=== PATIENT | female | born 1970 | race Caucasian/White ===

== ENCOUNTER 2017-02-10 18:07 | Emergency (ER) | payer OTHER ==
[~2017-02-10] VITALS: Ht 157.5 cm; Wt 75.8 kg
[2017-02-10] MEDS ORDERED: CYCLOBENZAPRINE10 MG PO ×2 (18:33→19:12)
[2017-02-10] MEDS ORDERED: SIMVASTATIN10 MG PO (18:33)
[2017-02-10] MEDS ORDERED: LAMOTRIGINE100 M1 PO (18:33)
[2017-02-10] MEDS ORDERED: TOPIRAMATE100 MG PO (18:33)
[2017-02-10] MEDS ORDERED: DULOXETINE HCL30 MG PO (18:34)
[2017-02-10] MEDS ORDERED: TRAMADOL HCL50 MG PO (18:34)
[2017-02-10] MEDS ORDERED: DICLOFENAC SODI75 MG PO (19:12)
== END 2017-02-10 19:25 | disposition home or self-care (01) ==
LOC: ED 18:07
DX: S39.012A Strain of muscle, fascia and tendon of lower back, initial encounter (principal); J45.909 Unspecified asthma, uncomplicated; G25.81 Restless legs syndrome; F17.200 Nicotine dependence, unspecified, uncomplicated; Z98.51 Tubal ligation status; Z88.0 Allergy status to penicillin; Z88.6 Allergy status to analgesic agent; Z91.038 Other insect allergy status; Z88.5 Allergy status to narcotic agent; Z79.899 Other long term (current) drug therapy; Z98.890 Other specified postprocedural states; X50.0XXA Overexertion from strenuous movement or load, initial encounter
CPT/HCPCS: 99283

== ENCOUNTER 2017-05-25 16:55 | Emergency (ER) | payer OTHER ==
[~2017-05-25] VITALS: Ht 157.5 cm; Wt 81.7 kg
[~2017-05-25 16:55] MED LIST: CYCLOBENZAPRINE10 MG PO; DICLOFENAC SODI75 MG PO; DULOXETINE HCL30 MG PO; LAMOTRIGINE100 M1 PO; SIMVASTATIN10 MG PO; TOPIRAMATE100 MG PO; TRAMADOL HCL50 MG PO
[2017-05-25] MEDS ORDERED: VENTOLIN HFA18 GM INH (18:02)
== END 2017-05-25 18:12 | disposition home or self-care (01) ==
LOC: ED 16:55
DX: J06.9 Acute upper respiratory infection, unspecified (principal); J45.909 Unspecified asthma, uncomplicated; F17.200 Nicotine dependence, unspecified, uncomplicated; Z88.0 Allergy status to penicillin; Z88.8 Allergy status to other drugs, medicaments and biological substances; Z91.030 Bee allergy status; Z88.5 Allergy status to narcotic agent; Z79.899 Other long term (current) drug therapy; Z79.891 Long term (current) use of opiate analgesic
CPT/HCPCS: 99283

== ENCOUNTER 2017-06-03 14:40 | Emergency (ER) | payer OTHER ==
[~2017-06-03] VITALS: Ht 157.5 cm; Wt 81.7 kg
[~2017-06-03 14:40] MED LIST changes: +VENTOLIN HFA18 GM INH
== END 2017-06-03 16:42 | disposition home or self-care (01) ==
LOC: ED 14:40
DX: S93.602A Unspecified sprain of left foot, initial encounter (principal); S80.12XA Contusion of left lower leg, initial encounter; J45.909 Unspecified asthma, uncomplicated; F17.200 Nicotine dependence, unspecified, uncomplicated; Z98.51 Tubal ligation status; Z90.49 Acquired absence of other specified parts of digestive tract; Z91.030 Bee allergy status; Z88.0 Allergy status to penicillin; Z88.6 Allergy status to analgesic agent; Z79.899 Other long term (current) drug therapy; W01.0XXA Fall on same level from slipping, tripping and stumbling without subsequent striking against object, initial encounter
CPT/HCPCS: 73590; 73630; 99283

== ENCOUNTER 2017-10-14 17:58 | Emergency (ER) | payer OTHER ==
[~2017-10-14] VITALS: Ht 157.5 cm; Wt 81.8 kg
[2017-10-14] MEDS ORDERED: ULTRAM50 MG PO (18:20)
[2017-10-14] MEDS ORDERED: CLEOCIN HCL300 MG PO (18:20)
[2017-10-14] MEDS ORDERED: IBUPROFEN600 MG PO (18:20)
--- OUTSIDE RECORDS SUMMARY | 2017-10-14 18:37 | XMS | Encounter Summary ---
Demographics + + + | Address | [address] | | | [place] [address] | + + + | Home Phone | | + + + | Preferred Language | Unknown | + + + | Marital Status | | + + + | Christianity Affiliation | Unknown | + + + | Race | Unknown | + + + | Ethnic Group | Unknown | + + + Author + + + | Author | [facility] | | | and [place] | + + + | Organization | [facility] | | | and [place] | + + + | Address | Unknown | + + + | Phone | Unavailable | + + + Support + + +---------+ + | Name | Relationship | Address | Phone | + + +---------+ + | Venancio Perez | ECON | Unknown | | + + +---------+ + Care Team Providers + +------+ + | Care Rail Engineer Name | Role | Phone | + +------+ + | Kayy Holguin DO | PCP | | + +------+ + Reason for Visit + + + | Reason | Comments | + + + | Medication Refill | | + + + Encounter Details +--------+--------+ + + + | Date | Type | Department | Care Team | Description | +--------+--------+ + + + | 09/24/ | Refill | [place] [facility] | Kayy Holguin, | Medication Refill | | 2017 | | [facility] | DO [address] | | | | | [facility] [address] | [place] [address] | | | | | [address] [place], | [phone] | | | | | [place] [address] | | | | | | [phone] | | | +--------+--------+ + + + Social History + + + +--------+------+ | Tobacco Use | Types | Packs/Day | Years | Date | | | | | Used | | + + + +--------+------+ | Current Every Day | Cigarettes | 0.5 | | | | Smoker | | | | | + + + +--------+------+ + +---+---+---+ | Smokeless Tobacco: | | | | | Never Used | | | | + +---+---+---+ + + +---------+ + | Alcohol Use | Drinks/We | oz/Week | Comments | | | ek | | | + + +---------+ + | No | | | | + + +---------+ + + + + | Sex Assigned at | Date Recorded | | | | + + + | Not on file | | + + + as of this encounter Plan of Treatment Not on fileas of this encounter Visit Diagnoses + + | Diagnosis | + + | Pain - Primary | + + | Generalized pain | + +"
--- OUTSIDE RECORDS SUMMARY | 2017-10-14 18:37 | XMS | Clinical Summary ---
Demographics + + + | Address | [address] | | | [place] [address] | + + + | Home Phone | | + + + | Preferred Language | Unknown | + + + | Marital Status | | + + + | Baptism Affiliation | Unknown | + + + | Race | Unknown | + + + | Ethnic Group | Unknown | + + + Author + + + | Author | [facility] | | | and [place] | + + + | Organization | [facility] | | | and [...] Team Providers + +------+ + | Care Copy Cutter Name | Role | Phone | + +------+ + | Kayy Holguin DO | PP | | + +------+ + Allergies + + + + + + | Active Allergy | Reactions | Severity | Noted | Comments | | | | | Date | | + + + + + + | Aspirin | | | 02/20/20 | | | | | | 18 | | + + + + + + | Bee Venom | | | 02/20/20 | | | | | | 18 | | + + + + + + | Oxycodone | | | 08/01/19 | | | | | | 18 | | + + + + + + | Penicillins | | | 08/01/19 | | | | | | 18 | | + + + + + + Current Medications + + +--------+---------+------+------+-------+ | Prescription | Sig. | Disp. | Refills | Star | End | Statu | | | | | | t | Date | s | | | | | | Date | | | + + +--------+---------+------+------+-------+ | SUMAtriptan | TAKE ONE TABLET BY | 9 | 0 | 01/1 | | Activ | | (IMITREX) 100 mg | MOUTH AT FIRST ONSET | tablet | | 01/29 | | e | | tabletIndications: | OF MIGRAINE | | | 18 | | | | Intractable periodic | SYMPTOMS, MAY REPEAT | | | | | | | headache syndrome | AFTER 2 HOURS; MAX | | | | | | | | DOSE 200MG IN 24 | | | | | | | | HOURS | | | | | | + + +--------+---------+------+------+-------+ | topiramate | Take 1 tablet by | 180 | 3 | 02/0 | | Activ | | (TOPAMAX) 100 mg | mouth 2 times daily. | tablet | | /20 | | e | | tablet | | | | 18 | | | + + +--------+---------+------+------+-------+ | VENTOLIN HFA 108 | | | | 12/1 | | Activ | | (90 Base) MCG/ACT | | | | 5/20 | | e | | inhaler | | | | 17 | | | + + +--------+---------+------+------+-------+ | simvastatin | | | | 02/1 | | Activ | | (ZOCOR) 10 mg tablet | | | | /20 | | e | | | | | | 18 | | | + + +--------+---------+------+------+-------+ | diclofenac | Take 75 mg by mouth | | | | | Activ | | (VOLTAREN) 75 mg EC | 2 times daily. | | | | | e | | tablet | | | | | | | + + +--------+---------+------+------+-------+ | cyclobenzaprine | Take 10 mg by mouth | | | | | Activ | | (FLEXERIL) 10 mg | 3 times daily as | | | | | e | | tablet | needed for Muscle | | | | | | | | spasms. | | | | | | + + +--------+---------+------+------+-------+ | montelukast | Take 10 mg by mouth | | | | | Activ | | (SINGULAIR) 10 mg | nightly. | | | | | e | | tablet | | | | | | | + + +--------+---------+------+------+-------+ | DULoxetine | Take 30 mg by mouth | | | | | Activ | | (CYMBALTA) [address] | Daily. | | | | | e | | capsule | | | | | | | + + +--------+---------+------+------+-------+ | lamoTRIgine | Take 100 mg by mouth | | | | | Activ | | (LAMICTAL) 100 mg | Daily. | | | | | e | | tablet | | | | | | | + + +--------+---------+------+------+-------+ | melatonin 3 mg | Take by mouth | | | | | Activ | | TABS | nightly as needed. | | | | | e | + + +--------+---------+------+------+-------+ | traMADol (ULTRAM) | Take 1 tablet by | 14 | 0 | 02/2 | | Activ | | 50 mg tablet | mouth nightly as | tablet | | 0/20 | | e | | | needed. | | | 18 | | | + + +--------+---------+------+------+-------+ | ibuprofen | TAKE ONE TABLET BY | 180 | 3 | 04/ | | Activ | | (ADVIL,MOTRIN) 800 | MOUTH TWICE DAILY | tablet | | 6/20 | | e | | MG | WITH FOOD | | | 18 | | | | tabletIndications: | | | | | | | | Pain | | | | | | | + + +--------+---------+------+------+-------+ | ibuprofen | Take 1 tablet by | 60 | 1 | 02/2 | 04 | Disco | | (ADVIL,MOTRIN) 800 | mouth 2 times daily. | tablet | | 0/20 | 5 | ntinu | | MG tablet | With food | | | 18 | 18 | ed | + + +--------+---------+------+------+-------+ Active Problems + + + | Problem | Noted Date | + + + | Other hyperlipidemia | 08/01/2017 | + + + | Depression | 08/01/2017 | + + + | Tobacco abuse | 08/01/2017 | + + + | Mild intermittent asthma without complication | 08/01/2017 | + + + | Primary osteoarthritis | 08/01/2017 | + + + | Migraine without aura and without status migrainosus, not | 08/01/2017 | | intractable | | + + + Encounters +--------+ + + + + | Date | Type | Specialty | Care Team | Description | +--------+ + + + + | 09/24/ | Refill | | Kayy Holguin, | Medication Refill | | 2017 | | | DO | | +--------+ + + + + | 08/08/ | Hospital | | Kayy Holguin, | Screening for breast | | 2017 | Encounter | | DO | cancer | +--------+ + + + + | 08/08/ | Telephone | | Diane Thornton, | Lab Results | | 2017 | | | MANAGER ACQUISITION | | +--------+ + + + + | 08/08/ | Telephone | | Diane Thornton, | Results, Imaging | | 2017 | | | MANAGER ACQUISITION | | +--------+ + + + + | 08/01/ | Hospital | | Kayy Holguin, | Injury of left | | 2017 | Encounter | | DO | shoulder, initial | | | | | | encounter | +--------+ + + + + | 08/01/ | Office | | Kayy Holguin, | Injury of left | | 2017 | Visit | | DO | shoulder, initial | | | | | | encounter (Primary | | | | | | Dx); Strain of left | | | | | | shoulder, initial | | | | | | encounter; Other | | | | | | hyperlipidemia; | | | | | | Screening for breast | | | | | | cancer | +--------+ + + + + | 08/01/ | Telephone | | Kayy Holguin, | Results, Imaging | | 2017 | | | DO | | +--------+ + + + + from Last 3 Months Immunizations + + + + | Name | Dates Previously Given | Next Due | + + + + | INFLUENZA PF | 03/03/2017 | | | QUAD(PED/ADOL/ADULT) | | | | ,PSKT or VIAL | | | + + + + | INFLUENZA PF | 03/11/2015 | | | TRIVALENT(PED/ADOL/A | | | | DULNey) PSKT | | | + + + + | TDAP, (ADOL/ADULT) | 03/11/2015, 04/12/2013 | | + + + + Family History + + +------+ + | Medical History | Relation | Name | Comments | + + +------+ + | Cancer | Father | | | + + +------+ + | Diabetes | Father | | | + + +------+ + | Heart disease | Father | | | + + +------+ + | High blood pressure | Father | | | + + +------+ + | High cholesterol | Father | | | + + +------+ + | Cancer | Mother | | | + + +------+ + | Depression | Mother | | | + + +------+ + | Diabetes | Mother | | | + + +------+ + | Heart disease | Mother | | | + + +------+ + | High blood pressure | Mother | | | + + +------+ + | High cholesterol | Mother | | | + + +------+ + | Depression | Son | | | + + +------+ + + +------+--------+ + | Relation | Name | Status | Comments | + +------+--------+ + | Father | | | | + +------+--------+ + | Mother | | | | + +------+--------+ + | Son | | | | + +------+--------+ + Social History + + + +--------+------+ [...] on file | | + + + Last Filed Vital Signs + + + + | Vital Sign | Reading | Time Taken | + + + + | Blood Pressure | 120/80 | 08/01/2017939 PST | + + + + | Pulse | 88 | 08/01/2017939 PST | + + + + | Temperature | 36 C (96.8 F) | 10/08/2015 1447 PDT | + + + + | Respiratory Rate | 16 | 08/01/2017939 PST | + + + + | Oxygen Saturation | 94% | 08/01/2017939 PST | + + + + | Inhaled Oxygen | - | - | | Concentration | | | + + + + | Weight | 72.1 kg (158 lb 14.4 | 08/01/2017939 PST | | | oz) | | + + + + | Height | 157.5 cm (5' 2") | 08/01/2017939 PST | + + + + | Body Mass Index | 29.06 | 08/01/2017939 PST | + + + + Plan of Treatment + + + + + | Health Maintenance | Due Date | Last Done | Comments | + + + + + | Vaccine: | | | | | Pneumococcal | 0 | | | | (PPSV23 only) Medium | | | | | Risk (1 of 1 - | | | | | PPSV23) | | | | + + + + + | CERVICAL CANCER | | 10/28/2015, 10/28/2015 | | | SCREENING (PAP EVERY | 9 | | | | 3 YEARS 64 ) | | | | + + + + + | Vaccine: | | 03/11/2015, 04/12/2013 | | | Dtap/Tdap/Td (2 - | 5 | | | | Td) | | | | + + + + + | Vaccine: Influenza | Completed | 03/03/2017, 03/11/2015 | | + + + + + Results TRISTAN Tomosynthesis Screening Bilateral (08/08/2017 1150) + + | Impressions | + + | IMPRESSION: BIRADS category: 2. No findings suspicious for malignancy. | | COMMENT: 1. A negative or "no suspicious findings" mammogram report should not delay | | biopsy if clinical suspicious findings are present. 2. About 7% of breast cancers are | | not visible on mammogram. 3. Dense breasts can obscure significant breast masses. | | COMMENT: BIRADS Category Zero Incomplete: Needs additional imaging evaluation. BIRADS | | Category One Negative mammogram. BIRADS Category Two Benign findings. BIRADS Category | | Three Probably benign finding, short interval follow-up suggested. BIRADS Category Four | | Suspicious for/of malignancy. BIRADS Category Five Highly suggestive for/of | | malignancy. Dictated by: Juan Looney | + + + + | Narrative | + + | EXAMINATION: TRISTAN TOMOSYN SCREENING BILATERAL HISTORY: routine mammogram to | | screen for breast cancer COMPARISON STUDY: 05/21/2014. 05/02/2013. | | TECHNIQUE: 3D tomosynthesis, 2D synthesized images and standard digital | | mammographic images are utilized in study interpretation. Computer-aided detection | | analysis was performed and included in the interpretation of this study. FINDINGS: | | No dominant mass, clustered microcalcification or architectural distortion is seen. | | Scattered fibroglandular density present. Intramammary lymph nodes noted upper | | lateral posterior 3rd depth right breast.. | + + Lipid Panel (08/08/2017945) + + + + | Component | Value | Ref Range | + + + + | Triglycerides | 116 | 30 - 200 mg/dL | + + + + | Cholesterol | 186 | 0 - 200 mg/dL | + + + + | HDL | 41 | >=40 mg/dL | + + + + | Chol/HDL Ratio | 4.5 | | + + + + | LDL, Calculated | 122 | <=150 mg/dL | | | Comment: | | | | LDL reference range: | | | | | | | | < 100 mg/dL Optimal | | | | 100 - 129 mg/dL Near Optimal | | | | 130 - 159 mg/dL Borderline | | | | 160 - 189 mg/dL High | | | | > 190 mg/dL Very High | | + + + + + + + | Specimen | Performing Laboratory | + + + | Blood | [facility] [address] | | | [place] [address] | + + + Comprehensive Metabolic Panel (08/08/2017 0946) + + + + | Component | Value | Ref Range | + + + + | NA | 139 | 132 - 143 mmol/L | + + + + | K | 4.1 | 3.3 - 4.9 mmol/L | + + + + | CL | 103 | 95 - 108 mmol/L | + + + + | CO2 | 24 | 23 - 34 mmol/L | + + + + | ANION GAP | 12 | 7 - 16 mmol/L | + + + + | GLUCOSE | 92 | 70 - 110 mg/dL | + + + + | BUN | 9 | 5 - 26 mg/dL | + + + + | Creatinine, | 0.81 | 0.70 - 1.40 mg/dL | | Serum/Plasma | | | + + + + | eGFR if not | >60Comment: GLOMERULAR FILTRATION | >=60 mL/min/1.73m2 | | SAMOAN | RATE,ESTIMATED mL/min/1.60o6Usid than | | | | 60 Chronic kidney disease,if found over | | | | a 3-month period.Less than 15 Kidney | | | | failureFor Americans,multiply the | | | | calculated GFR by 1.21. | | | | | | | | | | + + + + | CALCIUM | 8.9 | 8.3 - 10.0 mg/dL | + + + + | ALBUMIN | 3.4 | 3.0 - 4.5 g/dL | + + + + | Bilirubin Total | 0.2 | 0.0 - 1.2 mg/dL | + + + + | Total protein | 7.3 | 6.6 - 8.5 g/dL | + + + + | AST | 22 | 0 - 38 U/L | + + + + | ALT | 38 | 14 - 59 U/L | + + + + | ALK PHOS | 93 | 46 - 116 U/L | + + + + | GLOBULIN | 3.9 | g/dL | + + + + | Albumin/Globulin | 0.9 | | | ratio | | | + + + + | BUN/CREA | 11.1 | 7.0 - 24.0 | + + + + + + + | Specimen | Performing Laboratory | + + + | Blood | [facility] [address] | | | [place] [address] | + + + XR Shoulder Left 2 + Vw (08/01/2017 1059) + + | Impressions | + + | IMPRESSION: 1. Interval widening of the acromioclavicular joint. This finding | | could relate to age-indeterminate sprain. Nonspecific osteal lysis of the distal | | clavicle could result in similar appearance. 2. No fracture or dislocation identified. | | Dictated by: Juan Looney | | 12:15 PM | + + + + | Narrative | + + | EXAMINATION: XR SHOULDER LEFT 2 + VW HISTORY: fall and injury to left shoulder | | COMPARISON STUDY: Left shoulder 06/04/2017. FINDINGS: Distance between the | | acromion and the clavicle is 15 mm. Alignment appears maintained. No acute | | fracture or dislocation is seen. The visualized left thorax is clear. | + + + + | Procedure Note | + + | Marvin, Rad Results In - 08/01/2017 1219 PST EXAMINATION:XR SHOULDER LEFT 2 + | | VWHISTORY:fall and injury to left shoulderCOMPARISON STUDY:Left shoulder | | 06/04/2017.FINDINGS:Distance between the acromion and the clavicle is 15 mm. Alignment | | appears maintained.No acute fracture or dislocation is seen. The visualized left thorax | | is clear.IMPRESSION: IMPRESSION:1. Interval widening of the acromioclavicular joint. | | This finding could relate to age-indeterminate sprain. Nonspecific osteal lysis of the | | distal clavicle could result in similar appearance.2. No fracture or dislocation | | identified.Dictated by: Juan LooneyElectronically Signed by: Juan Looney on | | 08/01/2017 12:15 PM | |FINDINGS: | |Distance between the acromion and the clavicle is 15 mm. Alignment appears maintained. | | | |No acute fracture or dislocation is seen. The visualized left thorax is clear. | | | | | |IMPRESSION: | |IMPRESSION: | |1. Interval widening of the acromioclavicular joint. This finding could relate to age-inde terminate sprain. Nonspecific osteal lysis of the distal clavicle could result in similar a ppearance. | |2. No fracture or dislocation identified. | | | |Dictated by: Juan Looney | | | | | + + from Last 3 Months Insurance + +--------+ +--------+ +---------+ | Payer | Benefi | Subscriber | Type | Phone | Address | | | t Plan | ID | | | | | | / | | | | | | | Group | | | | | + +--------+ +--------+ +---------+ | [employer] | MODA | xxxxxxxx | Medica | [phone] | | MEDICAID HMO | HEALTH | | id | 9821 | | | | [place] | | | | | | | [place] | | | | | + +--------+ +--------+ +---------+ + +--------+ +--------+ + + | Guarantor Name | Accoun | Relation to | Date | Phone | Billing Address | | | t Type | Patient | of | | | | | | | | | | + +--------+ +--------+ + + | RIDDHI PEREZ | Person | Self [birth year] Home: | [address] | | | al/Fam | | 1970 | [phone] | [address] [place] | | | jun | | [phone] | + +--------+ +--------+ + +
--- OUTSIDE RECORDS SUMMARY | 2017-10-14 18:40 | XMS | Encounter Summary ---
Demographics + + + | Address | [address] | | | [place] [address] | + + + | Home Phone | | + + + | Preferred Language | Unknown | + + + | Marital Status | | + + + | Pentecostalism Affiliation | Unknown | + + + | Race | Unknown | + + + | Ethnic Group | Unknown | + + + Author + + + | Author | [facility] | | | and [place] | + + + | Organization | [facility] | | | [...] Team Providers + +------+ + | Care Plastering Supervisor Name | Role | Phone | + +------+ + | Kayy Holguin DO | PCP | | + +------+ + Reason for Visit + + + | Reason | Comments | + + + | Lab Results | | + + + Encounter Details +--------+ + + + + | Date | Type | Department | Care Team | Description | +--------+ + + + + | 08/08/ | Telephone | [place] [facility] | Diane Thornton, | Lab Results | | 2017 | | [facility] | COATER OPERATOR | | | | | [facility]ICAL CL[facility] [address] | | | | | [address] [place], | | | | | | [place] [address] | | | | | | [phone] | | | +--------+ + + + + Social History + + [...] on fileas of this encounter Visit Diagnoses Not on filein this encounter"
--- OUTSIDE RECORDS SUMMARY | 2017-10-14 18:40 | XMS | Encounter Summary ---
Demographics + + + | Address | [address] | | | [place] [address] | + + + | Home Phone | | + + + | Preferred Language | Unknown | + + + | Marital Status | | + + + | Anabaptist Affiliation | Unknown | + + + | Race | Unknown | + + + | Ethnic Group | Unknown | + + + Author + + + | Author | [facility] | | | and [place] | + + + | Organization | [facility] | | | [...] Team Providers + +------+ + | Care Commercial Truck Driver Name | Role | Phone | + +------+ + | Kayy Holguin DO | PCP | | + +------+ + Reason for Visit + + + | Reason | Comments | + + + | Results, Imaging | | + + + Encounter Details +--------+ + + + + | Date | Type | Department | Care Team | Description | +--------+ + + + + | 08/08/ | Telephone | [place] [facility] | Diane Thornton, | Results, Imaging | | 2017 | | [facility] | [facility] | | | | | MEDICAL CLINIC [address] | | | | | | [address] [facility], | | | | | | [place] [address] | | | | | | [phone] | | | +--------+ + + + [...]
--- OUTSIDE RECORDS SUMMARY | 2017-10-14 18:40 | XMS | Encounter Summary ---
Demographics + + + | Address | [address] | | | [place] [address] | + + + | Home Phone | | + + + | Preferred Language | Unknown | + + + | Marital Status | | + + + | Bahai Affiliation | Unknown | + + + | Race | Unknown | + + + | Ethnic Group | Unknown | + + + Author + + + | Author | [facility] | | | and [place] | + + + | Organization | [facility] | | | and [...] Team Providers + +------+ + | Care Boss Miner Name | Role | Phone | + +------+ + | Kayy Holguin DO | PCP | | + +------+ + Encounter Details +--------+ + + + + | Date | Type | Department | Care Team | Description | +--------+ + + + + | 08/08/ | [facility] | Kayy Holguin, | Screening for breast | | 2018 | Encounter | HOSPITAL [facility] | DO [address] | cancer | | | | [address] | [place] [address] | | | | | [address] [place] | [phone] | | | | | [place], [place] | | | | | | [address] | | | | | | [phone] | | | +--------+ + + + [...] + + + as of this encounter Medications at Time of Discharge + + +--------+---------+ + + | Medication | Sig. | Disp. | Refills | Start | End Date | | | | | | Date | | + + +--------+---------+ + + | cyclobenzaprine | Take 10 mg by mouth | | | | | | (FLEXERIL) 10 mg | 3 times daily as | | | | | | tablet | needed for Muscle | | | | | | | spasms. | | | | | + + +--------+---------+ + + | diclofenac | Take 75 mg by mouth | | | | | | (VOLTAREN) 75 mg EC | 2 times daily. | | | | | | tablet | | | | | | + + +--------+---------+ + + | DULoxetine | Take 30 mg by mouth | | | | | | (CYMBALTA) [address] | Daily. | | | | | | capsule | | | | | | + + +--------+---------+ + + | lamoTRIgine | Take 100 mg by mouth | | | | | | (LAMICTAL) 100 mg | Daily. | | | | | | tablet | | | | | | + + +--------+---------+ + + | melatonin 3 mg | Take by mouth | | | | | | TABS | nightly as needed. | | | | | + + +--------+---------+ + + | montelukast | Take 10 mg by mouth | | | | | | (SINGULAIR) 10 mg | nightly. | | | | | | tablet | | | | | | + + +--------+---------+ + + | simvastatin | | | | 07/25/19 | | | (ZOCOR) 10 mg tablet | | | | 18 | | + + +--------+---------+ + + | SUMAtriptan | TAKE ONE TABLET BY | 9 | 0 | 06/29/19 | | | (IMITREX) 100 mg | MOUTH AT FIRST ONSET | tablet | | 18 | | | tabletIndications: | OF MIGRAINE | | | | | | Intractable periodic | SYMPTOMS, MAY REPEAT | | | | | | headache syndrome | AFTER 2 HOURS; MAX | | | | | | | DOSE 200MG IN 24 | | | | | | | HOURS | | | | | + + +--------+---------+ + + | topiramate | Take 1 tablet by | 180 | 3 | 07/13/19 | | | (TOPAMAX) 100 mg | mouth 2 times daily. | tablet | | 18 | | | tablet | | | | | | + + +--------+---------+ + + | traMADol (ULTRAM) | Take 1 tablet by | 14 | 0 | 08/01/19 | | | 50 mg tablet | mouth nightly as | tablet | | 18 | | | | needed. | | | | | + + +--------+---------+ + + | VENTOLIN HFA 108 | | | | 05/26/20 | | | (90 Base) MCG/ACT | | | | 17 | | | inhaler | | | | | | + + +--------+---------+ + + | ibuprofen | Take 1 tablet by | 60 | 1 | 08/01/19 | | | (ADVIL,MOTRIN) 800 | mouth 2 times daily. | tablet | | 18 | 8 | | MG tablet | With food | | | | | + + +--------+---------+ + + as of this encounter Plan of Treatment Not on fileas of this encounter Results TRISTAN Tomosynthesis Screening Bilateral (08/08/2017 1150) [...] 3rd depth right breast.. | + + in this encounter Visit Diagnoses + + | Diagnosis | + + | Screening for breast cancer | + + | Breast screening, unspecified | + +
--- OUTSIDE RECORDS SUMMARY | 2017-10-14 18:40 | XMS | Encounter Summary ---
Demographics + + + | Address | [address] | | | [place] [address] | + + + | Home Phone | | + + + | Preferred Language | Unknown | + + + | Marital Status | | + + + | Jainism Affiliation | Unknown | + + + | Race | Unknown | + + + | Ethnic Group | Unknown | + + + Author + + + | Author | [facility] | | | and [place] | + + + | Organization | [facility] | | | [...] Team Providers + +------+ + | Care Golf Ball Marker Name | Role | Phone | + +------+ + | Kayy Holguin DO | PCP | | + +------+ + Encounter Details +--------+ + + + + | Date | Type | Department | Care Team | Description | +--------+ + + + + | 08/01/ | [facility] | [place] [facility] | Kayy Holguin, | Injury of left | | 2017 | Encounter | HOSPITAL XRAY [address] | DO [address] | shoulder, initial | | | | [address] [place] | [place] [address] | encounter | | | | [place], [place] | [phone] | | | | | [address] | | | | | | [phone] | | | +--------+ + + + [...] TABLET BY | 9 | 0 | / | | | (IMITREX) 100 mg | [...] Not on fileas of this encounter Results XR Shoulder Left 2 + Vw (08/01/2017 [...] | | | | | + + in this encounter Visit Diagnoses + + | Diagnosis | + + | Injury of left shoulder, initial encounter | + +"
--- OUTSIDE RECORDS SUMMARY | 2017-10-14 18:40 | XMS | Encounter Summary ---
Demographics + + + | Address | [address] | | | [place] [address] | + + + | Home Phone | | + + + | Preferred Language | Unknown | + + + | Marital Status | | + + + | Sabianism Affiliation | Unknown | + + + | Race | Unknown | + + + | Ethnic Group | Unknown | + + + Author + + + | Author | [facility] | | | and mEilana | + + + | Organization | [facility] | | | and [...] Team Providers + +------+ + | Care Lime Kiln Operator Name | Role | Phone | + [...] + + | 08/01/ | Telephone | [place] [facility] | Chelsie Kayy Ott, | Results, Imaging | | 2018 | | [facility] | DO [address] | | | | | MEDICAL CLIN[facility] [address] | [place] [address] | | | | | [address] [place], | [phone] | | | | | [place] [address] | | | | | | [phone] | | | +--------+ + + + [...]
--- OUTSIDE RECORDS SUMMARY | 2017-10-14 18:40 | XMS | Encounter Summary ---
Demographics + + + | Address | [address] | | | [place] [address] | + + + | Home Phone | | + + + | Preferred Language | Unknown | + + + | Marital Status | | + + + | Evangelical Affiliation | Unknown | + + + | Race | Unknown | + + + | Ethnic Group | Unknown | + + + Author + + + | Author | [facility] | | | and Emilana | + + + | Organization | [facility] | | [...] Team Providers + +------+ + | Care Studio Designer Name | Role | Phone | + +------+ + | Kayy Holguin DO | PCP | | + +------+ + Reason for Referral Evaluate & Treat (Routine) +--------+ + + + + + | Status | Reason | Specialty | Diagnoses / | Referred By | Referred To | | | | | Procedures | Contact | Contact | +--------+ + + + + + | Closed | Specialty | Physical | Diagnoses | Yassine Holguin Wgr | | | Services | Therapy / | Injury of | Kayy A, DO | Therapy Pt | | | Required | Rehabilitatio | left | [address] | [address] | | | | n | shoulder, | [place], | | | | | initial | [place] [address] | [place] [address] | | | | | encounter | Phone: | Phone: | | | | | Strain of | [phone] | [phone] | | | | | left | Fax: | Fax: | | | | | shoulder, | [phone] | [phone] | | | | | initial | | | | | | | encounter | | | | | | | Procedures | | | | | | | EVAL AND | | | | | | | TREAT | | | +--------+ + + + + + Reason for Visit + + + | Reason | Comments | + + + | Follow-up | ER | + + + Encounter Details +--------+---------+ + + + | Date | Type | Department | Care Team | Description | +--------+---------+ + + + | 08/01/ | Office | [place] [facility] | Kayy Holguin, | Injury of left | | 2018 | Visit | [facility] | DO [address] | shoulder, initial | | | | MEDICAL CLINIC [address] | [place] [address] | encounter (Primary | | | | [address] [place], | [phone] | Dx); Strain of left | | | | [place] [address] | | shoulder, initial | | | | [phone] | | encounter; Other | | | | | | hyperlipidemia; | | | | | | Screening for breast | | | | | | cancer | +--------+---------+ + + + Social History + + [...] + + + as of this encounter Last Filed Vital Signs + + + + | Vital Sign | Reading | Time Taken | + + + + | Blood Pressure | 120/80 | 08/01/2017939 PST | + + + + | Pulse | 88 | 08/01/2017939 PST | + + + + | Temperature | - | - | + + + + | Respiratory Rate | 16 | 08/01/2017939 PST | + + + + | Oxygen Saturation | 94% | 08/01/2017939 PST | + + + + | Inhaled Oxygen | - | - | | Concentration | | | + + + + | Weight | 72.1 kg (158 lb 14.4 | 08/01/201740 PST | | | oz) | | + + + + | Height | 157.5 cm (5' 2") | 08/01/2017 0940 PST | + + + + | Body Mass Index | 29.06 | 08/01/2017 0940 PST | + + + + in this encounter Kayy Fowler DO - 08/01/201730 PSTFormatting of this note may be different from the original. Subjective: Patient ID: Riddhi Perez is a 47 y.o. female. Here due to a fall off porch a month ago on the ice. She was seen in [place] [facility] and had x ray on the left leg and no fractures but soon after her left shoulder started hurting. She d id not return to the Er. Had surgery on the left shoulder arthroscopy 3-4 years ago. States shoulder hurting most at noc and keeping her awake. No numbness. Has not been her for a year for routine cares and needs check on lipids and mammogram and she agrees to these. Denies b reast changes. Review of Systems Constitutional: Negative. Respiratory: Negative. Cardiovascular: Negative. Gastrointestinal: Negative. Musculoskeletal: Shoulder injury as above Skin: Negative. Neurological: Negative. Psychiatric/Behavioral: Negative. Social History Social History Marital status: Spouse name: N/A Number of children: N/A Years of education: N/A Occupational History Not on file. Social History Main Topics Smoking status: Current Every Day Smoker Packs/day: 0.50 Types: Cigarettes Smokeless tobacco: Never Used Alcohol use No Drug use: No Sexual activity: Not on file Other Topics Concern Not on file Social History Narrative No narrative on file Allergies Allergen Reactions Aspirin Bee Venom Oxycodone Penicillins Outpatient Encounter Prescriptions as of 08/01/2017 Medication Sig Dispense Refill cyclobenzaprine (FLEXERIL) 10 mg tablet Take 10 mg by mouth 3 times daily as needed for Muscle spasms. diclofenac (VOLTAREN) 75 mg EC tablet Take 75 mg by mouth 2 times daily. DULoxetine (CYMBALTA) [address] capsule Take 30 mg by mouth Daily. ibuprofen (ADVIL,MOTRIN) 800 MG tablet Take 1 tablet by mouth 2 times daily. With food 60 tablet 1 lamoTRIgine (LAMICTAL) 100 mg tablet Take 100 mg by mouth Daily. melatonin 3 mg TABS Take by mouth nightly as needed. montelukast (SINGULAIR) 10 mg tablet Take 10 mg by mouth nightly. simvastatin (ZOCOR) 10 mg tablet SUMAtriptan (IMITREX) 100 mg tablet TAKE ONE TABLET BY MOUTH AT FIRST ONSET OF MIGRAINE SYMPTOMS, MAY REPEAT AFTER 2 HOURS; MAX DOSE 200MG IN 24 HOURS 9 tablet 0 topiramate (TOPAMAX) 100 mg tablet Take 1 tablet by mouth 2 times daily. 180 tablet 3 traMADol (ULTRAM) 50 mg tablet Take 1 tablet by mouth nightly as needed. 14 tablet 0 VENTOLIN HFA 108 (90 Base) MCG/ACT inhaler No facility-administered encounter medications on file as of 08/01/2017. Objective: BP 120/80 | Pulse 88 | Resp 16 | Ht 1.575 m (5' 2") | Wt 72.1 kg (158 lb 14.4 oz) | LM P (LMP Unknown) | SpO2 94% | ? No | BMI 29.06 kg/m Physical Exam Constitutional: She is oriented to person, place, and time. She appears well-developed and well-nourished. HENT: Head: Normocephalic and atraumatic. Right Ear: External ear normal. Left Ear: External ear normal. Mouth/Throat: Oropharynx is clear and moist. Eyes: Conjunctivae and EOM are normal. Pupils are equal, round, and reactive to light. Righ t eye exhibits no discharge. Left eye exhibits no discharge. No scleral icterus. Neck: Normal range of motion. Neck supple. No tracheal deviation present. No thyromegaly pr esent. Cardiovascular: Normal rate, regular rhythm and normal heart sounds. Exam reveals no farias p and no friction rub. No murmur heard. Pulmonary/Chest: Effort normal and breath sounds normal. No respiratory distress. Abdominal: Soft. Bowel sounds are normal. She exhibits no distension and no mass. There is no tenderness. Musculoskeletal: She exhibits no edema or deformity. Left shoulder restricted in extension, and abduction to 50 % expected. Able to do empty can motions. Some pinpoint tenderness anterior shoulder, no swelling or bruising visible. Lymphadenopathy: She has no cervical adenopathy. Neurological: She is alert and oriented to person, place, and time. No cranial nerve defici t. Coordination normal. Skin: Skin is warm and dry. No rash noted. Psychiatric: She has a normal mood and affect. Her behavior is normal. Judgment and thought content normal. Assessment: 1. Injury of left shoulder, initial encounter XR Shoulder Left 2 + Vw * [place] [facility] Therapy - AMB Referral 2. Strain of left shoulder, initial encounter * [place] [facility] Physical Therapy - AMB Referral 3. Other hyperlipidemia Comprehensive Metabolic Panel Lipid Panel 4. Screening for breast cancer TRISTAN Tomosynthesis Screening Bilateral Plan: Xray shoulder and PT ordered. Ibuprofen for inflammation with food and ultram short term on ly for pain at [facility]. She will return fasting for lipids and CMP and I will order routine mamm o. in this encounter Plan of Treatment + +--------+ + + | Name | Priori | Associated Diagnoses | Order Schedule | | | ty | | | + +--------+ + + | * [facility] [facility] | Routin | Injury of left | Ordered: 08/01/2017 | | Therapy - AMB Referral | e | shoulder, initial | | | | | encounter Strain of | | | | | left shoulder, | | | | | initial encounter | | + +--------+ + + as of this encounter Results TRISTAN Tomosynthesis Screening [...] | + + + | Blood | [facility] [address] | | | [place] [address] | + + + Comprehensive Metabolic Panel (08/08/2017945) + + + + | [...] GLOMERULAR FILTRATION | >=60 mL/min/1.73m2 | | [place] | RATE,ESTIMATED mL/min/1.23u6Npof than | | | | 60 Chronic [...] | + + + | Blood | [facility] [address] | | | [place] [address] | + + + XR Shoulder Left [...] | Injury of left shoulder, initial encounter - Primary | + + | Strain of left shoulder, initial encounter | + + | Other hyperlipidemia | + + | Screening for breast cancer | + + | Breast screening, unspecified | + +
--- OUTSIDE RECORDS SUMMARY | 2017-10-14 18:43 | XMS | Encounter Summary ---
Demographics + + + | Address | [address] | | | [place] [address] | + + + | Home Phone | | + + + | Preferred Language | Unknown | + + + | Marital Status | | + + + | Yarsanism Affiliation | Unknown | + + + | Race | Unknown | + + + | Ethnic Group | Unknown | + + + Author + + + | Author | [facility] | | | and Emilana | + + + | Organization | [facility] | | | [...] Team Providers + +------+ + | Care Molding Machine Operator Name | Role | Phone | + +------+ + | Kayy Holguin DO | PCP | | + +------+ + Encounter Details +--------+ + + + + | Date | Type | Department | Care Team | Description | +--------+ + + + + | 08/01/ | [facility] | [place] [facility] | Kayy Holguin, | Injury of left | | 2017 | Encounter | [facility] [address] | DO [address] | shoulder, initial | | | | [address] [place] | [place] [address] | encounter | | | | [place], [place] | [phone] | | | | | [address] | | | | | | [phone] | | | +--------+ + + + [...]
--- OUTSIDE RECORDS SUMMARY | 2017-10-14 18:43 | XMS | Encounter Summary ---
Demographics + + + | Address | [address] | | | [place] [address] | + + + | Home Phone | | + + + | Preferred Language | Unknown | + + + | Marital Status | | + + + | Orthodoxy Affiliation | Unknown | + + + | Race | Unknown | + + + | Ethnic Group | Unknown | + + + Author + + + | Author | [facility] | | | and Emilana | + + + | Organization | [facility] | | [...] Team Providers + +------+ + | Care Technical Intern Name | Role | Phone | + [...] Imaging | | 2017 | | [facility] | [facility] [employer] [facility] | | | | | MEDICAL CLINIC [address] | | | | | | [address] [facility], | | | | | | [place] [address] | | | | | | [phone] | | | +--------+ + + + [...]
--- OUTSIDE RECORDS SUMMARY | 2017-10-14 18:43 | XMS | Encounter Summary ---
Demographics + + + | Address | [address] | | | [place] [address] | + + + | Home Phone | | + + + | Preferred Language | Unknown | + + + | Marital Status | | + + + | Sabianist Affiliation | Unknown | + + + | Race | Unknown | + + + | Ethnic Group | Unknown | + + + Author + + + | Author | [facility] | | | and Emilana | + + + | Organization | [facility] | | [...] Team Providers + +------+ + | Care Microwave Oven Assembler Name | Role | Phone | + [...] Refill | | 2017 | | [facility] | DO [address] | | | | | MEDICAL CLINIC [address] | [place] [address] | | | | | [address] [place], | [phone] | | | | | [place] [address] | | | | | | [phone] | | | +--------+--------+ + + + [...]
--- OUTSIDE RECORDS SUMMARY | 2017-10-14 18:43 | XMS | Clinical Summary ---
Demographics + + + | Address | [address] | | | [place] [address] | + + + | Home Phone | | + + + | Preferred Language | Unknown | + + + | Marital Status | | + + + | Adventist Affiliation | Unknown | + + + [...] Team Providers + +------+ + | Care Office Administrative Assistant Name | Role | Phone | + [...] Results | | 2017 | | | MEDICAL SECRETARY RECEPTIONIST | | +--------+ + + + + | 08/08/ | Telephone | | Diane Thornton, | Results, Imaging | | 2017 | | | MEDICAL SECRETARY RECEPTIONIST | | +--------+ + + + + [...] | + + + | Blood | [facility] [address] | | | [place] [address] | + + + Comprehensive Metabolic Panel [...] GLOMERULAR FILTRATION | >=60 mL/min/1.73m2 | | [place] | RATE,ESTIMATED mL/min/1.30o7Kncg than | | | | 60 Chronic [...] | + + + | Blood | [facility] [address] | | | [place] [address] | + + + XR Shoulder Left [...] | MODA | [id number] | Medica | [phone] | | MEDICAID HMO | HEALTH [...] Self | [birth year] Home: | [address] | | | al/Fam | | 1970 | [phone] | [address] [place] | | | jun | | | [phone] | [phone] | + +--------+ +--------+ + +
--- OUTSIDE RECORDS SUMMARY | 2017-10-14 18:43 | XMS | Encounter Summary ---
Demographics + + + | Address | [address] | | | [place] [address] | + + + | Home Phone | | + + + | Preferred Language | Unknown | + + + | Marital Status | | + + + | Holiness Affiliation | Unknown | + + + | Race | Unknown | + + + | Ethnic Group | Unknown | + + + Author + + + | Author | [facility] | | | and Emilana | + + + | Organization | [facility] | | | [...] Team Providers + +------+ + | Care Carbonizer Name | Role | Phone | + [...] Imaging | | 2018 | | [facility] | DO [address] | | | | | MEDICAL CLINIC [address] | [place] [address] | | | | | [address] [place], | [phone] | | | | | [place] [address] | | | | | | [phone] | | | +--------+ + + + [...]
--- OUTSIDE RECORDS SUMMARY | 2017-10-14 18:43 | XMS | Encounter Summary ---
Demographics + + + | Address | [address] | | | [place] [address] | + + + | Home Phone | | + + + | Preferred Language | Unknown | + + + | Marital Status | | + + + | Spiritism Affiliation | Unknown | + + + | Race | Unknown | + + + | Ethnic Group | Unknown | + + + Author + + + | Author | [facility] | | | and Emilana | + + + | Organization | [facility] | | | [...] Team Providers + +------+ + | Care Emergency Worker Name | Role | Phone | + [...] | | | | initial | [place] [address] | [place] [address] | | | | | encounter | Phone: | Phone: | | | | | Strain of | [phone] | [phone] | | | | | left | Fax: | Fax: | | | | | shoulder, | [phone] | [phone] | | | | | initial | [...] left | | 2018 | Visit | [facility] | DO [address] | shoulder, initial | | | | MEDICAL CLINIC [address] | [place] [address] | encounter (Primary | | | | [address] [place], | [phone] | Dx); Strain of left | | | | [place] [address] | | shoulder, initial | | | | [phone] | | encounter; Other | | | [...] on the ice. She was seen in [place] [facility] and had x ray on the [...] short term on ly for pain at [facility]. She will return fasting for lipids and [...] | + + + | Blood | [facility] [address] | | | [place] [address] | + + + Comprehensive Metabolic Panel [...] GLOMERULAR FILTRATION | >=60 mL/min/1.73m2 | | [place] | RATE,ESTIMATED mL/min/1.67n6Trsx than | | | | 60 Chronic [...] | + + + | Blood | [facility] [address] | | | [place] [address] | + + + XR Shoulder Left [...]
--- OUTSIDE RECORDS SUMMARY | 2017-10-14 18:43 | XMS | Encounter Summary ---
Demographics + + + | Address | [address] | | | [place] [address] | + + + | Home Phone | | + + + | Preferred Language | Unknown | + + + | Marital Status | | + + + | Rastafarian Affiliation | Unknown | + + + | Race | Unknown | + + + | Ethnic Group | Unknown | + + + Author + + + | Author | [facility] | | | and Emilana | + + + | Organization | [facility] | | | [...] Team Providers + +------+ + | Care Compliance Attorney Name | Role | Phone | + [...] Lab Results | | 2017 | | [facility] | BEHAVIORAL SCIENCES INSTRUCTOR | | | | | MEDICAL CLINIC [address] | | | | | | [address] [place], | | | | | | [place] [address] | | | | | | [phone] | | | +--------+ + + + [...]
--- OUTSIDE RECORDS SUMMARY | 2017-10-14 18:43 | XMS | Encounter Summary ---
Demographics + + + | Address | [address] | | | [place] [address] | + + + | Home Phone | | + + + | Preferred Language | Unknown | + + + | Marital Status | | + + + | Yazidi Affiliation | Unknown | + + + | Race | Unknown | + + + | Ethnic Group | Unknown | + + + Author + + + | Author | [facility] | | | and Emilana | + + + | Organization | [facility] | | | and [...] Team Providers + +------+ + | Care Jigmaker Name | Role | Phone | + +------+ + | Kayy Holguin DO | PCP | | + +------+ + Encounter Details +--------+ + + + + | Date | Type | Department | Care Team | Description | +--------+ + + + + | 08/08/ | [facility] | Kayy Holguin, | Screening for breast | | 2018 | Encounter | [facility]OS[facility] | DO [address] | cancer | | | | [address] | [place] [address] | | | | | [address] [place] | [phone] | | | | | [place], [place] | | | | | | [address] | | | | | | [phone] | | | +--------+ + + + [...]
== END 2017-10-14 18:42 | disposition home or self-care (01) ==
LOC: ED 17:58
DX: K02.9 Dental caries, unspecified (principal); J45.909 Unspecified asthma, uncomplicated; F17.200 Nicotine dependence, unspecified, uncomplicated; Z91.030 Bee allergy status; Z88.0 Allergy status to penicillin; Z88.6 Allergy status to analgesic agent; Z88.5 Allergy status to narcotic agent; Z79.899 Other long term (current) drug therapy
CPT/HCPCS: 99283

== ENCOUNTER 2018-07-03 08:55 | Emergency (ER) | payer OTHER ==
[~2018-07-03] VITALS: Ht 157.5 cm; Wt 81.8 kg
[~2018-07-03 08:55] MED LIST changes: +CLEOCIN HCL300 MG PO; +IBUPROFEN600 MG PO; +ULTRAM50 MG PO
== END 2018-07-03 09:49 | disposition home or self-care (01) ==
LOC: ED 08:55
DX: S61.250A Open bite of right index finger without damage to nail, initial encounter (principal)

== ENCOUNTER 2018-09-20 16:57 | Emergency (ER) | payer OTHER ==
[~2018-09-20] VITALS: Ht 157.5 cm; Wt 81.8 kg
--- OUTSIDE RECORDS SUMMARY | ~2018-09-20 | XMS | Clinical Summary ---
Demographics + + + | Address | [address] | | | [place] [address] | + + + | Home Phone [...] Team Providers + +------+ + | Care Transverse Abdominal Muscle Surgeon Name | Role | Phone | + +------+ + | Kayy Holguin DO | PP | | + +------+ + Allergies + + + + + + | Active Allergy | Reactions | Severity | Noted | Comments | | | | | Date | | + + + + + + | Aspirin | | | 20 | | | | | | 18 | | + + + + + + | Bee Venom | | | 08/01/19 | | | | | | 18 | | + + + + + + | Oxycodone | | | 08/01/19 | | | | | | 18 | | + + + + + + | Penicillins | | | 08/01/19 | | | | | | 18 | | + + + + + + Medications + + + +---------+------+------+-------+ | Medication | Sig | Dispensed | Refills | Star | End | Statu | | | | | | t | Date | s | | | | | | Date | | | + + + +---------+------+------+-------+ | SUMAtriptan | TAKE ONE TABLET BY | 9 | 0 | 01/1 | | Activ | | (IMITREX) 100 mg | MOUTH AT FIRST ONSET | tablet | | 820 | | e | | tabletIndications: | [...] | | | | + + + +---------+------+------+-------+ | topiramate | Take 1 tablet by | 180 | 3 | 02/0 | | Activ | | (TOPAMAX) 100 mg | mouth 2 times daily. | tablet | | /20 | | e | | tablet | | | | 18 | | | + + + +---------+------+------+-------+ | VENTOLIN HFA 108 | | | 0 | 12/1 | | Activ | | (90 Base) MCG/ACT | | | | 5/20 | | e | | inhaler | | | | 17 | | | + + + +---------+------+------+-------+ | simvastatin | | | 0 | 02/1 | | Activ | | (ZOCOR) 10 mg tablet | | | | 3/20 | | e | | | | | | 18 | | | + + + +---------+------+------+-------+ | diclofenac | Take 75 mg by mouth | | 0 | | | Activ | | (VOLTAREN) 75 mg EC | 2 times daily. | | | | | e | | tablet | | | | | | | + + + +---------+------+------+-------+ | montelukast | Take 10 mg by mouth | | 0 | | | Activ | | (SINGULAIR) 10 mg | nightly. | | | | | e | | tablet | | | | | | | + + + +---------+------+------+-------+ | DULoxetine | Take 30 mg by mouth | | 0 | | | Activ | | (CYMBALTA) [address] | Daily. | | | | | e | | capsule | | | | | | | + + + +---------+------+------+-------+ | lamoTRIgine | Take 100 mg by mouth | | 0 | | | Activ | | (LAMICTAL) 100 mg | Daily. | | | | | e | | tablet | | | | | | | + + + +---------+------+------+-------+ | melatonin 3 mg | Take by mouth | | 0 | | | Activ | | TABS | nightly as needed. | | | | | e | + + + +---------+------+------+-------+ | EPINEPHrine | Inject 0.3 mLs into | 1 each | 0 | 05/2 | | Activ | | auto-injector 0.3 | the muscle as needed | | | 1/20 | | e | | mg/0.3 mL | for Anaphylaxis. | | | 18 | | | | injectionIndications | | | | | | | | : Allergy to bee | | | | | | | | sting | | | | | | | + + + +---------+------+------+-------+ | traMADol (ULTRAM) | Take 1 tablet by | 14 | 0 | 11/0 | | Activ | | 50 mg tablet | mouth nightly as | tablet | | 5/20 | | e | | | needed. | | | 18 | | | + + + +---------+------+------+-------+ | cyclobenzaprine | Take 1 tablet by | 42 | 0 | 11/0 | | Activ | | (FLEXERIL) 10 mg | mouth 3 times daily | tablet | | 5/20 | | e | | tablet | as needed for Muscle | | | 18 | | | | | spasms. | | | | | | + + + +---------+------+------+-------+ | ibuprofen | TAKE ONE TABLET BY | 180 | 3 | 11/0 | | Activ | | (ADVIL,MOTRIN) 800 | MOUTH TWICE DAILY | tablet | | 5/20 | | e | | MG | WITH FOOD | | | 18 | | | | tabletIndications: | | | | | | | | Pain | | | | | | | + + + +---------+------+------+-------+ Active Problems + + + | Problem [...] | intractable | | + + + Immunizations + + + + | Name | Dates Previously Given | Next Due | + + + + | INFLUENZA PF | 03/03/2017 | | | QUAD(PED/ADOL/ADULT) | | | | ,PSKT or VIAL | | | + + + + | INFLUENZA PF | 03/11/2015 | | | TRIVALENT(PED/ADOL/A | | | | DULT), PSKT | | | + + + [...] recent travel history available. | + + Last Filed Vital Signs + [...] Vaccine: | | | | | Pneumococcal 19-64 | 0 | | | | (PPSV23 only) Medium | | | | | Risk (1 of 1 - | | | | | PPSV23) | | | | + + + + + | Primary Care | | 08/01/2017 | | | Outreach (Intense | 8 | | | | Risk) | | | | + + + + + | Vaccine: Influenza | | 03/03/2017, 03/11/2015 | | | (Season Ended) | 9 | | | + + + + + | Cervical Cancer | | 10/28/2015, 10/28/2015 | | | Screening (Pap) | 1 | | | + + + + + | Vaccine: | | 03/11/2015, 04/12/2013 | | | Dtap/Tdap/Td (3 - | 5 | | | | Td) | | | | + + + + + Results Not on filefrom Last 3 Months Insurance + +--------+ +--------+ +---------+--------+ | Payer | Benefi | Subscriber | Effect | Phone | Address | Type | | | t Plan | ID | burke | | | | | | / | | Dates | | | | | | Group | | | | | | + +--------+ +--------+ +---------+--------+ | [employer] | [employer] | [id number] | | [phone] | | Medica | | MEDICAID HMO | HEALTH | | 018-Pr | 1 | | id | | | MDCD | | esent | | | | | | [place]MO [place] | | | | | | + +--------+ +--------+ +---------+--------+ + +--------+ +--------+ + + | Guarantor Name | Accoun | Relation to | Date | Phone | Billing Address | | | t Type | Patient | of | | | | | | | | | | + +--------+ +--------+ + + | Riddhi Perez | Person | Self [birth year] | [address] | | | [place] | | 1970 | [phone] | [place] | | | jun | | | [address] (Home) | [address] | + +--------+ +--------+ + + Advance Directives Patient has advance care planning documents on file. For more information, please contact:Mat [facility] [place] [address]
--- OUTSIDE RECORDS SUMMARY | ~2018-09-20 | XMS | Clinical Summary ---
Demographics + + + | Address | [address] | | | [place] [address] | + + + | Home Phone [...] Team Providers + +------+ + | Care Phonograph Mechanic Name | Role | Phone | [...] | [employer] | [employer] | [id number] | | [phone] | | Medica | [...] jun | | | 6 (Home) | [address] | + +--------+ +--------+ + + Advance Directives Patient has advance care planning documents on file. For more information, please contact:Mat [facility] [address]
[2018-09-20] MEDS ORDERED: NORCO 5-325 TA1 EACH PO (18:34)
== END 2018-09-20 18:45 | disposition home or self-care (01) ==
LOC: ED 16:57
DX: S46.911A Strain of unspecified muscle, fascia and tendon at shoulder and upper arm level, right arm, initial encounter (principal); J45.909 Unspecified asthma, uncomplicated; F17.200 Nicotine dependence, unspecified, uncomplicated; Z90.49 Acquired absence of other specified parts of digestive tract; X50.0XXA Overexertion from strenuous movement or load, initial encounter
CPT/HCPCS: 73030; 96372; 99283-25; J1885

== ENCOUNTER 2019-05-17 22:31 | Emergency (ER) | payer OTHER ==
[~2019-05-17] VITALS: Ht 157.5 cm; Wt 81.6 kg
--- OUTSIDE RECORDS SUMMARY | ~2019-05-17 | XMS | Encounter Summary ---
Demographics + + + | Address | [address] | | | [place] [address] | + + + | Home Phone | | + + + | Preferred Language | Unknown | + + + | Marital Status | | + + + | Moravian Affiliation | Unknown | + + + [...] Team Providers + +------+ + | Care Manager Resort Name | Role | Phone | + [...] Description | +--------+--------+ + + + | 11/08/ | Refill | [place] [facility] | Leila Holguina Tru, | Medication Refill | | 2018 | | [facility] | DO [address] | | | | | MEDICAL CLIN[address] | [place] [address] | | | | | [address] [place], | [phone] | | | | | [place] [address] | | | | | | [phone] | | | +--------+--------+ + + + [...] + +---------+ + | Alcohol Use | Drinks/Week | oz/Week | Comments | + + +---------+ + | No | | | | + + +---------+ + + + + | Sex Assigned at | Date Recorded | | | | + + + | Not on file | | + + + + + + + | Job Start Date | Occupation | Industry | + + + + | Not on file | Not on file | Not on file | + + + + + + + + | Travel History | Travel Start | Travel End | + + + + + + | No recent travel history available. | + + documented as of this encounter Plan of Treatment Not on filedocumented as of this encounter Visit Diagnoses Not on filedocumented in this encounter"
--- OUTSIDE RECORDS SUMMARY | ~2019-05-17 | XMS | Encounter Summary ---
Demographics + + + | Address | [address] | | | [place] [address] | + + + | Home Phone | | + + + | Preferred Language | Unknown | + + + | Marital Status | | + + + | Episcopalian Affiliation | Unknown | + + + | Race | Unknown | + + + | Ethnic Group | Unknown | + + + Author + + + | Author | [facility] | | | and [place] | + + + | Organization | [facility] | | | [...] Team Providers + +------+ + | Care Back End Web Developer Name | Role | Phone | + +------+ + PCP | Unavailable | + +------+ + Encounter Details +--------+ + + + + | Date | Type | Department | Care Team | Description | +--------+ + + + + | 05/18/ | Hospital | [place] [facility] | Jamilah Ledesma | | | 2014 | Encounter | [facility] | G, RADIOISOTOPE PRODUCTION OPERATOR [address] | | | | | MEDICAL CLINIC [address] | [place], [place] | | | | | [address] [place], | [address] | | | | | [place] [address] | [phone] | | | | | [phone] | | | +--------+ + + + [...]
--- OUTSIDE RECORDS SUMMARY | ~2019-05-17 | XMS | Encounter Summary ---
Demographics + + + | Address | [address] | | | [place] [address] | + + + | Home Phone | | + + + | Preferred Language | Unknown | + + + | Marital Status | | + + + | Rastafarian Affiliation | Unknown | + + + | Race | Unknown | + + + | Ethnic Group | Unknown | + + + Author + + + | Author | [facility] | | | and [place] | + + + | Organization | [facility] | | [...] Team Providers + +------+ + | Care Automotive Heavy Mechanic Name | Role | Phone | + +------+ + | Kayy Holguin DO | PCP | | + +------+ + Encounter Details +--------+ + + + + | Date | Type | Department | Care Team | Description | +--------+ + + + + | 08/08/ | Hospital | [place] [facility] | Kayy Holguin, | Screening for breast | | 2018 | Encounter | [facility] | DO [address] | cancer | | | | [facility] [place] | [place] [address] | | | | | Mammography [address] | [phone] | | | | | [address] [place] | | | | | | [place] | | | | | | [address] | | | | | | [phone] | | | +--------+ + + + [...] + + documented as of this encounter Medications at Time of Discharge + + + +---------+ + + | Medication | Sig | Dispensed | Refills | Start | End Date | | | | | | Date | | + + + +---------+ + + | diclofenac | Take 75 mg by mouth | | 0 | | | | (VOLTAREN) 75 mg EC | 2 times daily. | | | | | | tablet | | | | | | + + + +---------+ + + | DULoxetine | Take 30 mg by mouth | | 0 | | | | (CYMBALTA) [address] | Daily. | | | | | | capsule | | | | | | + + + +---------+ + + | lamoTRIgine | Take 100 mg by mouth | | 0 | | | | (LAMICTAL) 100 mg | Daily. | | | | | | tablet | | | | | | + + + +---------+ + + | melatonin 3 mg | Take by mouth | | 0 | | | | TABS | nightly as needed. | | | | | + + + +---------+ + + | montelukast | Take 10 mg by mouth | | 0 | | | | (SINGULAIR) 10 mg | nightly. | | | | | | tablet | | | | | | + + + +---------+ + + | simvastatin | | | 0 | 07/25/19 | | | (ZOCOR) 10 mg tablet | | | | 18 | | + + + +---------+ + + | SUMAtriptan | TAKE ONE [...] | | | | + + + +---------+ + + | topiramate | Take 1 tablet by | 180 | 3 | 07/13/19 | | | (TOPAMAX) 100 mg | mouth 2 times daily. | tablet | | 18 | | | tablet | | | | | | + + + +---------+ + + | VENTOLIN HFA 108 | | | 0 | 05/26/20 | | | (90 Base) MCG/ACT | | | | 17 | | | inhaler | | | | | | + + + +---------+ + + | cyclobenzaprine | Take 10 mg by mouth | | 0 | | | | (FLEXERIL) 10 mg | 3 times daily as | | | | 8 | | tablet | needed for Muscle | | | | | | | spasms. | | | | | + + + +---------+ + + | ibuprofen | Take 1 tablet by | 60 | 1 | 08/01/19 | | | (ADVIL,MOTRIN) 800 | mouth 2 times daily. | tablet | | 18 | 8 | | MG tablet | With food | | | | | + + + +---------+ + + | traMADol (ULTRAM) | Take 1 tablet by | 14 | 0 | 08/01/19 | | | 50 mg tablet | mouth nightly as | tablet | | 18 | 8 | | | needed. | | | | | + + + +---------+ + + documented as of this encounter Plan of Treatment Not on filedocumented as of this encounter Procedures + +--------+ + + + | Procedure Name | Priori | Date/Time | Associated Diagnosis | Comments | | | ty | | | | + +--------+ + + + | TRISTAN TOMOSYN | Routin | 08/08/2017 | Screening for | Results for this | | SCREENING BILATERAL | e | 11:50 AM | breast cancer | procedure are in the | | | | PST | | results section. | + +--------+ + + + documented in this encounter Results TRISTAN Tomosynthesis Screening Bilateral (08/08/2017 11:50 AM PST) + + | Specimen | + + | | + + + + + | Impressions | Performed At | + + + | IMPRESSION: BIRADS category: 2. No findings suspicious for | [facility] | | malignancy. COMMENT: 1. A negative or "no suspicious findings" | | | mammogram report should not delay biopsy if clinical suspicious | | | findings are present. 2. About 7% of breast cancers are not visible | | | on mammogram. 3. Dense breasts can obscure significant breast masses. | | | COMMENT: BIRADS Category Zero Incomplete: Needs additional | | | imaging evaluation. BIRADS Category One Negative mammogram. BIRADS | | | Category Two Benign findings. BIRADS Category Three Probably benign | | | finding, short interval follow-up suggested. BIRADS Category Four | | | Suspicious for/of malignancy. BIRADS Category Five Highly suggestive | | | for/of malignancy. Dictated by: Juan Looney Electronically | | | Signed by: Juan Looney on 08/08/2017 1:07 PM | | + + + + + + | Narrative | Performed At | + + + | EXAMINATION: TRISTAN TOMOSYN SCREENING BILATERAL HISTORY: routine | [facility] | | mammogram to screen for breast cancer COMPARISON STUDY: | | | 05/21/2014. 05/02/2013. TECHNIQUE: 3D tomosynthesis, 2D | | | synthesized images and standard digital mammographic images are | | | utilized in study interpretation. Computer-aided detection analysis | | | was performed and included in the interpretation of this study. | | | FINDINGS: No dominant mass, clustered microcalcification or | | | architectural distortion is seen. Scattered fibroglandular density | | | present. Intramammary lymph nodes noted upper lateral posterior 3rd | | | depth right breast.. | | + + + + +---------+ + + | Performing | Address | City/State/Zipcode | Phone Number | | Organization | | | | + +---------+ + + | [facility] | | | | + +---------+ + + documented in this encounter Visit Diagnoses + + | Diagnosis | + + | Screening for breast cancer Breast screening, unspecified | + + documented in this encounter
--- OUTSIDE RECORDS SUMMARY | ~2019-05-17 | XMS | Encounter Summary ---
Demographics + + + | Address | [address] | | | [place] [address] | + + + | Home Phone | | + + + | Preferred Language | Unknown | + + + | Marital Status | | + + + | Pentecostal Affiliation | Unknown | + + + | Race | Unknown | + + + | Ethnic Group | Unknown | + + + Author + + + | Author | [facility] | | | and [place] | + + + | Organization | [facility] | | | [...] Team Providers + +------+ + | Care Ice Resurfacing Machine Operators Name | Role | Phone | + +------+ + PCP | Unavailable | + +------+ + Encounter Details +--------+ + + + + | Date | Type | Department | Care Team | Description | +--------+ + + + + | 04/29/ | Hospital | [facility] [facility] | Conversion | | | 2012 | Encounter | HOSPITAL BUSINESS | Transaction, | | | | | OFFICE [address] | Provider Unknown | | | | | [place] | | | | | | [address] | (Fax) | | | | | [phone] | | | +--------+ + + + [...]
--- OUTSIDE RECORDS SUMMARY | ~2019-05-17 | XMS | Encounter Summary ---
Demographics + + + | Address | [address] | | | [place] [address] | + + + | Home Phone | | + + + | Preferred Language | Unknown | + + + | Marital Status | | + + + | Mormonism Affiliation | Unknown | + + + | Race | Unknown | + + + | Ethnic Group | Unknown | + + + Author + + + | Author | [facility] | | | and [place] | + + + | Organization | [facility] | | | [...] Team Providers + +------+ + | Care Frit Mixer Name | Role | Phone | + +------+ + PCP | Unavailable | + +------+ + Encounter Details +--------+ + + + + | Date | Type | Department | Care Team | Description | +--------+ + + + + | 06/04/ | [facility] | [facility] | Ana Luisa Alexandra, | | | 2013 | Encounter | [facility] | BOROUGH COORDINATOR [address] | | | | | MEDICAL CLIN[address] | [facility], [place] | | | | | [address]TH [facility], | [address] | | | | | [place] [address] | | | | | | [phone] | | | +--------+ + + + [...]
--- OUTSIDE RECORDS SUMMARY | ~2019-05-17 | XMS | Encounter Summary ---
Demographics + + + | Address | [address] | | | [place] [address] | + + + | Home Phone [...] Team Providers + +------+ + | Care Immigration Law Specialist Name | Role | Phone | + +------+ + PCP | Unavailable | + +------+ + Encounter Details +--------+ + + + + | Date | Type | Department | Care Team | Description | +--------+ + + + + | 04/03/ | [facility] | [facility] | Kayy Holguin, | | | 2014 | Encounter | [facility] | DO [address] | | | | | MEDICAL CLINIC [address] | [facility] [place] [place] [address] | | | | | [address] [place], | [phone] | | | | | [place] [address] | | | | | | [phone] | | | +--------+ + + + [...]
--- OUTSIDE RECORDS SUMMARY | ~2019-05-17 | XMS | Encounter Summary ---
Demographics + + + | Address | [address] | | | [place] [address] | + + + | Home Phone | | + + + | Preferred Language | Unknown | + + + | Marital Status | | + + + | Adventist Affiliation | Unknown | + + + | Race | Unknown | + + + | Ethnic Group | Unknown | + + + Author + + + | Author | [facility] | | | and [place] | + + + | Organization | [facility] | | | and [place] | + + + | Address | Unknown | + + + | Phone | Unavailable | + + + Support + + +---------+ + | Name | Relationship | Address | Phone | + + +---------+ + | Román Aguilar | ECON | Unknown | | + + +---------+ + Care Team Providers + +------+ + | Care Police Specialist Name | Role | Phone | + +------+ + PCP | Unavailable | + +------+ + Encounter Details +--------+ + + + + | Date | Type | Department | Care Team | Description | +--------+ + + + + | 05/02/ | Hospital | [facility] [facility] | Amanda De La Cruz MD | | | 2012 | Encounter | [facility] X[facility] [address] | [address] | | | | | [place] | [place] | | | | | [place] | [address] | | | | | [address] | | | | | | [phone] | | | +--------+ + + + [...]
--- OUTSIDE RECORDS SUMMARY | ~2019-05-17 | XMS | Encounter Summary ---
Demographics + + + | Address | [address] | | | [place] [address] | + + + | Home Phone | | + + + | Preferred Language | Unknown | + + + | Marital Status | | + + + | Buddhism Affiliation | Unknown | + + + [...] Team Providers + +------+ + | Care Multicultural Manager Name | Role | Phone | + +------+ + PCP | Unavailable | + +------+ + Encounter Details +--------+ + + + + | Date | Type | Department | Care Team | Description | +--------+ + + + + | 08/13/ | Hospital | [place] [facility] | Deonte Aguiar, | | | 2013 | Encounter | [facility] | DO [address] , | | | | | [address] | [place], [place] | | | | | [place], [place] | [address] | | | | | [address] | [phone] | | | | | [phone] | | | +--------+ + + + [...]
--- OUTSIDE RECORDS SUMMARY | ~2019-05-17 | XMS | Encounter Summary ---
Demographics + + + | Address | [address] | | | [place] [address] | + + + | Home Phone | | + + + | Preferred Language | Unknown | + + + | Marital Status | | + + + | Orthodoxy Affiliation | Unknown | + + + | Race | Unknown | + + + | Ethnic Group | Unknown | + + + Author + + + | Author | [facility] | | | and [place] | + + + | Organization | [facility] | | [...] Team Providers + +------+ + | Care Visual Stylist Name | Role | Phone | + +------+ + PCP | Unavailable | + +------+ + Encounter Details +--------+ + + + + | Date | Type | Department | Care Team | Description | +--------+ + + + + | 04/30/ | [facility] | [place] [facility] | Linda Bardales | | | 2013 | Encounter | [facility] | [address] | | | | | MEDICAL CL[address] | [address] [place], [place] | | | | | [facility], | [address] | | | | | [place] [address] | [phone] | | | | | [phone] | | | +--------+ + + + [...]
--- OUTSIDE RECORDS SUMMARY | ~2019-05-17 | XMS | Encounter Summary ---
Demographics + + + | Address | [address] | | | [place] [address] | + + + | Home Phone | | + + + | Preferred Language | Unknown | + + + | Marital Status | | + + + | Methodist Affiliation | Unknown | + + + | Race | Unknown | + + + | Ethnic Group | Unknown | + + + Author + + + | Author | [facility] | | | and [place] | + + + | Organization | [facility] | | | and [...] Team Providers + +------+ + | Care Tree Trimming Supervisor Name | Role | Phone | + +------+ + PCP | Unavailable | + +------+ + Encounter Details +--------+ + + + + | Date | Type | Department | Care Team | Description | +--------+ + + + + | / | [facility] | Shasta Rubio, | | | 2011 | Encounter | HOSPITAL [facility] | LAW CLERK [address] | | | | | C[address] | [place] | | | | | [place] | [address] | | | | | [address] | | | | | | [phone] | | | +--------+ + + + [...]
--- OUTSIDE RECORDS SUMMARY | ~2019-05-17 | XMS | Encounter Summary ---
Demographics + + + | Address | [address] | | | [place] [address] | + + + | Home Phone | | + + + | Preferred Language | Unknown | + + + | Marital Status | | + + + | Oriental Orthodox Affiliation | Unknown | + + + | Race | Unknown | + + + | Ethnic Group | Unknown | + + + Author + + + | Author | [facility] | | | and [place] | + + + | Organization | [facility] | | | [...] Team Providers + +------+ + | Care Size Roller Operator Name | Role | Phone | + +------+ + PCP | Unavailable | + +------+ + Encounter Details +--------+ + + + + | Date | Type | Department | Care Team | Description | +--------+ + + + + | 01/07/ | [facility] | [facility] [facility] | Linda Bardales | | | 2013 | Encounter | [facility] | [address] | | | | | MEDICAL [address] | [address] [place], [place] | | | | | [facility], | [address] | | | | | [place] [address] | [phone] | | | | | [phone] | | | +--------+ + + + [...]
--- OUTSIDE RECORDS SUMMARY | ~2019-05-17 | XMS | Encounter Summary ---
Demographics + + + | Address | [address] | | | [place] [address] | + + + | Home Phone | | + + + | Preferred Language | Unknown | + + + | Marital Status | | + + + | Gnosticism Affiliation | Unknown | + + + | Race | Unknown | + + + | Ethnic Group | Unknown | + + + Author + + + | Author | [facility] | | | and [place] | + + + | Organization | [facility] | | | [...] Team Providers + +------+ + | Care Ceramics Teacher Name | Role | Phone | + +------+ + PCP | Unavailable | + +------+ + Encounter Details +--------+ + + + + | Date | Type | Department | Care Team | Description | +--------+ + + + + | 05/30/ | [facility] | [facility] | Linda Bardales | | | 2013 | Encounter | [facility] | [address] | | | | | MEDICAL [address] | [address] [place], [place] | | | | | [facility], | [address] | | | | | [place] [address] | [phone] | | | | | [phone] | | | +--------+ + + + [...]
--- OUTSIDE RECORDS SUMMARY | ~2019-05-17 | XMS | Encounter Summary ---
Demographics + + + | Address | [address] | | | [place] [address] | + + + | Home Phone | | + + + | Preferred Language | Unknown | + + + | Marital Status | | + + + | Zoroastrianism Affiliation | Unknown | + + + | Race | Unknown | + + + | Ethnic Group | Unknown | + + + Author + + + | Author | [facility] | | | and [place] | + + + | Organization | [facility] | | | [...] Team Providers + +------+ + | Care Hvac Specialist Name | Role | Phone | + +------+ + PCP | Unavailable | + +------+ + Encounter Details +--------+ + + + + | Date | Type | Department | Care Team | Description | +--------+ + + + + | 06/20/ | Hospital | [facility] [facility] | Brendon Colon | | | 2014 | Encounter | [facility] X[facility] | MD Nicole [address] | | | | | [address] | [place] | | | | | [place] | [address] | | | | | [address] | [phone] | | | | | [phone] | | | +--------+ + + + [...] | + +--------+ + + + | XR CHEST 2 VIEWS | Routin | 06/20/2014 | | Results for this | | | e | 1:11 PM | | procedure are in the | | | | PST | | results section. | + +--------+ + + + documented in this encounter Results XR Chest 2 VW (06/20/2014 1:11 PM PST) + + | Specimen | + + | | + + + + + | Narrative | Performed At | + + + | ORIGINAL HISTORY: Cough. CHEST X-RAY PA AND | | | LATERAL: No comparisons. The bone structures are normal. No | | | pneumothorax, effusion or infiltrates are identified. Vascular | | | markings are noted at both lung bases. The findings appear similar | | | to a CT scanogram dated 09/27/2012. CONCLUSION: No acute | | | pulmonary disease. JOB #: [id number] Read By: | | | SYDNEY MOORE MD Released By: SYDNEY MOORE MD Date: | | | 06/21/2014 07:19 | | + + + + + | Procedure Note | + + | Marvin, Rad Results In - 04/19/2017 6:16 PM PST ORIGINAL HISTORY:Cough. CHEST | | X-RAY PA AND LATERAL: No comparisons. The bone structures are normal. No pneumothorax, | | effusion or infiltrates are identified. Vascular markings are noted at both lung bases. | | The findings appear similar to a CT scanogram dated 09/27/2012. CONCLUSION:No acute | | pulmonary disease. JOB #: [id number] Read By: SYDNEY MOORE MD | | Released By: SYDNEY MOORE MDDate: 06/21/2014 07:19 | |Cough. | | | |CHEST X-RAY PA AND LATERAL: | | | |No comparisons. | | | |The bone structures are normal. No pneumothorax, effusion or infiltrates are identified. Vascular markings are noted at both lung bases. The findings appear similar to a CT scanogr am dated 09/27/2012. | | | |CONCLUSION: | |No acute pulmonary disease. | | | | | |JOB #: [id number] | | | |Read By: SYDNEY MOORE MD | | | |Released By: SYDNEY MOORE MD | |Date: 06/21/2014 07:19 | | | | | + + documented in this encounter Visit Diagnoses Not on filedocumented in this encounter"
--- OUTSIDE RECORDS SUMMARY | ~2019-05-17 | XMS | Encounter Summary ---
Demographics + + + | Address | [address] | | | [place] [address] | + + + | Home Phone | | + + + | Preferred Language | Unknown | + + + | Marital Status | | + + + | Restoration Affiliation | Unknown | + + + | Race | Unknown | + + + | Ethnic Group | Unknown | + + + Author + + + | Author | [facility] | | | and [place] | + + + | Organization | [facility] | | [...] Team Providers + +------+ + | Care Web Content Developer Name | Role | Phone | [...] Description | +--------+--------+ + + + | 07/13/ | Refill | [place] [facility] | Leila Holguina Tru, | Medication Refill | | 2017 | | [facility] | DO [address] | | | | | MEDICAL CLIN[address] | [place] [address] | | | | | [address] [place], | [phone] | | | | | [place] [address] | | | | | | [phone] | | | +--------+--------+ + + + [...]
--- OUTSIDE RECORDS SUMMARY | ~2019-05-17 | XMS | Encounter Summary ---
Demographics + + + | Address | [address] | | | [place] [address] | + + + | Home Phone | | + + + | Preferred Language | Unknown | + + + | Marital Status | | + + + | Jain Affiliation | Unknown | + + + [...] Team Providers + +------+ + | Care Slabber Name | Role | Phone | + +------+ + PCP | Unavailable | + +------+ + Encounter Details +--------+ + + + + | Date | Type | Department | Care Team | Description | +--------+ + + + + | 06/04/ | [facility] | Daniel Lew | | | 2012 | Encounter | [facility] | [address] | | | | | CENTER [address] | [address] [place], [place] | | | | | [place] | [address] | | | | | [address] | | | | | | [phone] | | | +--------+ + + + [...]
--- OUTSIDE RECORDS SUMMARY | ~2019-05-17 | XMS | Encounter Summary ---
Demographics + + + | Address | [address] | | | [place] [address] | + + + | Home Phone | | + + + | Preferred Language | Unknown | + + + | Marital Status | | + + + | Samaritan Affiliation | Unknown | + + + | Race | Unknown | + + + | Ethnic Group | Unknown | + + + Author + + + | Author | [facility] | | | and [place] | + + + | Organization | [facility] | | | and [...] Team Providers + +------+ + | Care Warehouse Specialist Name | Role | Phone | + +------+ + PCP | Unavailable | + +------+ + Encounter Details +--------+ + + + + | Date | Type | Department | Care Team | Description | +--------+ + + + + | 11/07/ | Hospital | [facility] | Deonte Aguiar, | | | 2013 | Encounter | [facility] | DO [address] , | | | | | [address] | [place], [place] | | | | | [place], [place] | [address] | | | | | [address] | [phone] | | | | | [phone] | | | +--------+ + + + [...]
--- OUTSIDE RECORDS SUMMARY | ~2019-05-17 | XMS | Encounter Summary ---
Demographics + + + | Address | [address] | | | [place] [address] | + + + | Home Phone | | + + + | Preferred Language | Unknown | + + + | Marital Status | | + + + | Religion Affiliation | Unknown | + + + | Race | Unknown | + + + | Ethnic Group | Unknown | + + + Author + + + | Author | [facility] | | | and [place] | + + + | Organization | [facility] | | | [...] Team Providers + +------+ + | Care Shuttle Veneering Supervisor Name | Role | Phone | [...] [facility] | DO [address] | cancer | | | | Medical [place] | [place] [address] | | | | | Mammography [address] | [phone] | | | | | [address] [place] | | | | | | [place] | | | | | | [address] | | | | | | [phone] | | | +--------+ + + + [...]
--- OUTSIDE RECORDS SUMMARY | ~2019-05-17 | XMS | Encounter Summary ---
Demographics + + + | Address | [address] | | | [place] [address] | + + + | Home Phone | | + + + | Preferred Language | Unknown | + + + | Marital Status | | + + + | Hinduism Affiliation | Unknown | + + + [...] Team Providers + +------+ + | Care Sports Development Officer Name | Role | Phone | + +------+ + PCP | Unavailable | + +------+ + Encounter Details +--------+ + + + + | Date | Type | Department | Care Team | Description | +--------+ + + + + | 07/07/ | [facility] | Kayy Holguin, | | | 2015 | Encounter | [facility] | DO [address] | | | | | [address] [place] | [place] [address] | | | | | [place] | [phone] | | | | | [address] | | | | | | [phone] | | | +--------+ + + + [...] | + +--------+ + + + | URINALYSIS | Routin | 07/07/2015 | | Results for this | | | e | 5:22 PM | | procedure are in the | | | | PST | | results section. | + +--------+ + + + documented in this encounter Results Urinalysis (07/07/2015 5:22 PM PST) + + + + + + | Component | Value | Ref Range | Performed | Pathologist | | | | | At | Signature | + + + + + + | Source | Clean Catch / VOID | | EXTERNAL | | | | | | LAB | | + + + + + + | Clarity | CLOUDY | CLEAR | EXTERNAL | | | | | | LAB | | + + + + + + | Color | YELLOW | YELLOW | EXTERNAL | | | | | | LAB | | + + + + + + | Specific | 1.02 | 1.005 - 1.030 | EXTERNAL | | | [place], | | | LAB | | | Urine | | | | | + + + + + + | pH, Urine | 6 | 5.0 - 7.0 pH | EXTERNAL | | | | | | LAB | | + + + + + + | Leukocyte | 25 | NEGATIVE /uL | EXTERNAL | | | Esterase, | | | LAB | | | Urine | | | | | + + + + + + | Nitrite, | NEGATIVE | NEGATIVE | EXTERNAL | | | Urine | | | LAB | | + + + + + + | Protein, | NEGATIVE | NEGATIVE mg/dL | EXTERNAL | | | Urine | | | LAB | | + + + + + + | Glucose, | NORMAL | NORMAL mg/dL | EXTERNAL | | | Urine | | | LAB | | + + + + + + | Reducing | NOT REQUIRED | NEGATIVE | EXTERNAL | | | Substance, | | | LAB | | | UA, POC | | | | | + + + + + + | Ketones, | NEGATIVE | NEGATIVE mg/dL | EXTERNAL | | | Urine | | | LAB | | + + + + + + | Urobilinoge | NORMAL | NORMAL mg/dL | EXTERNAL | | | n, Urine | | | LAB | | + + + + + + | Bilirubin, | NEGATIVE | NEGATIVE mg/dL | EXTERNAL | | | Urine | | | LAB | | + + + + + + | Blood, | NEGATIVE | NEGATIVE /uL | EXTERNAL | | | Urine | | | LAB | | + + + + + + | WBC UA | 6-10 | </= 5 /HPF | EXTERNAL | | | | | | LAB | | + + + + + + | RBC COUNT | 0-2 | </= 5 PER HPF | EXTERNAL | | | | | | LAB | | + + + + + + | Bacteria, | FEW | NONE SEEN /HPF | EXTERNAL | | | UA | | | LAB | | + + + + + + | Culture | YES | | EXTERNAL | | | Indicated | | | LAB | | + + + + + + | SQUAMOUS | MANY | FEW /LPF | EXTERNAL | | | EPITHELIAL | | | LAB | | | UA | | | | | + + + + + + + + | Specimen | + + | | + + + +---------+ + + | Performing | Address | City/State/Zipcode | Phone Number | | Organization | | | | + +---------+ + + | EXTERNAL LAB | | | | + +---------+ + + documented in this encounter Visit Diagnoses Not on filedocumented in this encounter"
--- OUTSIDE RECORDS SUMMARY | ~2019-05-17 | XMS | Encounter Summary ---
Demographics + + + | Address | [address] | | | [place] [address] | + + + | Home Phone [...] Team Providers + +------+ + | Care Workday Financials Consultant Name | Role | Phone | + +------+ + PCP | Unavailable | + +------+ + Encounter Details +--------+ + + + + | Date | Type | Department | Care Team | Description | +--------+ + + + + | 12/19/ | Hospital | [facility] | | | | 2016 | Encounter | [facility] [address] | | | | | | [address] | | | | | | [place] | | | | | | [address] | | | | | | [phone] | | | +--------+ + + + [...]
--- OUTSIDE RECORDS SUMMARY | ~2019-05-17 | XMS | Encounter Summary ---
Demographics + + + | Address | [address] | | | [place] [address] | + + + | Home Phone [...] Providers + +------+ + | Care Manager Fire Name | Role | Phone | + +------+ + PCP | Unavailable | + +------+ + Encounter Details +--------+ + + + + | Date | Type | Department | Care Team | Description | +--------+ + + + + | 11/18/ | Hospital | [facility] | Kayy Holguin, | | | 2017 | Encounter | [facility] | [address] | | | | | [address] [place] | [place] [address] | | | | | [place] | [phone] | | | | | [address] | | | | | | [phone] | | | +--------+ + + + [...] + +--------+ + + + | XR KNEE LEFT 3 VW | Routin | 11/18/2016 | | Results for this | | | e | 3:49 PM | | procedure are in the | | | | PDT | | results section. | + +--------+ + + + documented in this encounter Results XR Knee Left 3 Vw (11/18/2016 3:49 PM PDT) + + | Specimen | + + | | + + + + + | Narrative | Performed At | + + + | EXAMINATION: KNEE 3+ VIEW /LEFT HISTORY: LEFT KNEE PAIN | | | COMPARISON STUDY: 04/30/2014. FINDINGS: Films in multiple views | | | showed no significant soft tissue or bony abnormality. If concern for | | | acute fracture remains clinically follow-up films in 10 to 14 days | | | recommended. . IMPRESSION: No acute finding JOB #: [id number] | | | Digitally Released by: Shaka Looney Read By: SHAKA Guerrero | | | MD JEAN CARLOS Date: 11/18/2016 16:03 | | + + + + + | Procedure Note | + + | Marvin, Rad Results In - 06/22/2017 12:45 PM PST EXAMINATION: | | KNEE 3+ VIEW /LEFT | | | | HISTORY: | | LEFT KNEE PAIN | | | | COMPARISON STUDY: | | 04/30/2014. | | | | FINDINGS: | | Films in multiple views showed no significant soft tissue or bony abnormality. | | If concern for acute fracture remains clinically follow-up films in 10 to 14 | | days recommended. . | | | | IMPRESSION: | | No acute finding | | | | | | JOB #: [id number] | | Digitally Released by: Shaka Looney | | | | | | Read By: SHAKA LOONEY MD | | Date: 11/18/2016 16:03 | | | + + documented in this encounter Visit Diagnoses Not on filedocumented in this encounter"
--- OUTSIDE RECORDS SUMMARY | ~2019-05-17 | XMS | Encounter Summary ---
Demographics + + + | Address | [address] | | | [place] [address] | + + + | Home Phone [...] Team Providers + +------+ + | Care Car Salesperson Name | Role | Phone | + +------+ + PCP | Unavailable | + +------+ + Encounter Details +--------+ + + + + | Date | Type | Department | Care Team | Description | +--------+ + + + + | 04/18/ | [facility] | [facility] | Linda Bardales | | | 2012 | Encounter | [facility] | [address] | | | | | [address] | [address] [place], [place] | | | | | [address] [facility] [place], | [address] | | | | | [place] [address] | [phone] | | | | | [phone] | | | +--------+ + + + [...]
--- OUTSIDE RECORDS SUMMARY | ~2019-05-17 | XMS | Encounter Summary ---
Demographics + + + | Address | [address] | | | [place] [address] | + + + | Home Phone | | + + + | Preferred Language | Unknown | + + + | Marital Status | | + + + | Mu-Ism Affiliation | Unknown | + + + [...] Team Providers + +------+ + | Care Crime Scene Analyst Name | Role | Phone | + +------+ + PCP | Unavailable | + +------+ + Reason for Visit + + + | Reason | Comments | + + + | Medication Refill | | + + + Encounter Details +--------+--------+ + + + | Date | Type | Department | Care Team | Description | +--------+--------+ + + + | 06/29/ | Refill | [facility] | ThorntonDiane, | Medication Refill | | 2017 | | [facility] | TRUST OFFICER | | | | | [facility] [address] | | | | | | [address] [place], | | | | | | [place] [address] | | | | | | [phone] | | | +--------+--------+ + + + [...] filedocumented as of this encounter Visit Diagnoses + + | Diagnosis | + + | Intractable periodic headache syndrome - Primary Variants of migraine, not elsewhere | | classified, with intractable migraine, so stated, without mention of status migrainosus | + + documented in this encounter"
--- OUTSIDE RECORDS SUMMARY | ~2019-05-17 | XMS | Encounter Summary ---
Demographics + + + | Address | [address] | | | [place] [address] | + + + | Home Phone | | + + + | Preferred Language | Unknown | + + + | Marital Status | | + + + | Roman Catholic Affiliation | Unknown | + + + [...] Team Providers + +------+ + | Care Feather Trimmer Name | Role | Phone | + +------+ + PCP | Unavailable | + +------+ + Encounter Details +--------+ + + + + | Date | Type | Department | Care Team | Description | +--------+ + + + + | 03/26/ | Hospital | [facility] | Linda Bardales | | | 2012 | Encounter | HOSPITAL RES[facility]ATORY | [address] | | | | | TH[address]AP[address] | [address] [place] | | | | | [place] | [address] | | | | | [address] | [phone] | | | | | [phone] | | | +--------+ + + + [...]
--- OUTSIDE RECORDS SUMMARY | ~2019-05-17 | XMS | Encounter Summary ---
Demographics + + + | Address | [address] | | | [place] [address] | + + + | Home Phone | | + + + | Preferred Language | Unknown | + + + | Marital Status | | + + + | Quaker Affiliation | Unknown | + + + | Race | Unknown | + + + | Ethnic Group | Unknown | + + + Author + + + | Author | [facility] | | | and [place] | + + + | Organization | [facility] | | | [...] Team Providers + +------+ + | Care Contact Lens Assistant Name | Role | Phone | + +------+ + PCP | Unavailable | + +------+ + Encounter Details +--------+ + + + + | Date | Type | Department | Care Team | Description | +--------+ + + + + | 07/28/ | [facility] | [facility] | Ana Luisa Alexandra, | | | 2015 | Encounter | [facility] | [address] | | | | | [address] | [facility] [place], [place] | | | | | [address] [facility], | [address] | | | | | [place] [address] | | | | | | [phone] | | | +--------+ + + + [...]
--- OUTSIDE RECORDS SUMMARY | ~2019-05-17 | XMS | Encounter Summary ---
Demographics + + + | Address | [address] | | | [place] [address] | + + + | Home Phone | | + + + | Preferred Language | Unknown | + + + | Marital Status | | + + + | Presybeterian Affiliation | Unknown | + + + | Race | Unknown | + + + | Ethnic Group | Unknown | + + + Author + + + | Author | [facility] | | | and [place] | + + + | Organization | [facility] | | [...] Team Providers + +------+ + | Care Video System Repairer Name | Role | Phone | + +------+ + | Kayy Holguin DO | PCP | | + +------+ + Encounter Details +--------+ + + + + | Date | Type | Department | Care Team | Description | +--------+ + + + + | 01/17/ | [facility] | [facility] | Librado Alcala | | | 2019 | on | HOSPITAL THERAPY PT | Tru PT | | | | | [address] | | | | | | [place] | | | | | | [address] | | | | | | [phone] | | | +--------+ + + + [...] + + documented as of this encounter Progress Notes Librado Alcala, PT - 01/17/2019 3:26 PM PDTD/C Summary: Ms. Perez was seen by outpatient physical therapy for 2 visits. She cancelled her schedule d follow up visit(s) and has not attempted to reschedule. Her POC has now . Patient will be D/C'd at this time. If she requires further skilled therapy services in the future she will require a new referral at that time. Patient is D/C'd at this time. Electronically signed by: Librado Alcala PT, 01/17/2019 15:28 documented in this encounter Plan of Treatment Not on filedocumented as of this encounter Visit Diagnoses Not on filedocumented in this encounter"
--- OUTSIDE RECORDS SUMMARY | ~2019-05-17 | XMS | Encounter Summary ---
Demographics + + + | Address | [address] | | | [place] [address] | + + + | Home Phone | | + + + | Preferred Language | Unknown | + + + | Marital Status | | + + + | Anabaptist Affiliation | Unknown | + + + | Race | Unknown | + + + | Ethnic Group | Unknown | + + + Author + + + | Author | [facility] | | | and [place] | + + + | Organization | [facility] | | | [...] Team Providers + +------+ + | Care Fast Food Fry Cook Name | Role | Phone | + +------+ + PCP | Unavailable | + +------+ + Reason for Visit + + + | Reason | Comments | + + + | Medication Refill | | + + + Encounter Details +--------+--------+ + + + | Date | Type | Department | Care Team | Description | +--------+--------+ + + + | 06/14/ | Refill | [facility] | Kayy Holguin, | Medication Refill | | 2018 | | [facility] | [address] | | | | | [address] | [place] [address] | | | | | [address] [place], | [phone] | | | | | [place] [address] | | | | | | [phone] | | | +--------+--------+ + + + [...]
--- OUTSIDE RECORDS SUMMARY | ~2019-05-17 | XMS | Encounter Summary ---
Demographics + + + | Address | [address] | | | [place] [address] | + + + | Home Phone | | + + + | Preferred Language | Unknown | + + + | Marital Status | | + + + | Restorationist Affiliation | Unknown | + + + [...] Team Providers + +------+ + | Care Double End Production Grinder Name | Role | Phone | + +------+ + PCP | Unavailable | + +------+ + Encounter Details +--------+ + + + + | Date | Type | Department | Care Team | Description | +--------+ + + + + | 11/18/ | [facility] | [facility] | Kayy Holguin, | | | 2016 | Encounter | [facility] | [address] | | | | | [address] | [facility] [place] [address] | | | | | [address] [place], | [phone] | | | | | [place] [address] | | | | | | [phone] | | | +--------+ + + + [...]
--- OUTSIDE RECORDS SUMMARY | ~2019-05-17 | XMS | Encounter Summary ---
Demographics + + + | Address | [address] | | | [place] [address] | + + + | Home Phone | | + + + | Preferred Language | Unknown | + + + | Marital Status | | + + + | Confucianist Affiliation | Unknown | + + + | Race | Unknown | + + + | Ethnic Group | Unknown | + + + Author + + + | Author | [facility] | | | and [place] | + + + | Organization | [facility] | | [...] Team Providers + +------+ + | Care Under Cutter Name | Role | Phone | + +------+ + PCP | Unavailable | + +------+ + Encounter Details +--------+ + + + + | Date | Type | Department | Care Team | Description | +--------+ + + + + | 05/21/ | Hospital | [facility] | Linda Bardales | | | 2013 | Encounter | [facility] | [address] | | | | | [address] | [address] [place] | | | | | [place] | [address] | | | | | [address] | [phone] | | | | | [phone] | | | +--------+ + + + [...]
--- OUTSIDE RECORDS SUMMARY | ~2019-05-17 | XMS | Encounter Summary ---
Demographics + + + | Address | [address] | | | [place] [address] | + + + | Home Phone | | + + + | Preferred Language | Unknown | + + + | Marital Status | | + + + | Adventism Affiliation | Unknown | + + + [...] Team Providers + +------+ + | Care Acquisition Editor Name | Role | Phone | + +------+ + PCP | Unavailable | + +------+ + Encounter Details +--------+ + + + + | Date | Type | Department | Care Team | Description | +--------+ + + + + | 12/07/ | Hospital | [facility] | Maris, | | | 2016 | Encounter | HOSPITAL OBSTETRICS | [address] | | | | | [address] [place] | [address] | | | | | [place], [place] | [place] | | | | | [address] | [address] | | | | | [phone] | [phone] | | | | | | | | +--------+ + + + [...]
--- OUTSIDE RECORDS SUMMARY | ~2019-05-17 | XMS | Encounter Summary ---
Demographics + + + | Address | [address] | | | [place] [address] | + + + | Home Phone | | + + + | Preferred Language | Unknown | + + + | Marital Status | | + + + | Hoahaoism Affiliation | Unknown | + + + [...] Team Providers + +------+ + | Care Vulnerability Assessment Analyst Name | Role | Phone | [...] [address] | [place] [address] | | | | | [place] | [phone] | | | | | [address] | | | | | | [phone] | | | +--------+ + + + [...] - 1.030 | EXTERNAL | | | [place], | | | LAB | | | [...]
--- OUTSIDE RECORDS SUMMARY | ~2019-05-17 | XMS | Encounter Summary ---
Demographics + + + | Address | [address] | | | [place] [address] | + + + | Home Phone | | + + + | Preferred Language | Unknown | + + + | Marital Status | | + + + | Sabianism Affiliation | Unknown | + + + | Race | Unknown | + + + | Ethnic Group | Unknown | + + + Author + + + | Author | [facility] | | | and [place] | + + + | Organization | [facility] | | | and [...] Team Providers + +------+ + | Care Loft Worker Pile Driving Name | Role | Phone | + +------+ + PCP | Unavailable | + +------+ + Encounter Details +--------+ + + + + | Date | Type | Department | Care Team | Description | +--------+ + + + + | 02/28/ | [facility] | [facility] | Linda Bardales | | | 2013 | Encounter | [facility] | [address] | | | | | [address] | [address] [place], [place] | | | | | [facility], | [address] | | | | | [place] [address] | [phone] | | | | | [phone] | | | +--------+ + + + [...]
--- OUTSIDE RECORDS SUMMARY | ~2019-05-17 | XMS | Encounter Summary ---
Demographics + + + | Address | [address] | | | [place] [address] | + + + | Home Phone | | + + + | Preferred Language | Unknown | + + + | Marital Status | | + + + | Jainism Affiliation | Unknown | + + + | Race | Unknown | + + + | Ethnic Group | Unknown | + + + Author + + + | Author | [facility] | | | and [place] | + + + | Organization | [facility] | | | [...] Team Providers + +------+ + | Care Custom Tailor Name | Role | Phone | + +------+ + PCP | Unavailable | + +------+ + Encounter Details +--------+ + + + + | Date | Type | Department | Care Team | Description | +--------+ + + + + | 06/20/ | [facility] | [facility] | Linda Bardales | | | 2013 | Encounter | [facility] | [address] | | | | | [address] | [address] [place], [place] | | | | | [address] [facility] [place], | [address] | | | | | [place] [address] | [phone] | | | | | [phone] | | | +--------+ + + + [...]
--- OUTSIDE RECORDS SUMMARY | ~2019-05-17 | XMS | Encounter Summary ---
Demographics + + + | Address | [address] | | | [place] [address] | + + + | Home Phone | | + + + | Preferred Language | Unknown | + + + | Marital Status | | + + + | Mormon Affiliation | Unknown | + + + | Race | Unknown | + + + | Ethnic Group | Unknown | + + + Author + + + | Author | [facility] | | | and [place] | + + + | Organization | [facility] | | [...] Team Providers + +------+ + | Care Detective And Intelligence Analyst Name | Role | Phone | + +------+ + PCP | Unavailable | + +------+ + Encounter Details +--------+ + + + + | Date | Type | Department | Care Team | Description | +--------+ + + + + | 07/08/ | Hospital | [facility] | Kayy Holguin, | | | 2016 | Encounter | [facility] | [address] | | | | | [address] | [place] [address] | | | | | [place] | [phone] | | | | | [address] | | | | | | [phone] | | | +--------+ + + + [...] | Marvin, Rad Results In - 04/19/2017 9:32 PM PST [...] MRI evaluation. D: | | 07/08/2015Job #: [id number] Read By: BLAINE NIEVES MD Released By: [...]
--- OUTSIDE RECORDS SUMMARY | ~2019-05-17 | XMS | Encounter Summary ---
Demographics + + + | Address | [address] | | | [place] [address] | + + + | Home Phone [...] Team Providers + +------+ + | Care Nut Steamer Name | Role | Phone | + [...] Medication Refill | | 2018 | | [facility] | [address] | | | | | [address] | [place] [address] | | | | | [address] [place], | [phone] | | | | | [place] [address] | | | | | | [phone] | | | +--------+--------+ + + + [...]
--- OUTSIDE RECORDS SUMMARY | ~2019-05-17 | XMS | Encounter Summary ---
Demographics + + + | Address | [address] | | | [place] [address] | + + + | Home Phone | | + + + | Preferred Language | Unknown | + + + | Marital Status | | + + + | Jehovah'S Witness Affiliation | Unknown | + + + | Race | Unknown | + + + | Ethnic Group | Unknown | + + + Author + + + | Author | [facility] | | | and [place] | + + + | Organization | [facility] | | [...] Team Providers + +------+ + | Care Marketing Development Specialist Name | Role | Phone | + +------+ + PCP | Unavailable | + +------+ + Encounter Details +--------+ + + + + | Date | Type | Department | Care Team | Description | +--------+ + + + + | 03/11/ | [facility] | [facility] | Kayy Holguin, | | | 2014 | Encounter | [facility] | [address] | | | | | [address] | [place] [address] | | | | | [address] [facility], | [phone] | | | | | [place] [address] | | | | | | [phone] | | | +--------+ + + + [...]
--- OUTSIDE RECORDS SUMMARY | ~2019-05-17 | XMS | Encounter Summary ---
Demographics + + + | Address | [address] | | | [place] [address] | + + + | Home Phone [...] Team Providers + +------+ + | Care Geological Specialist Name | Role | Phone | + +------+ + PCP | Unavailable | + +------+ + Encounter Details +--------+ + + + + | Date | Type | Department | Care Team | Description | +--------+ + + + + | 08/23/ | Hospital | [facility] | Deonte Aguiar, | | | 2013 | Encounter | HOSPITAL THERAPY PT | [address] | | | | | [address] | [place], [place] | | | | | [place], [place] | [address] | | | | | [address] | [phone] | | | | | [phone] | | | +--------+ + + + [...]
--- OUTSIDE RECORDS SUMMARY | ~2019-05-17 | XMS | Encounter Summary ---
Demographics + + + | Address | [address] | | | [place] [address] | + + + | Home Phone [...] Team Providers + +------+ + | Care Accountant Name | Role | Phone | + +------+ + PCP | Unavailable | + +------+ + Encounter Details +--------+ + + + + | Date | Type | Department | Care Team | Description | +--------+ + + + + | 11/27/ | [facility] | [facility] | Kayy Holguin, | | | 2014 | Encounter | [facility] | [address] | | | | | [address] | [place] [address] | | | | | [address] [place], | [phone] | | | | | [place] [address] | | | | | | [phone] | | | +--------+ + + + [...]
--- OUTSIDE RECORDS SUMMARY | ~2019-05-17 | XMS | Encounter Summary ---
Demographics + + + | Address | [address] | | | [place] [address] | + + + | Home Phone | | + + + | Preferred Language | Unknown | + + + | Marital Status | | + + + | Cheondoism Affiliation | Unknown | + + + [...] Team Providers + +------+ + | Care Bill Of Materials Clerk Name | Role | Phone | + +------+ + PCP | Unavailable | + +------+ + Encounter Details +--------+ + + + + | Date | Type | Department | Care Team | Description | +--------+ + + + + | 04/12/ | [facility] | [facility] | Linda Bardales | | | 2012 | Encounter | [facility] | [address] | | | | | [address] | [address] [place], [place] | | | | | [facility] [facility], | [address] | | | | | [place] [address] | [phone] | | | | | [phone] | | | +--------+ + + + [...]
--- OUTSIDE RECORDS SUMMARY | ~2019-05-17 | XMS | Encounter Summary ---
Demographics + + + | Address | [address] | | | [place] [address] | + + + | Home Phone | | + + + | Preferred Language | Unknown | + + + | Marital Status | | + + + | Nondenominational Affiliation | Unknown | + + + | Race | Unknown | + + + | Ethnic Group | Unknown | + + + Author + + + | Author | [facility] | | | and [place] | + + + | Organization | [facility] | | | and [...] Team Providers + +------+ + | Care Casino Manager Name | Role | Phone | [...] 08/01/ | Telephone | [facility] | Kayy Holguin, | Results, Imaging | | 2018 | | [facility] | [address] | | | | | MED[address] | [place] [address] | | | | | [address] [place], | [phone] | | | | | [place] [address] | | | | | | [phone] | | | +--------+ + + + [...]
--- OUTSIDE RECORDS SUMMARY | ~2019-05-17 | XMS | Encounter Summary ---
Demographics + + + | Address | [address] | | | [place] [address] | + + + | Home Phone | | + + + | Preferred Language | Unknown | + + + | Marital Status | | + + + | Yarsanism Affiliation | Unknown | + + + | Race | Unknown | + + + | Ethnic Group | Unknown | + + + Author + + + | Author | [facility] | | | and [place] | + + + | Organization | [facility] | | [...] Team Providers + +------+ + | Care Colored Liquid Plastic Applier Name | Role | Phone | + +------+ + PCP | Unavailable | + +------+ + Encounter Details +--------+ + + + + | Date | Type | Department | Care Team | Description | +--------+ + + + + | 11/09/ | Hospital | [place] [facility] | Maris, | | | 2016 | Encounter | [facility] | Shruthi Abebe NP [address] | | | | | [address] [place] | [address] | | | | | [place], [place] | [place] | | | | | [address] | [address] | | | | | [phone] | [phone] | | | | | | | [...]
--- OUTSIDE RECORDS SUMMARY | ~2019-05-17 | XMS | Encounter Summary ---
Demographics + + + | Address | [address] | | | [place] [address] | + + + | Home Phone [...] Providers + +------+ + | Care Manager Flight Operations Name | Role | Phone | + +------+ + PCP | Unavailable | + +------+ + Encounter Details +--------+ + + + + | Date | Type | Department | Care Team | Description | +--------+ + + + + | 06/20/ | [facility] | [place] [facility] | Brendon Colon | | | 2015 | Encounter | [facility] | MD Nicole [address] | | | | | MEDICAL [address] | [place] | | | | | 4TH [facility] [place], | [address] | | | | | [place] [address] | [phone] | | | | | [phone] | | | +--------+ + + + [...]
--- OUTSIDE RECORDS SUMMARY | ~2019-05-17 | XMS | Encounter Summary ---
Demographics + + + | Address | [address] | | | [place] [address] | + + + | Home Phone | | + + + | Preferred Language | Unknown | + + + | Marital Status | | + + + | Mosque Affiliation | Unknown | + + + [...] Team Providers + +------+ + | Care Energy Conservation Director Name | Role | Phone | [...] [place] | | | | | | [address] | | | | | | [phone] | | | +--------+ + + + [...]
--- OUTSIDE RECORDS SUMMARY | ~2019-05-17 | XMS | Encounter Summary ---
Demographics + + + | Address | [address] | | | [place] [address] | + + + | Home Phone | | + + + | Preferred Language | Unknown | + + + | Marital Status | | + + + | Roman Catholic Affiliation | Unknown | + + + | Race | Unknown | + + + | Ethnic Group | Unknown | + + + Author + + + | Author | [facility] | | | and [place] | + + + | Organization | [facility] | | [...] Providers + +------+ + | Care Manager Field Services Name | Role | Phone | + +------+ + PCP | Unavailable | + +------+ + Encounter Details +--------+ + + + + | Date | Type | Department | Care Team | Description | +--------+ + + + + | 12/23/ | [facility] | [facility] | Kayy Holguin, | | | 2014 | Encounter | [facility] | DO [address] | | | | | MEDICAL [address] | [place] [address] | | | | | [address] [facility], | [phone] | | | | | [place] [address] | | | | | | [phone] | | | +--------+ + + + [...]
--- OUTSIDE RECORDS SUMMARY | ~2019-05-17 | XMS | Encounter Summary ---
Demographics + + + | Address | [address] | | | [place] [address] | + + + | Home Phone | | + + + | Preferred Language | Unknown | + + + | Marital Status | | + + + | Restorationism Affiliation | Unknown | + + + | Race | Unknown | + + + | Ethnic Group | Unknown | + + + Author + + + | Author | [facility] | | | and [place] | + + + | Organization | [facility] | | | [...] Team Providers + +------+ + | Care It Support Specialist Name | Role | Phone | + +------+ + PCP | Unavailable | + +------+ + Encounter Details +--------+ + + + + | Date | Type | Department | Care Team | Description | +--------+ + + + + | 10/20/ | Hospital | [facility] [facility] | Kayy Holguin, | | | 2016 | Encounter | [facility] | [address] | | | | | [address] [place] | [place] [address] | | | | | [place] | [phone] | | | | | [address] | | | | | | [phone] | | | +--------+ + + + [...] | + +--------+ + + + | US NON-OB | Routin | 10/21/2015 | | Results for this | | TRANSVAGINAL | e | 7:50 AM | | procedure are in the | | | | PDT | | results section. | + +--------+ + + + documented in this encounter Results US Non-Ob Transvaginal (10/21/2015 7:50 AM PDT) + + | Specimen | + + | | + + + + + | Narrative | Performed At | + + + | ORIGINAL TRANSABDOMINAL-TRANSVAGINAL PELVIC | | | ULTRASOUND CLINICAL STATEMENT: Menorrhagia. REPORT: | | | Endometrial width is 13 mm. Nabothian cysts are present at the cervix. | | | Right and left ovary volumes are 2.5 and 4.8 mL, respectively. | | | Doppler flow is demonstrated within each ovary. No pelvic free fluid | | | is seen. Uterus volume is 108 mL with dimensions of 8.9 x 4.2 x 5.6 | | | cm. IMPRESSION: Endometrial width is within normal limits for a | | | patient who continues to have menses. Job No.: | | | [id number] Read By: SHAKA EVANGELISTA MD Released By: SHAKA Guerrero | | | MD JEAN CARLOS Date: 10/22/2015 20:27 | | + + + + + | Procedure Note | + + | Marvin, Rad Results In - 04/19/2017 10:29 PM PST ORIGINAL | | TRANSABDOMINAL-TRANSVAGINAL PELVIC ULTRASOUND CLINICAL STATEMENT:Menorrhagia. | | REPORT:Endometrial width is 13 mm. Nabothian cysts are present at the cervix. Right and | | left ovary volumes are 2.5 and 4.8 mL, respectively. Doppler flow is demonstrated within | | each ovary. No pelvic free fluid is seen. Uterus volume is 108 mL with dimensions of | | 8.9 x 4.2 x 5.6 cm. IMPRESSION:Endometrial width is within normal limits for a patient | | who continues to have menses. Job No.: [id number] Read By: SHAKA EVANGELISTA, | | MD Released By: SHAKA EVANGELISTA MDDate: 10/22/2015 20:27 | |REPORT: | |Endometrial width is 13 mm. Nabothian cysts are present at the cervix. Right and left ovary volumes are 2.5 and 4.8 mL, respectively. Doppler flow is demonstrated within each ovary. N o pelvic free fluid is seen. | |Uterus volume is 108 mL with dimensions of | | 8.9 x 4.2 x 5.6 cm. | | | |IMPRESSION: | |Endometrial width is within normal limits for a patient who continues to have menses. | | | | | |Job No.: [id number] | | | |Read By: SHAKA EVANGELISTA MD | | | |Released By: SHAKA EVANGELISTA MD | |Date: 10/22/2015 20:27 | | | | | + + documented in this encounter Visit Diagnoses Not on filedocumented in this encounter"
--- OUTSIDE RECORDS SUMMARY | ~2019-05-17 | XMS | Encounter Summary ---
Demographics + + + | Address | [address] | | | [place] [address] | + + + | Home Phone | | + + + | Preferred Language | Unknown | + + + | Marital Status | | + + + | Mosque Affiliation | Unknown | + + + | Race | Unknown | + + + | Ethnic Group | Unknown | + + + Author + + + | Author | [facility] | | | and [place] | + + + | Organization | [facility] | | [...] Team Providers + +------+ + | Care Merchandiser Seasonal Name | Role | Phone | + [...] Imaging | | 2018 | | [facility] | DO [address] | | | | | MEDICAL [address] | [place] [address] | | | | | [address] [place], | [phone] | | | | | [place] [address] | | | | | | [phone] | | | +--------+ + + + [...]
--- OUTSIDE RECORDS SUMMARY | ~2019-05-17 | XMS | Encounter Summary ---
Demographics + + + | Address | [address] | | | [place] [address] | + + + | Home Phone | | + + + | Preferred Language | Unknown | + + + | Marital Status | | + + + | Pentecostalism Affiliation | Unknown | + + + | Race | Unknown | + + + | Ethnic Group | Unknown | + + + Author + + + | Author | [facility] | | | and [place] | + + + | Organization | [facility] | | | [...] Team Providers + +------+ + | Care Household Manager Name | Role | Phone | + +------+ + | Kayy Holguin DO | PCP | | + +------+ + Reason for Visit +---------+ + | Reason | Comments | +---------+ + | Results | | +---------+ + Encounter Details +--------+ + + + + | Date | Type | Department | Care Team | Description | +--------+ + + + + | 04/12/ | Telephone | [facility] | Kayy Holguin, | Results | | 2018 | | [facility] | [address] | | | | | MED[address] | [place] [address] | | | | | [address] [place], | [phone] | | | | | [place] [address] | | | | | | [phone] | | | +--------+ + + + [...]
--- OUTSIDE RECORDS SUMMARY | ~2019-05-17 | XMS | Encounter Summary ---
Demographics + + + | Address | [address] | | | [place] [address] | + + + | Home Phone | | + + + | Preferred Language | Unknown | + + + | Marital Status | | + + + | Lutheran Affiliation | Unknown | + + + [...] Team Providers + +------+ + | Care Data Entry Specialist Name | Role | Phone | + +------+ + PCP | Unavailable | + +------+ + Encounter Details +--------+ + + + + | Date | Type | Department | Care Team | Description | +--------+ + + + + | 06/20/ | [facility] | [place] [facility] | Brendon Colon | | | 2015 | Encounter | [facility] | MD Nicole [address] | | | | | MEDICAL [address] | [place] | | | | | [address]TH [facility] [place], | [address] | | | | | [place] [address] | [phone] | | | | | [phone] | | | +--------+ + + + [...]
--- OUTSIDE RECORDS SUMMARY | ~2019-05-17 | XMS | Encounter Summary ---
Demographics + + + | Address | [address] | | | [place] [address] | + + + | Home Phone [...] Team Providers + +------+ + | Care Metal Building Assembler Name | Role | Phone | + +------+ + PCP | Unavailable | + +------+ + Encounter Details +--------+ + + + + | Date | Type | Department | Care Team | Description | +--------+ + + + + | 11/27/ | [facility] | [place] [facility] | Kayy Holguin, | | | 2014 | Encounter | [facility] | DO [address] | | | | | MEDICAL [address] | [place] [address] | | | | | [address] [place], | [phone] | | | | | [place] [address] | | | | | | [phone] | | | +--------+ + + + [...]
--- OUTSIDE RECORDS SUMMARY | ~2019-05-17 | XMS | Encounter Summary ---
Demographics + + + | Address | [address] | | | [place] [address] | + + + | Home Phone [...] + + | Author | [facility] | | | and [place] | + + + | Organization | [facility] | | | and [...] Team Providers + +------+ + | Care Nursing Student Name | Role | Phone | + +------+ + PCP | Unavailable | + +------+ + Encounter Details +--------+ + + + + | Date | Type | Department | Care Team | Description | +--------+ + + + + | 10/30/ | [facility] | Shasta Rubio, | | | 2011 | Encounter | [facility] | 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
--- OUTSIDE RECORDS SUMMARY | ~2019-05-17 | XMS | Encounter Summary ---
Demographics + + + | Address | [address] | | | [place] [address] | + + + | Home Phone | | + + + | Preferred Language | Unknown | + + + | Marital Status | | + + + | Yazidi Affiliation | Unknown | + + + | Race | Unknown | + + + | Ethnic Group | Unknown | + + + Author + + + | Author | [facility] | | | and [place] | + + + | Organization | [facility] | | | and [...] Team Providers + +------+ + | Care Appeals And Generalist Clerk Name | Role | Phone | + +------+ + PCP | Unavailable | + +------+ + Encounter Details +--------+ + + + + | Date | Type | Department | Care Team | Description | +--------+ + + + + | 09/15/ | [facility] | [facility] | Ana Luisa Alexandra, | | | 2015 | Encounter | [facility] | 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
--- OUTSIDE RECORDS SUMMARY | ~2019-05-17 | XMS | Encounter Summary ---
Demographics + + + | Address | [address] | | | [place] [address] | + + + | Home Phone [...] Team Providers + +------+ + | Care Edge Bander Operator Name | Role | Phone | [...] | | | | [place] | [address] | | | | | [address] | [phone] | | | | | [phone] | | | +--------+ + + + [...]
--- OUTSIDE RECORDS SUMMARY | ~2019-05-17 | XMS | Encounter Summary ---
Demographics + + + | Address | [address] | | | [place] [address] | + + + | Home Phone | | + + + | Preferred Language | Unknown | + + + | Marital Status | | + + + | Yarsanism Affiliation | Unknown | + + + | Race | Unknown | + + + | Ethnic Group | Unknown | + + + Author + + + | Author | [facility] | | | and [place] | + + + | Organization | [facility] | | | [...] Team Providers + +------+ + | Care Furniture Sales Associate Name | Role | Phone | + +------+ + PCP | Unavailable | + +------+ + Encounter Details +--------+ + + + + | Date | Type | Department | Care Team | Description | +--------+ + + + + | 04/30/ | [facility] | [place] [facility] | Linda Bardales | | | 2013 | Encounter | [facility] | [address] | | | | | MED[address] | [address] [place], [place] | | | | | [facility], | [address] | | | | | [place] [address] | [phone] | | | | | [phone] | | | +--------+ + + + [...]
--- OUTSIDE RECORDS SUMMARY | ~2019-05-17 | XMS | Encounter Summary ---
Demographics + + + | Address | [address] | | | [place] [address] | + + + | Home Phone [...] + + | Author | [facility] | | | and [place] | + + + | Organization | [facility] [...] Team Providers + +------+ + | Care Port Captain Name | Role | Phone | + +------+ + PCP | Unavailable | + +------+ + Encounter Details +--------+ + + + + | Date | Type | Department | Care Team | Description | +--------+ + + + + | 02/09/ | [facility] | Shasta Rubio, | | | 2012 | Encounter | [facility] | CARAMEL CANDY MA[address] | | | | | [address] | [place] | | | | | [place] | [address] | | | | | [address] | | | | | | [phone] | | | +--------+ + + + [...]
--- OUTSIDE RECORDS SUMMARY | ~2019-05-17 | XMS | Encounter Summary ---
Demographics + + + | Address | [address] | | | [place] [address] | + + + | Home Phone | | + + + | Preferred Language | Unknown | + + + | Marital Status | | + + + | Muslim Affiliation | Unknown | + + + | Race | Unknown | + + + | Ethnic Group | Unknown | + + + Author + + + | Author | [facility] | | | and [place] | + + + | Organization | [facility] | | [...] Team Providers + +------+ + | Care Pillowcase Maker Name | Role | Phone | + +------+ + | Kayy Holguin DO | PCP | | + +------+ + Reason for Visit + + + | Reason | Comments | + + + | Initial Assessment | | + + + Evaluate & Treat (Routine) +--------+ + + + + + | Status | Reason | Specialty | Diagnoses / | Referred By | Referred To | | | | | Procedures | Contact | Contact | +--------+ + + + + + | Closed | Specialty | Physical | Diagnoses | | Cc Wgr | | | Services | Therapy / | Acute pain | At[facility] | Therapy Pt | | | Required | Rehabilitatio | of right | n, Ju[place], | [address] | | | | n | shoulder | [address] | [place], | | | | | Procedures | [address] | [place] [address] | | | | | PT EVAL | [place], | Phone: | | | | | | [place] [address] | [phone] | | | | | | Phone: | Fax: | | | | | | [phone] | [phone] | | | | | | Fax: | | | | | | | [phone] | | +--------+ + + + + + Encounter Details +--------+ + + + + | Date | Type | Department | Care Team | Description | +--------+ + + + + | 10/17/ | Hospital | [place] [facility] | Svetlana, | Acute pain of right | | 2019 | Encounter | HOSPITAL THERAPY PT | [address] | shoulder; Shoulder | | | | [address] [place] | [address] [place] | injury, right, | | | | [place], [place] | [place] [address] | subsequent encounter | | | | [address] | [phone] | | | | | [phone] | | | | | | | Librado Alcala, | | | | | | PT | | +--------+ + + + + [...] +---------+ + + | cyclobenzaprine | Take 1 tablet by | 42 | 0 | 11/05/20 | | | (FLEXERIL) 10 mg | mouth 3 times daily | tablet | | 18 | | | tablet | as needed for Muscle | | | | [...] + + + +---------+ + + | EPINEPHrine | Inject 0.3 mLs into | 1 each | 0 | 10/31/19 | | | auto-injector 0.3 | the muscle as needed | | | 18 | | | mg/0.3 mL | for Anaphylaxis. | | | | | | injectionIndications | | | | | | | : Allergy to bee | | | | | | | sting | | | | | | + + + +---------+ + + | ibuprofen | TAKE ONE TABLET BY | 180 | 3 | 04/16/20 | | | (ADVIL,MOTRIN) 800 | MOUTH TWICE DAILY | tablet | | 18 | | | MG | WITH FOOD | | | | | | tabletIndications: | | | | | | | Pain | | | | | | + [...] tablet by | 14 | 0 | 04/16/20 | | | 50 mg tablet | [...] encounter Progress Notes Librado Alcala, PT - 10/26/2018 12:47 PM PDT Physical Therapy Plan of Care Date: 10/26/2018 Patient Name: Riddhi Perez Date of : 1970 Encounter Diagnoses Code Name Primary? M25.511 Acute pain of right shoulder S49.91XD Shoulder injury, right, subsequent encounter Date of Onset: 10/04/2018 Start of Care Date: 10/17/2018 Requested # of Visits: 18 visits 2x/week for 12 weeks. Certification From: 10/17/2018 Certification To: 01/09/2019 Clinical Impression: Ms. Perez presents to outpatient physical therapy approximately 2 mon ths s/p (R) shoulder injury. She reports that she was lifting a mattress above her head whe n she heard a loud pop. Her pain and dysfunction have increased since that time. She prese nts today wearing a (R) shoulder sling and has an MRI scheduled for 10/31/18. She reports th at her pain is primarily in her anterior shoulder near her LHB attachment. PFT reveals poin t tenderness that recreates her pain over the LHB tendon in the bicipital grove. Patient ex hibits significantly decreases A/PROM secondary to pain with flexion and abduction most limi eric. Strength is also decreased in all planes compared to (L) with flexion and abduction mo st limited. Patient exhibits + shrug sign, + drop arm tests. She would benefit from skill ed PT to address her pain, weakness and mobility deficits prior to further imaging. Goals: Patient Reported Outcome Goals QuickDASH Goal: Patient will report reduced disability on the quickdash with a score of 50% or less within 8 weeks. QuickDASH Goal Status: 77% disabled at eval. OP PT Goals OP PT Goals: Goal 1, Goal 2, Goal 3 Goal 1: Patient will dislay imporved (R) shoulder AROM with flexion 135 degrees or greater within 8 weeks. Goal 1 Status: 100 degrees with signficant pain. Goal 2: Patient will improve her (R) shoulder strength to 4-/5 gross or greater within 8 we eks. Goal 2 Status: 3/5 gross at eval. Goal 3: Patient will be independent with her initial HEP within 3 weeks. Goal 3 Status: Needs instruction. Treatment Plan/Interventions PT EvaluationPT Re-[id number] - Therapeutic [id number] - Neuromuscular Reeducation9 7116 - Gait [id number] - Therapeutic [id number] - Manual [id number] - Self Care/Ho me Qtvajwnjsu21355 - Aquatic Therapy/Exercises HP/CP Electronically signed by: Librado Alcala PT, 10/26/2018 12:47 Patient Name: Riddhi Perez/: 1970/ [place] Mercer PT - 10/18/2018 8:30 AM PDTFormatting of this note might be different from the zita [facility]as [facility] Care Organization [place] [address] [] ARSHAD [] RETRO Call/Fax received by Date call/Fax received [] Referral [x]Service Authorization [] Plus [x] Standard [] Inpt [x] Outpt Patient Information Patient Name: Riddhi Perez :1970 [facility] Client ID # [id number] PCP/Customs Compliance Manager Doctor Information PCP/Customs Compliance Manager Doctor: Kayy Holguin DO Specialist Party Plan Demonstrator Name: Librado Alcala PT Address: [address] [place] [address] Facility Information Facility: [facility]# [id number] Contact: Soren Tran Additional Authorization/Referral Information ICD10 code(s): Encounter Diagnoses Code Name Primary? M25.511 Acute pain of right shoulder S49.91XD Shoulder injury, right, subsequent encounter CPT code(s): [x]Ther. Exercise (35914) [x]Manual (62795) [x]MR (84612) []Gait Training (49125) [x]Aquatic Therapy (46764) []Traction (80730) [x] ThereAct (72780) Date of Onset: 10/04/2018 Start of Care Date: 10/17/2018 Requested # of Visits: 18 visits 2x/week for 12 weeks. Certification From: 10/17/2018 Certification To: 01/09/2019 Is this for a second Opinion [] Yes [x] No Comments: Below for ODS use only: Authorization number: Denial Number: awLibrado cruz PT - 10/18/2018 8:29 AM PDT Physical Therapy Plan of Care Date: 10/18/2018 Patient Name: Riddhi Perez Date of : 1970 Encounter Diagnoses Code Name Primary? M25.511 Acute pain of right shoulder Date of Onset: 10/04/2018 Start of Care Date: 10/17/2018 Requested # of Visits: 18 visits 2x/week for 12 weeks. Certification From: 10/17/2018 Certification To: 01/09/2019 Clinical Impression: Ms. Perez presents to outpatient physical therapy approximately 2 mon ths s/p (R) shoulder injury. She reports that she was lifting a mattress above her head whe n she heard a loud pop. Her pain and dysfunction have increased since that time. She prese nts today wearing a (R) shoulder sling and has an MRI scheduled for 10/31/18. She reports th at her pain is primarily in her anterior shoulder near her LHB attachment. PFT reveals poin t tenderness that recreates her pain over the LHB tendon in the bicipital grove. Patient ex hibits significantly decreases A/PROM secondary to pain with flexion and abduction most limi eric. Strength is also decreased in all planes compared to (L) with flexion and abduction mo st limited. Patient exhibits + shrug sign, + drop arm tests. She would benefit from skill ed PT to address her pain, weakness and mobility deficits prior to further imaging. Goals: Patient Reported Outcome Goals QuickDASH Goal: Patient will report reduced disability on the quickdash with a score of 50% or less within 8 weeks. QuickDASH Goal Status: 77% disabled at eval. OP PT Goals OP PT Goals: Goal 1, Goal 2, Goal 3 Goal 1: Patient will dislay imporved (R) shoulder AROM with flexion 135 degrees or greater within 8 weeks. Goal 1 Status: 100 degrees with signficant pain. Goal 2: Patient will improve her (R) shoulder strength to 4-/5 gross or greater within 8 we eks. Goal 2 Status: 3/5 gross at eval. Goal 3: Patient will be independent with her initial HEP within 3 weeks. Goal 3 Status: Needs instruction. Treatment Plan/Interventions PT EvaluationPT Re-[id number] - Therapeutic Qdvptlcv10952 - Neuromuscular Reeducation9 7116 - Gait Jpefiqjv06728 - Therapeutic Ymgiifoggg06896 - Manual Prybsbc81986 - Self Care/Ho me Yjbxdqbolu40388 - Aquatic Therapy/Exercises HP/CP Electronically signed by: Librado Alcala, PT, 10/18/2018 8:29 Patient Name: Riddhi Perez/: 1970/ [place] Mercer PT - 10/18/2018 8:27 AM PDTFormatting of this note might be different from the [facility] THERAPY PT [address] [place] [address] Physical Therapy Initial Assessment Date: 10/17/2018 Patient Information Patient Name: Riddhi Perez Date of : 1970 Age: 48 y.o. History Problem Acute Pain of Right Shoulder Mechanism of injury: Trauma History of symptoms: 2 months Previous level of function and limitations: unrestricted Work status:Light duty Living situation: With roommates Social History Socioeconomic History Marital status: Spouse name: Not on file Number of children: Not on file Years of education: Not on file Highest education level: Not on file Tobacco Use Smoking status: Current Every Day Smoker Packs/day: 0.50 Types: Cigarettes Smokeless tobacco: Never Used Substance and Sexual Activity Alcohol use: No Drug use: No Sexual activity: Not Currently Encounter Diagnoses Code Name Primary? M25.511 Acute pain of right shoulder Date of Onset: 10/04/2018 Referring Provider: LEDA Dennison No history on file. Past Medical History: Diagnosis Date Bipolar 1 disorder (HCC) Depression Gout Seasonal allergies Past Surgical History: Procedure Laterality Date CHOLECYSTECTOMY SHOULDER ARTHROPLASTY TUBAL LIGATION Family History Problem Relation Age of Onset Diabetes Mother Depression Mother Cancer Mother Heart disease Mother High blood pressure Mother High cholesterol Mother Diabetes Father Cancer Father Heart disease Father High blood pressure Father High cholesterol Father Depression Son Developmental History Allergies Allergen Reactions Aspirin Bees [Bee Venom] Oxycodone Penicillins Prior Treatment: None within the last sixty days Objective Pain Assessment: Pain Rating Pre Assessment: 7 Pain Rating Post Assessment: 7 Location: (R) Standardized Tests: QuickDASH (QD) Open a tight or new jar: 1 - No Difficulty Do heavy pig iron loader: 4 - Severe Difficulty Carry a shopping bag or briefcase: 4 - Severe Difficulty Wash your back: 4 - Severe Difficulty Use a Knife to cut food: 4 - Severe Difficulty Recreational Activities which impact the UE: 5 - Unable Interfered with Social Activities: 4 - Quite a bit Limit Work or Regular Daily Activities: 5 - Unable Arm, shoulder or hand pain: 5 - Extreme Tingling in arm, shoulder or hand: 4 - Severe Difficulty Sleeping due to pain in UE: 5 - So Much Difficulty that I cannot sleep QuickDASH Mean Score (Calculated): 4.09 QuickDASH Disability/Symptom Score (Calculated): 77.27 QuickDASH Goal: Patient will report reduced disability on the quickdash with a score of 50% or less within 8 weeks. QuickDASH Goal Status: 77% disabled at [facility]. Range of Motion (measured in degrees): LUE AROM (degrees) L Shoulder Flex: 180 L Shoulder ABduction: 180 L Shoulder Int Rotation: 80 L Shoulder Ext Rotation: 90 RUE AROM (degrees) R Shoulder Flex: 100 R Shoulder ABduction : 75 R Shoulder Int Rotation: ~L1 RUE PROM (degrees) R Shoulder flex: 125 R Shoulder ABduction: 90 R Shoulder int rotation : 80 R Shoulder ext rotation: 90 Strength: LUE Strength L Shoulder Flexion: 5/5 L Shoulder ABduction: 5/5 L Shoulder Internal Rotation: 5/5 L Shoulder External Rotation: 5/5 L Elbow Flexion: 5/5 RUE Strength R Shoulder Flexion: 3-/5 R Shoulder ABduction: 3-/5 R Shoulder Internal Rotation: 4-/5 R Shoulder External Rotation: 3+/5 R Elbow Flexion: 4-/5 Special Tests: Shoulder Special Tests R Apprehension Test: increases symptoms Today's Treatment Patient Name: Riddhi Perez/: 1970/ Start Time: 1401 Stop time: 1435 Duration: 34 minutes Timed Treatment Codes: 0 minutes # of PT Visits: 1 Visit Summary: S: Patient reports that she is wearing her sling all day, talking it off fo r short periods to move her arm as per physician recommendation. A: Patient displayed sign ficant muscle guarding with all A/PROM and increased weakness above 90 degress shoulder flex ion. Patient instructed in basic scapular ROM HEP and was encouraged to take off her sling multiple X/day at home to perform scap ROM as tolerated. Next Visit Information: P: Cont' to assess and treat (R) shoulder Patient/Caregiver Education Learner: Patient Readiness: Eager Method: Explanation, Demonstration Response: Verbalizes Understanding, Demonstrated Understanding Therapy Interventions HEP: shrugs, scap retractions, shoulder circles, elbow flex/ext AROM, YTB scap retraction Assessment Ms. Perez presents to outpatient physical therapy approximately 2 months s/p (R) shoulder i njury. She reports that she was lifting a mattress above her head when she heard a loud pop . Her pain and dysfunction have increased since that time. She presents today wearing a (R ) shoulder sling and has an MRI scheduled for 10/31/18. She reports that her pain is primari ly in her anterior shoulder near her LHB attachment. PFT reveals point tenderness that recr eates her pain over the LHB tendon in the bicipital grove. Patient exhibits significantly d ecreases A/PROM secondary to pain with flexion and abduction most limited. Strength is also decreased in all planes compared to (L) with flexion and abduction most limited. Patient e xhibits + shrug sign, + drop arm tests. She would benefit from skilled PT to address her p ain, weakness and mobility deficits prior to further imaging. Rehabilitation potential: Patient demonstrates good potential to achieve established goals to address the documented impairments by participating in skilled physical therapy services. Goals: Patient Reported Outcome Goals QuickDASH Goal: Patient will report reduced disability on the quickdash with a score of 50% or less within 8 weeks. QuickDASH Goal Status: 77% disabled at eval. OP PT Goals OP PT Goals: Goal 1, Goal 2, Goal 3 Goal 1: Patient will dislay imporved (R) shoulder AROM with flexion 135 degrees or greater within 8 weeks. Goal 1 Status: 100 degrees with signficant pain. Goal 2: Patient will improve her (R) shoulder strength to 4-/5 gross or greater within 8 we eks. Goal 2 Status: 3/5 gross at eval. Goal 3: Patient will be independent with her initial HEP within 3 weeks. Goal 3 Status: Needs instruction. Plan Date of Onset: 10/04/2018 Start of Care Date: 10/17/2018 Requested # of Visits: 18 visits 2x/week for 12 weeks. Certification From: 10/17/2018 Certification To: 01/09/2019 Treatment Plan/Interventions PT EvaluationPT Re-[id number] - Therapeutic Vfremiel24532 - Neuromuscular Reeducation9 7116 - Gait Evnpkmqd64798 - Therapeutic Nqfuwhgrch98573 - Manual Xeyywto89770 - Self Care/Ho me Ofuzahcgor61695 - Aquatic Therapy/Exercises HP/CP Patient and/or family has indicated understanding of treatment needs and actively participa eric in the creation of this plan for care. Electronically signed by: Librado Alcala PT, 10/18/2018 8:27 Patient Name: Riddhi Perez/: 1970/ documented in this encounter Plan of Treatment + + +--------+ + + | Name | Type | Priori | Associated Diagnoses | Order Schedule | | | | ty | | | + + +--------+ + + | * [facility] | Outpatient | Routin | Acute pain of | Ordered: 10/04/2018 | | [facility] Physical Therapy | Referral | e | right shoulder | | | - AMB Referral | | | | | + + +--------+ + + documented as of this encounter Visit Diagnoses + + | Diagnosis | + + | Acute pain of right shoulder | + + | Shoulder injury, right, subsequent encounter | + + documented in this encounter"
--- OUTSIDE RECORDS SUMMARY | ~2019-05-17 | XMS | Encounter Summary ---
Demographics + + + | Address | [address] | | | [place] [address] | + + + | Home Phone | | + + + | Preferred Language | Unknown | + + + | Marital Status | | + + + | Restoration Affiliation | Unknown | + + + | Race | Unknown | + + + | Ethnic Group | Unknown | + + + Author + + + | Author | [facility] | | | and [place] | + + + | Organization | [facility] | | | [...] Team Providers + +------+ + | Care Staff Mechanical Engineer Name | Role | Phone | + +------+ + PCP | Unavailable | + +------+ + Encounter Details +--------+ + + + + | Date | Type | Department | Care Team | Description | +--------+ + + + + | 08/29/ | [facility] | [place] | Kayy Holguin, | | | 2014 | Encounter | [facility] | DO [address] [place] | | | | | [facility] [address] | [facility] [place] [place] [address] | | | | | [address] [place], | [phone] | | | | | [place] [address] | | | | | | [phone] | | | +--------+ + + + [...]
--- OUTSIDE RECORDS SUMMARY | ~2019-05-17 | XMS | Encounter Summary ---
Demographics + + + | Address | [address] | | | [place] [address] | + + + | Home Phone | | + + + | Preferred Language | Unknown | + + + | Marital Status | | + + + | Anglican Affiliation | Unknown | + + + | Race | Unknown | + + + | Ethnic Group | Unknown | + + + Author + + + | Author | [facility] | | | and [place] | + + + | Organization | [facility] | | [...] Team Providers + +------+ + | Care Automation Control Technician Name | Role | Phone | + +------+ + PCP | Unavailable | + +------+ + Encounter Details +--------+ + + + + | Date | Type | Department | Care Team | Description | +--------+ + + + + | 03/14/ | [facility] | [facility] [facility] | Linda Bardales | | | 2012 | Encounter | [facility] | [address] | | | | | [facility] [address] | [address] [place], [place] | | | | | [address] [facility] [place], | [address] | | | | | [place] [address] | [phone] | | | | | [phone] | | | +--------+ + + + [...]
--- OUTSIDE RECORDS SUMMARY | ~2019-05-17 | XMS | Encounter Summary ---
Demographics + + + | Address | [address] | | | [place] [address] | + + + | Home Phone | | + + + | Preferred Language | Unknown | + + + | Marital Status | | + + + | Jew Affiliation | Unknown | + + + [...] Team Providers + +------+ + | Care Senior Risk Manager Name | Role | Phone | + +------+ + PCP | Unavailable | + +------+ + Encounter Details +--------+ + + + + | Date | Type | Department | Care Team | Description | +--------+ + + + + | 04/30/ | [facility] | [place] [facility] | Linda Bardales | | | 2013 | Encounter | [facility] | [address] | | | | | [place] | [address] [place] | | | | | [place] | [address] | | | | | [address] | [phone] | | | | | [phone] | | | +--------+ + + + [...] | + +--------+ + + + | VAS UPPER OR LOWER | Routin | 04/30/2014 | | Results for this | | EXTREMITY VENOUS | e | 3:49 PM | | procedure are in the | | | | PST | | results section. | + +--------+ + + + documented in this encounter Results VAS Upper or Lower Extremity Venous (04/30/2014 3:49 PM PST) + + | Specimen | + + | | + + + + + | Narrative | Performed At | + + + | ORIGINAL LEFT LOWER EXTREMITY VENOUS ULTRASOUND: | | | HISTORY: Increased leg pain and bruising. FINDINGS: The | | | interrogated deep venous system of the left lower extremity | | | demonstrates compressibility, flow and augmentation. Focused | | | ultrasound evaluation of the medial calf demonstrates a small amount | | | of subcutaneous increased echogenicity consistent with bruising, this | | | is near the greater saphenous vein. The greater saphenous vein is | | | compressible and has flow. IMPRESSION: No evidence of an acute | | | deep venous thrombosis. Read | | | By: BLAINE NIEVES MD Released By: BLAINE NIEVES MD | | | Date: 05/01/2014 11:10 | | + + + + + | Procedure Note | + + | Marvin, Rad Results In - 03/30/2017 1:47 PM PDT ORIGINAL LEFT LOWER EXTREMITY | | VENOUS ULTRASOUND: HISTORY:Increased leg pain and bruising. FINDINGS:The interrogated | | deep venous system of the left lower extremity demonstrates compressibility, flow and | | augmentation. Focused ultrasound evaluation of the medial calf demonstrates a small | | amount of subcutaneous increased echogenicity consistent with bruising, this is near the | | greater saphenous vein. The greater saphenous vein is compressible and has flow. | | IMPRESSION:No evidence of an acute deep venous thrombosis. Job #: [id number] | | Read By: BLAINE NIEVES MD Released By: BLAINE NIEVES MDDate: 05/01/2014 11:10 | | | |FINDINGS: | |The interrogated deep venous system of the left lower extremity demonstrates compressibilit y, flow and augmentation. | | | |Focused ultrasound evaluation of the medial calf demonstrates a small amount of subcutaneou s increased echogenicity consistent with bruising, this is near the greater saphenous vein. The greater saphenous vein is compressible and has flow. | | | |IMPRESSION: | |No evidence of an acute deep venous thrombosis. | | | | | | | | | |Read By: BLAINE NIEVES MD | | | |Released By: BLAINE NIEVES MD | |Date: 05/01/2014 11:10 | | | | | + + documented in this encounter Visit Diagnoses Not on filedocumented in this encounter"
--- OUTSIDE RECORDS SUMMARY | ~2019-05-17 | XMS | Encounter Summary ---
Demographics + + + | Address | [address] | | | [place] [address] | + + + | Home Phone | | + + + | Preferred Language | Unknown | + + + | Marital Status | | + + + | Baptism Affiliation | Unknown | + + + | Race | Unknown | + + + | Ethnic Group | Unknown | + + + Author + + + | Author | [facility] | | | and [place] | + + + | Organization | [facility] | | [...] Team Providers + +------+ + | Care Gas Scrubber Operator Name | Role | Phone | + +------+ + PCP | Unavailable | + +------+ + Encounter Details +--------+ + + + + | Date | Type | Department | Care Team | Description | +--------+ + + + + | 03/14/ | [facility] | [facility] | Linda Bardales | | | 2012 | Encounter | [facility] | [address] | | | | | [facility] [address] | [address] [place], [place] | | | | | [address] [facility] [place], | [address] | | | | | [place] [address] | [phone] | | | | | [phone] | | | +--------+ + + + [...]
--- OUTSIDE RECORDS SUMMARY | ~2019-05-17 | XMS | Encounter Summary ---
Demographics + + + | Address | [address] | | | [place] [address] | + + + | Home Phone | | + + + | Preferred Language | Unknown | + + + | Marital Status | | + + + | Episcopalian Affiliation | Unknown | + + + | Race | Unknown | + + + | Ethnic Group | Unknown | + + + Author + + + | Author | [facility] | | | and [place] | + + + | Organization | [facility] | | | [...] Team Providers + +------+ + | Care Forge Hand Name | Role | Phone | + +------+ + PCP | Unavailable | + +------+ + Encounter Details +--------+ + + + + | Date | Type | Department | Care Team | Description | +--------+ + + + + | 10/27/ | Orders Only | [facility] | Amanda De La Cruz MD | | | 2016 | | [facility] | [address] [place] | | | | | CLINIC [address] | [place] | | | | | [address] [place], | [address] | | | | | [place] [address] | | | | | | [phone] | | | +--------+ + + + [...] | + +--------+ + + + | TISSUE EXAM | Routin | 10/28/2015 | | Results for this | | | e | 4:17 PM | | procedure are in the | | | | PDT | | results section. | + +--------+ + + + | TISSUE EXAM | Routin | 10/28/2015 | | Results for this | | | e | 4:17 PM | | procedure are in the | | | | PDT | | results section. | + +--------+ + + + documented in this encounter Results TISSUE EXAM (10/28/2015 4:17 PM PDT) + + | Specimen | + + | | + + + + + | Narrative | Performed At | + + + | . : 00:00am .T: BMP Cytology Report .PV: KNI Status: F | EXTERNAL LAB | | Ordering Provider Amanda DE LA CRUZ M.D. @W/-X CC Provider | | | LG - [facility] [employer] [facility] /W Collected Date 20151028 | | | Received Date 20151030 Completed Date 20151102 | | | Specimen Source: Liquid base - cervical Number of Slides: | | | 10 LMP Date: 20150927 Menstrual Status Second | | | Half of Cycle Clinical History: Pt High Risk- | | | Current smoker ABN Bleeding- Menorrhagia Cytopathologic | | | Diagnosis: Negative for Intraepithelial Lesion or Malignancy | | | Shift in neisha suggestive of bacterial vaginosis Specimen | | | Adequacy: Satisfactory for evaluation. Transformation | | | zone component present Comment: Repeat smear at your | | | discretion. Specimen processed successfully by [employer] | | | Slide Senior Publications Specialist, [employer], [employer]. History: | | | [id number] 04/18/13 Negative for Intraepithelial Lesion or | | | Malignancy [id number] 08/28/97 Within normal limits. | | | Disclaimer The. : 00:00am .T: BMP Surgical | | | Report .PV: KNI Status: F Ordering Provider Amanda DE LA CRUZ | | | Jorge @W/-X CC Provider Amanda DE LA CRUZ M.D. @W/-X, - BMP | | | [facility] [facility] /W, [facility], [employer] INFO MANAGEMENT /F Collected Date | | | 20151028 Received Date 20151029 Completed Date | | | 20151030 Specimens: Endometrial biopsy Pre-Op Diagnosis: | | | Menorrhagia Post-Op Diagnosis: Same Chart/ID#: | | | [id number] Diagnosis: Uterus, endometrium, biopsy: Early | | | secretory phase. Electronically Signed By: Electronically | | | Signed: Kenny Man M.D. Clinical Brief: LMP: | | | 09/27/15 Hormones: NA Gross Description: Received in a | | | formalin-filled container labeled with the patient's name (Riddhi | | | Ana), date of (1970) and additionally labeled | | | "endometrial biopsy" are multiple irregularly shaped fragments of pale | | | coe soft tissue measuring 1.0 x 0.4 x 0.2 cm in aggregate. The | | | specimen is filtered through a biopsy bag and entirely submitted in a | | | single cassette. NA The gross examination is performed at [facility] | | | [facility], [address] [place] [address]. Microscopic | | | Examination: Sections of endometrium reveal it to be composed of | | | simple tubular to slightly dilated and tortuous glands lined by early | | | secretory epithelium. These are set in a mildly edematous stroma. The | | | gland to stroma ratio is less than 1:1. No plasma cells are seen. | | | There is no evidence of malignancy or atypia. User 1 Lab | | | Ordering Provider: Amanda De La Cruz M.D. | | | @W/[facility] Pathology # SIGNED BY | | | AMANDA DE LA CRUZ MD, Dr. ([facility])11/04/2015 09:43AM pap smear is not a | | | diagnostic procedure and should not be used as the sole means to | | | detect cervical cancer. It is only a screening procedure to aid in the | | | detection of cervical cancer. Both false-negative and false-positive | | | results have been experienced. User 1 Lab Phone: [phone] | | | [phone] Ordering Provider: Amanda De La Cruz M.D. @W/-[facility] Pathology # SIGNED BY AMANDA Dominguez | | | MD DE LA CRUZ Dr. ([facility])11/04/2015 09:43AM | | + + + + +---------+ + + | Performing | Address | City/State/Zipcode | Phone Number | | Organization | | | | + +---------+ + + | EXTERNAL LAB | | | | + +---------+ + + TISSUE EXAM (10/28/2015 4:17 PM PDT) + + | Specimen | + + | | + + + + + | Narrative | Performed At | + + + | .D: 16 : 00:00am .T: BMP Cytology Report .PV: JACQUESI Status: F | EXTERNAL LAB | | Ordering Provider Amanda DE LA CRUZ M.D. @W/-X CC Provider | | | - [facility] [employer] /W Collected Date 20151028 | | | Received Date 20151030 Completed Date 20151102 | | | Specimen Source: Liquid base - cervical Number of Slides: | | | 10 LMP Date: 20150927 Menstrual Status Second | | | Half of Cycle Clinical History: Pt High Risk- | | | Current smoker ABN Bleeding- Menorrhagia Cytopathologic | | | Diagnosis: Negative for Intraepithelial Lesion or Malignancy | | | Shift in neisha suggestive of bacterial vaginosis Specimen | | | Adequacy: Satisfactory for evaluation. Transformation | | | zone component present Comment: Repeat smear at your | | | discretion. Specimen processed successfully by [facility] | | | Slide Senior Publications Specialist, [employer], [employer]. History: | | | [id number] 04/18/13 Negative for Intraepithelial Lesion or | | | Malignancy [id number] 08/28/97 Within normal limits. | | | Disclaimer The. : 00:00am .T: BMP Surgical | | | Report .PV: KNI Status: F Ordering Provider Amanda DE LA CRUZ | | | Jorge @W/-X CC Provider Amanda DE LA CRUZ M.D. @W/-X, LG - BMP | | | [employer] /W, [facility], [employer] MANAGEMENT /F Collected Date | | | 20151028 Received Date 20151029 Completed Date | | | 20151030 Specimens: Endometrial biopsy Pre-Op Diagnosis: | | | Menorrhagia Post-Op Diagnosis: Same Chart/ID#: | | | [id number] Diagnosis: Uterus, endometrium, biopsy: Early | | | secretory phase. Electronically Signed By: Electronically | | | Signed: Kenny Man M.D. Clinical Brief: LMP: | | | 09/27/15 Hormones: NA Gross Description: Received in a | | | formalin-filled container labeled with the patient's name (Riddhi | | | Ana), date of (1970) and additionally labeled | | | "endometrial biopsy" are multiple irregularly shaped fragments of pale | | | coe soft tissue measuring 1.0 x 0.4 x 0.2 cm in aggregate. The | | | specimen is filtered through a biopsy bag and entirely submitted in a | | | single cassette. NA The gross examination is performed at [facility] | | | [facility], [address] [place] [address]. Microscopic | | | Examination: Sections of endometrium reveal it to be composed of | | | simple tubular to slightly dilated and tortuous glands lined by early | | | secretory epithelium. These are set in a mildly edematous stroma. The | | | gland to stroma ratio is less than 1:1. No plasma cells are seen. | | | There is no evidence of malignancy or atypia. User 1 Lab | | | Ordering Provider: Amanda De La Cruz M.D. | | | @W/-[facility] Pathology # SIGNED BY | | | AMANDA DE LA CRUZ MD, Dr. ([facility])11/04/2015 09:43AM pap smear is not a | | | diagnostic procedure and should not be used as the sole means to | | | detect cervical cancer. It is only a screening procedure to aid in the | | | detection of cervical cancer. Both false-negative and false-positive | | | results have been experienced. User 1 Lab Phone: [phone] | | | [phone] Ordering Provider: Amanda De La Cruz M.D. @W/-[facility] Pathology # SIGNED BY AMANDA Dominguez | | | MD DE LA CRUZ Dr. ([facility])11/04/2015 09:43AM | | + + + + +---------+ + + | Performing | Address | City/State/Zipcode | Phone Number | | Organization | | | | + +---------+ + + | EXTERNAL LAB | | | | + +---------+ + + documented in this encounter Visit Diagnoses Not on filedocumented in this encounter
--- OUTSIDE RECORDS SUMMARY | ~2019-05-17 | XMS | Encounter Summary ---
Demographics + + + | Address | [address] | | | [place] [address] | + + + | Home Phone | | + + + | Preferred Language | Unknown | + + + | Marital Status | | + + + | Yazidism Affiliation | Unknown | + + + | Race | Unknown | + + + | Ethnic Group | Unknown | + + + Author + + + | Author | [facility] | | | and [place] | + + + | Organization | [facility] | | | [...] Team Providers + +------+ + | Care Dispensary Clerk Name | Role | Phone | + +------+ + PCP | Unavailable | + +------+ + Encounter Details +--------+ + + + + | Date | Type | Department | Care Team | Description | +--------+ + + + + | 10/27/ | Orders Only | [facility] | Amanda DeL a Cruz MD | | | 2016 | | [facility] | [address] | | | | | CLINIC [address] | [place] | | | | | DR [place], | [address] | | | | | [place] [address] | | | | | | [phone] | | | +--------+ + + + [...] CC Provider | | | LG - [facility] [employer] /W Collected Date 20151028 | | | [...] successfully by [employer] | | | Slide Mica Plate Layer Hand, [employer], [employer]. History: | | | [id number] 04/18/13 Negative for Intraepithelial Lesion or | | | Malignancy [id number] 08/28/97 Within normal limits. | | | Disclaimer The. : 00:00am .T: BMP Surgical | | | Report .PV: KNI Status: F Ordering Provider Amanda DE LA CRUZ | | | Jorge @W/-X CC Provider Amanda DE LA CRUZ M.D. @W/-X, - BMP | | | [employer] /W, [facility], [employer] INFO MANAGEMENT /F Collected Date | | | 20151028 Received Date 20151029 Completed Date | | | 20151030 Specimens: Endometrial biopsy Pre-Op Diagnosis: | | | Menorrhagia Post-Op Diagnosis: Same Chart/ID#: | | | [id number] Diagnosis: Uterus, endometrium, biopsy: Early | | [...] NA The gross examination is performed at [facility] | | | [facility], [address] [place] [address]. Microscopic | | | Examination: Sections of [...] De La Cruz M.D. | | | @W/[facility] Pathology # SIGNED BY | | | AMANDA DE LA CRUZ MD, Dr. ([facility])11/04/2015 09:43AM pap smear is not a | | | diagnostic procedure and should not be used as the sole means to | | | detect cervical cancer. It is only a screening procedure to aid in the | | | detection of cervical cancer. Both false-negative and false-positive | | | results have been experienced. User 1 Lab Phone: [phone] | | | [phone] Ordering Provider: Amanda De La Cruz M.D. @W/-[facility] Pathology # SIGNED BY AMANDA Dominguez | | | MD DE LA CRUZ Dr. ([facility])11/04/2015 09:43AM | | + + + + [...] @W/-X CC Provider | | | - [facility] [employer] /W Collected Date 20151028 | | | [...] successfully by [employer] | | | Slide Mica Plate Layer Hand, [employer], [employer]. History: | | | [id number] 04/18/13 Negative for Intraepithelial Lesion or | | | Malignancy [id number] 08/28/97 Within normal limits. | | | Disclaimer The. : 00:00am .T: BMP Surgical | | | Report .PV: KNI Status: F Ordering Provider Amanda DE LA CRUZ | | | Jorge @W/-X CC Provider Amanda DE LA CRUZ M.D. @W/-X, LG - BMP | | | [employer] /W, [facility], [employer] MANAGEMENT /F Collected Date | | | 20151028 Received Date 20151029 Completed Date | | | 20151030 Specimens: Endometrial biopsy Pre-Op Diagnosis: | | | Menorrhagia Post-Op Diagnosis: Same Chart/ID#: | | | [id number] Diagnosis: Uterus, endometrium, biopsy: Early | | [...] NA The gross examination is performed at [facility] | | | [facility], [address] [place] [address]. Microscopic | | | Examination: Sections of [...] De La Cruz M.D. | | | @W/-[facility] Pathology # SIGNED BY | | | AMANDA DE LA CRUZ MD, Dr. ([facility])11/04/2015 09:43AM pap smear is not a | | | diagnostic procedure and should not be used as the sole means to | | | detect cervical cancer. It is only a screening procedure to aid in the | | | detection of cervical cancer. Both false-negative and false-positive | | | results have been experienced. User 1 Lab Phone: [phone] | | | [phone] Ordering Provider: Amanda De La Cruz M.D. @W/-[facility] Pathology # SIGNED BY AMANDA Dominguez | | | MD DE LA CRUZ Dr. ([facility])11/04/2015 09:43AM | | + + + + +---------+ + + | Performing | Address | City/State/Zipcode | Phone Number | | Organization | | | | + +---------+ + + | EXTERNAL LAB | | | | + +---------+ + + documented in this encounter Visit Diagnoses Not on filedocumented in this encounter
--- OUTSIDE RECORDS SUMMARY | ~2019-05-17 | XMS | Encounter Summary ---
Demographics + + + | Address | [address] | | | [place] [address] | + + + | Home Phone [...] Team Providers + +------+ + | Care Hand Screen Printer Name | Role | Phone | + [...] 10/30/ | Refill | [facility] | Diane Thornton, | Medication Refill | | 2017 | | [facility] | LOCATION DIRECTOR | | | | | MEDICAL [facility] [address] | | | | | | [address] 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
--- OUTSIDE RECORDS SUMMARY | ~2019-05-17 | XMS | Encounter Summary ---
Demographics + + + | Address | [address] | | | [place] [address] | + + + | Home Phone | | + + + | Preferred Language | Unknown | + + + | Marital Status | | + + + | Jew Affiliation | Unknown | + + + | Race | Unknown | + + + | Ethnic Group | Unknown | + + + Author + + + | Author | [facility] | | | and [place] | + + + | Organization | [facility] | | [...] Team Providers + +------+ + | Care Account Information Clerk Name | Role | Phone | + +------+ + PCP | Unavailable | + +------+ + Encounter Details +--------+ + + + + | Date | Type | Department | Care Team | Description | +--------+ + + + + | 12/11/ | Hospital | [facility] | Deonte Aguiar, | | | 2014 | Encounter | HOSPITAL THERAPY PT | DO [address] , | | | | | [address] | [place] | | | | | [place], [place] | [address] | | | | | [address] | [phone] | | | | | [phone] | | | +--------+ + + + [...]
--- OUTSIDE RECORDS SUMMARY | ~2019-05-17 | XMS | Encounter Summary ---
Demographics + + + | Address | [address] | | | [place] [address] | + + + | Home Phone [...] Team Providers + +------+ + | Care Paste Plant Supervisor Name | Role | Phone | [...] Imaging | | 2018 | | [facility] | MACHINE DESIGNER | | | | | MEDICAL CLINIC [address] | | | | | | [address] [facility] [place], | | | | | | [place] [address] | | | | | | [phone] | | | +--------+ + + + [...]
--- OUTSIDE RECORDS SUMMARY | ~2019-05-17 | XMS | Encounter Summary ---
Demographics + + + | Address | [address] | | | [place] [address] | + + + | Home Phone [...] Providers + +------+ + | Care Edge Grinder Name | Role | Phone | + +------+ + PCP | Unavailable | + +------+ + Encounter Details +--------+ + + + + | Date | Type | Department | Care Team | Description | +--------+ + + + + | 11/07/ | Hospital | [facility] | Deonte Aguiar, | | | 2013 | Encounter | HOSPITAL ORTHOPEDIC | DO [address] , | | | | | [address] | [place], [place] | | | | | [place], [place] | [address] | | | | | [address] | [phone] | | | | | [phone] | | | +--------+ + + + [...]
--- OUTSIDE RECORDS SUMMARY | ~2019-05-17 | XMS | Encounter Summary ---
Demographics + + + | Address | [address] | | | [place] [address] | + + + | Home Phone | | + + + | Preferred Language | Unknown | + + + | Marital Status | | + + + | Advent Affiliation | Unknown | + + + | Race | Unknown | + + + | Ethnic Group | Unknown | + + + Author + + + | Author | [facility] | | | and [place] | + + + | Organization | [facility] | | | [...] Team Providers + +------+ + | Care Residential Mortgage Manager Name | Role | Phone | [...] | Therapy / | Acute pain | Kayy A, DO | Therapy Pt | | | Required | Rehabilitatio | of right | [address] | [address] | | | | n | shoulder | [place], | [place], | | | | | Procedures | [place] [address] | [place] [address] | | | | | PT TREAT | Phone: | Phone: | | | | | | [phone] | [phone] | | | | | | Fax: | Fax: | | | | | | [phone] | [phone] | +--------+ + + + + + Reason for Visit +---------+ + | Reason | Comments | +---------+ + | Results | | +---------+ + Encounter Details +--------+ + + + + | Date | Type | Department | Care Team | Description | +--------+ + + + + | 11/01/ | Telephone | [facility] | Leila Holguina Tru, | Results | | 2019 | | [facility] | DO [address] | | | | | MEDICAL CLINIC [address] | [place] [address] | | | | | [address] [place], | [phone] | | | | | [place] [address] | | | | | | [phone] | | | +--------+ + + + [...] as of this encounter Plan of Treatment + + +--------+ + + | Name | Type | Priori | Associated Diagnoses | Order Schedule | | | | ty | | | + + +--------+ + + | * [facility] | Outpatient | Routin | Acute pain of | Ordered: 11/01/2018 | | [facility] | Referral | e | right shoulder | | | - AMB Referral | | | | | + + +--------+ + + documented as of this encounter Visit Diagnoses + + | Diagnosis | + + | Acute pain of right shoulder - Primary | + + documented in this encounter"
--- OUTSIDE RECORDS SUMMARY | ~2019-05-17 | XMS | Encounter Summary ---
Demographics + + + | Address | [address] | | | [place] [address] | + + + | Home Phone | | + + + | Preferred Language | Unknown | + + + | Marital Status | | + + + | Rastafari Affiliation | Unknown | + + + | Race | Unknown | + + + | Ethnic Group | Unknown | + + + Author + + + | Author | [facility] | | | and [place] | + + + | Organization | [facility] | [...] Team Providers + +------+ + | Care Photo Booth Operator Name | Role | Phone | + +------+ + PCP | Unavailable | + +------+ + Encounter Details +--------+ + + + + | Date | Type | Department | Care Team | Description | +--------+ + + + + | 10/07/ | [facility] | [facility] | Kayy Holguin, | | | 2015 | Encounter | [facility] | DO [address] | | | | | MEDICAL CLINIC [address] | [place] [address] | | | | | [address] [place], | [phone] | | | | | [place] [address] | | | | | | [phone] | | | +--------+ + + + [...]
--- OUTSIDE RECORDS SUMMARY | ~2019-05-17 | XMS | Encounter Summary ---
Demographics + + + | Address | [address] | | | [place] [address] | + + + | Home Phone | | + + + | Preferred Language | Unknown | + + + | Marital Status | | + + + | Baptism Affiliation | Unknown | + + + | Race | Unknown | + + + | Ethnic Group | Unknown | + + + Author + + + | Author | [facility] | | | and [place] | + + + | Organization | [facility] | | | and [...] Team Providers + +------+ + | Care Leasing Specialist Name | Role | Phone | + +------+ + PCP | Unavailable | + +------+ + Encounter Details +--------+ + + + + | Date | Type | Department | Care Team | Description | +--------+ + + + + | 04/18/ | Hospital | [facility] | Linda Bardales | | | 2012 | Encounter | HOSPITAL XRAY [address] | [address] | | | | | [place] [address] | [address] [place] | | | | | [place] | [address] | | | | | [address] | [phone] | | | | | [phone] | | | +--------+ + + + [...]
--- OUTSIDE RECORDS SUMMARY | ~2019-05-17 | XMS | Encounter Summary ---
Demographics + + + | Address | [address] | | | [place] [address] | + + + | Home Phone [...] Team Providers + +------+ + | Care Ecotherapist Name | Role | Phone | + +------+ + PCP | Unavailable | + +------+ + Encounter Details +--------+ + + + + | Date | Type | Department | Care Team | Description | +--------+ + + + + | 05/18/ | Hospital | [facility] | Jamilah Ledesma | | | 2014 | Encounter | [facility] | G, ANALYST PROGRAMMER [address] | | | | | MEDICAL CLINIC [address] | [place], [place] | | | | | [address] [place], | [address] | | | | | [place] [address] | [phone] | | | | | [phone] | | | +--------+ + + + [...]
--- OUTSIDE RECORDS SUMMARY | ~2019-05-17 | XMS | Encounter Summary ---
Demographics + + + | Address | [address] | | | [place] [address] | + + + | Home Phone | | + + + | Preferred Language | Unknown | + + + | Marital Status | | + + + | Alevism Affiliation | Unknown | + + + | Race | Unknown | + + + | Ethnic Group | Unknown | + + + Author + + + | Author | [facility] | | | and [place] | + + + | Organization | [facility] | | | and [...] Team Providers + +------+ + | Care Mender Knit Goods Name | Role | Phone | + +------+ + PCP | Unavailable | + +------+ + Encounter Details +--------+ + + + + | Date | Type | Department | Care Team | Description | +--------+ + + + + | / | [facility] | Shasta Rubio, | | | 2011 | Encounter | HOSPITAL EMERGENCY | CASE SPECIALIST [address] | | | | | CENTER [address] | [place] | | | | | [place] | [address] | | | | | [address] | | | | | | [phone] | | | +--------+ + + + [...]
--- OUTSIDE RECORDS SUMMARY | ~2019-05-17 | XMS | Encounter Summary ---
Demographics + + + | Address | [address] | | | [place] [address] | + + + | Home Phone | | + + + | Preferred Language | Unknown | + + + | Marital Status | | + + + | Hindu Affiliation | Unknown | + + + [...] Team Providers + +------+ + | Care Fishing Vessel Mate Name | Role | Phone | + +------+ + PCP | Unavailable | + +------+ + Encounter Details +--------+ + + + + | Date | Type | Department | Care Team | Description | +--------+ + + + + | 05/05/ | [facility] | [facility] | Kayy Holguin, | | | 2014 | Encounter | [facility] | DO [address] | | | | | MEDICAL CLINIC [address] | [place] [address] | | | | | [address] [facility], | [phone] | | | | | [place] [address] | | | | | | [phone] | | | +--------+ + + + [...]
--- OUTSIDE RECORDS SUMMARY | ~2019-05-17 | XMS | Encounter Summary ---
Demographics + + + | Address | [address] | | | [place] [address] | + + + | Home Phone | | + + + | Preferred Language | Unknown | + + + | Marital Status | | + + + | Jainism Affiliation | Unknown | + + + | Race | Unknown | + + + | Ethnic Group | Unknown | + + + Author + + + | Author | [facility] | | | and [place] | + + + | Organization | [facility] | | [...] Team Providers + +------+ + | Care Pnp Name | Role | Phone | + +------+ + PCP | Unavailable | + +------+ + Encounter Details +--------+ + + + + | Date | Type | Department | Care Team | Description | +--------+ + + + + | 06/15/ | [facility] | Shasta Rubio, | | | 2012 | Encounter | [facility] | [facility] [address] | | | | | CENTER [address] | [place] | | | | | [place] | [address] | | | | | [address] | | | | | | [phone] | | | +--------+ + + + [...]
--- OUTSIDE RECORDS SUMMARY | ~2019-05-17 | XMS | Encounter Summary ---
Demographics + + + | Address | [address] | | | [place] [address] | + + + | Home Phone | | + + + | Preferred Language | Unknown | + + + | Marital Status | | + + + | Druze Affiliation | Unknown | + + + [...] Team Providers + +------+ + | Care Recruiting Intern Name | Role | Phone | + +------+ + PCP | Unavailable | + +------+ + Encounter Details +--------+ + + + + | Date | Type | Department | Care Team | Description | +--------+ + + + + | 04/12/ | [facility] | [facility] | Lnida Bardales | | | 2012 | Encounter | [facility] | [address] | | | | | [address] | [address] [place], [place] | | | | | [facility], | [address] | | | | | [place] [address] | [phone] | | | | | [phone] | | | +--------+ + + + [...]
--- OUTSIDE RECORDS SUMMARY | ~2019-05-17 | XMS | Encounter Summary ---
Demographics + + + | Address | [address] | | | [place] [address] | + + + | Home Phone | | + + + | Preferred Language | Unknown | + + + | Marital Status | | + + + | Catholic Affiliation | Unknown | + + + | Race | Unknown | + + + | Ethnic Group | Unknown | + + + Author + + + | Author | [facility] | | | and [place] | + + + | Organization | [facility] | | | [...] Team Providers + +------+ + | Care Revenue Agent Name | Role | Phone | + +------+ + PCP | Unavailable | + +------+ + Encounter Details +--------+ + + + + | Date | Type | Department | Care Team | Description | +--------+ + + + + | 07/30/ | [facility] | [facility] | Kayy Holguin, | | | 2014 | Encounter | [facility] | DO [address] | | | | | [address] | [place] [address] | | | | | [address] [facility], | [phone] | | | | | [place] [address] | | | | | | [phone] | | | +--------+ + + + [...]
--- OUTSIDE RECORDS SUMMARY | ~2019-05-17 | XMS | Encounter Summary ---
Demographics + + + | Address | [address] | | | [place] [address] | + + + | Home Phone | | + + + | Preferred Language | Unknown | + + + | Marital Status | | + + + | Nondenominational Affiliation | Unknown | + + + | Race | Unknown | + + + | Ethnic Group | Unknown | + + + Author + + + | Author | [facility] | | | and [place] | + + + | Organization | [facility] | | [...] Team Providers + +------+ + | Care Band Top Maker Name | Role | Phone | + +------+ + PCP | Unavailable | + +------+ + Encounter Details +--------+ + + + + | Date | Type | Department | Care Team | Description | +--------+ + + + + | 07/07/ | [facility] | [facility] | Kayy Holguin, | | | 2015 | Encounter | [facility] | DO [address] | | | | | MED[address] | [place] [address] | | | | | [address] [place], | [phone] | | | | | [place] [address] | | | | | | [phone] | | | +--------+ + + + [...]
--- OUTSIDE RECORDS SUMMARY | ~2019-05-17 | XMS | Clinical Summary ---
Demographics + + + | Address | [address] | | | [place] [address] | + + + | Home Phone [...] Team Providers + +------+ + | Care Fryer Line Helper Name | Role | Phone | + +------+ + | Kayy Holguin DO | PCP | | + +------+ + Allergies + + + + + + | Active Allergy | Reactions | Severity | Noted | Comments | | | | | Date | | + + + + + + | Aspirin | | | 02//20 | | | | | | 18 [...] AT FIRST ONSET | tablet | | 8/20 | | e | | tabletIndications: | [...] (90 Base) MCG/ACT | | | | /20 | | e | | inhaler | [...] | intractable | | + + + Resolved Problems + + + + | Problem | Noted | Resolved | | | Date | Date | + + + + | Acute pain of right shoulder | 10/19/19 | | | | 19 | 9 | + + + + | Shoulder injury, right, subsequent encounter | 10/19/19 | | | | 19 | 9 | + + + + Immunizations + + + + | Name | Administration Dates | Next Due | + + + [...] | | | + +---+---+---+ + + | Tobacco Cessation: Ready to Quit: No; Counseling Given: No | + + + + +---------+ + | Alcohol Use [...] + + + | Blood Pressure | 118/66 | 10/04/2018 3:01 PM | | | | | PDT | | + + + + + | Pulse | 95 | 10/04/2018 3:01 PM | | | | | PDT | | + + + + + | Temperature | 36.6 C (97.8 F) | 10/04/2018 3:01 PM | | | | | PDT | | + + + + + | Respiratory Rate | 18 | 10/04/2018 3:01 PM | | | | | PDT | | + + + + + | Oxygen Saturation | 95% | 10/04/2018 3:01 PM | | | | | PDT | | + + + + + | Inhaled Oxygen | - | - | | | Concentration | | | | + + + + + | Weight | 72.1 kg (158 lb 14.4 | 08/01/2017 9:40 AM | | | | oz) | PST | | + + + + + | Height | 157.5 cm (5' 2") | 08/01/2017 9:40 AM | | | | | PST | | + + + + + | Body Mass Index | 29.06 | 08/01/2017 9:40 AM | | | | | PST | | + + + + + Plan of Treatment + + + + + | Health Maintenance | Due Date | Last Done | Comments | + + + + + | Vaccine: | | | | | Pneumococcal 19-64 | 7 | | | | (1 of 1 - PPSV23) | | | | + + + + + | Breast Cancer | | 08/08/2017 | | | Screening | 9 | | | + + + + + | Primary Care | | 10/04/2018, 08/01/2017 | | | Outreach (Intense | 9 | | | | Risk) | | | | + + + + + | Vaccine: Influenza | | 03/03/2017, 03/11/2015 | | | (#1) | 9 | | | + + [...] | [employer] | [facility] | [id number] | | [phone] | | Medica | [...] | + +--------+ +--------+ + + | AnaRiddhi Navarrete | Person | Self | [birth year] | [address] | | | [place] | | 1970 | [phone] | [place] | | | jun | | | [address] (Home) | [address] | + +--------+ +--------+ + + Advance Directives + + + + + | Type | Date Recorded | Patient | Explanation | | | | Concert Pianist | | + + + + + | Power of | | | | | Er Physician | | | | + + + + + | Advance | 08/01/2017 10:43 | | | | Directive | AM | | | + + + + +
--- OUTSIDE RECORDS SUMMARY | ~2019-05-17 | XMS | Encounter Summary ---
Demographics + + + | Address | [address] | | | [place] [address] | + + + | Home Phone [...] Providers + +------+ + | Care Hand Shaper Name | Role | Phone | + +------+ + PCP | Unavailable | + +------+ + Encounter Details +--------+ + + + + | Date | Type | Department | Care Team | Description | +--------+ + + + + | 04/03/ | [facility] | Kayy Holguin, | | | 2014 | Encounter | [facility] | DO [address] | | | | | [address] [place] | [place] [address] | | | | | [place] | [phone] | | | | | [address] | | | | | | [phone] | | | +--------+ + + + [...] | + +--------+ + + + | CBC W/AUTO | Routin | 04/03/2015 | | Results for this | | DIFFERENTIAL | e | 9:08 AM | | procedure are in the | | | | PDT | | results section. | + +--------+ + + + | FERRITIN | Routin | 04/03/2015 | | Results for this | | | e | 9:08 AM | | procedure are in the | | | | PDT | | results section. | + +--------+ + + + | COMPREHENSIVE | Routin | 04/03/2015 | | Results for this | | METABOLIC PANEL | e | 9:08 AM | | procedure are in the | | | | PDT | | results section. | + +--------+ + + + documented in this encounter Results Ferritin (04/03/2015 9:08 AM PDT) + +-------+ + + + | Component | Value | Ref Range | Performed | Pathologist | | | | | At | Signature | + +-------+ + + + | Ferritin, | 16.9 | 6.2 - 137.0 | EXTERNAL | | | External | | ng/mL | LAB | | + +-------+ + + + + + | Specimen | + + | | + + + +---------+ + + | Performing | Address | City/State/Zipcode | Phone Number | | Organization | | | | + +---------+ + + | EXTERNAL LAB | | | | + +---------+ + + Comprehensive Metabolic Panel (04/03/2015 9:08 AM PDT) + +-------+ + + + | Component | Value | Ref Range | Performed | Pathologist | | | | | At | Signature | + +-------+ + + + | Sodium | 139 | 132 - 143 | EXTERNAL | | | | | mmol/L | LAB | | + +-------+ + + + | Potassium | 3.9 | 3.3 - 4.9 | EXTERNAL | | | | | mmol/L | LAB | | + +-------+ + + + | Cl | 107 | 95 - 108 mmol/L | EXTERNAL | | | | | | LAB | | + +-------+ + + + | CO2 | 21 | 23 - 34 mmol/L | EXTERNAL | | | | | | LAB | | + +-------+ + + + | Anion Gap | 11 | 7 - 16 | EXTERNAL | | | | | | LAB | | + +-------+ + + + | Calcium | 8.6 | 8.3 - 10.0 | EXTERNAL | | | | | mg/dL | LAB | | + +-------+ + + + | Glucose | 96 | 70 - 110 mg/dL | EXTERNAL | | | | | | LAB | | + +-------+ + + + | BUN, Bld | 18 | 5 - 26 mg/dL | EXTERNAL | | | | | | LAB | | + +-------+ + + + | Creatinine | 0.8 | 0.6 - 1.3 mg/dL | EXTERNAL | | | | | | LAB | | + +-------+ + + + | BUN/Creatin | 22.5 | 7.0 - 24.0 | EXTERNAL | | | ine Ratio | | RATIO | LAB | | + +-------+ + + + | GFR | 60 | >=60 | EXTERNAL | | | ESTIMATE | | mL/min/1.73m2 | LAB | | + +-------+ + + + | Bilirubin, | 0.3 | <=1.2 mg/dL | EXTERNAL | | | Total | | | LAB | | + +-------+ + + + | Protein, | 6.9 | 6.6 - 8.5 g/dL | EXTERNAL | | | Total | | | LAB | | + +-------+ + + + | Albumin | 3.3 | 3.0 - 4.5 g/dL | EXTERNAL | | | | | | LAB | | + +-------+ + + + | Alkaline | 71 | 46 - 116 U/L | EXTERNAL | | | Phosphatase | | | LAB | | + +-------+ + + + | ALT, | 22 | 14 - 59 U/L | EXTERNAL | | | External | | | LAB | | + +-------+ + + + | AST, | 14 | <=38 U/L | EXTERNAL | | | External | | | LAB | | + +-------+ + + + + + | Specimen | + + | | + + + +---------+ + + | Performing | Address | City/State/Zipcode | Phone Number | | Organization | | | | + +---------+ + + | EXTERNAL LAB | | | | + +---------+ + + CBC w/ Auto Differential (04/03/2015 9:08 AM PDT) + +-------+ + + + | Component | Value | Ref Range | Performed | Pathologist | | | | | At | Signature | + +-------+ + + + | WBC | 6.8 | 4.3 - 10.4 | EXTERNAL | | | | | 1000/mm3 | LAB | | + +-------+ + + + | RBC | 4.35 | 4.12 - 5.30 | EXTERNAL | | | | | mil/mm3 | LAB | | + +-------+ + + + | HGB, | 13.8 | 12.4 - 15.7 | EXTERNAL | | | External | | g/dL | LAB | | + +-------+ + + + | HCT, | 38.7 | 37.7 - 47.0 % | EXTERNAL | | | External | | | LAB | | + +-------+ + + + | MCV | 89 | 82 - 97 fl | EXTERNAL | | | | | | LAB | | + +-------+ + + + | MCH | 31.7 | 27.1 - 32.3 pg | EXTERNAL | | | | | | LAB | | + +-------+ + + + | MCHC | 35.7 | 32.0 - 36.9 | EXTERNAL | | | | | g/dL | LAB | | + +-------+ + + + | RDW-CV | 13.5 | <=17.0 % | EXTERNAL | | | | | | LAB | | + +-------+ + + + | Platelet | 269 | 150 - 450 | EXTERNAL | | | Count | | 1000/mm3 | LAB | | | Plasma | | | | | + +-------+ + + + | MPV | 9.9 | 9.4 - 12.3 FL | EXTERNAL | | | | | | LAB | | + +-------+ + + + | % Segmented | 65.8 | 42.0 - 76.0 % | EXTERNAL | | | | | | LAB | | | Neutrophils | | | | | + +-------+ + + + | LYMPH % | 26.1 | 20.0 - 40.0 % | EXTERNAL | | | | | | LAB | | + +-------+ + + + | % Monocytes | 8.1 | <=12.0 % | EXTERNAL | | | | | | LAB | | + +-------+ + + + | Absolute | 4.4 | 2.50 - 8.50 | EXTERNAL | | | Neutrophils | | 1000/mm3 | LAB | | + +-------+ + + + | Absolute | 1.8 | 1.00 - 3.80 | EXTERNAL | | | Lymphocytes | | 1000/mm3 | LAB | | + +-------+ + + + | Absolute | 0.6 | <=1.25 1000/mm3 | EXTERNAL | | | Monocytes | | | LAB | | + +-------+ + + + | SLIDE | NO | | EXTERNAL | | | REVIEW | | | LAB | | + +-------+ + + + + + | Specimen [...]
--- OUTSIDE RECORDS SUMMARY | ~2019-05-17 | XMS | Encounter Summary ---
Demographics + + + | Address | [address] | | | [place] [address] | + + + | Home Phone | | + + + | Preferred Language | Unknown | + + + | Marital Status | | + + + | Mandaeism Affiliation | Unknown | + + + [...] Team Providers + +------+ + | Care Field Marketing Coordinator Name | Role | Phone | + [...] | | | | initial | [place] [address] | [place] [address] | | | | | encounter | Phone: | Phone: | | | | | Strain of | [phone] | [phone] | | | | | left | Fax: | Fax: | | | | | shoulder, | [phone] | [phone] | | | | | initial | [...] left | | 2018 | Visit | [facility] | DO [address] | shoulder, initial | | | | [address] | [place] [address] | encounter (Primary | | | | [address] [place], | [phone] | Dx); Strain of left | | | | [place] [address] | | shoulder, initial | | | | [phone] | | encounter; Other | | | [...] + | Blood Pressure | 120/80 | 08/01/2017 9:40 AM | | | | | PST | | + + + + + | Pulse | 88 | 08/01/2017 9:40 AM | | | | | PST | | + + + + + | Temperature | - | - | | + + + + + | Respiratory Rate | 16 | 08/01/2017 9:40 AM | | | | | PST | | + + + + + | Oxygen Saturation | 94% | 08/01/2017 9:40 AM | | | [...] + + documented in this encounter Progress Kayy Kang DO - 08/01/2017 9:30 AM PSTFormatting of this note might be different fro m the original. Subjective: Patient ID: Riddhi Perez is a 47 y.o. female. Here due to a fall off porch a month ago on the ice. She was seen in [place] [facility] and had x ray on the [...] short term on ly for pain at [facility]. She will return fasting for lipids and CMP and I will order routine mamm o. documented in this en counter Plan of Treatment + + +--------+ + + | Name | Type | Priori | Associated Diagnoses | Order Schedule | | | | ty | | | + + +--------+ + + | * [facility] | Outpatient | Routin | Injury of left | Ordered: 08/01/2017 | | [facility] | Referral | e | shoulder, initial | | | - AMB Referral | | | encounter Strain of | | | | | | left shoulder, | | | | | | initial encounter | | + + +--------+ + + [...] | + +---------+ + + Lipid Panel (08/08/2017 9:46 AM PST) + + + + + + | Component | Value | Ref Range | Performed | Pathologist | | | | | At | Signature | + + + + + + | Triglycerid | 116 | 30 - 200 mg/dL | [place] | | | es | | | [facility] | | | | | [facility] | | | | | | [facility] | | | | | | [facility] LAB | | + + + + + + | Cholesterol | 186 | 0 - 200 mg/dL | [place] | | | | | | [facility] | | | | | [facility] | | | | | [facility] | | | | | | [facility] | | + + + + + + | HDL | 41 | >=40 mg/dL | [facility] | | | | | | [facility] | | | | [facility] | | | | | [facility] | | | | | | [facility] | | + + + + + + | Chol/HDL | 4.5 | | [place] | | | Ratio | | | [facility] | | | | | [facility] | | | | | | [facility] | | | | | | [facility] | | + + + + + + | LDL, | 122Comment: LDL | <=150 mg/dL | [place] | | | Calculated | reference range: | | [facility] | | | | < 100 mg/dL | | [facility] | | | | [id number] - 129 mg/dL | | [facility] | | | | Near [id number] - | | MEDICAL | | | | 159 mg/dL | | CENTER LAB | | | | [id number] - 189 | | | | | [...] + + + | [place] [facility] | [address] [place] [address] Street | [place] [address] | [phone] | | [facility] | | | | | [facility] | | | | + + + + + Comprehensive Metabolic Panel (08/08/2017 9:46 AM PST) + + + + + + [...] K | 4.1 | 3.3 - 4.9 | [place] | | | | | mmol/L | [facility] | | | | | [facility] | | | | | | [facility] | | | | | | [facility] | | + + + + + + | Cl | 103 | 95 - 108 mmol/L | [place] | | | | | | [facility] | | [facility] | | [facility] | | | | | | [facility] | | | | | | [facility] | | + + + + + + | CO2 | 24 | 23 - 34 mmol/L | [place] | | | | | | [facility] | | [facility] | | [facility] | | | | | | [facility] | | | | | | [facility] | | + + + + + + | Anion Gap | 12 | 7 - 16 mmol/L | [place] | | | | | | [facility] | | | | | [facility] | | | | | | [facility] | | | | | | [facility] | | + + + + + + | Glucose | 92 | 70 - 110 mg/dL | [place] | | | | | | [facility] | | | | | | [facility] | | | | | | [facility] | | | | | | [facility] | | + + + + + + | BUN | 9 | 5 - 26 mg/dL | [place] | | | | | | [facility] | | | | | [facility] | | | | | | [facility] | | | | | | [facility] | | + + + + + + | Creatinine | 0.81 | 0.70 - 1.40 | [place] | | | | | mg/dL | [facility] | | | | | | [facility] | | | | | | [facility] | | | | | | [facility] | | + + + + + + | eGFR if not | >60Comment: GLOMERULAR | >=60 | [place] | | | | FILTRATION | mL/min/1.73m2 | [facility] | | | BRITISH | RATE,ESTIMATED | | [facility] | | | | mL/min/1.65c4Efvr than | | REG[facility]AL | | | [...] + + + + | Calcium | 8.9 | 8.3 - 10.0 | [place] | | | | | mg/dL | [facility] | | | | | | [facility] | | | | | | [facility] | | | | | | [facility] LAB | | + + + + + + | Albumin | 3.4 | 3.0 - 4.5 g/dL | [place] | | | | | | [facility] | | | | | | [facility] | | | | | | [facility] | | | | | | [facility] | | + + + + + + | Bilirubin | 0.2 | 0.0 - 1.2 mg/dL | [place] | | | Total | | | [facility] | | | | | | [facility] | | | | | | [facility] | | | | | | [facility] LAB | | + + + + + + | Total | 7.3 | 6.6 - 8.5 g/dL | [place] | | | Protein | | | [facility] | | | | | | [facility] | | | | | | [facility] | | | | | | [facility] | | + + + + + + | AST | 22 | 0 - 38 U/L | [place] | | | | | | [facility] | | | | | | [facility] | | | | | | [facility] | | | | | | [facility] | | + + + + + + | ALT | 38 | 14 - 59 U/L | [place] [...] + + + + | Globulin | 3.9 | g/dL | [place] | | | | | | [facility] | | | | | | [facility] | | | | | | [facility] | | | | | | [facility] | | + + + + + + | Albumin/Ivett | 0.9 | | [place] | | | bulin Ratio | | | [facility] | | | | | | [facility] | | | | | | [facility] | | | | | | [facility] | | + + + + + + | BUN/Creatin | 11.1 | 7.0 - 24.0 | [place] | [...] + + + + + | [place] [facility] | [address] | [place] [address] | [phone] | | [facility] | | | | | [facility] LAB | | | | + + + + + XR Shoulder Left 2 + Vw (08/01/2017 10:59 AM PST) + + | Specimen | + + | | + + + + + | Impressions | Performed At | + + + | IMPRESSION: 1. Interval widening of the acromioclavicular joint. | [facility] | | This finding could relate to age-indeterminate sprain. Nonspecific | | | osteal lysis of the distal clavicle could result in similar | | | appearance. 2. No fracture or dislocation identified. Dictated | | | by: Juan Looney Electronically Signed by: Juan Looney on | | | 08/01/2017 12:15 PM | | + + + + + + | Narrative | Performed At | + + + | EXAMINATION: XR SHOULDER LEFT 2 + VW HISTORY: fall and injury | [facility] | | to left shoulder COMPARISON STUDY: Left shoulder 06/04/2017. | | | FINDINGS: Distance between the acromion and the clavicle is 15 mm. | | | Alignment appears maintained. No acute fracture or dislocation | | | is seen. The visualized left thorax is clear. | | + + + + + | Procedure Note | + + | Marvin, Wili Results In - 08/01/2017 12:19 PM PST EXAMINATION:XR SHOULDER LEFT 2 + | [...]
--- OUTSIDE RECORDS SUMMARY | ~2019-05-17 | XMS | Encounter Summary ---
Demographics + + + | Address | [address] | | | [place] [address] | + + + | Home Phone [...] Team Providers + +------+ + | Care Charge Weigher Name | Role | Phone | + +------+ + PCP | Unavailable | + +------+ + Encounter Details +--------+ + + + + | Date | Type | Department | Care Team | Description | +--------+ + + + + | 06/20/ | [facility] | [facility] | [place] | | | 2013 | Encounter | [facility] | [address] | | | | | [address] | [address] [place], [place] | | | | | [facility] [facility] [place], | [address] | | | | | [place] [address] | [phone] | | | | | [phone] | | | +--------+ + + + [...]
--- OUTSIDE RECORDS SUMMARY | ~2019-05-17 | XMS | Encounter Summary ---
Demographics + + + | Address | [address] | | | [place] [address] | + + + | Home Phone [...] Team Providers + +------+ + | Care Dental Scheduler Name | Role | Phone | [...] | | | [place] | [address] | | | | | [address] | [phone] | | | | | [phone] | | | +--------+ + + + [...]
--- OUTSIDE RECORDS SUMMARY | ~2019-05-17 | XMS | Encounter Summary ---
Demographics + + + | Address | [address] | | | [place] [address] | + + + | Home Phone | | + + + | Preferred Language | Unknown | + + + | Marital Status | | + + + | Advent Affiliation | Unknown | + + + | Race | Unknown | + + + | Ethnic Group | Unknown | + + + Author + + + | Author | [facility] | | | and [place] | + + + | Organization | [facility] | [...] Team Providers + +------+ + | Care Hay Chopper Name | Role | Phone | + +------+ + PCP | Unavailable | + +------+ + Encounter Details +--------+ + + + + | Date | Type | Department | Care Team | Description | +--------+ + + + + | 04/30/ | Hospital | [facility] | [facility] | | | 2013 | Encounter | [facility] | [facility] [address] | | | | | [address] [place] | [address] [place] | | | | | [place] | [address] | | | | | [address] | [phone] | | | | | [phone] | | | +--------+ + + + [...] + | CBC W/AUTO | Routin | 04/30/2014 | | Results for this | | DIFFERENTIAL | e | 3:21 PM | | procedure are in the | | | | PST | | results section. | + +--------+ + + + | SEDIMENTATION RATE | Routin | 04/30/2014 | | Results for this | | | e | 3:21 PM | | procedure are in the | | | | PST | | results section. | + +--------+ + + + | PTT | Routin | 04/30/2014 | | Results for this | | | e | 3:21 PM | | procedure are in the | | | | PST | | results section. | + +--------+ + + + | PROTIME INR | Routin | 04/30/2014 | | Results for this | | | e | 3:21 PM | | procedure are in the | | | | PST | | results section. | + +--------+ + + + | URIC ACID | Routin | 04/30/2014 | | Results for this | | | e | 3:21 PM | | procedure are in the | | | | PST | | results section. | + +--------+ + + + | COMPREHENSIVE | Routin | 04/30/2014 | | Results for this | | METABOLIC PANEL | e | 3:21 PM | | procedure are in the | | | | PST | | results section. | + +--------+ + + + documented in this encounter Results PTT (04/30/2014 3:21 PM PST) + +-------+ + + + | Component | Value | Ref Range | Performed | Pathologist | | | | | At | Signature | + +-------+ + + + | PTT | 29 | 25 - 35 SEC | EXTERNAL | | | | | | LAB | | + +-------+ + + + + + | Specimen | + + | | + + + +---------+ + + | Performing | Address | City/State/Zipcode | Phone Number | | Organization | | | | + +---------+ + + | EXTERNAL LAB | | | | + +---------+ + + Protime INR (04/30/2014 3:21 PM PST) + +-------+ + + + | Component | Value | Ref Range | Performed | Pathologist | | | | | At | Signature | + +-------+ + + + | Prothrombin | 12.7 | 11.2 - 13.7 SEC | EXTERNAL | | | Time | | | LAB | | + +-------+ + + + | INR | 0.98 | | EXTERNAL | | | | | | LAB | | + +-------+ + + + + + | Specimen | + + | | + + + +---------+ + + | Performing | Address | City/State/Zipcode | Phone Number | | Organization | | | | + +---------+ + + | EXTERNAL LAB | | | | + +---------+ + + Sedimentation Rate (04/30/2014 3:21 PM PST) + +-------+ + + + | Component | Value | Ref Range | Performed | Pathologist | | | | | At | Signature | + +-------+ + + + | ESR | 15 | <=20 mm/h | EXTERNAL | | | | | | LAB | | + +-------+ + + + + + | Specimen | + + | | + + + +---------+ + + | Performing | Address | City/State/Zipcode | Phone Number | | Organization | | | | + +---------+ + + | EXTERNAL LAB | | | | + +---------+ + + Uric Acid (04/30/2014 3:21 PM PST) + +-------+ + + + | Component | Value | Ref Range | Performed | Pathologist | | | | | At | Signature | + +-------+ + + + | Uric Acid | 6.3 | 2.6 - 6.0 mg/dL | EXTERNAL | | | | [...] + +---------+ + + Comprehensive Metabolic Panel (04/30/2014 3:21 PM PST) + +-------+ + + + | Component | Value | Ref Range | Performed | Pathologist | | | | | At | Signature | + +-------+ + + + | Sodium | 138 | 132 - 143 | EXTERNAL | | | | | mmol/L | LAB | | + +-------+ + + + | Potassium | 3.7 | 3.3 - 4.9 | EXTERNAL | | | | | mmol/L | LAB | | + +-------+ + + + | Cl | 104 | 95 - 108 mmol/L | EXTERNAL | | | | | | LAB | | + +-------+ + + + | CO2 | 23 | 23 - 34 mmol/L | EXTERNAL | | | | | | LAB | | + +-------+ + + + | Anion Gap | 11 | 7 - 16 | EXTERNAL | | | | | | LAB | | + +-------+ + + + | Calcium | 8.5 | 8.3 - 10.0 | EXTERNAL | | | | | mg/dL | LAB | | + +-------+ + + + | Glucose | 76 | 70 - 110 mg/dL | EXTERNAL | | | | | | LAB | | + +-------+ + + + | BUN, Bld | 10 | 5 - 26 mg/dL | EXTERNAL | | | | | | LAB | | + +-------+ + + + | Creatinine | 0.9 | 0.6 - 1.3 mg/dL | EXTERNAL | | | | | | LAB | | + +-------+ + + + | BUN/Creatin | 11.1 | 7.0 - 24.0 | EXTERNAL | | | ine Ratio | | RATIO | LAB | | + +-------+ + + + | GFR | 60 | >=60 | EXTERNAL | | | ESTIMATE | | mL/min/1.73m2 | LAB | | + +-------+ + + + | Bilirubin, | 0.1 | <=1.2 mg/dL | EXTERNAL | | | Total | | | LAB | | + +-------+ + + + | Protein, | 7.2 | 6.6 - 8.5 g/dL | EXTERNAL | | | Total | | | LAB | | + +-------+ + + + | Albumin | 3.6 | 3.0 - 4.5 g/dL | EXTERNAL | | | | | | LAB | | + +-------+ + + + | Alkaline | 88 | 33 - 151 U/L | EXTERNAL | | | Phosphatase | | | LAB | | + +-------+ + + + | ALT, | 27 | 14 - 59 U/L | EXTERNAL | | | External | | | LAB | | + +-------+ + + + | AST, | 16 | <=38 U/L | EXTERNAL | | [...] +---------+ + + CBC w/ Auto Differential (04/30/2014 3:21 PM PST) + +-------+ + + + | Component | Value | Ref Range | Performed | Pathologist | | | | | At | Signature | + +-------+ + + + | WBC | 10.6 | 4.3 - 10.4 | EXTERNAL | | | | | 1000/mm3 | LAB | | + +-------+ + + + | RBC | 4.36 | 4.12 - 5.30 | EXTERNAL | | | | | mil/mm3 | LAB | | + +-------+ + + + | HGB, | 13.5 | 12.4 - 15.7 | EXTERNAL | | | External | | g/dL | LAB | | + +-------+ + + + | HCT, | 40.2 | 37.7 - 47.0 % | EXTERNAL | | | External | | | LAB | | + +-------+ + + + | MCV | 92 | 82 - 97 fl | EXTERNAL | | | | | | LAB | | + +-------+ + + + | MCH | 31 | 27.1 - 32.3 pg | EXTERNAL | | | | | | LAB | | + +-------+ + + + | MCHC | 33.6 | 32.0 - 36.9 | EXTERNAL | | | | | g/dL | LAB | | + +-------+ + + + | RDW-CV | 13.5 | <=17.0 % | EXTERNAL | | | | | | LAB | | + +-------+ + + + | Platelet | 244 | 150 - 450 | EXTERNAL | | | Count | | 1000/mm3 | LAB | | | Plasma | | | | | + +-------+ + + + | MPV | 10 | 9.4 - 12.3 FL | EXTERNAL | | | | | | LAB | | + +-------+ + + + | % Segmented | 64.1 | 42.0 - 76.0 % | EXTERNAL | | | | | | LAB | | | Neutrophils | | | | | + +-------+ + + + | LYMPH % | 27.5 | 20.0 - 40.0 % | EXTERNAL | | | | | | LAB | | + +-------+ + + + | % Monocytes | 8.4 | <=12.0 % | EXTERNAL | | | | | | LAB | | + +-------+ + + + | Absolute | 6.8 | 2.50 - 8.50 | EXTERNAL | | | Neutrophils | | 1000/mm3 | LAB | | + +-------+ + + + | Absolute | 2.9 | 1.00 - 3.80 | EXTERNAL | | | Lymphocytes | | 1000/mm3 | LAB | | + +-------+ + + + | Absolute | 0.9 | <=1.25 1000/mm3 | EXTERNAL | | [...]
--- OUTSIDE RECORDS SUMMARY | ~2019-05-17 | XMS | Encounter Summary ---
Demographics + + + | Address | [address] | | | [place] [address] | + + + | Home Phone [...] Team Providers + +------+ + | Care Community Center Coordinator Name | Role | Phone | + +------+ + PCP | Unavailable | + +------+ + Encounter Details +--------+ + + + + | Date | Type | Department | Care Team | Description | +--------+ + + + + | 10/27/ | Hospital | [facility] | Amanda De La Cruz MD | | | 2016 | Encounter | [facility] | [address] | | | | | [address] [place] | [place] | | | | | [place] | [address] | | | | | [address] | | | | | | [phone] | | | +--------+ + + + [...]
--- OUTSIDE RECORDS SUMMARY | ~2019-05-17 | XMS | Encounter Summary ---
Demographics + + + | Address | [address] | | | [place] [address] | + + + | Home Phone | | + + + | Preferred Language | Unknown | + + + | Marital Status | | + + + | Jewish Affiliation | Unknown | + + + | Race | Unknown | + + + | Ethnic Group | Unknown | + + + Author + + + | Author | [facility] | | | and [place] | + + + | Organization | [facility] | | [...] Team Providers + +------+ + | Care Still Operator Helper Name | Role | Phone | + +------+ + | Kayy Holguin DO | PCP | | + +------+ + Reason for Referral Diagnostic/Screening (Routine) +--------+--------+ + + + + | Status | Reason | Specialty | Diagnoses / | Referred By | Referred To | | | | | Procedures | Contact | Contact | +--------+--------+ + + + + | Closed | | Radiology | Diagnoses | | Cc Wgr Xray | | | | | Acute pain | Piero | [address] | | | | | of right | n, [place], | DR [place] | | | | | shoulder | [employer] [address] | [place], [place] | | | | | Procedures | [address] | [address] | | | | | MRI Shoulder | [place], | Phone: | | | | | Right wo | [place] [address] | [phone] | | | | | Contrast | Phone: | Fax: | | | | | | [phone] | [phone] | | | | | | Fax: | | | | | | | [phone] | | +--------+--------+ + + + + Evaluate & Treat (Routine) [...] | Therapy / | Acute pain | Ripbi-Josee | Therapy Pt | | | Required | Rehabilitatio | of right | Lupe vitale, | [address] | | | | n | shoulder | [employer] [employer] [address] | [place], | | | | | Procedures | [address] | [place] [address] | | | | | PT EVAL | [place], | Phone: | | | | | | [place] [address] | [phone] | | | | | | Phone: | Fax: | | | | | | [phone] | [phone] | | | | | | Fax: | | | | | | | [phone] | | +--------+ + + + + + Reason for Visit + + + | Reason | Comments | + + + | Follow-up | ER | + + + Encounter Details +--------+---------+ + + + | Date | Type | Department | Care Team | Description | +--------+---------+ + + + | 10/04/ | Office | [facility] | Svetlana, | Acute pain of right | | 2019 | Visit | [facility] | gladis, [address] [employer] [address] | shoulder (Primary | | | | [facility] [address] | [address] [place] | Dx); Decreased | | | | [address] [place], | [place] [address] | abduction of | | | | [place] [address] | [phone] | shoulder joint, | | | | [phone] | | right; Paresthesia | | | | | | of arm | +--------+---------+ + + + Social History [...] + + + + | Weight | - | - | | + + + + + | Height | - | - | | + + + + + | Body Mass Index | - | - | | + + + + + documented in this encounter Progress Notes Lupe Mota, LEDA - 10/04/2018 3:00 PM PDTFormatting of this note might be differe nt from the original. Chief Complaint Patient presents with Follow-up ER Assessment 1. Acute pain of right shoulder - * [facility] - AMB Referral - MRI Shoulder Right wo Contrast; Future 2. Decreased abduction of shoulder joint, right 3. Paresthesia of arm Plan - patient will try physical therapy - continue using ice, heat and pain medication Subjective: Patient ID: Riddhi Perez is a 48 y.o. female who is new to me, is here for ER visit follow up. She was seen at [facility] ER in [place] on 09/20/18 for shoulder pain. She is right hand dominant. Patient stated that she was at home about a month prior to the ER visit and while lifting a heavy object she felt a "pop" in the shoulder. She used ice and heat and pain medication but it did not improve so she went to the ER. Records from the ER showed that xray was done and it revealed no acute injury to the shoulder. She was given a sling and told to use it al l the time except for a 10 min exercise break daily. Shoulder Pain The incident occurred at home. The right shoulder is affected. There was no injury mechanis m. The quality of the pain is described as aching, burning, cramping, shooting and stabbing. The pain radiates to the right arm. The pain is at a severity of 9/10. The pain is severe. Associated symptoms comments: Unable to raise arm past 45 degrees, she cannot reach behind h er back without pain. She has difficulty dressing herself and maintaining hygiene.. The symp toms are aggravated by movement, overhead lifting and palpation. She has tried ice, non-weig ht bearing, heat and NSAIDs for the symptoms. The treatment provided mild relief. Objective: BP 118/66 | Pulse 95 | Temp 36.6 C (97.8 F) (Temporal) | Resp 18 | LMP (LMP Unknow n) | SpO2 95% | ? No Pain scale: 9/10 Physical Exam Musculoskeletal: Right shoulder: She exhibits decreased range of motion, tenderness, crepitus, pain, sp asm and decreased strength. Neurological: She is alert. Past Medical History: Diagnosis Date Bipolar 1 disorder (HCC) Depression Gout Seasonal allergies Allergies Allergen Reactions Aspirin Bees [Bee Venom] Oxycodone Penicillins Electronically signed by LEDA Rawls 10/04/2018 16:06 Note: Part of this report was transcribed using voice recognition software. Every effort wa s made to ensure accuracy. However, inadvertent computerized cattle inspector errors may be pre sent documented i n this encounter Plan of Treatment + + [...] + documented as of this encounter Results MRI Shoulder Right wo Contrast (10/31/2018 1:06 PM PDT) + + | Specimen | + + | | + + + + + | Impressions | Performed At | + + + | IMPRESSION: Mild biceps tendinopathy. No rotator cuff tear. | [facility] | | Acromioclavicular hypertrophy Dictated by: Jose Luis Alonso | | | | | + + + + + + | Narrative | Performed At | + + + | EXAMINATION: MRI SHOULDER RIGHT WO CONTRAST HISTORY: shoulder | [facility] | | pain COMPARISON STUDY: None TECHNIQUE: Multiplanar | | | multisequence MRI of the shoulder was performed without contrast | | | FINDINGS: There is mild degenerative change of the acromioclavicular | | | joint. There is trace subacromial/subdeltoid bursal fluid. The | | | supraspinatus tendon is intact. The infraspinatus tendon is | | | intact. The teres minor tendon is intact. The subscapularis tendon | | | is intact. The long head of the biceps tendon has focal thickening | | | and intermediate signal intensity. The biceps labral complex is | | | intact. The glenoid labrum is not well evaluated on this | | | non-arthrogram MR, but appears intact. Evaluation of the osseous | | | structures demonstrates no fracture. Evaluation of the muscle signal | | | intensity demonstrates normal signal intensity. . | | + + + + + | Procedure Note | + + | Marvin, Rad Results In - 10/31/2018 1:43 PM PDT EXAMINATION:MRI SHOULDER RIGHT WO | | CONTRASTHISTORY:shoulder painCOMPARISON STUDY:NoneTECHNIQUE:Multiplanar multisequence | | MRI of the shoulder was performed without contrastFINDINGS:There is mild degenerative | | change of the acromioclavicular joint.There is trace subacromial/subdeltoid bursal | | fluid.The supraspinatus tendon is intact.The infraspinatus tendon is intact.The teres | | minor tendon is intact.The subscapularis tendon is intact.The long head of the biceps | | tendon has focal thickening and intermediate signal intensity.The biceps labral complex | | is intact.The glenoid labrum is not well evaluated on this non-arthrogram MR, but | | appears intact.Evaluation of the osseous structures demonstrates no fracture.Evaluation | | of the muscle signal intensity demonstrates normal signal intensity..IMPRESSION: | | IMPRESSION:Mild biceps tendinopathy.No rotator cuff tear.Acromioclavicular | | hypertrophyDictated by: Jose Luis MerrittamElectronically Signed by: Jose Luis Alonso on | | 10/31/2018 1:39 PM | |There is mild degenerative change of the acromioclavicular joint. | |There is trace subacromial/subdeltoid bursal fluid. | |The supraspinatus tendon is intact. | |The infraspinatus tendon is intact. | |The teres minor tendon is intact. | |The subscapularis tendon is intact. | |The long head of the biceps tendon has focal thickening and intermediate signal intensity. | |The biceps labral complex is intact. | |The glenoid labrum is not well evaluated on this non-arthrogram MR, but appears intact. | |Evaluation of the osseous structures demonstrates no fracture. | |Evaluation of the muscle signal intensity demonstrates normal signal intensity. | |. | | | |IMPRESSION: | |IMPRESSION: | |Mild biceps tendinopathy. | |No rotator cuff tear. | |Acromioclavicular hypertrophy | | | |Dictated by: Jose Luis Alonso | | | | | + + [...] right shoulder - Primary | + + | Decreased abduction of shoulder joint, right | + + | Paresthesia of arm Disturbance of skin sensation | + + documented in this encounter
--- OUTSIDE RECORDS SUMMARY | ~2019-05-17 | XMS | Encounter Summary ---
Demographics + + + | Address | [address] | | | [place] [address] | + + + | Home Phone [...] Team Providers + +------+ + | Care Quarter Lining Smoother Name | Role | Phone | + +------+ + PCP | Unavailable | + +------+ + Encounter Details +--------+ + + + + | Date | Type | Department | Care Team | Description | +--------+ + + + + | 06/28/ | [facility] | Shasta Rubio, | | | 2016 | Encounter | HOSPITAL EM[facility]Y | [facility] OPERATOR [address] | | | | | CENTER [address] | [place] | | | | | [place] | [address] | | | | | [address] | | | | | | [phone] | | | +--------+ + + + [...] + +--------+ + + + | URINALYSIS WITH | STAT | 06/28/2015 | | Results for this | | MICROSCOPIC WITH | | 4:38 PM | | procedure are in the | | CULTURE IF INDICATED | | PST | | results section. | + +--------+ + + + | CT ABDOMEN PELVIS WO | Routin | 06/28/2015 | | Results for this | | CONTRAST | e | 2:42 PM | | procedure are in the | | | | PST | | results section. | + +--------+ + + + documented in this encounter Results Urinalysis with Microscopic with Culture if Indicated (06/28/2015 4:38 PM PST) + + + + + + | Component | Value | Ref Range | Performed | Pathologist | | | | | At | Signature | + + + + + + | Source | Clean Catch / VOID | | EXTERNAL | | | | | | LAB | | + + + + + + | Clarity | HAZY | CLEAR | EXTERNAL | | | | | | LAB | | + + + + + + | Color | STRAW | YELLOW | EXTERNAL | | | | | | LAB | | + + + + + + | Specific | 1.01 | 1.005 - 1.030 | EXTERNAL | | | [place], | | | LAB | | | Urine | | | | | + + + + + + | pH, Urine | 7 | 5.0 - 7.0 pH | EXTERNAL | | | | | | LAB | | + + + + + + | Leukocyte | NEGATIVE | NEGATIVE /uL | EXTERNAL [...] + + + | WBC UA | 0-2 | </= 5 /HPF | EXTERNAL | | | | | | LAB | | + + + + + + | RBC COUNT | NONE SEEN | </= 5 PER HPF | EXTERNAL | | | | | | LAB | | + + + + + + | Bacteria, | FEW | NONE SEEN /HPF | EXTERNAL | | | UA | | | LAB | | + + + + + + | Culture | NO | | EXTERNAL | | | Indicated | | | LAB | | + + + + + + | SQUAMOUS | FEW | FEW /LPF | EXTERNAL | | | EPITHELIAL | | | LAB | | | UA | | | | | + + + + + + | Amorphous | MODERATE | NONE SEEN /HPF | EXTERNAL | | | phosphates | | | LAB | | + + + + + + + + | Specimen | + + | | + + + +---------+ + + | Performing | Address | City/State/Zipcode | Phone Number | | Organization | | | | + +---------+ + + | EXTERNAL LAB | | | | + +---------+ + + CT Abdomen Pelvis wo Contrast (06/28/2015 2:42 PM PST) + + | Specimen | + + | | + + + + + | Narrative | Performed At | + + + | ORIGINAL CT ABDOMEN/PELVIS WITHOUT CONTRAST: | | | HISTORY: Left flank pain. TECHNIQUE: 5 mm axial slices were | | | acquired through the abdomen and pelvis without contrast. Dose | | | report: DLP 1077.88 mGy-cm. FINDINGS: The heart size is normal. | | | There is no pericardial effusion. No pleural effusion. No | | | hiatal hernia. Evaluation of abdominal viscera is limited due to | | | the lack of intravenous contrast. No focal liver lesion. There | | | are changes of prior cholecystectomy. The pancreas and spleen are | | | unremarkable. Adrenal glands are normal. There is no | | | nephrolithiasis. No hydronephrosis. The bladder is decompressed. | | | The uterus is anteflexed to the right. No pelvic mass lesion. No | | | free fluid. Bowel gas pattern is nonobstructive. There is mild | | | diverticulosis. No radiographic evidence of acute diverticulitis. | | | There is change of prior appendectomy. The aorta is normal in | | | course and caliber. No lymphadenopathy. There is minimal | | | atherosclerosis. No acute bone process. There is facet | | | hypertrophy of the lower lumbar spine. There is mild sclerosis of | | | the SI joints. IMPRESSION: 1. Diverticulosis without | | | evidence of diverticulitis. 2. No urinary tract calcification is | | | identified. 3. Degenerative changes of the lower lumbar spine | | | and pelvis. The results of the study were discussed with Shasta | | | Rubio at 5 p.m. JOB: [id number] Read By: | | | BLAINE NIEVES MD Released By: BLAINE NIEVES MD Date: | | | 06/28/2015 18:22 | | + + + + + | Procedure Note | + + | Marvin, Rad Results In - 04/19/2017 9:[address] ABDOMEN/PELVIS | | WITHOUT CONTRAST: HISTORY:Left flank pain. TECHNIQUE:5 mm axial slices were acquired | | through the abdomen and pelvis without contrast. Dose report: DLP 1077.88 mGy-cm. | | FINDINGS:The heart size is normal. There is no pericardial effusion. No pleural | | effusion. No hiatal hernia. Evaluation of abdominal viscera is limited due to the lack | | of intravenous contrast. No focal liver lesion. There are changes of prior | | cholecystectomy. The pancreas and spleen are unremarkable. Adrenal glands are normal. | | There is no nephrolithiasis. No hydronephrosis. The bladder is decompressed. The | | uterus is anteflexed to the right. No pelvic mass lesion. No free fluid. Bowel gas | | pattern is nonobstructive. There is mild diverticulosis. No radiographic evidence of | | acute diverticulitis. There is change of prior appendectomy. The aorta is normal in | | course and caliber. No lymphadenopathy. There is minimal atherosclerosis. No acute | | bone process. There is facet hypertrophy of the lower lumbar spine. There is mild | | sclerosis of the SI joints. IMPRESSION:1. Diverticulosis without evidence of | | diverticulitis.2. No urinary tract calcification is identified.3. Degenerative | | changes of the lower lumbar spine and pelvis. The results of the study were discussed | | with Shasta Rubio at 5 p.m. JOB: [id number] Read By: BLAINE NIEVES MD | | Released By: ADRIENNE MELÉNDEZate: 06/28/2015 18:22 | | | |The uterus is anteflexed to the right. No pelvic mass lesion. No free fluid. | | | |Bowel gas pattern is nonobstructive. There is mild diverticulosis. No radiographic evide nce of acute diverticulitis. There is change of prior appendectomy. | | | |The aorta is normal in course and caliber. No lymphadenopathy. There is minimal atheroscl erosis. | | | |No acute bone process. There is facet hypertrophy of the lower lumbar spine. There is mil d sclerosis of the SI joints. | | | |IMPRESSION: | |1. Diverticulosis without evidence of diverticulitis. | |2. No urinary tract calcification is identified. | |3. Degenerative changes of the lower lumbar spine and pelvis. | | | |The results of the study were discussed with Shasta Rubio at 5 p.m. | | | | JOB: [id number] | | | | | |Read By: BLAINE NIEVES MD | | | |Released By: BLAINE NIEVES MD | |Date: 06/28/2015 18:22 | | | | | + + documented in this encounter Visit Diagnoses Not on filedocumented in this encounter"
--- OUTSIDE RECORDS SUMMARY | ~2019-05-17 | XMS | Encounter Summary ---
Demographics + + + | Address | [address] | | | [place] [address] | + + + | Home Phone | | + + + | Preferred Language | Unknown | + + + | Marital Status | | + + + | Bahai Affiliation | Unknown | + + + | Race | Unknown | + + + | Ethnic Group | Unknown | + + + Author + + + | Author | [facility] | | | and [place] | + + + | Organization | [facility] | | | [...] Team Providers + +------+ + | Care Property Management Assistant Name | Role | Phone | [...] + | 11/01/ | Telephone | [facility] | Svetlana, | Results | | 2019 | | [facility] | Lupe, [employer] | | | | | [facility] [address] | [address] [place] | | | | [address] [place], | [place] [address] | | | | | [place] [address] | [phone] | | | | | [phone] | | | +--------+ + + + [...]
--- OUTSIDE RECORDS SUMMARY | ~2019-05-17 | XMS | Encounter Summary ---
Demographics + + + | Address | [address] | | | [place] [address] | + + + | Home Phone | | + + + | Preferred Language | Unknown | + + + | Marital Status | | + + + | Buddhist Affiliation | Unknown | + + + [...] Team Providers + +------+ + | Care Timber Treating Tank Operator Name | Role | Phone | + +------+ + PCP | Unavailable | + +------+ + Encounter Details +--------+ + + + + | Date | Type | Department | Care Team | Description | +--------+ + + + + | 07/29/ | Hospital | [facility] | Deonte Aguiar, | | | 2014 | Encounter | [facility] | DO [address] , | | | | | [address] | [place], [place] | | | | | [place], [place] | [address] | | | | | [address] | [phone] | | | | | [phone] | | | +--------+ + + + [...]
--- OUTSIDE RECORDS SUMMARY | ~2019-05-17 | XMS | Encounter Summary ---
Demographics + + + | Address | [address] | | | [place] [address] | + + + | Home Phone [...] Team Providers + +------+ + | Care Overedge Machine Operator Name | Role | Phone | + +------+ + PCP | Unavailable | + +------+ + Encounter Details +--------+ + + + + | Date | Type | Department | Care Team | Description | +--------+ + + + + | 10/27/ | [facility] | [facility] | Ana Luisa Alexandra, | | | 2014 | Encounter | [facility] | LEGAL SERVICES MANAGER [address] | | | | | MEDICAL CL[facility] | [facility], [place] | | | | | [facility] [facility], | [address] | | | | | [place] [address] | | | | | | [phone] | | | +--------+ + + + [...]
--- OUTSIDE RECORDS SUMMARY | ~2019-05-17 | XMS | Encounter Summary ---
Demographics + + + | Address | [address] | | | [place] [address] | + + + | Home Phone [...] Team Providers + +------+ + | Care Progressive Care Nurse Name | Role | Phone | + [...] [address] | [place] [address] | | | | | [place] | [phone] | | | | | [address] | | | | | | [phone] | | | +--------+ + + + [...]
--- OUTSIDE RECORDS SUMMARY | ~2019-05-17 | XMS | Encounter Summary ---
Demographics + + + | Address | [address] | | | [place] [address] | + + + | Home Phone | | + + + | Preferred Language | Unknown | + + + | Marital Status | | + + + | Protestant Affiliation | Unknown | + + + [...] Team Providers + +------+ + | Care Business Representative Name | Role | Phone | + [...] + | 07/13/ | Refill | [facility] | Leila Holguina Tru, | Medication Refill | | 2017 | | [facility] | DO [address] | | | | | MEDICAL CLIN[address] | [place] [address] | | | | | [address] [place], | [phone] | | | | | [place] [address] | | | | | | [phone] | | | +--------+--------+ + + + [...]
--- OUTSIDE RECORDS SUMMARY | ~2019-05-17 | XMS | Encounter Summary ---
Demographics + + + | Address | [address] | | | [place] [address] | + + + | Home Phone [...] Team Providers + +------+ + | Care Reduction Furnace Operator Helper Name | Role | Phone | + +------+ + | Kayy Hogluin DO | PCP | | + +------+ [...] Therapy / | Acute pain | Kayy Ott DO | Therapy Pt | | | Required | Rehabilitatio | of right | [address] | [address] | | | | n | shoulder | [place], | [place], | | | | | Procedures | [place] [address] | [place] [address] | | | | | PT TREAT | Phone: | Phone: | | | | | | [phone] | [phone] | | | | | | Fax: | Fax: | | | | | | [phone] | [phone] | +--------+ + + + + + Encounter Details +--------+ + + + + | Date | Type | Department | Care Team | Description | +--------+ + + + + | 11/15/ | Hospital | [facility] | Kayy Holguin, | Acute pain of right | | 2019 | Encounter | [facility]OSPITAL [facility] PT | DO [address] | shoulder (Primary | | | | [address] [place] | [place] [address] | Dx); Shoulder | | | | [place], [place] | [phone] | injury, right, | | | | [address] | | subsequent encounter | | | | [phone] | Librado Alcala, | | | | [...] tablet by | 42 | 0 | 04/16/20 | | | (FLEXERIL) 10 mg | [...] into | 1 each | 0 | 05/21/20 | | | auto-injector 0.3 | the [...] encounter Progress Notes Librado Alcala, PT - 11/15/2018 4:43 PM PDT [facility] [address] [place] [address] Physical Therapy Daily Treatment Note Date: 11/15/2018 Patient Information Patient Name: Riddhi Perez Date of : 1970 Age: 48 y.o. Encounter Diagnoses Code Name Primary? M25.511 Acute pain of right shoulder Yes S49.91XD Shoulder injury, right, subsequent encounter Date of Onset: 10/04/2018 Referring Provider: Kayy Holguin, Objective Pain Assessment: Pain Rating Pre Assessment: 5 Pain Rating Post Assessment: 5 Location: (R) anterior shoulder Today's Treatment Patient Name: Riddhi Perez/: 1970/ Start Time: 1553 Stop time: 1635 Duration: 42 minutes Timed Treatment Codes: 39 minutes # of PT Visits to Date: 2 Visit Summary: S: Patient reports that she continues to have signficant pain and dysfuncti on, but has D/C'd her sling and reports that she is doing more reaching at work. A: Cindy infante tolerated all initial interventions well, including ice massage (displayed normal tissue r esponce) reporting no increase in pain from baseline. She was educated extensively on the i mprotance of keeping all interventons submaximal in a ROM that does not increase her pain fr om baseline, she verbalized understnading and agreement. HEP reviewed in depth, she display ed understanding during teachback. Next Visit Information: P: Cont' to assess and treat (R) shoulder Patient/Caregiver Education Learner: Patient Readiness: Eager Method: Explanation, Demonstration Response: Verbalizes Understanding, Demonstrated Understanding Therapy Interventions HEP: shrugs, scap retractions, shoulder circles, elbow flex/ext AROM, YTB scap retraction, table slides, table slide ER and IR (wax on/wax off), YTB mini shoulder extension, YTB mini bilat ER PT Interventions: Intervention #1, Manual Therapy Intervention #1 PT INTERVENTION 1: TE(29min): table slides, table slide ER and IR (wax on/wax off), YTB m ini shoulder extension, YTB mini bilat ER PT MANUAL THERAPY 1: MT(10min): manual ice massage to anterior shoulder x 7min(displayed n ormal tissue responce), gentle shoulder occilations Assessment Rehabilitation potential: Patient demonstrates good potential to achieve established goals to address the documented impairments by participating in skilled physical therapy services. Electronically signed by: Librado Alcala PT, 11/15/2018 16:43 Patient Name: Riddhi Perez/: 1970/ documented in [...] shoulder - Primary | + + | Shoulder injury, right, subsequent encounter | + + documented in this encounter"
--- OUTSIDE RECORDS SUMMARY | ~2019-05-17 | XMS | Encounter Summary ---
Demographics + + + | Address | [address] | | | [place] [address] | + + + | Home Phone [...] Team Providers + +------+ + | Care Adjunct Professor Of Law Name | Role | Phone | + +------+ + PCP | Unavailable | + +------+ + Encounter Details +--------+ + + + + | Date | Type | Department | Care Team | Description | +--------+ + + + + | 01/04/ | Hospital | [facility] | Maris, | | | 2016 | Encounter | [facility] | Shruthi Abebe NP [address] | | | | | [address] [place] | [address] | | | | | [place], [place] | [place] | | | | | [address] | [address] | | | | | [phone] | [phone] | | | | | | | [...]
--- OUTSIDE RECORDS SUMMARY | ~2019-05-17 | XMS | Encounter Summary ---
Demographics + + + | Address | [address] | | | [place] [address] | + + + | Home Phone [...] Team Providers + +------+ + | Care Echocardiograph Tech Name | Role | Phone | + [...] initial | | | [address] [place] | [place] [address] | encounter | | | | [place], [place] | [phone] | | | | | [address] | | | | | | [phone] | | | +--------+ + + + [...]
--- OUTSIDE RECORDS SUMMARY | ~2019-05-17 | XMS | Encounter Summary ---
Demographics + + + | Address | [address] | | | [place] [address] | + + + | Home Phone [...] Team Providers + +------+ + | Care Cake Knocker Name | Role | Phone | + [...] | | | | initial | [place] [address] | [place] [address] | | | | | encounter | Phone: | Phone: | | | | | Strain of | [phone] | [phone] | | | | | left | Fax: | Fax: | | | | | shoulder, | [phone] | [phone] | | | | | initial | [...] | | 2018 | Visit | [facility] | DO [address] | shoulder, initial | | | | MEDICAL CLINIC [address] | [place] [address] | encounter (Primary | | | | [address] [place], | [phone] | Dx); Strain of left | | | | [place] [address] | | shoulder, initial | | | | [phone] | | encounter; Other | | | [...] on the ice. She was seen in [facility] and had x ray on the [...] short term on ly [facility] at [facility]. She will return fasting for lipids and [...] | | HOSPITAL | | | | [id number] - 129 mg/dL | | REGIONAL | | | | Near [id number] - | | MEDICAL | | | | 159 mg/dL | | CENTER LAB | | | | [id number] - 189 | | | | | [...] + + + | [facility] [facility] | [address] [place] [address] Street | [place] [address] | [phone] | | [facility] | | | | | [facility] | | | | + + [...] | mL/min/1.73m2 | [facility] | | | [facility] | RATE,ESTIMATED | | HOSPITAL | | | | mL/min/1.23g2Bvmv than | | REGIONAL | | | [...] + + | [facility] | [address] | [place] [address] | [phone] | | [facility] | | | | | MEDICAL [...]
--- OUTSIDE RECORDS SUMMARY | ~2019-05-17 | XMS | Encounter Summary ---
Demographics + + + | Address | [address] | | | [place] [address] | + + + | Home Phone [...] | + + +---------+ + | Román Sheihk | ECON | Unknown | | + + +---------+ + Care Team Providers + +------+ + | Care Blade Changer Name | Role | Phone | + +------+ + PCP | Unavailable | + +------+ + Encounter Details +--------+ + + + + | Date | Type | Department | Care Team | Description | +--------+ + + + + | 07/03/ | Hospital | [facility] | Deonte Aguiar, | | | 2013 | Encounter | [facility] | DO [address] , | | | | | [address] | [place], [place] | | | | | [place], [place] | [address] | | | | | [address] | [phone] | | | | | [phone] | | | +--------+ + + + [...]
--- OUTSIDE RECORDS SUMMARY | ~2019-05-17 | XMS | Encounter Summary ---
Demographics + + + | Address | [address] | | | [place] [address] | + + + | Home Phone | | + + + | Preferred Language | Unknown | + + + | Marital Status | | + + + | Sabianism Affiliation | Unknown | + + + | Race | Unknown | + + + | Ethnic Group | Unknown | + + + Author + + + | Author | [facility] | | | and [place] | + + + | Organization | [facility] | | | and [...] Team Providers + +------+ + | Care Nonfarm Animal Caretaker Name | Role | Phone | + +------+ + PCP | Unavailable | + +------+ + Encounter Details +--------+ + + + + | Date | Type | Department | Care Team | Description | +--------+ + + + + | 04/12/ | Hospital | [facility] | Linda Bardales | | | 2012 | Encounter | [facility] | ZELALEM [address] | | | | | [address] [place] | [address] [place] | | | | | [place] | [address] | | | | | [address] | [phone] | | | | | [phone] | | | +--------+ + + + [...]
--- OUTSIDE RECORDS SUMMARY | ~2019-05-17 | XMS | Encounter Summary ---
Demographics + + + | Address | [address] | | | [place] [address] | + + + | Home Phone | | + + + | Preferred Language | Unknown | + + + | Marital Status | | + + + | Pentecostalism Affiliation | Unknown | + + + | Race | Unknown | + + + | Ethnic Group | Unknown | + + + Author + + + | Author | [facility] | | | and [place] | + + + | Organization | [facility] | | [...] Team Providers + +------+ + | Care Cigar Packer Name | Role | Phone | + [...] | | | | [place], [place] | [address] | | | | | [address] | [phone] | | | | | [phone] | | | +--------+ + + + [...]
--- OUTSIDE RECORDS SUMMARY | ~2019-05-17 | XMS | Encounter Summary ---
Demographics + + + | Address | [address] | | | [place] [address] | + + + | Home Phone | | + + + | Preferred Language | Unknown | + + + | Marital Status | | + + + | Episcopal Affiliation | Unknown | + + + [...] Team Providers + +------+ + | Care Systems Operator Name | Role | Phone | + +------+ + PCP | Unavailable | + +------+ + Encounter Details +--------+ + + + + | Date | Type | Department | Care Team | Description | +--------+ + + + + | 04/03/ | [facility] | [facility] | Kayy Holguin, | | | 2014 | Encounter | [facility] | DO [address] | | | | | MEDICAL CLIN[address] | [facility] [place] [address] | | | | | [address] [place], | [phone] | | | | | [place] [address] | | | | | | [phone] | | | +--------+ + + + [...]
--- OUTSIDE RECORDS SUMMARY | ~2019-05-17 | XMS | Encounter Summary ---
Demographics + + + | Address | [address] | | | [place] [address] | + + + | Home Phone [...] Team Providers + +------+ + | Care Continuous Mining Machine Company Miner Name | Role | Phone | + +------+ + PCP | Unavailable | + +------+ + Encounter Details +--------+ + + + + | Date | Type | Department | Care Team | Description | +--------+ + + + + | 01/07/ | [facility] | [facility] | Linda Bardales | | | 2013 | Encounter | [facility] | ZEL[address]EM [address] | | | | | MEDICAL CL[address] | [address] [place], [place] | | | | | [facility] | [address] | | | | | [place] [address] | [phone] | | | | | [phone] | | | +--------+ + + + [...]
--- OUTSIDE RECORDS SUMMARY | ~2019-05-17 | XMS | Encounter Summary ---
Demographics + + + | Address | [address] | | | [place] [address] | + + + | Home Phone | | + + + | Preferred Language | Unknown | + + + | Marital Status | | + + + | Restorationism Affiliation | Unknown | + + + | Race | Unknown | + + + | Ethnic Group | Unknown | + + + Author + + + | Author | [facility] | | | and [place] | + + + | Organization | [facility] | | | [...] Team Providers + +------+ + | Care Biology Specialist Name | Role | Phone | + +------+ + PCP | Unavailable | + +------+ + Encounter Details +--------+ + + + + | Date | Type | Department | Care Team | Description | +--------+ + + + + | 05/07/ | Hospital | [facility] | Deonte Aguiar, | | | 2012 | Encounter | [facility] | DO [address] , | | | | | [address] | [place], [place] | | | | | [place], [place] | [address] | | | | | [address] | [phone] | | | | | [phone] | | | +--------+ + + + [...]
--- OUTSIDE RECORDS SUMMARY | ~2019-05-17 | XMS | Encounter Summary ---
Demographics + + + | Address | [address] | | | [place] [address] | + + + | Home Phone [...] | + + +---------+ + | Román Ramosell | ECON | Unknown | | + + +---------+ + Care Team Providers + +------+ + | Care Tax Evaluator Name | Role | Phone | + +------+ + | Kayy Holguin DO | PCP | | + +------+ + Reason for Visit +--------+ + | Reason | Comments | +--------+ + | Other | | +--------+ + Encounter Details +--------+ + + + + | Date | Type | Department | Care Team | Description | +--------+ + + + + | 03/27/ | Telephone | [facility] | Kayy Holguin, | Other | | 2017 | | [facility] | DO [address] | | | | | MEDICAL CLIN[address] | [place] [address] | | | | | [address] [place], | [phone] | | | | | [place] [address] | | | | | | [phone] | | | +--------+ + + + [...]
--- OUTSIDE RECORDS SUMMARY | ~2019-05-17 | XMS | Encounter Summary ---
Demographics + + + | Address | [address] | | | [place] [address] | + + + | Home Phone | | + + + | Preferred Language | Unknown | + + + | Marital Status | | + + + | Gnosticism Affiliation | Unknown | + + + | Race | Unknown | + + + | Ethnic Group | Unknown | + + + Author + + + | Author | [facility] | | | and [place] | + + + | Organization | [facility] | | | and [...] Team Providers + +------+ + | Care Cross Cut Saw Operator Name | Role | Phone | + +------+ + PCP | Unavailable | + +------+ + Encounter Details +--------+ + + + + | Date | Type | Department | Care Team | Description | +--------+ + + + + | 12/03/ | [facility] | [facility] | Kayy Holguin, | | | 2014 | Encounter | [facility] | DO [address] | | | | | MEDICAL CL[address] | [facility] [place] [address] | | | | | [address] [place], | [phone] | | | | | [place] [address] | | | | | | [phone] | | | +--------+ + + + [...]
--- OUTSIDE RECORDS SUMMARY | ~2019-05-17 | XMS | Encounter Summary ---
Demographics + + + | Address | [address] | | | [place] [address] | + + + | Home Phone [...] Team Providers + +------+ + | Care Injection Molding Operator Name | Role | Phone | [...] Results | | 2018 | | [facility] | DO [address] | | | | | MEDICAL CLIN[address] | [place] [address] | | | | | [address] [place], | [phone] | | | | | [place] [address] | | | | | | [phone] | | | +--------+ + + + [...]
--- OUTSIDE RECORDS SUMMARY | ~2019-05-17 | XMS | Encounter Summary ---
Demographics + + + | Address | [address] | | | [place] [address] | + + + | Home Phone | | + + + | Preferred Language | Unknown | + + + | Marital Status | | + + + | Muslim Affiliation | Unknown | + + + | Race | Unknown | + + + | Ethnic Group | Unknown | + + + Author + + + | Author | [facility] | | | and [place] | + + + | Organization | [facility] | [...] Team Providers + +------+ + | Care Cold Storage Superintendent Name | Role | Phone | + +------+ + PCP | Unavailable | + +------+ + Encounter Details +--------+ + + + + | Date | Type | Department | Care Team | Description | +--------+ + + + + | 08/29/ | [facility] | [facility] | Kayy Holguin, | | | 2014 | Encounter | [facility] | DO [address] | | | | | MEDICAL CLIN[address] | [place] [address] | | | | | [address] [facility], | [phone] | | | | | [place] [address] | | | | | | [phone] | | | +--------+ + + + [...]
--- OUTSIDE RECORDS SUMMARY | ~2019-05-17 | XMS | Encounter Summary ---
Demographics + + + | Address | [address] | | | [place] [address] | + + + | Home Phone | | + + + | Preferred Language | Unknown | + + + | Marital Status | | + + + | Muslim Affiliation | Unknown | + + + | Race | Unknown | + + + | Ethnic Group | Unknown | + + + Author + + + | Author | [facility] | | | and [place] | + + + | Organization | [facility] | | | [...] Team Providers + +------+ + | Care Vat Skimmer Name | Role | Phone | + [...] | | | [place], [place] | [address] | | | | | [address] | [phone] | | | | | [phone] | | | +--------+ + + + [...]
--- OUTSIDE RECORDS SUMMARY | ~2019-05-17 | XMS | Encounter Summary ---
Demographics + + + | Address | [address] | | | [place] [address] | + + + | Home Phone | | + + + | Preferred Language | Unknown | + + + | Marital Status | | + + + | Uatsdin Affiliation | Unknown | + + + [...] Team Providers + +------+ + | Care Wildlife Rehabilitator Name | Role | Phone | + [...] | | | | Procedures | [place] [address] | [place] [address] | | | | | PT TREAT | Phone: | Phone: | | | | | | [phone] | [phone] | | | | | | Fax: | Fax: | | | | | | [phone] | [phone] | +--------+ + + + + + [...] [address] [place] | [place] [address] | Dx); Shoulder | | | | [place], [place] | [phone] | injury, right, | | | | [address] | | subsequent encounter | | | | [phone] | Librado Alcala, | | | | [...] Alcala, PT - 11/15/2018 4:[address] [facility] [address] [place] [address] Physical Therapy Daily Treatment Note Date: 11/15/2018 [...]
--- OUTSIDE RECORDS SUMMARY | ~2019-05-17 | XMS | Encounter Summary ---
Demographics + + + | Address | [address] | | | [place] [address] | + + + | Home Phone [...] Providers + +------+ + | Care Marketing Systems Manager Name | Role | Phone | + +------+ + PCP | Unavailable | + +------+ + Encounter Details +--------+ + + + + | Date | Type | Department | Care Team | Description | +--------+ + + + + | 09/27/ | Hospital | [facility] | Dat Garza | | | 2012 | Encounter | [facility] | MD [address] | | | | | CENTER [address] | [place], | | | | | [place], [place] | [place] [address] | | | | | [address] | [phone] | | | | | [phone] | | | +--------+ + + + [...]
--- OUTSIDE RECORDS SUMMARY | ~2019-05-17 | XMS | Encounter Summary ---
Demographics + + + | Address | [address] | | | [place] [address] | + + + | Home Phone | | + + + | Preferred Language | Unknown | + + + | Marital Status | | + + + | Voodoo Affiliation | Unknown | + + + | Race | Unknown | + + + | Ethnic Group | Unknown | + + + Author + + + | Author | [facility] | | | and [place] | + + + | Organization | [facility] | | | [...] Team Providers + +------+ + | Care Thread Winder Name | Role | Phone | + [...] | | | | [place] | [address] | | | | | [address] | | | | | | [phone] | | | +--------+ + + + [...]
--- OUTSIDE RECORDS SUMMARY | ~2019-05-17 | XMS | Encounter Summary ---
Demographics + + + | Address | [address] | | | [place] [address] | + + + | Home Phone [...] Team Providers + +------+ + | Care Registry Rn Name | Role | Phone | + +------+ + PCP | Unavailable | + +------+ + Encounter Details +--------+ + + + + | Date | Type | Department | Care Team | Description | +--------+ + + + + | 08/31/ | [facility] | Shasta Rubio, | | | 2012 | Encounter | HOSPITAL EM[facility]Y | HOG CONFINEMENT SYSTEM MANAGER [address] | | | | | CENTER [address] | [place] | | | | | [place] | [address] | | | | | [address] | | | | | | [phone] | | | +--------+ + + + [...]
--- OUTSIDE RECORDS SUMMARY | ~2019-05-17 | XMS | Encounter Summary ---
Demographics + + + | Address | [address] | | | [place] [address] | + + + | Home Phone | | + + + | Preferred Language | Unknown | + + + | Marital Status | | + + + | Christian Affiliation | Unknown | + + + [...] Team Providers + +------+ + | Care Recovery Coordinator Name | Role | Phone | + +------+ + PCP | Unavailable | + +------+ + Encounter Details +--------+ + + + + | Date | Type | Department | Care Team | Description | +--------+ + + + + | 03/03/ | [facility] | [facility] | Kayy Holguin, | | | 2016 | Encounter | [facility] | DO [address] | | | | | MEDICAL CLIN[address] | [place] [address] | | | | | [address] [place], | [phone] | | | | | [place] [address] | | | | | | [phone] | | | +--------+ + + + [...]
--- OUTSIDE RECORDS SUMMARY | ~2019-05-17 | XMS | Encounter Summary ---
Demographics + + + | Address | [address] | | | [place] [address] | + + + | Home Phone | | + + + | Preferred Language | Unknown | + + + | Marital Status | | + + + | Orthodox Affiliation | Unknown | + + [...] Team Providers + +------+ + | Care Operations Dispatcher Name | Role | Phone | + +------+ + PCP | Unavailable | + +------+ + Encounter Details +--------+ + + + + | Date | Type | Department | Care Team | Description | +--------+ + + + + | 04/26/ | Hospital | [facility] | Amanda De La Cruz MD | | | 2012 | Encounter | [facility] | [address] [place] | | | | | [address] [place] | [place] | | | | | [place] | [address] | | | | | [address] | | | | | | [phone] | | | +--------+ + + + [...]
--- OUTSIDE RECORDS SUMMARY | ~2019-05-17 | XMS | Encounter Summary ---
Demographics + + + | Address | [address] | | | [place] [address] | + + + | Home Phone [...] + | Author | [facility] | | | and [place] | + + + | Organization | [facility] | | | and [...] Team Providers + +------+ + | Care Transformer Builder Name | Role | Phone | + +------+ + PCP | Unavailable | + +------+ + Encounter Details +--------+ + + + + | Date | Type | Department | Care Team | Description | +--------+ + + + + | 12/04/ | [facility] | [place] [facility] | Linda Bardales | | | 2013 | Encounter | [facility] | ZELALEM [address] | | | | | [address] | [place], [place] | | | | | [facility], | [address] | | | | | [place] [address] | [phone] | | | | | [phone] | | | +--------+ + + + [...]
--- OUTSIDE RECORDS SUMMARY | ~2019-05-17 | XMS | Encounter Summary ---
Demographics + + + | Address | [address] | | | [place] [address] | + + + | Home Phone | | + + + | Preferred Language | Unknown | + + + | Marital Status | | + + + | Hinduism Affiliation | Unknown | + + + | Race | Unknown | + + + | Ethnic Group | Unknown | + + + Author + + + | Author | [facility] | | | and [place] | + + + | Organization | [facility] | | [...] Team Providers + +------+ + | Care Spark Plug Assembler Name | Role | Phone | + +------+ + PCP | Unavailable | + +------+ + Encounter Details +--------+ + + + + | Date | Type | Department | Care Team | Description | +--------+ + + + + | 12/04/ | [facility] | [place] [facility] | Linda Bardales | | | 2013 | Encounter | [facility] | [address]ELALEM [address] | | | | | MED[address] | [address] [place], [place] | | | | | [facility], | [address] | | | | | [place] [address] | [phone] | | | | | [phone] | | | +--------+ + + + [...]
--- OUTSIDE RECORDS SUMMARY | ~2019-05-17 | XMS | Encounter Summary ---
Demographics + + + | Address | [address] | | | [place] [address] | + + + | Home Phone [...] Providers + +------+ + | Care Manager Mass Name | Role | Phone | + [...] | | | n | shoulder | PHARMACY INFORMATICIST [address] | [place], | | | | | Procedures | [address] | [place] [address] | | | | | PT EVAL | [place], | Phone: | | | | | | [place] [address] | [phone] | | | | | | Phone: | Fax: | | | | | | [phone] | [phone] | | | | | | Fax: | | | | | | | [phone] | | +--------+ + + + + [...] | | [place], [place] | [place] [address] | subsequent encounter | | | | [address] | [phone] | | | | | [phone] | | | | | | | [...] Status: Needs instruction. Treatment Plan/Interventions PT EvaluationPT Re-Pfbucpnixq74222 - Therapeutic Uckjnyvj53323 - Neuromuscular Reeducation9 7116 - Gait Slmenard11127 - Therapeutic Cppaphimcd79675 - Manual Otrkazh35169 - Self Care/Ho me Vonuaspfeq10084 - Aquatic Therapy/Exercises HP/CP Electronically signed by: Librado Alcala PT, 10/26/2018 12:47 Patient Name: Riddhi Perez/: 1970/ Nj Mercer PT - 10/18/2018 8:30 AM PDTFormatting of this note might be different from the zita zayas [facility] Care Organization [place] [address] [] ARSHAD [] RETRO Call/Fax received by Date call/Fax received [] Referral [x]Service Authorization [] Plus [x] Standard [] Inpt [x] Outpt Patient Information Patient Name: Riddhi Perez :1970 [facility] Client ID # [id number] PCP/Hotel Office Manager Doctor Information PCP/Hotel Office Manager Doctor: Kayy Holguin DO Specialist Rod Puller And Coiler Name: Librado Alcala PT Address: [address] [place] [address] Facility Information Facility: [facility]# [id number] Contact: Soren Tran Additional Authorization/Referral Information ICD10 code(s): Encounter Diagnoses Code Name Primary? M25.511 Acute pain of right shoulder S49.91XD Shoulder injury, right, subsequent encounter CPT code(s): [x]Ther. Exercise (75760) [x]Manual (37908) [x]MR (14085) []Gait Training (09381) [x]Aquatic Therapy (18323) []Traction (43804) [x] ThereAct (83299) Date of Onset: 10/04/2018 Start of Care [...] Status: Needs instruction. Treatment Plan/Interventions PT EvaluationPT Re-Wcaqvchjkc36587 - Therapeutic Eqlovryc42883 - Neuromuscular Reeducation9 7116 - Gait Smeuvwkc92117 - Therapeutic Ibgjenkgle20783 - Manual Sjzneds29636 - Self Care/Ho me Mkvhexxiew02366 - Aquatic Therapy/Exercises HP/CP Electronically signed by: Librado Alcala, PT, 10/18/2018 8:29 Patient Name: Riddhi Perez/: 1970/ Nj Mercer PT - 10/18/2018 8:27 AM PDTFormatting of this note might be different from the [facility] THERAPY PT [address] [place] [address] Physical Therapy Initial Assessment Date: 10/17/2018 Patient [...] jar: 1 - No Difficulty 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 QuickDASH Goal Status: 77% disabled at [facility]. Range of Motion (measured in degrees): [...] Certification To: 01/09/2019 Treatment Plan/Interventions PT EvaluationPT Re-Znpgsjosdk50784 - Therapeutic Tarkjbjq07146 - Neuromuscular Reeducation9 7116 - Gait Olaqiocg69054 - Therapeutic Zlkcwecwhz43058 - Manual Aquwupk94712 - Self Care/Ho me Txooecqxna88089 - Aquatic Therapy/Exercises HP/CP Patient and/or family [...]
--- OUTSIDE RECORDS SUMMARY | ~2019-05-17 | XMS | Encounter Summary ---
Demographics + + + | Address | [address] | | | [place] [address] | + + + | Home Phone [...] Team Providers + +------+ + | Care Retail Loss Prevention Specialist Name | Role | Phone | + +------+ + PCP | Unavailable | + +------+ + Encounter Details +--------+ + + + + | Date | Type | Department | Care Team | Description | +--------+ + + + + | [facility] | Ana Luisa Alexandra, | | | 2014 | Encounter | [facility] | NUCLEAR EQUIPMENT SALES ENGINEER [address] | | | | | MEDICAL CL[address] | [facility], [place] | | | | | [facility], | [address] | | | | | [place] [address] | | | | | | [phone] | | | +--------+ + + + [...]
--- OUTSIDE RECORDS SUMMARY | ~2019-05-17 | XMS | Encounter Summary ---
Demographics + + + | Address | [address] | | | [place] [address] | + + + | Home Phone [...] Team Providers + +------+ + | Care Sodder Name | Role | Phone | + +------+ + PCP | Unavailable | + +------+ + Encounter Details +--------+ + + + + | Date | Type | Department | Care Team | Description | +--------+ + + + + | 06/04/ | [facility] | [facility] | Ana Luisa Alexandra, | | | 2013 | Encounter | [facility] | DIRECTOR OF DEVELOPMENT AND MARKETING [address] | | | | | MEDICAL CL[address] | [facility], [place] | | | | | 4TH [facility], | [address] | | | | | [place] [address] | | | | | | [phone] | | | +--------+ + + + [...]
--- OUTSIDE RECORDS SUMMARY | ~2019-05-17 | XMS | Encounter Summary ---
Demographics + + + | Address | [address] | | | [place] [address] | + + + | Home Phone | | + + + | Preferred Language | Unknown | + + + | Marital Status | | + + + | Pentecostalism Affiliation | Unknown | + + + | Race | Unknown | + + + | Ethnic Group | Unknown | + + + Author + + + | Author | [facility] | | | and [place] | + + + | Organization | [facility] | | | and [place] | + + + | Address | Unknown | + + + | Phone | Unavailable | + + + Support + + +---------+ + | Name | Relationship | Address | Phone | + + +---------+ + | Romná Sheikh | ECON | Unknown | | + + +---------+ + Care Team Providers + +------+ + | Care Toy Maker Name | Role | Phone | + +------+ + PCP | Unavailable | + +------+ + Encounter Details +--------+ + + + + | Date | Type | Department | Care Team | Description | +--------+ + + + + | 06/15/ | [facility] | Shasta Rubio, | | | 2012 | Encounter | [facility] | LOAN CLERK [address] | | | | | CENTER [address] | [place] | | | | | [place] | [address] | | | | | [address] | | | | | | [phone] | | | +--------+ + + + [...]
--- OUTSIDE RECORDS SUMMARY | ~2019-05-17 | XMS | Encounter Summary ---
Demographics + + + | Address | [address] | | | [place] [address] | + + + | Home Phone | | + + + | Preferred Language | Unknown | + + + | Marital Status | | + + + | Mandaen Affiliation | Unknown | + + + | Race | Unknown | + + + | Ethnic Group | Unknown | + + + Author + + + | Author | [facility] | | | and [place] | + + + | Organization | [facility] | | | [...] Team Providers + +------+ + | Care Care Transition Manager Name | Role | Phone | + +------+ + PCP | Unavailable | + +------+ + Encounter Details +--------+ + + + + | Date | Type | Department | Care Team | Description | +--------+ + + + + | 11/12/ | Hospital | [place] [facility] | Deonte Aguiar, | | | 2014 | Encounter | [facility] [place] [facility] | DO [address], | | | | | [address] [place] | [place], [place] | | | | | [place], [place] | [address] | | | | | [address] | [phone] | | | | | [phone] | | | +--------+ + + + [...] | + +--------+ + + + | , SERUM, | STAT | 11/12/2014 | | Results for this | | QUAL | | 7:23 AM | | procedure are in the | | | | PDT | | results section. | + +--------+ + + + documented in this encounter Results , Serum, Qual (11/12/2014 7:23 AM PDT) + + + + + + | Component | Value | Ref Range | Performed | Pathologist | | | | | At | Signature | + + + + + + | HCG | NEGATIVE | NEGATIVE | EXTERNAL | | | QUALITATIVE | | | LAB | | + + + + + + | Internal QC | POSITIVE | POSITIVE | EXTERNAL | | | | | [...]
--- OUTSIDE RECORDS SUMMARY | ~2019-05-17 | XMS | Encounter Summary ---
Demographics + + + | Address | [address] | | | [place] [address] | + + + | Home Phone | | + + + | Preferred Language | Unknown | + + + | Marital Status | | + + + | Voodoo Affiliation | Unknown | + + + | Race | Unknown | + + + | Ethnic Group | Unknown | + + + Author + + + | Author | [facility] | | | and [place] | + + + | Organization | [facility] | | | [...] Team Providers + +------+ + | Care Workers' Compensation Commissioner Name | Role | Phone | + +------+ + PCP | Unavailable | + +------+ + Encounter Details +--------+ + + + + | Date | Type | Department | Care Team | Description | +--------+ + + + + | 10/08/ | [facility] | [facility] | Ana Luisa Alexandra, | | | 2014 | Encounter | [facility] | CAR TRIMMER [address] | | | | | MEDICAL [address] | [facility], [place] | | | | | 4TH [facility], | [address] | | | | | [place] [address] | | | | | | [phone] | | | +--------+ + + + [...]
--- OUTSIDE RECORDS SUMMARY | ~2019-05-17 | XMS | Encounter Summary ---
Demographics + + + | Address | [address] | | | [place] [address] | + + + | Home Phone [...] Team Providers + +------+ + | Care Orthotic/Prosthetic Practitioner Name | Role | Phone | + [...] Description | +--------+--------+ + + + | 05/18/ | Refill | [place] [facility] | Leila Holguina Tru, | Medication Refill | | 2016 | | [facility] | DO [address] | | | | | MEDICAL CL[address] | [place] [address] | | | | | [address] [place], | [phone] | | | | | [place] [address] | | | | | | [phone] | | | +--------+--------+ + + + [...]
--- OUTSIDE RECORDS SUMMARY | ~2019-05-17 | XMS | Encounter Summary ---
Demographics + + + | Address | [address] | | | [place] [address] | + + + | Home Phone | | + + + | Preferred Language | Unknown | + + + | Marital Status | | + + + | Denominational Affiliation | Unknown | + + + [...] Providers + +------+ + | Care Care Support Representative Name | Role | Phone | + +------+ + PCP | Unavailable | + +------+ + Encounter Details +--------+ + + + + | Date | Type | Department | Care Team | Description | +--------+ + + + + | 11/07/ | [facility] | [place] [facility] | Linda Bardales | | | 2013 | Encounter | [facility] | [address] | | | | | MEDICAL [address] | [address] [place], [place] | | | | | [facility], | [address] | | | | | [place] [address] | [phone] | | | | | [phone] | | | +--------+ + + + [...]
--- OUTSIDE RECORDS SUMMARY | ~2019-05-17 | XMS | Encounter Summary ---
Demographics + + + | Address | [address] | | | [place] [address] | + + + | Home Phone | | + + + | Preferred Language | Unknown | + + + | Marital Status | | + + + | Cheondoism Affiliation | Unknown | + + + | Race | Unknown | + + + | Ethnic Group | Unknown | + + + Author + + + | Author | [facility] | | | and [place] | + + + | Organization | [facility] | | | [...] Team Providers + +------+ + | Care Reinforcing Steel Machine Operator Name | Role | Phone | + +------+ + PCP | Unavailable | + +------+ + Encounter Details +--------+ + + + + | Date | Type | Department | Care Team | Description | +--------+ + + + + | 12/17/ | Hospital | [place] [facility] | Deonte Aguiar, | | | 2013 | Encounter | [facility] | DO [address] , | | | | | [address] | [place], [place] | | | | | [place], [place] | [address] | | | | | [address] | [phone] | | | | | [phone] | | | +--------+ + + + [...]
--- OUTSIDE RECORDS SUMMARY | ~2019-05-17 | XMS | Encounter Summary ---
Demographics + + + | Address | [address] | | | [place] [address] | + + + | Home Phone [...] Team Providers + +------+ + | Care Electrical Project Engineer Name | Role | Phone | + +------+ + PCP | Unavailable | + +------+ + Encounter Details +--------+ + + + + | Date | Type | Department | Care Team | Description | +--------+ + + + + | 09/23/ | [facility] | [facility] | Claudia Muir | | | 2014 | Encounter | [facility] | [address] | | | | | MEDICAL CL[address] | [place]JIV [place] | | | | | 4TH [facility], | [address] | | | | | [place] [address] | [phone] | | | | | [phone] | | | +--------+ + + + [...]
--- OUTSIDE RECORDS SUMMARY | ~2019-05-17 | XMS | Encounter Summary ---
Demographics + + + | Address | [address] | | | [place] [address] | + + + | Home Phone [...] Phone | + + +---------+ + | Roámn Sheikh | ECON | Unknown | | + + +---------+ + Care Team Providers + +------+ + | Care Logistics Supervisor Name | Role | Phone | + +------+ + PCP | Unavailable | + +------+ + Encounter Details +--------+ + + + + | Date | Type | Department | Care Team | Description | +--------+ + + + + | 04/29/ | [facility] | Shasta Rubio, | | | 2010 | Encounter | [facility] | BAG FILLER MACHINE OPERATOR [address] | | | | | CENTER [address] | [place] | | | | | [place] | [address] | | | | | [address] | | | | | | [phone] | | | +--------+ + + + [...]
--- OUTSIDE RECORDS SUMMARY | ~2019-05-17 | XMS | Encounter Summary ---
Demographics + + + | Address | [address] | | | [place] [address] | + + + | Home Phone | | + + + | Preferred Language | Unknown | + + + | Marital Status | | + + + | Anabaptism Affiliation | Unknown | + + + [...] Team Providers + +------+ + | Care Supervisor Cooler Service Name | Role | Phone | + +------+ + PCP | Unavailable | + +------+ + Encounter Details +--------+ + + + + | Date | Type | Department | Care Team | Description | +--------+ + + + + | 07/30/ | [facility] | [place] [facility] | Kayy Holguin, | | | 2014 | Encounter | [facility] | DO [address] | | | | | MEDICAL CL[address] | [place] [address] | | | | | [address] [facility], | [phone] | | | | | [place] [address] | | | | | | [phone] | | | +--------+ + + + [...]
--- OUTSIDE RECORDS SUMMARY | ~2019-05-17 | XMS | Encounter Summary ---
Demographics + + + | Address | [address] | | | [place] [address] | + + + | Home Phone [...] Providers + +------+ + | Care Operations Superintendent Name | Role | Phone | [...] | | | | [place] | [address] | | | | | [address] | [phone] | | | | | [phone] | | | +--------+ + + + [...]
--- OUTSIDE RECORDS SUMMARY | ~2019-05-17 | XMS | Encounter Summary ---
Demographics + + + | Address | [address] | | | [place] [address] | + + + | Home Phone [...] Team Providers + +------+ + | Care Money Position Officer Name | Role | Phone | + +------+ + PCP | Unavailable | + +------+ + Encounter Details +--------+ + + + + | Date | Type | Department | Care Team | Description | +--------+ + + + + | 10/27/ | Hospital | [place] [facility] | Freya Lockwood | | | 2016 | Encounter | HOSPITAL PATHOLOGY | MD [address] | | | | | [address] [place] | [facility] | | | | | [place] | [place] [address] | | | | | [address] | [phone] | | | | | [phone] | | | +--------+ + + + [...]
--- OUTSIDE RECORDS SUMMARY | ~2019-05-17 | XMS | Encounter Summary ---
Demographics + + + | Address | [address] | | | [place] [address] | + + + | Home Phone | | + + + | Preferred Language | Unknown | + + + | Marital Status | | + + + | Roman Catholic Affiliation | Unknown | + + + | Race | Unknown | + + + | Ethnic Group | Unknown | + + + Author + + + | Author | [facility] | | | and [place] | + + + | Organization | [facility] | | | [...] Providers + +------+ + | Care Data Warehouse Analyst Name | Role | Phone | + +------+ + PCP | Unavailable | + +------+ + Encounter Details +--------+ + + + + | Date | Type | Department | Care Team | Description | +--------+ + + + + | 02/28/ | [facility] | [place] [facility] | Linda Bardales | | | 2013 | Encounter | [facility] | [address]EL[address]EM [address] | | | | | MEDICAL [address] | [address], [place] | | | | | [facility], | [address] | | | | | [place] [address] | [phone] | | | | | [phone] | | | +--------+ + + + [...]
--- OUTSIDE RECORDS SUMMARY | ~2019-05-17 | XMS | Encounter Summary ---
Demographics + + + | Address | [address] | | | [place] [address] | + + + | Home Phone [...] Providers + +------+ + | Care Metal Model Maker Name | Role | Phone | [...] | | | | [place] | [address] | | | | | [address] | [phone] | | | | | [phone] | | | +--------+ + + + [...] an acute deep venous thrombosis. Job #: [id number] | | Read By: BLAINE NIEVES MD [...]
--- OUTSIDE RECORDS SUMMARY | ~2019-05-17 | XMS | Encounter Summary ---
Demographics + + + | Address | [address] | | | [place] [address] | + + + | Home Phone | | + + + | Preferred Language | Unknown | + + + | Marital Status | | + + + | Scientologist Affiliation | Unknown | + + + [...] Team Providers + +------+ + | Care Psychologist Educational Name | Role | Phone | + +------+ + PCP | Unavailable | + +------+ + Encounter Details +--------+ + + + + | Date | Type | Department | Care Team | Description | +--------+ + + + + | 09/15/ | [facility] | [facility] | Ana Luisa Alexandra, | | | 2015 | Encounter | [facility] | REGROOVER [address] | | | | | MEDICAL [address] | [facility], [place] | | | | | 4TH [facility], | [address] | | | | | [place] [address] | | | | | | [phone] | | | +--------+ + + + [...]
--- OUTSIDE RECORDS SUMMARY | ~2019-05-17 | XMS | Encounter Summary ---
Demographics + + + | Address | [address] | | | [place] [address] | + + + | Home Phone [...] Team Providers + +------+ + | Care Final Touch Up Painter Name | Role | Phone | + [...] | | [address] [place] | [facility] | | | | | [place] | [place] [address] | | | | | [address] | [phone] | | | | | [phone] | | | +--------+ + + + [...]
--- OUTSIDE RECORDS SUMMARY | ~2019-05-17 | XMS | Encounter Summary ---
Demographics + + + | Address | [address] | | | [place] [address] | + + + | Home Phone [...] Team Providers + +------+ + | Care Generator Repairer Name | Role | Phone | [...] | | | | [place] | [address] | | | | | [address] | | | | | | [phone] | | | +--------+ + + + [...]
--- OUTSIDE RECORDS SUMMARY | ~2019-05-17 | XMS | Encounter Summary ---
Demographics + + + | Address | [address] | | | [place] [address] | + + + | Home Phone [...] Team Providers + +------+ + | Care Librarian Name | Role | Phone | + +------+ + PCP | Unavailable | + +------+ + Encounter Details +--------+ + + + + | Date | Type | Department | Care Team | Description | +--------+ + + + + | 11/21/ | [facility] | Shasta Rubio, | | | 2012 | Encounter | HOSPITAL EMERGENCY | ENGINE MANAGER [address] | | | | | CENTER [address] | [place] | | | | | [place] | [address] | | | | | [address] | | | | | | [phone] | | | +--------+ + + + [...]
--- OUTSIDE RECORDS SUMMARY | ~2019-05-17 | XMS | Encounter Summary ---
Demographics + + + | Address | [address] | | | [place] [address] | + + + | Home Phone | | + + + | Preferred Language | Unknown | + + + | Marital Status | | + + + | Zoroastrian Affiliation | Unknown | + + + [...] Team Providers + +------+ + | Care Carpentry Specialist Name | Role | Phone | [...] Medication Refill | | 2017 | | [facility] | METAL MOLD DRESSER | | | | | MEDICAL CLIN[address] | | | | | | [address] [place], | | | | | | [place] [address] | | | | | | [phone] | | | +--------+--------+ + + + [...]
--- OUTSIDE RECORDS SUMMARY | ~2019-05-17 | XMS | Encounter Summary ---
Demographics + + + | Address | [address] | | | [place] [address] | + + + | Home Phone [...] Team Providers + +------+ + | Care Staffing Operations Manager Name | Role | Phone | + +------+ + PCP | Unavailable | + +------+ + Encounter Details +--------+ + + + + | Date | Type | Department | Care Team | Description | +--------+ + + + + | 12/23/ | [facility] | [facility] | Kayy Holguin, | | | 2014 | Encounter | [facility] | DO [address] | | | | | MEDICAL CLIN[address] | [place] [address] | | | | | [address] [facility], | [phone] | | | | | [place] [address] | | | | | | [phone] | | | +--------+ + + + [...]
--- OUTSIDE RECORDS SUMMARY | ~2019-05-17 | XMS | Encounter Summary ---
Demographics + + + | Address | [address] | | | [place] [address] | + + + | Home Phone [...] Team Providers + +------+ + | Care Computer Repairer Name | Role | Phone | [...] [place] | | | | | | [address] | (Fax) | | | | | [phone] | | | +--------+ + + + [...]
--- OUTSIDE RECORDS SUMMARY | ~2019-05-17 | XMS | Encounter Summary ---
Demographics + + + | Address | [address] | | | [place] [address] | + + + | Home Phone [...] Team Providers + +------+ + | Care Saw Operator Name | Role | Phone [...] | | | of right | n, Jueth, | DR [address]ARG[address] | | | | | shoulder | AUTOMOTIVE TECHNICIAN [address] | [place], [place] | | | | | Procedures | [address] | [address] | | | | | MRI Shoulder | [place], | Phone: | | | | | Right wo | [place] [address] | [phone] | | | | | Contrast | Phone: | Fax: | | | | | | [phone] | [phone] | | | | | | Fax: | | | | | | | [phone] | | +--------+--------+ + + + + Reason for Visit Diagnostic/Screening (Routine) +--------+--------+ + + + + | Status | Reason | Specialty | Diagnoses / | Referred By | Referred To | | | | | Procedures | Contact | Contact | +--------+--------+ + + + + | Closed | | Radiology | Diagnoses | | Cc Wgr Xray | | | | | Acute pain | [facility] | [address] | | | | | of right | Lupe vitale, | DR [address] | | | | | shoulder | AUTOMOTIVE TECHNICIAN [address] | [place], [place] | | | | | Procedures | [address] | [address] | | | | | MRI Shoulder | [place], | Phone: | | | | | Right wo | [place] [address] | [phone] | | | | | Contrast | Phone: | Fax: | | | | | | [phone] | [phone] | | | | | | Fax: | | | | | | | [phone] | | +--------+--------+ + + + + Encounter Details +--------+ + + + + | Date | Type | Department | Care Team | Description | +--------+ + + + + | 10/31/ | Hospital | [facility] | Svetlana, | Acute pain of right | | 2019 | Encounter | Hospital MRI [address] | [address] | shoulder | | | | [place] | [address] [place] | | | | | [place], [place] | [place] [address] | | | | | [address] | [phone] | | | | | [phone] | | | +--------+ + + + [...] | + +--------+ + + + | MRI SHOULDER RIGHT | Routin | 10/31/2018 | Acute pain of | Results for this | | WO CONTRAST | e | 1:06 PM | right shoulder | procedure are in the | | | | PDT | | results section. | + +--------+ + + + documented in this encounter Results MRI Shoulder Right wo [...] pain of right shoulder | + + documented in this encounter"
--- OUTSIDE RECORDS SUMMARY | ~2019-05-17 | XMS | Encounter Summary ---
Demographics + + + | Address | [address] | | | [place] [address] | + + + | Home Phone | | + + + | Preferred Language | Unknown | + + + | Marital Status | | + + + | Sikhism Affiliation | Unknown | + + + [...] Team Providers + +------+ + | Care Whiteprinting Machine Operator Name | Role | Phone | + +------+ + PCP | Unavailable | + +------+ + Encounter Details +--------+ + + + + | Date | Type | Department | Care Team | Description | +--------+ + + + + | 12/17/ | Hospital | [facility] | Deonte Aguiar, | | | 2013 | Encounter | [facility] | DO [address] , | | | | | [address] | [place], [place] | | | | | [place], [place] | [address] | | | | | [address] | [phone] | | | | | [phone] | | | +--------+ + + + [...]
--- OUTSIDE RECORDS SUMMARY | ~2019-05-17 | XMS | Encounter Summary ---
Demographics + + + | Address | [address] | | | [place] [address] | + + + | Home Phone [...] Team Providers + +------+ + | Care House Decorator Name | Role | Phone | + [...] Medication Refill | | 2016 | | [facility] | DO [address] | | | | | MEDICAL CLINIC [address] | [place] [address] | | | | | [address] [place], | [phone] | | | | | [place] [address] | | | | | | [phone] | | | +--------+--------+ + + + [...]
--- OUTSIDE RECORDS SUMMARY | ~2019-05-17 | XMS | Encounter Summary ---
Demographics + + + | Address | [address] | | | [place] [address] | + + + | Home Phone [...] Team Providers + +------+ + | Care Side Door Man Name | Role | Phone | + +------+ + PCP | Unavailable | + +------+ + Encounter Details +--------+ + + + + | Date | Type | Department | Care Team | Description | +--------+ + + + + | 03/04/ | Hospital | [facility] | Kuldeep Villanueva | | | 2015 | Encounter | [facility]OLOGY | MD [address] | | | | | [address] [place] | [address] | | | | | [place], [place] | [place] [address] | | | | | [address] | [phone] | | | | | [phone] | | | +--------+ + + + [...]
--- OUTSIDE RECORDS SUMMARY | ~2019-05-17 | XMS | Encounter Summary ---
Demographics + + + | Address | [address] | | | [place] [address] | + + + | Home Phone [...] Team Providers + +------+ + | Care Lathe Turner Name | Role | Phone | + +------+ + PCP | Unavailable | + +------+ + Encounter Details +--------+ + + + + | Date | Type | Department | Care Team | Description | +--------+ + + + + | 05/30/ | [facility] | [facility] | Linda Bardales | | | 2013 | Encounter | [facility] | [address] | | | | | MEDICAL CLIN[facility] [address] | [address] [place], [place] | | | | | [address] [place] [place], | [address] | | | | | [place] [address] | [phone] | | | | | [phone] | | | +--------+ + + + [...]
--- OUTSIDE RECORDS SUMMARY | ~2019-05-17 | XMS | Encounter Summary ---
Demographics + + + | Address | [address] | | | [place] [address] | + + + | Home Phone [...] Providers + +------+ + | Care Director Of Math Name | Role | Phone | + [...] | | | [place], [place] | [address] | | | | | [address] | [phone] | | | | | [phone] | | | +--------+ + + + [...]
--- OUTSIDE RECORDS SUMMARY | ~2019-05-17 | XMS | Encounter Summary ---
Demographics + + + | Address | [address] | | | [place] [address] | + + + | Home Phone [...] Team Providers + +------+ + | Care Sr. Strategic Sourcing Manager Name | Role | Phone | + +------+ + PCP | Unavailable | + +------+ + Encounter Details +--------+ + + + + | Date | Type | Department | Care Team | Description | +--------+ + + + + | 11/07/ | [facility] | [place] [facility] | Linda Bardales | | | 2013 | Encounter | [facility] | [address] | | | | | MEDICAL CLIN[address] | [address] [place], [place] | | | | | [facility], | [address] | | | | | [place] [address] | [phone] | | | | | [phone] | | | +--------+ + + + [...]
--- OUTSIDE RECORDS SUMMARY | ~2019-05-17 | XMS | Encounter Summary ---
Demographics + + + | Address | [address] | | | [place] [address] | + + + | Home Phone [...] Team Providers + +------+ + | Care Vice President Financial Name | Role | Phone | + [...] | | [place], [place] | [place] [address] | | | | | [address] | [phone] | | | | | [phone] | | | +--------+ + + + [...]
--- OUTSIDE RECORDS SUMMARY | ~2019-05-17 | XMS | Encounter Summary ---
Demographics + + + | Address | [address] | | | [place] [address] | + + + | Home Phone | | + + + | Preferred Language | Unknown | + + + | Marital Status | | + + + | Cheondoism Affiliation | Unknown | + + + | Race | Unknown | + + + | Ethnic Group | Unknown | + + + Author + + + | Author | [facility] | | | and [place] | + + + | Organization | [facility] | | | [...] Team Providers + +------+ + | Care Infantry Weapons Officer Name | Role | Phone | [...] | Results | | 2019 | | [facility] | [place], [address] | | | | | MEDICAL CLINIC [address] | [address] [place] | | | | | [address] [place], | [place] [address] | | | | | [place] [address] | [phone] | | | | | [phone] | | | +--------+ + + + [...]
--- OUTSIDE RECORDS SUMMARY | ~2019-05-17 | XMS | Encounter Summary ---
Demographics + + + | Address | [address] | | | [place] [address] | + + + | Home Phone [...] Team Providers + +------+ + | Care Dehydrogenation Operator Head Name | Role | Phone | + +------+ + PCP | Unavailable | + +------+ + Encounter Details +--------+ + + + + | Date | Type | Department | Care Team | Description | +--------+ + + + + | 10/07/ | Hospital | [facility] | Deonte Aguiar, | | | 2014 | Encounter | [facility] | DO [address] , | | | | | [address] | [place], [place] | | | | | [place], [place] | [address] | | | | | [address] | [phone] | | | | | [phone] | | | +--------+ + + + [...]
--- OUTSIDE RECORDS SUMMARY | ~2019-05-17 | XMS | Encounter Summary ---
Demographics + + + | Address | [address] | | | [place] [address] | + + + | Home Phone [...] Team Providers + +------+ + | Care Weight Yardage Checker Name | Role | Phone | + +------+ + PCP | Unavailable | + +------+ + Encounter Details +--------+ + + + + | Date | Type | Department | Care Team | Description | +--------+ + + + + | 12/25/ | [facility] | Claudia Muir | | | 2014 | Encounter | HOSPITAL [facility]EP | [address] | | | | | CLINIC [address] | [place] | | | | | [place] | [address] | | | | | [address] | [phone] | | | | | [phone] | | | +--------+ + + + [...]
--- OUTSIDE RECORDS SUMMARY | ~2019-05-17 | XMS | Encounter Summary ---
Demographics + + + | Address | [address] | | | [place] [address] | + + + | Home Phone [...] + +------+ + | Care Crime Scene Technician Name | Role | Phone | + +------+ + PCP | Unavailable | + +------+ + Encounter Details +--------+ + + + + | Date | Type | Department | Care Team | Description | +--------+ + + + + | 03/01/ | Hospital | [facility] [facility] | Kuldeep Villanueva | | | 2015 | Encounter | [facility]PITAL UROLOGY | MD [address] | | | | | [address] [place] | [address] | | | | | [place], [place] | [place] [address] | | | | | [address] | [phone] | | | | | [phone] | | | +--------+ + + + [...]
--- OUTSIDE RECORDS SUMMARY | ~2019-05-17 | XMS | Encounter Summary ---
Demographics + + + | Address | [address] | | | [place] [address] | + + + | Home Phone [...] Team Providers + +------+ + | Care Partition Assembly Machine Operator Name | Role | Phone [...] | | | | | shoulder | STOCK ANALYST [address] | [place], [place] | | | | | Procedures | [address] | [address] | | | | | MRI Shoulder | [place], | Phone: | | | | | Right wo | [place] [address] | [phone] | | | | | Contrast | Phone: | Fax: | | | | | | [phone] | [phone] | | | | | | Fax: | | | | | | | [phone] | | +--------+--------+ + + + + [...] | | | | | shoulder | STOCK ANALYST [address] | [place], [place] | | | | | Procedures | [address] | [address] | | | | | MRI Shoulder | [place], | Phone: | | | | | Right wo | [place] [address] | [phone] | | | | | Contrast | Phone: | Fax: | | | | | | [phone] | [phone] | | | | | | Fax: | | | | | | | [phone] | | +--------+--------+ + + + + [...] | | [place], [place] | [place] [address] | | | | | [address] | [phone] | | | | | [phone] | | | +--------+ + + + [...]
--- OUTSIDE RECORDS SUMMARY | ~2019-05-17 | XMS | Encounter Summary ---
Demographics + + + | Address | [address] | | | [place] [address] | + + + | Home Phone | | + + + | Preferred Language | Unknown | + + + | Marital Status | | + + + | Shinto Affiliation | Unknown | + + + [...] Team Providers + +------+ + | Care Jewelry Bearing Maker Name | Role | Phone | [...] | CENTER [address] | [address] [place], [place] | | | | | [place] | [address] | | | | | [address] | | | | | | [phone] | | | +--------+ + + + [...]
--- OUTSIDE RECORDS SUMMARY | ~2019-05-17 | XMS | Encounter Summary ---
Demographics + + + | Address | [address] | | | [place] [address] | + + + | Home Phone [...] Providers + +------+ + | Care Dental Nurse Name | Role | Phone | + +------+ + PCP | Unavailable | + +------+ + Encounter Details +--------+ + + + + | Date | Type | Department | Care Team | Description | +--------+ + + + + | 05/05/ | [facility] | [facility] | Kayy Holguin, | | | 2014 | Encounter | [facility] | DO [address] | | | | | MEDICAL CLIN[address] | [facility] [address] | | | | | [address] [facility], | [phone] | | | | | [place] [address] | | | | | | [phone] | | | +--------+ + + + [...]
--- OUTSIDE RECORDS SUMMARY | ~2019-05-17 | XMS | Encounter Summary ---
Demographics + + + | Address | [address] | | | [place] [address] | + + + | Home Phone [...] Team Providers + +------+ + | Care Preparation Room Worker Name | Role | Phone | [...] | Telephone | [facility] | Diane Thornotn, | Results, Imaging | | 2018 | | [facility] | CLIENT REPRESENTATIVE | | | | | MEDICAL CLINIC [address] | | | | | | [facility]TH [facility] [place], | | | | | | [place] [address] | | | | | | [phone] | | | +--------+ + + + [...]
--- OUTSIDE RECORDS SUMMARY | ~2019-05-17 | XMS | Encounter Summary ---
Demographics + + + | Address | [address] | | | [place] [address] | + + + | Home Phone [...] Team Providers + +------+ + | Care Professor Of Legal Studies Name | Role | Phone | + [...] | | | | [place], [place] | [address] | | | | | [address] | [phone] | | | | | [phone] | | | +--------+ + + + [...]
--- OUTSIDE RECORDS SUMMARY | ~2019-05-17 | XMS | Encounter Summary ---
Demographics + + + | Address | [address] | | | [place] [address] | + + + | Home Phone | | + + + | Preferred Language | Unknown | + + + | Marital Status | | + + + | Hindu Affiliation | Unknown | + + + | Race | Unknown | + + + | Ethnic Group | Unknown | + + + Author + + + | Author | [facility] | | | and [place] | + + + | Organization | [facility] | | [...] + +------+ + | Care Data Entry Machine Operator Name | Role | Phone [...] | | | | [place] | [address] | | | | | [address] | [phone] | | | | | [phone] | | | +--------+ + + + [...]
--- OUTSIDE RECORDS SUMMARY | ~2019-05-17 | XMS | Encounter Summary ---
Demographics + + + | Address | [address] | | | [place] [address] | + + + | Home Phone [...] Team Providers + +------+ + | Care Nutritional Assistant Name | Role | Phone | [...] | | | | | [address] | [place] [address] | | | | | [place] | [phone] | | | | | [address] | | | | | | [phone] | | | +--------+ + + + [...] have menses. Job No.: | | | [id number] Read By: SHAKA EVANGELISTA MD Released By: [...] who continues to have menses. Job No.: [id number] Read By: SHAKA EVANGELISTA, | | MD [...] | | | | | |Job No.: [id number] | | | |Read By: SHAKA EVANGELISTA MD | | | |Released By: SHAKA EVANGELISTA MD | |Date: 10/22/2015 20:27 | | | | | + + documented in this encounter Visit Diagnoses Not on filedocumented in this encounter"
--- OUTSIDE RECORDS SUMMARY | ~2019-05-17 | XMS | Encounter Summary ---
Demographics + + + | Address | [address] | | | [place] [address] | + + + | Home Phone [...] Author | [facility] | | | and [...] Team Providers + +------+ + | Care Throat Cutter Name | Role | Phone | [...] 08/08/ | Telephone | [place] [facility] | Dayana Thorntonn Talha, | Lab Results | | 2018 | | [facility] | JAVA DEVELOPER WITH SECURITY CLEARANCE | | | | | MEDICAL CL[facility] [address] | | | | | | [facility] [place], | | | | | | [place] [address] | | | | | | [phone] | | | +--------+ + + + [...]
--- OUTSIDE RECORDS SUMMARY | ~2019-05-17 | XMS | Encounter Summary ---
Demographics + + + | Address | [address] | | | [place] [address] | + + + | Home Phone | | + + + | Preferred Language | Unknown | + + + | Marital Status | | + + + | Mormon Affiliation | Unknown | + + + | Race | Unknown | + + + | Ethnic Group | Unknown | + + + Author + + + | Author | [facility] | | | and [place] | + + + | Organization | [facility] | | | and [...] Team Providers + +------+ + | Care Cardio Tech Name | Role | Phone | [...] | | | [place], [place] | [address] | | | | | [address] | [phone] | | | | | [phone] | | | +--------+ + + + [...]
--- OUTSIDE RECORDS SUMMARY | ~2019-05-17 | XMS | Encounter Summary ---
Demographics + + + | Address | [address] | | | [place] [address] | + + + | Home Phone [...] Team Providers + +------+ + | Care Professional Programmer Analyst Name | Role | Phone | [...] | | | [place], [place] | [address] | | | | | [address] | [phone] | | | | | [phone] | | | +--------+ + + + [...]
--- OUTSIDE RECORDS SUMMARY | ~2019-05-17 | XMS | Encounter Summary ---
Demographics + + + | Address | [address] | | | [place] [address] | + + + | Home Phone | | + + + | Preferred Language | Unknown | + + + | Marital Status | | + + + | Zoroastrian Affiliation | Unknown | + + + | Race | Unknown | + + + | Ethnic Group | Unknown | + + + Author + + + | Author | [facility] | | | and [place] | + + + | Organization | [facility] | | [...] Providers + +------+ + | Care Hvac Design Mechanical Engineer Name | Role | Phone [...] | | | | [place] | [address] | | | | | [address] | [phone] | | | | | [phone] | | | +--------+ + + + [...] | | | pulmonary disease. JOB #: [id number] Read By: | | | SYDNEY MOORE [...] acute | | pulmonary disease. JOB #: [id number] Read By: SYDNEY MOORE MD | | [...] | | | | | |JOB #: [id number] | | | |Read By: SYDNEY MOORE MD | | | |Released By: SYDNEY MOORE MD | |Date: 06/21/2014 07:19 | | | | | + + documented in this encounter Visit Diagnoses Not on filedocumented in this encounter"
--- OUTSIDE RECORDS SUMMARY | ~2019-05-17 | XMS | Encounter Summary ---
Demographics + + + | Address | [address] | | | [place] [address] | + + + | Home Phone [...] Team Providers + +------+ + | Care Vp Home Health Name | Role | Phone | + [...] [place], [place] | | | | | [address] | [address] | | | | | [phone] | [phone] | | | | | | | [...]
--- OUTSIDE RECORDS SUMMARY | ~2019-05-17 | XMS | Encounter Summary ---
Demographics + + + | Address | [address] | | | [place] [address] | + + + | Home Phone | | + + + | Preferred Language | Unknown | + + + | Marital Status | | + + + | Sabianist Affiliation | Unknown | + + + | Race | Unknown | + + + | Ethnic Group | Unknown | + + + Author + + + | Author | [facility] | | | and [place] | + + + | Organization | [facility] | | | [...] Team Providers + +------+ + | Care Nuclear Licensing Engineer Name | Role | Phone | + +------+ + PCP | Unavailable | + +------+ + Encounter Details +--------+ + + + + | Date | Type | Department | Care Team | Description | +--------+ + + + + | 12/23/ | Hospital | [facility] | Kuldeep Villanueva | | | 2016 | Encounter | [facility]PITAL UROLOGY | MD [address] | | | | | [address] [place] | [address] | | | | | [place], [place] | [place] [address] | | | | | [address] | [phone] | | | | | [phone] | | | +--------+ + + + [...]
--- OUTSIDE RECORDS SUMMARY | ~2019-05-17 | XMS | Encounter Summary ---
Demographics + + + | Address | [address] | | | [place] [address] | + + + | Home Phone [...] Team Providers + +------+ + | Care Bread Baker Name | Role | Phone | + +------+ + PCP | Unavailable | + +------+ + Encounter Details +--------+ + + + + | Date | Type | Department | Care Team | Description | +--------+ + + + + | 12/04/ | [facility] | Kayy Holguin, | | | 2014 | Encounter | HOSPITAL [facility] | DO [address] | | | | | [address] | [place] [address] | | | | | [place] | [phone] | | | | | [address] | | | | | | [phone] | | | +--------+ + + + [...] + | LIPID PANEL | Routin | 12/04/2014 | | Results for this | | | e | 9:14 AM | | procedure are in the | | | | PDT | | results section. | + +--------+ + + + | COMPREHENSIVE | Routin | 12/04/2014 | | Results for this | | METABOLIC PANEL | e | 9:14 AM | | procedure are in the | | | | PDT | | results section. | + +--------+ + + + documented in this encounter Results Lipid Panel (12/04/2014 9:14 AM PDT) + +-------+ + + + | Component | Value | Ref Range | Performed | Pathologist | | | | | At | Signature | + +-------+ + + + | Cholesterol | 174 | <=200 mg/dL | EXTERNAL | | | , POC | | | LAB | | + +-------+ + + + | HDL | 43 | >=40 mg/dL | EXTERNAL | | | | | | LAB | | + +-------+ + + + | Triglycerid | 93 | 30 - 200 mg/dL | EXTERNAL | | | es | | | LAB | | + +-------+ + + + | Chol/HDL | 4 | <=4.6 RATIO | EXTERNAL | | | Ratio | | | LAB | | + +-------+ + + + | VLDL | 19 | 4 - 40 mg/dL | EXTERNAL | | | | | | LAB | | + +-------+ + + + | LDL-C | 112 | <=130 mg/dL | EXTERNAL | | [...] + +---------+ + + Comprehensive Metabolic Panel (12/04/2014 9:14 AM PDT) + +-------+ + + + | Component | Value | Ref Range | Performed | Pathologist | | | | | At | Signature | + +-------+ + + + | Sodium | 139 | 132 - 143 | EXTERNAL | | | | | mmol/L | LAB | | + +-------+ + + + | Potassium | 4.1 | 3.3 - 4.9 | EXTERNAL | | | | | mmol/L | LAB | | + +-------+ + + + | Cl | 106 | 95 - 108 mmol/L | EXTERNAL | | | | | | LAB | | + +-------+ + + + | CO2 | 25 | 23 - 34 mmol/L | EXTERNAL | | | | | | LAB | | + +-------+ + + + | Anion Gap | 8 | 7 - 16 | EXTERNAL | | | | | | LAB | | + +-------+ + + + | Calcium | 8.7 | 8.3 - 10.0 | EXTERNAL | | | | | mg/dL | LAB | | + +-------+ + + + | Glucose | 92 | 70 - 110 mg/dL | EXTERNAL | | | | | | LAB | | + +-------+ + + + | BUN, Bld | 17 | 5 - 26 mg/dL | EXTERNAL | | | | | | LAB | | + +-------+ + + + | Creatinine | 0.9 | 0.6 - 1.3 mg/dL | EXTERNAL | | | | | | LAB | | + +-------+ + + + | BUN/Creatin | 18.9 | 7.0 - 24.0 | EXTERNAL | [...] +-------+ + + + | Protein, | 7 | 6.6 - 8.5 g/dL | EXTERNAL | | | Total | | | LAB | | + +-------+ + + + | Albumin | 3.5 | 3.0 - 4.5 g/dL | EXTERNAL | | | | | | LAB | | + +-------+ + + + | Alkaline | 73 | 46 - 116 U/L | EXTERNAL | | | Phosphatase | | | LAB | | + +-------+ + + + | ALT, | 24 | 14 - 59 U/L | EXTERNAL [...]
--- OUTSIDE RECORDS SUMMARY | ~2019-05-17 | XMS | Encounter Summary ---
Demographics + + + | Address | [address] | | | [place] [address] | + + + | Home Phone [...] Team Providers + +------+ + | Care Juvenile Court Judge Name | Role | Phone | + [...] [address] | [place] [address] | | | | | [place] | [phone] | | | | | [address] | | | | | | [phone] | | | +--------+ + + + [...]
--- OUTSIDE RECORDS SUMMARY | ~2019-05-17 | XMS | Encounter Summary ---
Demographics + + + | Address | [address] | | | [place] [address] | + + + | Home Phone [...] Team Providers + +------+ + | Care Jack Prizer Name | Role | Phone | + [...] [place] | | | | | | [address] | | | | | | [phone] | | | +--------+ + + + [...]
--- OUTSIDE RECORDS SUMMARY | ~2019-05-17 | XMS | Encounter Summary ---
Demographics + + + | Address | [address] | | | [place] [address] | + + + | Home Phone [...] Team Providers + +------+ + | Care Boxing Inspector Name | Role | Phone | + +------+ + PCP | Unavailable | + +------+ + Encounter Details +--------+ + + + + | Date | Type | Department | Care Team | Description | +--------+ + + + + | 05/07/ | [facility] | [facility] | Linda Bardales | | | 2012 | Encounter | [facility] | [address] | | | | | MEDICAL CL[address] | [address] [place], [place] | | | | | [facility], | [address] | | | | | [place] [address] | [phone] | | | | | [phone] | | | +--------+ + + + [...]
--- OUTSIDE RECORDS SUMMARY | ~2019-05-17 | XMS | Encounter Summary ---
Demographics + + + | Address | [address] | | | [place] [address] | + + + | Home Phone [...] Team Providers + +------+ + | Care Mdm Developer Name | Role | Phone | + +------+ + PCP | Unavailable | + +------+ + Encounter Details +--------+ + + + + | Date | Type | Department | Care Team | Description | +--------+ + + + + | 08/18/ | [facility] | [facility] | Ana Luisa Alexandra, | | | 2014 | Encounter | [facility] | CENTRAL SERVICE TECH [address] | | | | | [address] | [facility], [place] | | | | | 4TH [facility], | [address] | | | | | [place] [address] | | | | | | [phone] | | | +--------+ + + + [...]
--- OUTSIDE RECORDS SUMMARY | ~2019-05-17 | XMS | Encounter Summary ---
Demographics + + + | Address | [address] | | | [place] [address] | + + + | Home Phone [...] Providers + +------+ + | Care Commercial Artist Lettering Name | Role | Phone | + [...] Medication Refill | | 2017 | | [facility] | DO [address] | | | | | MEDICAL CLIN[address] | [place] [address] | | | | | [address] [place], | [phone] | | | | | [place] [address] | | | | | | [phone] | | | +--------+--------+ + + + [...]
--- OUTSIDE RECORDS SUMMARY | ~2019-05-17 | XMS | Encounter Summary ---
Demographics + + + | Address | [address] | | | [place] [address] | + + + | Home Phone [...] Team Providers + +------+ + | Care Materials Management Supervisor Name | Role | Phone | + +------+ + PCP | Unavailable | + +------+ + Encounter Details +--------+ + + + + | Date | Type | Department | Care Team | Description | +--------+ + + + + | 12/22/ | [facility] | [facility] | Ana Luisa Alexandra, | | | 2014 | Encounter | [facility] | PARACHUTE/COMBATANT DIVER OFFICER [address] | | | | | MEDICAL CL[address] | [facility], [place] | | | | | 4TH [facility], | [address] | | | | | [place] [address] | | | | | | [phone] | | | +--------+ + + + [...]
--- OUTSIDE RECORDS SUMMARY | ~2019-05-17 | XMS | Encounter Summary ---
Demographics + + + | Address | [address] | | | [place] [address] | + + + | Home Phone | | + + + | Preferred Language | Unknown | + + + | Marital Status | | + + + | Judaism Affiliation | Unknown | + + + | Race | Unknown | + + + | Ethnic Group | Unknown | + + + Author + + + | Author | [facility] | | | and [place] | + + + | Organization | [facility] | | | [...] Team Providers + +------+ + | Care Rhit Name | Role | Phone | + +------+ + PCP | Unavailable | + +------+ + Encounter Details +--------+ + + + + | Date | Type | Department | Care Team | Description | +--------+ + + + + | 05/19/ | [facility] | [facility] | Ana Luisa Alexandra, | | | 2013 | Encounter | 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
--- OUTSIDE RECORDS SUMMARY | ~2019-05-17 | XMS | Encounter Summary ---
Demographics + + + | Address | [address] | | | [place] [address] | + + + | Home Phone [...] Team Providers + +------+ + | Care Proofer Black And White Name | Role | Phone | + [...] | [address] | [place] [address] | encounter | | | | [place], [place] | [phone] | | | | | [address] | | | | | | [phone] | | | +--------+ + + + [...]
--- OUTSIDE RECORDS SUMMARY | ~2019-05-17 | XMS | Encounter Summary ---
Demographics + + + | Address | [address] | | | [place] [address] | + + + | Home Phone [...] Providers + +------+ + | Care Hand Tufter Name | Role | Phone | + [...] 09/24/ | Refill | [place] [facility] | Leila Holguina Tru, | Medication Refill | | 2018 | | [facility] | DO [address] | | | | | MEDICAL CLIN[address] | [place] [address] | | | | | [address] [place], | [phone] | | | | | [place] [address] | | | | | | [phone] | | | +--------+--------+ + + + [...]
--- OUTSIDE RECORDS SUMMARY | ~2019-05-17 | XMS | Encounter Summary ---
Demographics + + + | Address | [address] | | | [place] [address] | + + + | Home Phone [...] Providers + +------+ + | Care Technical Expert Name | Role | Phone | + +------+ + PCP | Unavailable | + +------+ + Encounter Details +--------+ + + + + | Date | Type | Department | Care Team | Description | +--------+ + + + + | 08/18/ | [facility] | [facility] | Ana Luisa Alexandra, | | | 2014 | Encounter | [facility] | PYROTECHNIC MIXER [address] | | | | | MEDICAL CL[address] | [facility], [place] | | | | | 4TH [facility], | [address] | | | | | [place] [address] | | | | | | [phone] | | | +--------+ + + + [...]
--- OUTSIDE RECORDS SUMMARY | ~2019-05-17 | XMS | Encounter Summary ---
Demographics + + + | Address | [address] | | | [place] [address] | + + + | Home Phone | | + + + | Preferred Language | Unknown | + + + | Marital Status | | + + + | Zoroastrian Affiliation | Unknown | + + + | Race | Unknown | + + + | Ethnic Group | Unknown | + + + Author + + + | Author | [facility] | | | and [place] | + + + | Organization | [facility] | | | [...] Team Providers + +------+ + | Care Chiropractic Assistant Name | Role | Phone | [...] Medication Refill | | 2018 | | [facility] | DO [address] | | | | | MEDICAL CLIN[address] | [place] [address] | | | | | [address] [place], | [phone] | | | | | [place] [address] | | | | | | [phone] | | | +--------+--------+ + + + [...]
--- OUTSIDE RECORDS SUMMARY | ~2019-05-17 | XMS | Encounter Summary ---
Demographics + + + | Address | [address] | | | [place] [address] | + + + | Home Phone [...] Team Providers + +------+ + | Care Sheet Tester Name | Role | Phone | [...] | | | [place] | [address] | | | | | [address] | [phone] | | | | | [phone] | | | +--------+ + + + [...]
--- OUTSIDE RECORDS SUMMARY | ~2019-05-17 | XMS | Encounter Summary ---
Demographics + + + | Address | [address] | | | [place] [address] | + + + | Home Phone [...] | [facility] | | | and [place] | + [...] Team Providers + +------+ + | Care Chin Strap Sewer Name | Role | Phone | + [...] [place], [place] | | | | | [address] | [address] | | | | | [phone] | [phone] | | | | | | | [...]
--- OUTSIDE RECORDS SUMMARY | ~2019-05-17 | XMS | Encounter Summary ---
Demographics + + + | Address | [address] | | | [place] [address] | + + + | Home Phone [...] Team Providers + +------+ + | Care Sand Blaster Name | Role | Phone | + +------+ + PCP | Unavailable | + +------+ + Encounter Details +--------+ + + + + | Date | Type | Department | Care Team | Description | +--------+ + + + + | 03/11/ | [facility] | [place] [facility] | Kayy Holguin, | | | 2014 | Encounter | [facility] | DO [address] | | | | | MEDICAL CLIN[address] | [place] [address] | | | | | [address] [facility], | [phone] | | | | | [place] [address] | | | | | | [phone] | | | +--------+ + + + [...]
--- OUTSIDE RECORDS SUMMARY | ~2019-05-17 | XMS | Encounter Summary ---
Demographics + + + | Address | [address] | | | [place] [address] | + + + | Home Phone [...] Team Providers + +------+ + | Care Line Crewman Name | Role | Phone | + [...] | | | | | shoulder | INSTRUMENT/CONTROL TECHNICIAN [address] | [place], [place] | | | | | Procedures | [address] | [address] | | | | | MRI Shoulder | [place], | Phone: | | | | | Right wo | [place] [address] | [phone] | | | | | Contrast | Phone: | Fax: | | | | | | [phone] | [phone] | | | | | | Fax: | | | | | | | [phone] | | +--------+--------+ + + + + [...] | | | n | shoulder | INSTRUMENT/CONTROL TECHNICIAN [address] | [place], | | | | | Procedures | [address] | [place] [address] | | | | | PT EVAL | [place], | Phone: | | | | | | [place] [address] | [phone] | | | | | | Phone: | Fax: | | | | | | [phone] | [phone] | | | | | | Fax: | | | | | | | [phone] | | +--------+ + + + + [...] right | | 2019 | Visit | [facility] | gladis, INSTRUMENT/CONTROL TECHNICIAN [address] | shoulder (Primary | | | | MEDICAL CLINIC [address] | [address] [place] | Dx); Decreased | | | | [address] [place], | [place] [address] | abduction of | | | | [place] [address] | [phone] | shoulder joint, | | | | [phone] | | right; Paresthesia | | | [...] visit follow up. She was seen at [facility] ER in [place] on 09/20/18 for shoulder pain. She is [...] made to ensure accuracy. However, inadvertent computerized service promoter salesperson errors may be pre sent documented i [...]
--- OUTSIDE RECORDS SUMMARY | ~2019-05-17 | XMS | Encounter Summary ---
Demographics + + + | Address | [address] | | | [place] [address] | + + + | Home Phone [...] Team Providers + +------+ + | Care Technology Instructor Name | Role | Phone | + [...] | | | | Procedures | [place] [address] | [place] [address] | | | | | PT TREAT | Phone: | Phone: | | | | | | [phone] | [phone] | | | | | | Fax: | Fax: | | | | | | [phone] | [phone] | +--------+ + + + + + [...] | MEDICAL CLINIC [address] | [place] [address] | | | | | [address] [place], | [phone] | | | | | [place] [address] | | | | | | [phone] | | | +--------+ + + + [...]
--- OUTSIDE RECORDS SUMMARY | ~2019-05-17 | XMS | Encounter Summary ---
Demographics + + + | Address | [address] | | | [place] [address] | + + + | Home Phone [...] Team Providers + +------+ + | Care Smoking Pipe Maker Name | Role | Phone | + +------+ + PCP | Unavailable | + +------+ + Encounter Details +--------+ + + + + | Date | Type | Department | Care Team | Description | +--------+ + + + + | 10/30/ | [facility] | Shasta Rubio, | | | 2011 | Encounter | [facility] | CUSTODIAL MAINTENANCE WORKER [address] | | | | | CENTER [address] | [place] | | | | | [place] | [address] | | | | | [address] | | | | | | [phone] | | | +--------+ + + + [...]
--- OUTSIDE RECORDS SUMMARY | ~2019-05-17 | XMS | Encounter Summary ---
Demographics + + + | Address | [address] | | | [place] [address] | + + + | Home Phone [...] Team Providers + +------+ + | Care Corrugator Operator Name | Role | Phone | + +------+ + PCP | Unavailable | + +------+ + Encounter Details +--------+ + + + + | Date | Type | Department | Care Team | Description | +--------+ + + + + | 08/19/ | [facility] | [place] [facility] | Samantha Garcia NP | | | 2016 | Encounter | [facility] | [address] | | | | | MED[address] CL[address] | [facility], [place] | | | | | [address] [facility], | [address] | | | | | [place] [address] | [phone] | | | | | [phone] | | | +--------+ + + + [...]
--- OUTSIDE RECORDS SUMMARY | ~2019-05-17 | XMS | Encounter Summary ---
Demographics + + + | Address | [address] | | | [place] [address] | + + + | Home Phone [...] Team Providers + +------+ + | Care Jockey Valet Name | Role | Phone | + +------+ + PCP | Unavailable | + +------+ + Encounter Details +--------+ + + + + | Date | Type | Department | Care Team | Description | +--------+ + + + + | 04/03/ | Hospital | [place] [facility] | Lnida Bardales | | | 2012 | Encounter | H[facility] X[facility] | [address] | | | | | [place] | [address] [place] | | | | | [place] | [address] | | | | | [address] | [phone] | | | | | [phone] | | | +--------+ + + + [...]
--- OUTSIDE RECORDS SUMMARY | ~2019-05-17 | XMS | Encounter Summary ---
Demographics + + + | Address | [address] | | | [place] [address] | + + + | Home Phone [...] Team Providers + +------+ + | Care Atg Architect Name | Role | Phone | + +------+ + PCP | Unavailable | + +------+ + Encounter Details +--------+ + + + + | Date | Type | Department | Care Team | Description | +--------+ + + + + | 07/08/ | [facility] | [facility] | Ana Luisa Alexandra, | | | 2014 | Encounter | [facility] | CELL TENDER [address] | | | | | MEDICAL CL[address] | [facility], [place] | | | | | 4TH [facility], | [address] | | | | | [place] [address] | | | | | | [phone] | | | +--------+ + + + [...]
--- OUTSIDE RECORDS SUMMARY | ~2019-05-17 | XMS | Encounter Summary ---
Demographics + + + | Address | [address] | | | [place] [address] | + + + | Home Phone [...] Team Providers + +------+ + | Care Head Correction Officer Name | Role | Phone | + +------+ + PCP | Unavailable | + +------+ + Encounter Details +--------+ + + + + | Date | Type | Department | Care Team | Description | +--------+ + + + + | 11/18/ | [facility] | [place] [facility] | Kayy Holguin, | | | 2016 | Encounter | [facility] | DO [address] | | | | | MEDICAL CLIN[address] | [place] [address] | | | | | [address] [place], | [phone] | | | | | [place] [address] | | | | | | [phone] | | | +--------+ + + + [...]
--- OUTSIDE RECORDS SUMMARY | ~2019-05-17 | XMS | Encounter Summary ---
Demographics + + + | Address | [address] | | | [place] [address] | + + + | Home Phone [...] Team Providers + +------+ + | Care Kiln Door Repairer Name | Role | Phone | + +------+ + PCP | Unavailable | + +------+ + Encounter Details +--------+ + + + + | Date | Type | Department | Care Team | Description | +--------+ + + + + | 12/22/ | [facility] | [facility] | Ana Luisa Alexandra, | | | 2014 | Encounter | [facility] | PIPE BUFFER [address] | | | | | MEDICAL [address] | [facility], [place] | | | | | 4TH [facility], | [address] | | | | | [place] [address] | | | | | | [phone] | | | +--------+ + + + [...]
--- OUTSIDE RECORDS SUMMARY | ~2019-05-17 | XMS | Encounter Summary ---
Demographics + + + | Address | [address] | | | [place] [address] | + + + | Home Phone [...] Team Providers + +------+ + | Care Harness Preparer Name | Role | Phone | + +------+ + PCP | Unavailable | + +------+ + Encounter Details +--------+ + + + + | Date | Type | Department | Care Team | Description | +--------+ + + + + | 10/08/ | [facility] | [facility] | Ana Luisa Alexandra, | | | 2014 | Encounter | [facility] | SERGEANT OF OFFICERS [address] | | | | | MEDICAL CL[address] | [facility], [place] | | | | | 4TH [facility], | [address] | | | | | [place] [address] | | | | | | [phone] | | | +--------+ + + + [...]
--- OUTSIDE RECORDS SUMMARY | ~2019-05-17 | XMS | Encounter Summary ---
Demographics + + + | Address | [address] | | | [place] [address] | + + + | Home Phone | | + + + | Preferred Language | Unknown | + + + | Marital Status | | + + + | Episcopal Affiliation | Unknown | + + + | Race | Unknown | + + + | Ethnic Group | Unknown | + + + Author + + + | Author | [facility] | | | and [place] | + + + | Organization | [facility] | | [...] Team Providers + +------+ + | Care Handbell Choir Director Name | Role | Phone | [...] 04/16/ | Refill | [place] [facility] | AveryleroyCinthya, | Medication Refill | | 2018 | | [facility] | [facility], [facility] [address] | | | | | MEDICAL CLINIC [address] | [address] | | | | | [address] [place], | [place] [address] | | | | | [place] [address] | [phone] | | | | | [phone] | | | +--------+--------+ + + + [...]
--- OUTSIDE RECORDS SUMMARY | ~2019-05-17 | XMS | Encounter Summary ---
Demographics + + + | Address | [address] | | | [place] [address] | + + + | Home Phone [...] Team Providers + +------+ + | Care Cotton Classer Name | Role | Phone | + +------+ + PCP | Unavailable | + +------+ + Encounter Details +--------+ + + + + | Date | Type | Department | Care Team | Description | +--------+ + + + + | 05/07/ | [facility] | [place] [facility] | Linda Bardales | | | 2012 | Encounter | [facility] | [address] | | | | | MEDICAL CLIN[address] | [address] [place], [place] | | | | | [facility]TH [facility], | [address] | | | | | [place] [address] | [phone] | | | | | [phone] | | | +--------+ + + + [...]
--- OUTSIDE RECORDS SUMMARY | ~2019-05-17 | XMS | Encounter Summary ---
Demographics + + + | Address | [address] | | | [place] [address] | + + + | Home Phone [...] Team Providers + +------+ + | Care Raw Material Planner Name | Role | Phone | + +------+ + PCP | Unavailable | + +------+ + Encounter Details +--------+ + + + + | Date | Type | Department | Care Team | Description | +--------+ + + + + | 12/03/ | [facility] | [place] [facility] | Kayy Holguin, | | | 2014 | Encounter | [facility] | DO [address] | | | | | MEDICAL CLIN[address] | [place] [address] | | | | | [address] [place], | [phone] | | | | | [place] [address] | | | | | | [phone] | | | +--------+ + + + [...]
--- OUTSIDE RECORDS SUMMARY | ~2019-05-17 | XMS | Encounter Summary ---
Demographics + + + | Address | [address] | | | [place] [address] | + + + | Home Phone [...] Team Providers + +------+ + | Care Stock Puller Name | Role | Phone | + +------+ + PCP | Unavailable | + +------+ + Encounter Details +--------+ + + + + | Date | Type | Department | Care Team | Description | +--------+ + + + + | 11/21/ | [facility] | Shasta Rubio, | | | 2012 | Encounter | [facility] | ACCOUNT CONSULTANT [address] | | | | | CENTER [address] | [place] | | | | | [place] | [address] | | | | | [address] | | | | | | [phone] | | | +--------+ + + + [...]
--- OUTSIDE RECORDS SUMMARY | ~2019-05-17 | XMS | Encounter Summary ---
Demographics + + + | Address | [address] | | | [place] [address] | + + + | Home Phone | | + + + | Preferred Language | Unknown | + + + | Marital Status | | + + + | Mosque Affiliation | Unknown | + + + | Race | Unknown | + + + | Ethnic Group | Unknown | + + + Author + + + | Author | [facility] | | | and [place] | + + + | Organization | [facility] | | [...] Team Providers + +------+ + | Care In Store Marketer Name | Role | Phone | + +------+ + PCP | Unavailable | + +------+ + Encounter Details +--------+ + + + + | Date | Type | Department | Care Team | Description | +--------+ + + + + | 07/28/ | [facility] | [facility] | Ana Luisa Alexandra, | | | 2015 | Encounter | [facility] | SECURITY STRATEGIST [address] | | | | | MEDICAL CL[address] | [facility], [place] | | | | | 4TH [facility], | [address] | | | | | [place] [address] | | | | | | [phone] | | | +--------+ + + + [...]
--- OUTSIDE RECORDS SUMMARY | ~2019-05-17 | XMS | Encounter Summary ---
Demographics + + + | Address | [address] | | | [place] [address] | + + + | Home Phone [...] | Organization | [facility] | | | and [place] | + [...] Providers + +------+ + | Care Retail Sales Lead Name | Role | Phone | [...] | | | | [place] | [address] | | | | | [address] | [phone] | | | | | [phone] | | | +--------+ + + + [...]
--- OUTSIDE RECORDS SUMMARY | ~2019-05-17 | XMS | Encounter Summary ---
Demographics + + + | Address | [address] | | | [place] [address] | + + + | Home Phone [...] Team Providers + +------+ + | Care Bus Driver Supervisor Name | Role | Phone | [...] 10/30/ | Refill | [place] [facility] | Leila Holguina Tru, | Medication Refill | | 2017 | | [facility] | DO [address] | | | | | MEDICAL CLIN[address] | [place] [address] | | | | | [address] [place], | [phone] | | | | | [place] [address] | | | | | | [phone] | | | +--------+--------+ + + + [...]
--- OUTSIDE RECORDS SUMMARY | ~2019-05-17 | XMS | Encounter Summary ---
Demographics + + + | Address | [address] | | | [place] [address] | + + + | Home Phone [...] Team Providers + +------+ + | Care Tumbler Plater Name | Role | Phone | + +------+ + PCP | Unavailable | + +------+ + Encounter Details +--------+ + + + + | Date | Type | Department | Care Team | Description | +--------+ + + + + | 10/07/ | [facility] | [facility] | Kayy Holguin, | | | 2015 | Encounter | [facility] | DO [address] | | | | | MEDICAL CLIN[address] | [place] [address] | | | | | [address] [place], | [phone] | | | | | [place] [address] | | | | | | [phone] | | | +--------+ + + + [...]
--- OUTSIDE RECORDS SUMMARY | ~2019-05-17 | XMS | Encounter Summary ---
Demographics + + + | Address | [address] | | | [place] [address] | + + + | Home Phone | | + + + | Preferred Language | Unknown | + + + | Marital Status | | + + + | Episcopalian Affiliation | Unknown | + + + | Race | Unknown | + + + | Ethnic Group | Unknown | + + + Author + + + | Author | [facility] | | | and [place] | + + + | Organization | [facility] | | [...] Providers + +------+ + | Care Sex Offender Treatment Professional Name | Role | Phone | + +------+ + PCP | Unavailable | + +------+ + Encounter Details +--------+ + + + + | Date | Type | Department | Care Team | Description | +--------+ + + + + | 04/29/ | [facility] | Shasta Rubio, | | | 2010 | Encounter | [facility] | GENERATING PLANT SUPERINTENDENT [address] | | | | | CENTER [address] | [place] | | | | | [place] | [address] | | | | | [address] | | | | | | [phone] | | | +--------+ + + + [...]
--- OUTSIDE RECORDS SUMMARY | ~2019-05-17 | XMS | Encounter Summary ---
Demographics + + + | Address | [address] | | | [place] [address] | + + + | Home Phone [...] Team Providers + +------+ + | Care Vocational Coordinator Name | Role | Phone | [...] Medication Refill | | 2018 | | [facility] | [address] | | | | | MEDICAL CLIN[address] | [place] [address] | | | | | [address] [place], | [phone] | | | | | [place] [address] | | | | | | [phone] | | | +--------+--------+ + + + [...]
--- OUTSIDE RECORDS SUMMARY | ~2019-05-17 | XMS | Encounter Summary ---
Demographics + + + | Address | [address] | | | [place] [address] | + + + | Home Phone [...] Team Providers + +------+ + | Care Lidar Analyst Name | Role | Phone | [...] [address] [place] | [place] [address] | | | | | [place] | [phone] | | | | | [address] | | | | | | [phone] | | | +--------+ + + + [...]
--- OUTSIDE RECORDS SUMMARY | ~2019-05-17 | XMS | Encounter Summary ---
Demographics + + + | Address | [address] | | | [place] [address] | + + + | Home Phone [...] Providers + +------+ + | Care Nuclear Medicine Chief Technologist Name | Role | Phone | + +------+ + PCP | Unavailable | + +------+ + Encounter Details +--------+ + + + + | Date | Type | Department | Care Team | Description | +--------+ + + + + | 08/01/ | [facility] | Kayy Holguin, | | | 2014 | Encounter | [facility] | DO [address] | | | | | [address] [place] | [place] [address] | | | | | [place] | [phone] | | | | | [address] | | | | | | [phone] | | | +--------+ + + + [...] + | CBC W/AUTO | Routin | 08/01/2014 | | Results for this | | DIFFERENTIAL | e | 8:54 AM | | procedure are in the | | | | PST | | results section. | + +--------+ + + + | HEPATIC FUNCTION | Routin | 08/01/2014 | | Results for this | | PANEL | e | 8:54 AM | | procedure are in the | | | | PST | | results section. | + +--------+ + + + | LIPID PANEL | Routin | 08/01/2014 | | Results for this | | | e | 8:53 AM | | procedure are in the | | | | PST | | results section. | + +--------+ + + + documented in this encounter Results CBC w/ Auto Differential (08/01/2014 8:54 AM PST) + +-------+ + + + | Component | Value | Ref Range | Performed | Pathologist | | | | | At | Signature | + +-------+ + + + | WBC | 6.3 | 4.3 - 10.4 | EXTERNAL | | | | | 1000/mm3 | LAB | | + +-------+ + + + | RBC | 4.45 | 4.12 - 5.30 | EXTERNAL | | | | | mil/mm3 | LAB | | + +-------+ + + + | HGB, | 13.7 | 12.4 - 15.7 | EXTERNAL | | | External | | g/dL | LAB | | + +-------+ + + + | HCT, | 40.9 | 37.7 - 47.0 % | EXTERNAL | | | External | | | LAB | | + +-------+ + + + | MCV | 92 | 82 - 97 fl | EXTERNAL | | | | | | LAB | | + +-------+ + + + | MCH | 30.8 | 27.1 - 32.3 pg | EXTERNAL | | | | | | LAB | | + +-------+ + + + | MCHC | 33.5 | 32.0 - 36.9 | EXTERNAL | | | | | g/dL | LAB | | + +-------+ + + + | RDW-CV | 13.3 | <=17.0 % | EXTERNAL | | | | | | LAB | | + +-------+ + + + | Platelet | 300 | 150 - 450 | EXTERNAL | | | Count | | 1000/mm3 | LAB | | | Plasma | | | | | + +-------+ + + + | MPV | 10.7 | 9.4 - 12.3 FL | EXTERNAL | | | | | | LAB | | + +-------+ + + + | % Segmented | 43.3 | 42.0 - 76.0 % | EXTERNAL | | | | | | LAB | | | Neutrophils | | | | | + +-------+ + + + | LYMPH % | 45.7 | 20.0 - 40.0 % | EXTERNAL | | | | | | LAB | | + +-------+ + + + | % Monocytes | 11 | <=12.0 % | EXTERNAL | | | | | | LAB | | + +-------+ + + + | Absolute | 2.7 | 2.50 - 8.50 | EXTERNAL | | | Neutrophils | | 1000/mm3 | LAB | | + +-------+ + + + | Absolute | 2.9 | 1.00 - 3.80 | EXTERNAL | | | Lymphocytes | | 1000/mm3 | LAB | | + +-------+ + + + | Absolute | 0.7 | <=1.25 1000/mm3 | EXTERNAL | | [...] | | | + +---------+ + + Hepatic Function Panel (08/01/2014 8:54 AM PST) + +-------+ + + + | Component | Value | Ref Range | Performed | Pathologist | | | | | At | Signature | + +-------+ + + + | Bilirubin, | 0.3 | <=1.2 mg/dL | EXTERNAL | | | Total | | | LAB | | + +-------+ + + + | Bilirubin | 0.1 | <=0.3 mg/dL | EXTERNAL | | | Direct | | | LAB | | + [...] +-------+ + + + | Alkaline | 69 | 46 - 116 U/L | EXTERNAL | | | Phosphatase | | | LAB | | + +-------+ + + + | ALT, | 20 | 14 - 59 U/L | EXTERNAL | | | External | | | LAB | | + +-------+ + + + | AST, | 10 | <=38 U/L | EXTERNAL | | [...] | + +---------+ + + Lipid Panel (08/01/2014 8:53 AM PST) + +-------+ + + + | Component | Value | Ref Range | Performed | Pathologist | | | | | At | Signature | + +-------+ + + + | Cholesterol | 220 | <=200 mg/dL | EXTERNAL | | | , POC | | | LAB | | + +-------+ + + + | HDL | 51 | >=40 mg/dL | EXTERNAL | | | | | | LAB | | + +-------+ + + + | Triglycerid | 92 | 30 - 200 mg/dL | EXTERNAL | | | es | | | LAB | | + +-------+ + + + | Chol/HDL | 4.3 | <=4.6 RATIO | EXTERNAL | | | Ratio | | | LAB | | + +-------+ + + + | VLDL | 18 | 4 - 40 mg/dL | EXTERNAL | | | | | | LAB | | + +-------+ + + + | LDL-C | 151 | <=130 mg/dL | EXTERNAL | | [...]
--- OUTSIDE RECORDS SUMMARY | ~2019-05-17 | XMS | Encounter Summary ---
Demographics + + + | Address | [address] | | | [place] [address] | + + + | Home Phone [...] Team Providers + +------+ + | Care Treater Helper Name | Role | Phone | + +------+ + PCP | Unavailable | + +------+ + Encounter Details +--------+ + + + + | Date | Type | Department | Care Team | Description | +--------+ + + + + | 07/07/ | [facility] | [place] [facility] | Kayy Holguin, | | | 2015 | Encounter | [facility] | DO [address] | | | | | MED[facility] | [place] [address] | | | | | [address] [place], | [phone] | | | | | [place] [address] | | | | | | [phone] | | | +--------+ + + + [...]
--- OUTSIDE RECORDS SUMMARY | ~2019-05-17 | XMS | Encounter Summary ---
Demographics + + + | Address | [address] | | | [place] [address] | + + + | Home Phone [...] + +------+ + | Care Director Of Intercollegiate Athletics Name | Role | Phone | + [...] | [address] [place] | [place] [address] | | | | | [place] | [phone] | | | | | [address] | | | | | | [phone] | | | +--------+ + + + [...] MRI evaluation. D: | | 07/08/2015Job #: [id number] Read By: BLAINE NIEVES MD Released By: [...]
--- OUTSIDE RECORDS SUMMARY | ~2019-05-17 | XMS | Encounter Summary ---
Demographics + + + | Address | [address] | | | [place] [address] | + + + | Home Phone | | + + + | Preferred Language | Unknown | + + + | Marital Status | | + + + | Druze Affiliation | Unknown | + + + | Race | Unknown | + + + | Ethnic Group | Unknown | + + + Author + + + | Author | [facility] | | | and [place] | + + + | Organization | [facility] | | | [...] Team Providers + +------+ + | Care Linter Operator Name | Role | Phone | [...] | [place], [place] | [place] [address] | | | | | [address] | [phone] | | | | | [phone] | | | +--------+ + + + [...]
--- OUTSIDE RECORDS SUMMARY | ~2019-05-17 | XMS | Encounter Summary ---
Demographics + + + | Address | [address] | | | [place] [address] | + + + | Home Phone | | + + + | Preferred Language | Unknown | + + + | Marital Status | | + + + | Latter-Day Affiliation | Unknown | + + + [...] Team Providers + +------+ + | Care Civil Division Commander Deputy Sheriff Name | Role | Phone | + [...] Results | | 2018 | | [facility] | BENDING ROLL OPERATOR | | | | | MEDICAL CL[facility] [address] | | | | | | [address]TH [facility] [place], | | | | | | [place] [address] | | | | | | [phone] | | | +--------+ + + + [...]
--- OUTSIDE RECORDS SUMMARY | ~2019-05-17 | XMS | Encounter Summary ---
Demographics + + + | Address | [address] | | | [place] [address] | + + + | Home Phone [...] Team Providers + +------+ + | Care Freelance Photographer Name | Role | Phone | + [...] | | | | [place] | [address] | | | | | [address] | | | | | | [phone] | | | +--------+ + + + [...]
--- OUTSIDE RECORDS SUMMARY | ~2019-05-17 | XMS | Encounter Summary ---
Demographics + + + | Address | [address] | | | [place] [address] | + + + | Home Phone [...] Team Providers + +------+ + | Care Cnc Wood Lathe Operator Name | Role | Phone | [...] | MEDICAL [facility] [address] | [place] [address] | | | | | [address] [place], | [phone] | | | | | [place] [address] | | | | | | [phone] | | | +--------+ + + + [...]
--- OUTSIDE RECORDS SUMMARY | ~2019-05-17 | XMS | Encounter Summary ---
Demographics + + + | Address | [address] | | | [place] [address] | + + + | Home Phone | | + + + | Preferred Language | Unknown | + + + | Marital Status | | + + + | Hindu Affiliation | Unknown | + + + | Race | Unknown | + + + | Ethnic Group | Unknown | + + + Author + + + | Author | [facility] | | | and [place] | + + + | Organization | [facility] | | [...] Team Providers + +------+ + | Care Glaze Sprayer Name | Role | Phone | + [...] | [place], [place] | [place] [address] | | | | | [address] | [phone] | | | | | [phone] | | | +--------+ + + + [...]
--- OUTSIDE RECORDS SUMMARY | ~2019-05-17 | XMS | Encounter Summary ---
Demographics + + + | Address | [address] | | | [place] [address] | + + + | Home Phone [...] + + | Author | [facility] | | | and [place] | + + + | Organization | [facility] | | [...] Team Providers + +------+ + | Care Loop Drier Operator Name | Role | Phone | [...] [address] [place] | [place] [address] | | | | | [place] | [phone] | | | | | [address] | | | | | | [phone] | | | +--------+ + + + [...]
--- OUTSIDE RECORDS SUMMARY | ~2019-05-17 | XMS | Clinical Summary ---
Demographics + + + | Address | [address] | | | [place] [address] | + + + | Home Phone [...] Team Providers + +------+ + | Care Biomedical Engineering Professor Name | Role | Phone | + [...] | [facility] [facility] | [facility] | [id number] | | [phone] | | Medica | [...] jun | | | 4 (Home) | [address] | + +--------+ +--------+ + + Advance Directives + + + + + | Type | Date Recorded | Patient | Explanation | | | | Certified Coding Specialist | | + + + + + | Power of | | | | | Coal And Ash Supervisor | | | | + + + + + | Advance | 08/01/2017 10:43 | | | | Directive | AM | | | + + + + +
--- OUTSIDE RECORDS SUMMARY | ~2019-05-17 | XMS | Encounter Summary ---
Demographics + + + | Address | [address] | | | [place] [address] | + + + | Home Phone [...] Team Providers + +------+ + | Care Refinery Operator Assistant Name | Role | Phone | [...] Refill | | 2017 | | [facility] | DO [address] | | | | | MEDICAL CLIN[facility] [address] | [place] [address] | | | | | [address] [place], | [phone] | | | | | [place] [address] | | | | | | [phone] | | | +--------+--------+ + + + [...]
--- OUTSIDE RECORDS SUMMARY | ~2019-05-17 | XMS | Encounter Summary ---
Demographics + + + | Address | [address] | | | [place] [address] | + + + | Home Phone [...] Team Providers + +------+ + | Care Finish Carpenter Name | Role | Phone | + [...] | [address] [place] | [place] [address] | | | | | [place] | [phone] | | | | | [address] | | | | | | [phone] | | | +--------+ + + + [...] . IMPRESSION: No acute finding JOB #: [id number] | | | Digitally Released by: Shaka [...] | | | | | JOB #: [id number] | | Digitally Released by: Shaka Looney | | | | | | Read By: SHAKA LOONEY MD | | Date: 11/18/2016 16:03 | | | + + documented in this encounter Visit Diagnoses Not on filedocumented in this encounter"
--- OUTSIDE RECORDS SUMMARY | ~2019-05-17 | XMS | Encounter Summary ---
Demographics + + + | Address | [address] | | | [place] [address] | + + + | Home Phone [...] Team Providers + +------+ + | Care Rubber Compounder Formulator Name | Role | Phone | + [...] | | | [place], [place] | [address] | | | | | [address] | [phone] | | | | | [phone] | | | +--------+ + + + [...]
--- OUTSIDE RECORDS SUMMARY | ~2019-05-17 | XMS | Encounter Summary ---
Demographics + + + | Address | [address] | | | [place] [address] | + + + | Home Phone [...] Team Providers + +------+ + | Care Electron Beam Machine Welder Setter Name | Role | Phone | + +------+ + PCP | Unavailable | + +------+ + Encounter Details +--------+ + + + + | Date | Type | Department | Care Team | Description | +--------+ + + + + | 03/03/ | [facility] | [place] [facility]PIN | Kayy Holguin, | | | 2016 | Encounter | [facility] | DO [address] | | | | | MEDICAL CLIN[address] | [place] [address] | | | | | [address] [place], | [phone] | | | | | [place] [address] | | | | | | [phone] | | | +--------+ + + + [...]
--- OUTSIDE RECORDS SUMMARY | ~2019-05-17 | XMS | Encounter Summary ---
Demographics + + + | Address | [address] | | | [place] [address] | + + + | Home Phone [...] Team Providers + +------+ + | Care Assistant Passenger Locomotive Engineer Name | Role | Phone | + +------+ + PCP | Unavailable | + +------+ + Encounter Details +--------+ + + + + | Date | Type | Department | Care Team | Description | +--------+ + + + + | 04/18/ | [facility] | [place] TURPIN | Linda Bardales | | | 2012 | Encounter | [facility] | ZELALEM [address] | | | | | MEDICAL CL[address] | [address] [place], [place] | | | | | 4TH [facility] [place], | [address] | | | | | [place] [address] | [phone] | | | | | [phone] | | | +--------+ + + + [...]
--- OUTSIDE RECORDS SUMMARY | ~2019-05-17 | XMS | Encounter Summary ---
Demographics + + + | Address | [address] | | | [place] [address] | + + + | Home Phone [...] Team Providers + +------+ + | Care Rug Designer Name | Role | Phone | [...] | | | DR [place], | [address] | | | | | [place] [address] | | | | | | [phone] | | | +--------+ + + + [...] M.D. @W/-X CC Provider | | | [facility] Blog Talk Radio /W Collected Date 20151028 | | | [...] successfully by [employer] | | | [facility], [employer], [employer]. History: | | | [id number] 04/18/13 Negative for Intraepithelial Lesion or | | | Malignancy [id number] 08/28/97 Within normal limits. | | | Disclaimer The. : 00:00am .T: BMP Surgical | | | Report .PV: KNI Status: F Ordering Provider Amanda DE LA CRUZ | | | Jorge @W/-X CC Provider Amanda DE LA CRUZ M.D. @W/-X, [facility] | | | Blog Talk [employer] /W, [facility], [employer] Group MANAGEMENT /F Collected Date | | | 20151028 Received Date 20151029 Completed Date | | | 20151030 Specimens: Endometrial biopsy Pre-Op Diagnosis: | | | Menorrhagia Post-Op Diagnosis: Same Chart/ID#: | | | [id number] Diagnosis: Uterus, endometrium, biopsy: Early | | [...] The gross examination is performed at [facility] | | | [facility], [address] [place] [address]. Microscopic | | | Examination: Sections of [...] De La Cruz M.D. | | | @W/- [place] [facility] # SIGNED BY | | | AMANDA DE LA CRUZ MD, Dr. ([facility])11/04/2015 09:43AM pap smear is not a | | | diagnostic procedure and should not be used as the sole means to | | | detect cervical cancer. It is only a screening procedure to aid in the | | | detection of cervical cancer. Both false-negative and false-positive | | | results have been experienced. User 1 Lab Phone: [phone] | | | [phone] Ordering Provider: Amanda De La Cruz M.D. @W/- [facility] # SIGNED BY AMANDA Dominguez | | | MD DE LA CRUZ Dr. ([facility])11/04/2015 09:43AM | | + + + [...] @W/-X CC Provider | | | - [facility] Blog Talk Radio /W Collected Date 20151028 | | | [...] successfully by [employer] | | | [facility] Dentist, [employer], [employer]. History: | | | [id number] 04/18/13 Negative for Intraepithelial Lesion or | | | Malignancy [id number] 08/28/97 Within normal limits. | | | Disclaimer The. : 00:00am .T: BMP Surgical | | | Report .PV: KNI Status: F Ordering Provider Amanda DE LA CRUZ | | | Jorge @W/-X CC Provider Amanda DE LA CRUZ M.D. @W/-X, - [facility] | | | Blog Talk Radio /W, [facility], [employer] INFO MANAGEMENT /F Collected Date | | | 20151028 Received Date 20151029 Completed Date | | | 20151030 Specimens: Endometrial biopsy Pre-Op Diagnosis: | | | Menorrhagia Post-Op Diagnosis: Same Chart/ID#: | | | [id number] Diagnosis: Uterus, endometrium, biopsy: Early | | | secretory phase. Electronically Signed By: Electronically | | | Signed: Kenny Man M.D. Clinical Brief: LMP: | | | 09/27/15 Hormones: NA Gross Description: Received in a | | | formalin-filled container labeled with the patient's name (Riddhi | | | [place]), date of (1970) and additionally labeled | | | "endometrial biopsy" are multiple irregularly shaped fragments of pale | | | coe soft tissue measuring 1.0 x 0.4 x 0.2 cm in aggregate. The | | | specimen is filtered through a biopsy bag and entirely submitted in a | | | single cassette. NA The gross examination is performed at [facility] | | | [facility], [address] [place] [address]. Microscopic | | | Examination: Sections of [...] De La Cruz M.D. | | | @W/-[facility] # SIGNED BY | | | AMANDA DE LA CRUZ MD, Dr. ([facility])11/04/2015 09:43AM pap smear is not a | | | diagnostic procedure and should not be used as the sole means to | | | detect cervical cancer. It is only a screening procedure to aid in the | | | detection of cervical cancer. Both false-negative and false-positive | | | results have been experienced. User 1 Lab Phone: [phone] | | | [phone] Ordering Provider: Amanda De La Cruz M.D. @W/-[facility] # SIGNED BY AMANDA Dominguez | | | MD DE LA CRUZ Dr. ([facility])11/04/2015 09:43AM | | + + + + +---------+ + + | Performing | Address | City/State/Zipcode | Phone Number | | Organization | | | | + +---------+ + + | EXTERNAL LAB | | | | + +---------+ + + documented in this encounter Visit Diagnoses Not on filedocumented in this encounter
--- OUTSIDE RECORDS SUMMARY | ~2019-05-17 | XMS | Encounter Summary ---
Demographics + + + | Address | [address] | | | [place] [address] | + + + | Home Phone [...] Team Providers + +------+ + | Care Snapper On Name | Role | Phone | + [...] Refill | | 2017 | | [facility] | HEEL FINISHER | | | | | MEDICAL CL[facility] [address] | | | | | | [address]TH [facility] [place], | | | | | | [place] [address] | | | | | | [phone] | | | +--------+--------+ + + + [...]
--- OUTSIDE RECORDS SUMMARY | ~2019-05-17 | XMS | Encounter Summary ---
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
--- OUTSIDE RECORDS SUMMARY | ~2019-05-17 | XMS | Encounter Summary ---
Demographics + + + | Address | [address] | | | [place] [address] | + + + | Home Phone [...] Team Providers + +------+ + | Care Chief Operator Hydroformer Name | Role | Phone | + [...] | 2018 | | [facility] | [facility], [facility] [address] | | | | | MEDICAL CLIN[address] | [address] [place] | | | | | [address] [place], | [place] [address] | | | | | [place] [address] | [phone] | | | | | [phone] | | | +--------+--------+ + + + [...]
--- OUTSIDE RECORDS SUMMARY | ~2019-05-17 | XMS | Encounter Summary ---
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 JOB: [id number] Read By: | | | BLAINE NIEVES [...] with Shasta Rubio at 5 p.m. JOB: [id number] Read By: BLAINE NIEVES MD | | [...] 5 p.m. | | | | JOB: [id number] | | | | | |Read By: BLAINE NIEVES MD | | | |Released By: BLAINE NIEVES MD | |Date: 06/28/2015 18:22 | | | | | + + documented in this encounter Visit Diagnoses Not on filedocumented in this encounter"
--- OUTSIDE RECORDS SUMMARY | ~2019-05-17 | XMS | Encounter Summary ---
Demographics + + + | Address | [address] | | | [place] [address] | + + + | Home Phone [...] Team Providers + +------+ + | Care Youth Corrections Officer Name | Role | Phone | + +------+ + PCP | Unavailable | + +------+ + Encounter Details +--------+ + + + + | Date | Type | Department | Care Team | Description | +--------+ + + + + | 07/08/ | [facility] | [facility] | Ana Luisa Alexandra, | | | 2014 | Encounter | [facility] | HOLISTIC NUTRITIONIST [address] | | | | | MEDICAL [address] | [facility], [place] | | | | | 4TH [facility], | [address] | | | | | [place] [address] | | | | | | [phone] | | | +--------+ + + + [...]
--- OUTSIDE RECORDS SUMMARY | ~2019-05-17 | XMS | Encounter Summary ---
Demographics + + + | Address | [address] | | | [place] [address] | + + + | Home Phone [...] Team Providers + +------+ + | Care Compounding And Finishing Supervisor Name | Role | Phone | + +------+ + PCP | Unavailable | + +------+ + Encounter Details +--------+ + + + + | Date | Type | Department | Care Team | Description | +--------+ + + + + | 05/19/ | [facility] | 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
--- OUTSIDE RECORDS SUMMARY | ~2019-05-17 | XMS | Encounter Summary ---
Demographics + + + | Address | [address] | | | [place] [address] | + + + | Home Phone [...] Team Providers + +------+ + | Care Trip Rider Name | Role | Phone | + +------+ + PCP | Unavailable | + +------+ + Encounter Details +--------+ + + + + | Date | Type | Department | Care Team | Description | +--------+ + + + + | 09/23/ | [facility] | [facility] | Claudia Muir | | | 2014 | Encounter | [facility] | [address] | | | | | MEDICAL CLIN[address] | [place] | | | | | [address]TH [facility], | [address] | | | | | [place] [address] | [phone] | | | | | [phone] | | | +--------+ + + + [...]
--- OUTSIDE RECORDS SUMMARY | ~2019-05-17 | XMS | Encounter Summary ---
Demographics + + + | Address | [address] | | | [place] [address] | + + + | Home Phone [...] + +------+ + | Care Financial Planning Analyst Name | Role | Phone | [...] | [place], [place] | [place] [address] | | | | | [address] | [phone] | | | | | [phone] | | | +--------+ + + + [...]
--- OUTSIDE RECORDS SUMMARY | ~2019-05-17 | XMS | Encounter Summary ---
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
--- OUTSIDE RECORDS SUMMARY | ~2019-05-17 | XMS | Encounter Summary ---
Demographics + + + | Address | [address] | | | [place] [address] | + + + | Home Phone [...] Team Providers + +------+ + | Care Guest Room Attendant Name | Role | Phone | [...] | | | DR JESSICA [place]AC[place], | [address] | | | | | [place] [address] | | | | | | [phone] | | | +--------+ + + + [...] M.D. @W/-X CC Provider | | | [facility] [employer] /W Collected Date 20151028 | | | [...] successfully by [employer] | | | Slide Brush Polisher, [employer], [employer]. History: | | | [id number] 04/18/13 Negative for Intraepithelial Lesion or | | | Malignancy [id number] 08/28/97 Within normal limits. | | | Disclaimer The. : 00:00am .T: BMP Surgical | | | Report .PV: KNI Status: F Ordering Provider Amanda DE LA CRUZ | | | Jorge @W/-X CC Provider Amanda DE LA CRUZ M.D. @W/-X, [facility] | | | [employer] /W, [facility], [employer] /F Collected Date | | | 20151028 Received Date 20151029 Completed Date | | | 20151030 Specimens: Endometrial biopsy Pre-Op Diagnosis: | | | Menorrhagia Post-Op Diagnosis: Same Chart/ID#: | | | [id number] Diagnosis: Uterus, endometrium, biopsy: Early | | [...] NA The gross examination is performed at [facility] | | | [facility], [address] [place] [address]. Microscopic | | | Examination: Sections of [...] La Cruz M.D. | | | @W/- [place] [facility] # SIGNED BY | | | AMANDA DE LA CRUZ MD, Dr. ([facility])11/04/2015 09:43AM pap smear is not a | | | diagnostic procedure and should not be used as the sole means to | | | detect cervical cancer. It is only a screening procedure to aid in the | | | detection of cervical cancer. Both false-negative and false-positive | | | results have been experienced. User 1 Lab Phone: [phone] | | | [phone] Ordering Provider: Amanda De La Cruz M.D. @W/- [facility] # SIGNED BY AMANDA Dominguez | | | MD DE LA CRUZ Dr. ([facility])11/04/2015 09:43AM | | + + + [...] @W/-X CC Provider | | | - [facility] [employer] /W Collected Date 20151028 | | | [...] successfully by [employer] | | | Slide Brush Polisher, [place], [employer]. History: | | | [id number] 04/18/13 Negative for Intraepithelial Lesion or | | | Malignancy [id number] 08/28/97 Within normal limits. | | | Disclaimer The. : 00:00am .T: BMP Surgical | | | Report .PV: KNI Status: F Ordering Provider Amanda DE LA CRUZ | | | Jorge @W/-X CC Provider Amanda DE LA CRUZ M.D. @W/-X, - [facility] | | | [employer] /W, [facility], [place] [employer] /F Collected Date | | | 20151028 Received Date 20151029 Completed Date | | | 20151030 Specimens: Endometrial biopsy Pre-Op Diagnosis: | | | Menorrhagia Post-Op Diagnosis: Same Chart/ID#: | | | [id number] Diagnosis: Uterus, endometrium, biopsy: Early | | | secretory phase. Electronically Signed By: Electronically | | | Signed: Kenny Man M.D. Clinical Brief: LMP: | | | 09/27/15 Hormones: NA Gross Description: Received in a | | | formalin-filled container labeled with the patient's name (Riddhi | | | [place]), date of (1970) and additionally labeled | | | "endometrial biopsy" are multiple irregularly shaped fragments of pale | | | coe soft tissue measuring 1.0 x 0.4 x 0.2 cm in aggregate. The | | | specimen is filtered through a biopsy bag and entirely submitted in a | | | single cassette. NA The gross examination is performed at [facility] | | | [facility], [address] [place] [address]. Microscopic | | | Examination: Sections of [...] De La Cruz M.D. | | | @W/-[facility] # SIGNED BY | | | AMANDA DE LA CRUZ MD, Dr. ([facility])11/04/2015 09:43AM pap smear is not a | | | diagnostic procedure and should not be used as the sole means to | | | detect cervical cancer. It is only a screening procedure to aid in the | | | detection of cervical cancer. Both false-negative and false-positive | | | results have been experienced. User 1 Lab Phone: [phone] | | | [phone] Ordering Provider: Amanda De La Cruz M.D. @W/-[facility] # SIGNED BY AMANDA Dominguez | | | MD DE LA CRUZ Dr. ([facility])11/04/2015 09:43AM | | + + + + +---------+ + + | Performing | Address | City/State/Zipcode | Phone Number | | Organization | | | | + +---------+ + + | EXTERNAL LAB | | | | + +---------+ + + documented in this encounter Visit Diagnoses Not on filedocumented in this encounter
--- OUTSIDE RECORDS SUMMARY | ~2019-05-17 | XMS | Encounter Summary ---
Demographics + + + | Address | [address] | | | [place] [address] | + + + | Home Phone [...] Team Providers + +------+ + | Care Marine Rigger Name | Role | Phone | + [...] | | | | [place], [place] | [address] | | | | | [address] | [phone] | | | | | [phone] | | | +--------+ + + + [...]
--- OUTSIDE RECORDS SUMMARY | ~2019-05-17 | XMS | Encounter Summary ---
Demographics + + + | Address | [address] | | | [place] [address] | + + + | Home Phone | | + + + | Preferred Language | Unknown | + + + | Marital Status | | + + + | Scientology Affiliation | Unknown | + + + | Race | Unknown | + + + | Ethnic Group | Unknown | + + + Author + + + | Author | [facility] | | | and [place] | + + + | Organization | [facility] | | [...] Team Providers + +------+ + | Care Science Professor Name | Role | Phone | [...] | | | | [place] | [address] | | | | | [address] | [phone] | | | | | [phone] | | | +--------+ + + + [...]
--- OUTSIDE RECORDS SUMMARY | ~2019-05-17 | XMS | Encounter Summary ---
Demographics + + + | Address | [address] | | | [place] [address] | + + + | Home Phone [...] Team Providers + +------+ + | Care Reliability Engineer Name | Role | Phone | [...] | [facility] | DO [address] | | | | | MEDICAL CLIN[facility] [address] | [place] [address] | | | | | [address] [place], | [phone] | | | | | [place] [address] | | | | | | [phone] | | | +--------+--------+ + + + [...]
--- OUTSIDE RECORDS SUMMARY | ~2019-05-17 | XMS | Encounter Summary ---
Demographics + + + | Address | [address] | | | [place] [address] | + + + | Home Phone [...] Team Providers + +------+ + | Care Mixed Animal Veterinarian Name | Role | Phone | + [...] [address] [place] | [place] [address] | | | | | [place] | [phone] | | | | | [address] | | | | | | [phone] | | | +--------+ + + + [...]
--- OUTSIDE RECORDS SUMMARY | ~2019-05-17 | XMS | Encounter Summary ---
Demographics + + + | Address | [address] | | | [place] [address] | + + + | Home Phone [...] Providers + +------+ + | Care Senior Front End Web Developer Name | Role | [...] [place], [place] | | | | | [address] | [address] | | | | | [phone] | [phone] | | | | | | | [...]
--- OUTSIDE RECORDS SUMMARY | ~2019-05-17 | XMS | Encounter Summary ---
Demographics + + + | Address | [address] | | | [place] [address] | + + + | Home Phone [...] Team Providers + +------+ + | Care Fox Raiser Name | Role | Phone | + [...] | | | MEDICAL CL[facility] [address] | [facility], [place] | | | | | [address] [facility], | [address] | | | | | [place] [address] | [phone] | | | | | [phone] | | | +--------+ + + + [...]
[~2019-05-17 22:31] MED LIST changes: +NORCO 5-325 TA1 EACH PO
== END 2019-05-18 00:46 | disposition home or self-care (01) ==
LOC: ED 22:31
DX: J06.9 Acute upper respiratory infection, unspecified (principal); J45.909 Unspecified asthma, uncomplicated; M10.9 Gout, unspecified; Z87.891 Personal history of nicotine dependence; Z91.030 Bee allergy status; Z88.0 Allergy status to penicillin; Z88.6 Allergy status to analgesic agent; Z88.2 Allergy status to sulfonamides; Z88.5 Allergy status to narcotic agent; Z79.899 Other long term (current) drug therapy; Z79.51 Long term (current) use of inhaled steroids
CPT/HCPCS: 87502; 99283

== ENCOUNTER 2020-01-10 13:47 | Emergency (ER) | payer OTHER ==
[~2020-01-10] VITALS: Ht 157.5 cm; Wt 75.0 kg
--- OUTSIDE RECORDS SUMMARY | ~2020-01-10 | XMS | Encounter Summary ---
Demographics + + + | Address | [address] | | | [place] [address] | + + + | Home Phone | | + + + | Preferred Language | Unknown | + + + | Marital Status | | + + + | Judaism Affiliation | Unknown | + + + | Race | Unknown | + + + | Ethnic Group | Unknown | + + + Author + + + | Author | [facility] | | | and [place] | + + + | Organization | [facility] | | | and [place] | + + + | Address | Unknown | + + + | Phone | Unavailable | + + + Support + + +---------+ + | Name | Relationship | Address | Phone | + + +---------+ + | Román Sheikh | ECON | Unknown | | + + +---------+ + | Venancio Perez | ECON | Unknown | | + + +---------+ + Care Team Providers + +------+ + | Care Blue Leather Sorter Name | Role | Phone | + +------+ + PCP | Unavailable | + +------+ + Reason for Visit + +--------+ + | Reason | Onset | Comments | | | Date | | + +--------+ + | Medication Refill | 06/08/ | | | | 2016 | | + +--------+ + Encounter Details +--------+--------+ + + + | Date | Type | Department | Care Team | Description | +--------+--------+ + + + | 06/08/ | Refill | [facility] [facility] | Kayy Holguin, | Medication Refill | | 2016 | | [facility] | DO [address] | | | | | MEDICAL CLIN[address] | [facility] [place] [address] | | | | | [address] [place], | [phone] | | | | | [place] [address] | | | | | | [phone] | | | +--------+--------+ + + + Social History + +-------+ +--------+------+ | Tobacco Use | Types | Packs/Day | Years | Date | | | | | Used | | + +-------+ +--------+------+ | Never Assessed | | | | | + +-------+ +--------+------+ + + + | Sex Assigned at | Date Recorded | | | | + + + | Not on file | | + + + documented as of this encounter Miscellaneous Notes Telephone Encounter - Samm Dee - 06/08/2017 11:27 AM PSTSumatriptan 100 mg for migra belia refill/robAnalectronically signed by Samm Dee at 06/08/2017 11:28 AM PSTdocumente d in this encounter Plan of Treatment Not on filedocumented as of this encounter Visit Diagnoses Not on filedocumented in this encounter"
--- OUTSIDE RECORDS SUMMARY | ~2020-01-10 | XMS | Encounter Summary ---
Demographics + + + | Address | [address] | | | [place] [address] | + + + | Home Phone | | + + + | Preferred Language | Unknown | + + + | Marital Status | | + + + | Temple Affiliation | Unknown | + + + | Race | Unknown | + + + | Ethnic Group | Unknown | + + + Author + + + | Author | [facility] | | | and [place] | + + + | Organization | [facility] | | | and [place] | + + + | Address | Unknown | + + + | Phone | Unavailable | + + + Support + + +---------+ + | Name | Relationship | Address | Phone | + + +---------+ + | Románjose Sheikh | ECON | Unknown | | + + +---------+ + | Venancio Pikeyor | ECON | Unknown | | + + +---------+ + Care Team Providers + +------+ + | Care Copy Worker Name | Role | Phone | + +------+ + PCP | Unavailable | + +------+ + Encounter Details +--------+ + + + + | Date | Type | Department | Care Team | Description | +--------+ + + + + | 12/22/ | Hospital | [place] [facility] | Ana Luisa Alexandra, | | | 2015 | Encounter | [facility] | TUBE FITTER [address] | | | | | MEDICAL CLIN[facility] [address] | [address] [place], [place] | | | | | [address] [place], | [address] | | | | | [place] [address] | | | | | | [phone] | | | +--------+ + + + + Social History + +-------+ [...]
--- OUTSIDE RECORDS SUMMARY | ~2020-01-10 | XMS | Encounter Summary ---
Demographics + + + | Address | [address] | | | [place] [address] | + + + | Home Phone | | + + + | Preferred Language | Unknown | + + + | Marital Status | | + + + | Quaker Affiliation | Unknown | + + + | Race | Unknown | + + + | Ethnic Group | Unknown | + + + Author + + + | Author | [facility] | | | and [place] | + + + | Organization | [facility] | | | [...] Team Providers + +------+ + | Care Psychiatric Attendant Name | Role | Phone | + +------+ + PCP | Unavailable | + +------+ + Encounter Details +--------+ + + + + | Date | Type | Department | Care Team | Description | +--------+ + + + + | 04/12/ | Hospital | [place] [facility] | Linda Bardales | | | 2012 | Encounter | [facility] | Lea, DEPOSIT CLERK [address] | | | | | [address] [place] | [facility] [place], | | | | | [facility], [place] | [place] [address] | | | | | [address] | [phone] | | | | | [phone] | | | +--------+ + + + [...]
--- OUTSIDE RECORDS SUMMARY | ~2020-01-10 | XMS | Encounter Summary ---
Demographics + + + | Address | [address] | | | [place] [address] | + + + | Home Phone | | + + + | Preferred Language | Unknown | + + + | Marital Status | | + + + | Jehovah'S Witness Affiliation | Unknown | + + + | Race | Unknown | + + + | Ethnic Group | Unknown | + + + Author + + + | Author | [facility] | | | and [place] | + + + | Organization | [facility] | | | [...] Team Providers + +------+ + | Care Drill Presser Name | Role | Phone | + +------+ + PCP | Unavailable | + +------+ + Encounter Details +--------+ + + + + | Date | Type | Department | Care Team | Description | +--------+ + + + + | 11/07/ | Hospital | [facility] [facility] | Linda Bardales | | | 2014 | Encounter | [facility] | Lea, DIRECTOR OF STUDENT FINANCIAL SERVICES [address] | | | | | MEDICAL CLIN[facility] [address] | [facility] [place], | | | | | [address] [place], | [place] [address] | | | | | [place] [address] | [phone] | | | | | [phone] | | | +--------+ + + + [...]
--- OUTSIDE RECORDS SUMMARY | ~2020-01-10 | XMS | Encounter Summary ---
Demographics + + + | Address | [address] | | | [place] [address] | + + + | Home Phone | | + + + | Preferred Language | Unknown | + + + | Marital Status | | + + + | Advent Affiliation | Unknown | + + + | Race | Unknown | + + + | Ethnic Group | Unknown | + + + Author + + + | Author | [facility] | | | and [place] | + + + | Organization | [facility] | | | and [...] Team Providers + +------+ + | Care Batter Mixer Name | Role | Phone | + +------+ + PCP | Unavailable | + +------+ + Encounter Details +--------+ + + + + | Date | Type | Department | Care Team | Description | +--------+ + + + + | 12/04/ | Hospital | [facility] | Linda Bardales | | | 2014 | Encounter | [facility] | Lea, CORPORATE RECYCLING 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
--- OUTSIDE RECORDS SUMMARY | ~2020-01-10 | XMS | Encounter Summary ---
Demographics + + + | Address | [address] | | | [place] [address] | + + + | Home Phone | | + + + | Preferred Language | Unknown | + + + | Marital Status | | + + + | Yarsani Affiliation | Unknown | + + + | Race | Unknown | + + + | Ethnic Group | Unknown | + + + Author + + + | Author | [facility] | | | and [place] | + + + | Organization | [facility] | | | and [...] Team Providers + +------+ + | Care Management Aide Name | Role | Phone | + +------+ + PCP | Unavailable | + +------+ + Encounter Details +--------+ + + + + | Date | Type | Department | Care Team | Description | +--------+ + + + + | 01/27/ | Hospital | [place] [facility] | Kayy Holguin, | | | 2015 | Encounter | H[facility] XRAY [address] | DO [address] | | | | | [address] [place] | [place] [address] | | | | | [place], [place] | [phone] | | | | | [address] | | | | | | [phone] | | | +--------+ + + + [...] + +--------+ + + + | XR THORACIC SPINE 3 | Routin | 07/08/2015 | | Results for this | | VW | e | 2:48 PM | | procedure are in the | | | | PST | | results section. | + +--------+ + + + documented in this encounter Results XR Thoracic Spine 3 Vw (07/08/2015 2:48 PM PST) + + | Specimen | + + | | + + + + + | Narrative | Performed At | + + + | ORIGINAL THREE VIEWS OF THE THORACIC SPINE: | | | HISTORY: Thoracic spine pain. FINDINGS: 12 rib-bearing lumbar | | | vertebral bodies are normally aligned. There is mild disk height | | | loss and endplate productive change noted at T10-T11 and T11-T12. No | | | acute fracture is identified. Ribs are unremarkable. There is | | | incidentally noted to be disk height loss and endplate productive | | | change at C5-C6 and C6-C7. IMPRESSION: 1. Degenerative changes of | | | the lower thoracic spine without evidence of an acute process. 2. | | | Incidental note is made of lower cervical spine degenerative change. | | | 3. If symptoms persist, consider MRI evaluation. | | | Read By: BLAINE NIEVES MD Released By: | | | BLAINE NIEVES MD Date: 07/08/2015 19:01 | | + + + + + | Procedure Note | + + | Wili Wong Results In - 04/19/2017 9:32 PM PST ORIGINAL THREE VIEWS OF THE | | THORACIC SPINE: HISTORY:Thoracic spine pain. FINDINGS:12 rib-bearing lumbar vertebral | | bodies are normally aligned. There is mild disk height loss and endplate productive | | change noted at T10-T11 and T11-T12. No acute fracture is identified. Ribs are | | unremarkable. There is incidentally noted to be disk height loss and endplate | | productive change at C5-C6 and C6-C7. IMPRESSION:1. Degenerative changes of the lower | | thoracic spine without evidence of an acute process.2. Incidental note is made of lower | | cervical spine degenerative change.3. If symptoms persist, consider MRI evaluation. D: | | 07/08/2015Job #: [id number] Read By: BLAINE NIEVES MD Released By: BLAINE NIEVES, | | MDDate: 07/08/2015 19:01 | |12 rib-bearing lumbar vertebral bodies are normally aligned. There is mild disk height los s and endplate productive change noted at T10-T11 and T11-T12. No acute fracture is identif ied. Ribs are unremarkable. There is incidentally noted to be disk | |height loss and endplate productive change at C5-C6 and C6-C7. | | | |IMPRESSION: | |1. Degenerative changes of the lower thoracic spine without evidence of an acute process. | |2. Incidental note is made of lower cervical spine degenerative change. | |3. If symptoms persist, consider MRI evaluation. | | | | | | | | | |Read By: BLAINE NIEVES MD | | | |Released By: BLAINE NIEVES MD | |Date: 07/08/2015 19:01 | | | | | + + documented in this encounter Visit Diagnoses Not on filedocumented in this encounter"
--- OUTSIDE RECORDS SUMMARY | ~2020-01-10 | XMS | Encounter Summary ---
Demographics + + + | Address | [address] | | | [place] [address] | + + + | Home Phone | | + + + | Preferred Language | Unknown | + + + | Marital Status | | + + + | Faith Affiliation | Unknown | + + + | Race | Unknown | + + + | Ethnic Group | Unknown | + + + Author + + + | Author | [facility] | | | and [place] | + + + | Organization | [facility] | | | and [...] Team Providers + +------+ + | Care Gift Shop Assistant Name | Role | Phone | + +------+ + PCP | Unavailable | + +------+ + Encounter Details +--------+ + + + + | Date | Type | Department | Care Team | Description | +--------+ + + + + | 12/23/ | Hospital | [facility] [facility] | Kuldeep Villanueva | | | 2016 | Encounter | HOSPITAL UROLOGY | MD [address] | | | | | [address] [place] | [address] [place] | | | | | [place], [place] | [place] [address] | | | | | [address] | [phone] | | | | | [phone] | | | +--------+ + + + [...]
--- OUTSIDE RECORDS SUMMARY | ~2020-01-10 | XMS | Encounter Summary ---
Demographics + + + | Address | [address] | | | [place] [address] | + + + | Home Phone | | + + + | Preferred Language | Unknown | + + + | Marital Status | | + + + | Caodaism Affiliation | Unknown | + + + | Race | Unknown | + + + | Ethnic Group | Unknown | + + + Author + + + | Author | [facility] | | | and [place] | + + + | Organization | [facility] | | | [...] Team Providers + +------+ + | Care Repairer Shoe Sticks Name | Role | Phone | + +------+ + PCP | Unavailable | + +------+ + Encounter Details +--------+ + + + + | Date | Type | Department | Care Team | Description | +--------+ + + + + | 05/07/ | Hospital | [facility] | Linda Bardales | | | 2013 | Encounter | [facility] | Lea, PERSONNEL SUPERVISOR [address] | | | | | MEDICAL CL[facility] [address] | [facility] [place], | | | | | [address] [place], | [place] [address] | | | | | [place] [address] | [phone] | | | | | [phone] | | | +--------+ + + + [...]
--- OUTSIDE RECORDS SUMMARY | ~2020-01-10 | XMS | Encounter Summary ---
Demographics + + + | Address | [address] | | | [place] [address] | + + + | Home Phone | | + + + | Preferred Language | Unknown | + + + | Marital Status | | + + + | Anglican Affiliation | Unknown | + + + | Race | Unknown | + + + | Ethnic Group | Unknown | + + + Author + + + | Author | [facility] | | | and [place] | + + + | Organization | [facility] | | | [...] Team Providers + +------+ + | Care Seed Potato Arranger Name | Role | Phone | + +------+ + | Kayy Holguin DO | PCP | | + +------+ + Reason for Visit +---------+--------+ + | Reason | Onset | Comments | | | Date | | +---------+--------+ + | Results | 04/12/ | | | | 2018 | | +---------+--------+ + Encounter Details +--------+ + + + + | Date | Type | Department | Care Team | Description | +--------+ + + + + | 04/12/ | Telephone | [facility] | Kayy Holguin, | Results | | 2018 | | [facility] | DO [address] [place] | | | | | MEDICAL CLIN[address] | [facility] [place] [address] | | | | | [address] [facility], | [phone] | | | | | [place] [address] | | | | | | [phone] | | | +--------+ + + + [...] this encounter Miscellaneous Notes Telephone Encounter - Diane Thornton LPN - 04/12/2018 11:52 AM PDTMsg from PCP given to pt.. Diane Thornton LPN elephone Mariana Olivera - 04/12/2018 11:36 AM PDTPt is calling for her US results on her left kne e. Please call pt with results Thanks Mariana documented in t his encounter Plan of Treatment Not on filedocumented as of this encounter Visit Diagnoses Not on filedocumented in this encounter"
--- OUTSIDE RECORDS SUMMARY | ~2020-01-10 | XMS | Encounter Summary ---
Demographics + + + | Address | [address] | | | [place] [address] | + + + | Home Phone | | + + + | Preferred Language | Unknown | + + + | Marital Status | | + + + | Confucianist Affiliation | Unknown | + + + | Race | Unknown | + + + | Ethnic Group | Unknown | + + + Author + + + | Author | [facility] | | | and [place] | + + + | Organization | [facility] | | [...] Team Providers + +------+ + | Care Catalog Specialist Name | Role | Phone | + +------+ + PCP | Unavailable | + +------+ + Encounter Details +--------+ + + + + | Date | Type | Department | Care Team | Description | +--------+ + + + + | 10/30/ | Hospital | [facility] | [place], | | | 2011 | Encounter | HOSPITAL EMERGENCY | TAKE AWAY WORKER [address] | | | | | CENTER [address] | [place] | | | | | [place] | [address] | | | | | [address] | | | | | | [phone] | | | +--------+ + + + [...]
--- OUTSIDE RECORDS SUMMARY | ~2020-01-10 | XMS | Encounter Summary ---
Demographics + + + | Address | [address] | | | [place] [address] | + + + | Home Phone | | + + + | Preferred Language | Unknown | + + + | Marital Status | | + + + | Sikh Affiliation | Unknown | + + + | Race | Unknown | + + + | Ethnic Group | Unknown | + + + Author + + + | Author | [facility] | | | and [place] | + + + | Organization | [facility] | | | [...] Team Providers + +------+ + | Care Director Talent Management Name | Role | Phone | + +------+ + PCP | Unavailable | + +------+ + Encounter Details +--------+ + + + + | Date | Type | Department | Care Team | Description | +--------+ + + + + | 04/26/ | Hospital | [facility] | Amanda De La Cruz MD | | | 2013 | Encounter | HOSPITAL OBSTETRICS | [address] | | | | | [address] [place] | [place], [place] | | | | | [place], [place] | [address] | | | | | [address] | | | | | | [phone] | | | +--------+ + + + [...]
--- OUTSIDE RECORDS SUMMARY | ~2020-01-10 | XMS | Encounter Summary ---
Demographics + + + | Address | [address] | | | [place] [address] | + + + | Home Phone | | + + + | Preferred Language | Unknown | + + + | Marital Status | | + + + | Latter Day Affiliation | Unknown | + + + | Race | Unknown | + + + | Ethnic Group | Unknown | + + + Author + + + | Author | [facility] | | | and [place] | + + + | Organization | [facility] | | [...] Team Providers + +------+ + | Care Meat Team Lead Name | Role | Phone | + +------+ + | Kayy Holguin DO | PCP | | + +------+ + Reason for Visit + +--------+ + | Reason | Onset | Comments | | | Date | | + +--------+ + | Results, Imaging | 08/08/ | | | | 2017 | | + +--------+ + Encounter Details +--------+ + + + + | Date | Type | Department | Care Team | Description | +--------+ + + + + | 08/08/ | Telephone | [facility] | Diane Thornton, | Results, Imaging | | 2018 | | [facility] | SURGICAL AIDES TEACHER | | | | | [facility] [address] | | | | | | [address] [facility], | | | | | | [place] [address] | | | | | | [phone] | | | +--------+ + + + [...] Telephone Encounter - Diane Thornton LPN - 08/08/2017 4:53 PM PSTPhone is disconnected . Rersuls mailed. Diane Thornton LPN elephone Encounte r - Diane Thornton LPN - 08/08/2017 4:52 PM PST----- Message from DO se bianka Dutton at 08/08/2017 13:17 PST ----- Let patient know mammo is normal repeat in one yr documented in this encounter Plan of Treatment Not on filedocumented as of this encounter Visit Diagnoses Not on filedocumented in this encounter"
--- OUTSIDE RECORDS SUMMARY | ~2020-01-10 | XMS | Encounter Summary ---
Demographics + + + | Address | [address] | | | [place] [address] | + + + | Home Phone | | + + + | Preferred Language | Unknown | + + + | Marital Status | | + + + | Yazdanism Affiliation | Unknown | + + + [...] Team Providers + +------+ + | Care Pad Making Machine Operator Name | Role | Phone | + +------+ + | Kayy Holguin DO | PCP | | + +------+ + Reason for Visit + +--------+ + | Reason | Onset | Comments | | | Date | | + +--------+ + | Medication Refill | 10/30/ | | | | 2018 | | + +--------+ + Encounter Details +--------+--------+ + + + | Date | Type | Department | Care Team | Description | +--------+--------+ + + + | 10/30/ | Refill | [facility] | Kayy Holguin, | Medication Refill | | 2017 | | [facility] | [address] | | | | | MEDICAL CL[facility] [address] | [facility] [place] [address] | | | | | [address] [facility], | [phone] | | | | | [place] [address] | | | | | | [phone] | | | +--------+--------+ + + + [...] Telephone Encounter - Diane Thornton LPN - 11/08/2017 7:48 AM PDTNo answer and no msg capability. There is no nasal spray on med list. If pt has had an rx for one she needs to co ntact her pharamacy to send the request with the sig.. elephone Encounter - Judith Garcias - 11/07/2017 5:08 PM PDTCan this encounter be closed? Was nose spray ordered? Thank you Judith Garcias elephone Encounter - Mariana Webber - 10/31/2017 12:00 PM PDTPt is calling to f/u with refill reques t for nose spray. [facility] in [place]. Thanks Tia elephone Encou nter - Judith Garcias - 10/30/2017 8:23 AM PDTPatient would like refill on allergy nose s pray. Didn't remember the name of it. Also needs Bee Sting "shot thing". [facility] in [place] . Me documented in this encou nter Plan of Treatment Not on filedocumented as of this encounter Visit Diagnoses Not on filedocumented in this encounter
--- OUTSIDE RECORDS SUMMARY | ~2020-01-10 | XMS | Encounter Summary ---
Demographics + + + | Address | [address] | | | [place] [address] | + + + | Home Phone | | + + + | Preferred Language | Unknown | + + + | Marital Status | | + + + | Spiritism Affiliation | Unknown | + + + | Race | Unknown | + + + | Ethnic Group | Unknown | + + + Author + + + | Author | [facility] | | | and [place] | + + + | Organization | [facility] | [...] Team Providers + +------+ + | Care Crozer Name | Role | Phone | + +------+ + PCP | Unavailable | + +------+ + Encounter Details +--------+ + + + + | Date | Type | Department | Care Team | Description | +--------+ + + + + | 08/19/ | Hospital | [facility] | Samantha Garcia NP | | | 2016 | Encounter | [facility] | [address] [facility] [facility] | | | | | MEDICAL CLIN[facility] [address] | [place], [place] | | | | | [address] [place], | [address] | | | | | [place] [address] | [phone] | | | | | [phone] | | | +--------+ + + + [...]
--- OUTSIDE RECORDS SUMMARY | ~2020-01-10 | XMS | Encounter Summary ---
Demographics + + + | Address | [address] | | | [place] [address] | + + + | Home Phone | | + + + | Preferred Language | Unknown | + + + | Marital Status | | + + + | Confucianist Affiliation | Unknown | + + + | Race | Unknown | + + + | Ethnic Group | Unknown | + + + Author + + + | Author | [facility] | | | and [place] | + + + | Organization | [facility] | | [...] Team Providers + +------+ + | Care Executive Director Name | Role | Phone | + +------+ + PCP | Unavailable | + +------+ + Encounter Details +--------+ + + + + | Date | Type | Department | Care Team | Description | +--------+ + + + + | 09/23/ | Hospital | [facility] | Claudia Muir | | | 2015 | Encounter | [facility] | [address] | | | | | MEDICAL CLIN[facility] [address] | [place], [place] | | | | | [address] [place], | [address] | | | | | [place] [address] | [phone] | | | | | [phone] | | | +--------+ + + + [...]
--- OUTSIDE RECORDS SUMMARY | ~2020-01-10 | XMS | Encounter Summary ---
Demographics + + + | Address | [address] | | | [place] [address] | + + + | Home Phone | | + + + | Preferred Language | Unknown | + + + | Marital Status | | + + + | Jehovah'S Witness Affiliation | Unknown | + + + | Race | Unknown | + + + | Ethnic Group | Unknown | + + + Author + + + | Author | [facility] | | | and [place] | + + + | Organization | [facility] | | [...] Team Providers + +------+ + | Care Planner Scheduler Name | Role | Phone | + +------+ + PCP | Unavailable | + +------+ + Encounter Details +--------+ + + + + | Date | Type | Department | Care Team | Description | +--------+ + + + + | 04/12/ | Hospital | [facility] | Linda Bardales | | | 2013 | Encounter | [facility] | Lea, 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
--- OUTSIDE RECORDS SUMMARY | ~2020-01-10 | XMS | Encounter Summary ---
Demographics + + + | Address | [address] | | | [place] [address] | + + + | Home Phone | | + + + | Preferred Language | Unknown | + + + | Marital Status | | + + + | Voodoo Affiliation | Unknown | + + + [...] Team Providers + +------+ + | Care Rig Mechanic Name | Role | Phone | + +------+ + PCP | Unavailable | + +------+ + Encounter Details +--------+ + + + + | Date | Type | Department | Care Team | Description | +--------+ + + + + | 11/27/ | Hospital | [facility] | Kayy Holguin, | | | 2015 | Encounter | [facility] | DO [address] | | | | | MEDICAL CLIN[facility] [address] | [place] [address] | | | | | [address] [place], | [phone] | | | | | [place] [address] | | | | | | [phone] | | | +--------+ + + + [...]
--- OUTSIDE RECORDS SUMMARY | ~2020-01-10 | XMS | Encounter Summary ---
Demographics + + + | Address | [address] | | | [place] [address] | + + + | Home Phone | | + + + | Preferred Language | Unknown | + + + | Marital Status | | + + + | Sabianist Affiliation | Unknown | + + + | Race | Unknown | + + + | Ethnic Group | Unknown | + + + Author + + + | Author | [facility] | | | and [place] | + + + | Organization | [facility] | | | [...] Team Providers + +------+ + | Care Speech And Hearing Clinic Director Name | Role | Phone | + +------+ + PCP | Unavailable | + +------+ + Encounter Details +--------+ + + + + | Date | Type | Department | Care Team | Description | +--------+ + + + + | 06/20/ | Hospital | [facility] | Brendon Colon | | | 2015 | Encounter | [facility] | MD Nicole [address] | | | | | MEDICAL CL[facility] [address] | [place], [place] | | | | | [address] [place], | [address] | | | | | [place] [address] | [phone] | | | | | [phone] | | | +--------+ + + + [...]
--- OUTSIDE RECORDS SUMMARY | ~2020-01-10 | XMS | Encounter Summary ---
Demographics + + + | Address | [address] | | | [place] [address] | + + + | Home Phone [...] Team Providers + +------+ + | Care De Icer Kit Assembler Name | Role | Phone | [...] | Specialty | Physical | Diagnoses | Chelsie, | Cc Wgr | | | Services | Therapy / | Acute | Kayy A, DO | Therapy Pt | | | Required | Rehabilitatio | midline low | [address] | [address] | | | | n | back pain | [place], | | | | | without | [place] [address] | [place] [address] | | | | | sciatica | Phone: | Phone: | | | | | Procedures | [phone] | [phone] | | | | | PT EVAL | Fax: | Fax: | | | | | | [phone] | [phone] | +--------+ + + + + + Reason for Visit + + + | Reason | Comments | + + + | Follow-up | Meds last seen in 2017 | + + + Encounter Details +--------+---------+ + + + | Date | Type | Department | Care Team | Description | +--------+---------+ + + + | 09/18/ | Office | [facility] | Kayy Holguin, | Other hyperlipidemia | | 2020 | Visit | [facility] | DO [address] [place] | (Primary Dx); Mild | | | | [facility] [address] | [place] [address] | intermittent asthma | | | [address] [place], | [phone] | without | | | | [place] [address] | | complication; | | | | [phone] | | Depression, | | | | | | unspecified | | | | | | depression type; | | | | | | Tobacco abuse; Acute | | | | | | midline low back | | | | | | pain without | | | | | | sciatica; Periodic | | | | | | health assessment, | | | | | | general screening, | | | | | | adult; Breast cancer | | | | | | screening by | | | | | | mammogram; Pain; | | | | | | Allergy to bee sting | +--------+---------+ + + + Social History [...] + + documented as of this encounter Last Filed Vital Signs + + + + + | Vital Sign | Reading | Time Taken | Comments | + + + + + | Blood Pressure | 122/80 | 09/19/2019 11:18 AM | | | | | PDT | | + + + + + | Pulse | 94 | 09/19/2019 11:18 AM | | | | | PDT | | + + + + + | Temperature | - | - | | + + + + + | Respiratory Rate | 16 | 09/19/2019 11:18 AM | | | | | PDT | | + + + + + | Oxygen Saturation | 98% | 09/19/2019 11:18 AM | | | | | PDT | | + + + + + | Inhaled Oxygen | - | - | | | Concentration | | | | + + + + + | Weight | 76.2 kg (168 lb) | 09/19/2019 11:18 AM | | | | | PDT | | + + + + + | Height | 157.5 cm (5' 2.01") | 09/19/2019 11:18 AM | | | | | PDT | | + + + + + | Body Mass Index | 30.72 | 09/19/2019 11:18 AM | | | | | PDT | | + + + + + documented in this encounter Progress Notes Kayy Holguin DO - 09/19/2019 11:20 AM PDTFormatting of this note might be different fro m the original. Subjective: Patient ID: Riddhi Perez is a 49 y.o. female. Here for FU on chronic conditions and medications. Had been two years since here. Needs ref ill on inhaler and singular for asthma control. Denies cough or congestion. Needs her epi pe n for bee allergy. No recent stings. Needs refill on cymbalta and lamictal for her depressio n control and reports they still work well for her. Declines therapist. VS normal. She has f asted for check on the lipids. Still smoking and not ready to quit. States recent issue is m id low back pain. No numbness or weakness in legs. Agrees to PT. We will refill her ibuprofe n. States back is stiff in the AM and she does get back spasms so we will try some tizanidin e for this. She is using some heat that she states helps. Due for mammogram and denies breas t changes. No SOB, cough or congestion. Review of Systems As above Objective: BP 122/80 | Pulse 94 | Resp 16 | Ht 1.575 m (5' 2.01") | Wt 76.2 kg (168 lb) | LMP (L MP Unknown) | SpO2 98% | BMI 30.72 kg/m Physical Exam Constitutional: General: She is not in acute distress. Appearance: Normal appearance. HENT: Head: Normocephalic. Eyes: Extraocular Movements: Extraocular movements intact. Conjunctiva/sclera: Conjunctivae normal. Pupils: Pupils are equal, round, and reactive to light. Neck: Musculoskeletal: Normal range of motion. No muscular tenderness. Cardiovascular: Rate and Rhythm: Normal rate and regular rhythm. Heart sounds: No murmur. Pulmonary: Effort: Pulmonary effort is normal. Breath sounds: Normal breath sounds. Abdominal: General: Bowel sounds are normal. Tenderness: There is no abdominal tenderness. Musculoskeletal: Right lower leg: No edema. Left lower leg: No edema. Comments: Stiffness with forward bending in lumbar area. No pinpoint tenderness over spi nal processes. Lymphadenopathy: Cervical: No cervical adenopathy. Skin: General: Skin is warm and dry. Capillary Refill: Capillary refill takes less than 2 seconds. Neurological: General: No focal deficit present. Mental Status: She is alert. Cranial Nerves: No cranial nerve deficit. Gait: Gait normal. Psychiatric: Mood and Affect: Mood normal. Behavior: Behavior normal. Thought Content: Thought content normal. Judgment: Judgment normal. Assessment: 1. Other hyperlipidemia Comprehensive Metabolic Panel Lipid Panel 2. Mild intermittent asthma without complication CBC with Differential 3. Depression, unspecified depression type CBC with Differential Comprehensive Metabolic Panel 4. Tobacco abuse 5. Acute midline low back pain without sciatica * [facility] - A MB Referral 6. Periodic health assessment, general screening, adult CBC with Differential Comprehensive Metabolic Panel 7. Breast cancer screening by mammogram TRISTAN Tomosynthesis Screening Bilateral ibuprofen (ADVIL,MOTRIN) 800 MG tablet 8. Allergy to bee sting EPINEPHrine auto-injector 0.3 mg/0.3 mL injection Plan: Fasting labs, lipids, CMP, CBC. Refill inhaler, epi pen, singular. Encouraged stop smoking. Refill Lamictal and Cymbalta. Refill Zocor. Refill ibuprofen and add tizanidine for back s pasms. Referral to PT for the back. Routine mammogram ordered. documented in this en counter Plan of Treatment + + +--------+ + + | Name | Type | Priori | Associated Diagnoses | Order Schedule | | | | ty | | | + + +--------+ + + | * [facility] | Outpatient | Routin | Acute midline low | Ordered: 09/19/2019 | | [facility] | Referral | e | back pain without | | | - AMB Referral | | | sciatica | | + + +--------+ + + documented as of this encounter Results TRISTAN Tomosynthesis Screening Bilateral (10/02/2019 11:09 AM PDT) + + | Specimen | + + | | + + + + + | Impressions | Performed At | + + + | BIRADS category: BIRADS Category 2 Benign findings COMMENT: | [facility] | | 1. A negative or "no suspicious findings" mammogram report should not | | | delay biopsy if clinical suspicious findings are present. 2. About 7% | | | of breast cancers are not visible on mammogram. 3. Dense breasts can | | | obscure significant breast masses. COMMENT: BIRADS Category Zero | | | Incomplete: Needs additional imaging evaluation. BIRADS Category One | | | Negative mammogram. BIRADS Category Two Benign findings. BIRADS | | | Category Three Probably benign finding, short interval follow-up | | | suggested. BIRADS Category Four Suspicious for/of malignancy. BIRADS | | | Category Five Highly suggestive for/of malignancy. Dictated by: | | | Juan Looney Electronically Signed by: Juan Looney on | | | 10/02/2019 11:18 AM | | + + + + + + | Narrative | Performed At | + + + | EXAMINATION: TRISTAN TOMOSYN SCREENING BILATERAL HISTORY: routine | [facility] | | mammogram to screen for breast cancer COMPARISON STUDY: | | | 08/08/2017. 05/21/2014. 05/02/2013. TECHNIQUE: 3D | | | tomosynthesis, 2D synthesized images are utilized in study | | | interpretation. Computer-aided detection analysis was performed and | | | included in the interpretation of this study. FINDINGS: No | | | dominant mass, clustered microcalcification or architectural | | | distortion is seen. Scattered fibroglandular elements present. | | | Intramammary lymph nodes redemonstrated upper posterior 3rd depth | | | right breast on MLO view. Benign calcification.. Intramammary | | | lymph node upper posterior 3rd depth left breast. | | + + + + +---------+ + + | Performing | Address | City/State/Zipcode | Phone Number | | Organization | | | | + +---------+ + + | [facility] | | | | + +---------+ + + Lipid Panel (09/19/2019 11:42 AM PDT) + + + + + + | Component | Value | Ref Range | Performed | Pathologist | | | | | At | Signature | + + + + + + | Triglycerid | 97 | 30 - 200 mg/dL | [facility] | | | es | | | [facility] | | | | | [facility] | | | | | [facility] | | | | | | [facility] | | + + + + + + | Cholesterol | 192 | 0 - 200 mg/dL | [facility] | | | | | | [facility] | | | | | [facility] | | | [facility] | | | | | [facility] | | + + + + + + | HDL | 42 | >=40 mg/dL | [facility] | | | | | | [facility] | | | | [facility] | | | | | [facility] | | | | | | [facility] | | + + + + + + | Chol/HDL | 4.6 | <=5.0 | [facility] | | | Ratio | | | [facility] | | | | | | [facility] | | | | | | [facility] | | | | | | [facility] | | + + + + + + | LDL, | 131 (H)Comment: LDL | <130 mg/dL | [facility] | | | Calculated | reference range: | | [facility] | | | | < 100 mg/dL | | [facility] | | | | [id number] - 129 mg/dL | | [facility] | | | | Near [id number] - | | MEDICAL | | | | 159 mg/dL | | [facility] | | | | [id number] - 189 | | | | | | mg/dL High | | | | | | > 190 mg/dL Very | | | | | | High | | | | + + + + + + | Fasting? | YesComment: 15 Hours | | [facility] | | | | | | [facility] | | | | | [facility] | | | | | [facility] | | | | | | [facility] | | + + + + + + + + | Specimen | + + | Blood | + + + + + + + | Performing | Address | City/State/Zipcode | Phone Number | | Organization | | | | + + + + + | [facility] | [address] | [place] | [phone] | | [facility] | | [address] | | | [facility] | | | | + + + + + Comprehensive Metabolic Panel (09/19/2019 11:42 AM PDT) + + + + + + | Component | Value | Ref Range | Performed | Pathologist | | | | | At | Signature | + + + + + + | Na | 139 | 132 - 143 | [facility] | | | | | mmol/L | [facility] | | | | | [facility] | | | [facility] | | | | | | [facility] | | + + + + + + | K | 4.2 | 3.3 - 4.9 | [facility] | | | | | mmol/L | [facility] | | | | | | [facility] | | | | | [facility] | | | | | | [facility] | | + + + + + + | Cl | 104 | 95 - 108 mmol/L | [facility] | | | | | | [facility] | | [facility] | | [facility] | | | | [facility] | | | | | | [facility] | | + + + + + + | CO2 | 25 | 23 - 34 mmol/L | [facility] | | | | | | [facility] | | [facility] | [facility] | | | [facility] | | | | | | [facility] | | + + + + + + | Anion Gap | 10 | 7 - 16 mmol/L | [facility] | | | | | | [facility] | | [facility] | | [facility] | | | [facility] | | | | | | [facility] | | + + + + + + | Glucose | 90 | 70 - 110 mg/dL | [facility] | | | | | | [facility] | | | | | [facility] | | | | | [facility] | | | | | | [facility] | | + + + + + + | BUN | 13 | 5 - 26 mg/dL | [facility] | | | | | | [facility] | | [facility] | | | | | [facility] | | | | | | [facility] | | + + + + + + | Creatinine | 0.80 | 0.70 - 1.40 | [facility] | | | | | mg/dL | [facility] | | | | | | [facility] | | | | | | [facility] | | | | | | [facility] | | + + + + + + | eGFR, | >60Comment: GLOMERULAR | >=60 | [facility] | | | non- | FILTRATION | mL/min/1.73m2 | [facility] | | | [place] | RATE,ESTIMATED | | [facility] | | | | mL/min/1.65m9Umuf than | | [facility] | | | | 60 Chronic kidney | | MEDICAL | | | | disease,if found over a | | [facility] | | | | 3-month period.Less than | | | | | | 15 Kidney failureFor | | | | | | | | | | | | Americans,multiply the | | | | | | calculated GFR by 1.21. | | | | | | | | | | + + + + + + | Calcium | 9.0 | 8.3 - 10.0 | [facility] | | | | | mg/dL | [facility] | | | | | [facility] | | | | | [facility] | | | | | | [facility] | | + + + + + + | Albumin | 3.6 | 3.0 - 4.5 g/dL | [facility] | | | | | | [facility] | | | | | | [facility] | | | | | | [facility] | | | | | | [facility] | | + + + + + + | Bilirubin | 0.3 | 0.0 - 1.2 mg/dL | [facility] | | | Total | | | [facility] | | | | | | [facility] | | | | | | [facility] | | | | | | [facility] | | + + + + + + | Total | 7.6 | 6.6 - 8.5 g/dL | [facility] | | | Protein | | | [facility] | | | | | | [facility] | | | | | | [facility] | | | | | | [facility] | | + + + + + + | AST | 15 | 0 - 38 U/L | [facility] | | | | | | [facility] | | [facility] | | [facility] | | | [facility] | | | | | | [facility] | | + + + + + + | ALT | 25 | 14 - 59 U/L | [facility] | | | | | | [facility] | [facility] | | | | [facility] | | | | | | [facility] | | + + + + + + | Alkaline | 93 | 46 - 116 U/L | [facility] | | | Phosphatase | | | [facility] | | | | | | [facility] | | | | | [facility] | | | | | | [facility] | | + + + + + + | Globulin | 4.0 | 2.4 - 4.5 g/dL | [facility] | | | | | | [facility] | | | | | [facility] | | | | | [facility] | | | | | | [facility] | | + + + + + + | Albumin/Ivett | 0.9 | 0.8 - 2.0 | [facility] | | | bulin Ratio | | | [facility] | | | [facility] | [facility] | | | | | [facility] | | | | | | [facility] | | + + + + + + | BUN/Creatin | 16.3 | 7.0 - 24.0 | [facility] | | | ine Ratio | | | [facility] | | | [facility] | [facility] | | | | | [facility] | | | | | | [facility] | | + + + + + + | Fasting? | YesComment: 15 Hours | | [facility] | | | | | | [facility] | | | | | [facility] | | | | [facility] | | | | | | [facility] | | + + + + + + + + | Specimen | + + | Blood | + + + + + + + | Performing | Address | City/State/Zipcode | Phone Number | | Organization | | | | + + + + + | [facility] | [address] | [place] | [phone] | | [facility] | | [address] | | | [facility] | | | | + + + + + CBC with Differential (09/19/2019 11:42 AM PDT) + + + + + + | Component | Value | Ref Range | Performed | Pathologist | | | | | At | Signature | + + + + + + | White Blood | 8.0 | 4.3 - 10.4 K/uL | [facility] | | | Cells | | | [facility] | | | | | [facility] | | [facility] | | | | | | [facility] | | + + + + + + | Red Blood | 4.94 | 4.12 - 5.30 | [facility] | | | Cells | | M/uL | [facility] | | | | | [facility] | | [facility] | | | | [facility] | | + + + + + + | Hemoglobin | 15.6 | 12.4 - 15.7 | [facility] | | | | | g/dL | [facility] | [facility] | [facility] | [facility] | | | | [facility] | | + + + + + + | Hematocrit | 47.5 (H) | 37.7 - 47.0 % | [facility] | | | | | | [facility] | | | | | [facility] | [facility] | | | | [facility] | | + + + + + + | MCV | 96.1 | 82.0 - 97.0 fL | [facility] | | | | | | [facility] | [facility] | | | | [facility] | | + + + + + + | MCH | 31.6 | 27.1 - 32.3 pg | [facility] | | | | | | [facility] | | [facility] | | [facility] | | | | | | [facility] | | + + + + + + | MCHC | 32.8 | 32.0 - 36.9 | [facility] | | | | | g/dL | [facility] | | [facility] | | | | [facility] | | + + + + + + | RDW-CV | 13.5 | 0.0 - 17.0 % | [facility] | | | | | | [facility] | [facility] | | | | [facility] | | + + + + + + | Platelet | 265 | 150 - 450 K/uL | [facility] | | | Count | | | [facility] | | [facility] | | [facility] | | | [facility] | | | | | | [facility] | | + + + + + + | MPV | 8.7 (L) | 9.4 - 12.3 fL | [facility] | | | | | | [facility] | | | | | [facility] | | + + + + + + | % | 61.1 | 42.0 - 76.0 % | [facility] | | | Neutrophils | | | [facility] | | | | | [facility] | | | | | [facility] | | | | | | [facility] | | + + + + + + | % | 27.7 | 20.0 - 40.0 % | [facility] | | | Lymphocytes | | | [facility] | | [facility] | | [facility] | | | | | [facility] | | | | | | [facility] | | + + + + + + | % Monocytes | 8.0 | 3.0 - 13.0 % | [facility] | | | | | | [facility] | | [facility] | | | | | [facility] | | | | | | [facility] | | + + + + + + | % | 3.0 | 0.0 - 7.0 % | [facility] | | | Eosinophils | | | [facility] | | [facility] | [facility] | | | | | [facility] | | | | | | [facility] | | + + + + + + | % Basophils | 0.2 | 0.0 - 2.0 % | [facility] | | | | | | [facility] | | [facility] | [facility] | | | | | [facility] | | | | | | [facility] | | + + + + + + | Absolute | 4.90 | 2.50 - 8.50 | [facility] | | | Neutrophils | | K/uL | [facility] | | [facility] | | | [facility] | | | | | | [facility] | | + + + + + + | Absolute | 2.20 | 1.00 - 3.80 | [facility] | | | Lymphocytes | | K/uL | [facility] | | [facility] | | | | [facility] | | | | | | [facility] | | + + + + + + | Absolute | 0.60 | 0.00 - 0.80 | [facility] | | | Monocytes | | K/uL | [facility] | | | [facility] | [facility] | | | | | [facility] | | | | | | [facility] | | + + + + + + | Absolute | 0.20 | 0.00 - 0.70 | [facility] | | | Eosinophils | | K/uL | [facility] | | [facility] | [facility] | | | | | [facility] | | | | | | [facility] | | + + + + + + | Absolute | 0.00 | 0.00 - 0.20 | [facility] | | | Basophils | | K/uL | [facility] | | | [facility] | | | | | [facility] | | | | | | [facility] | | + + + + + + + + | Specimen | + + | Blood | + + + + + + + | Performing | Address | City/State/Zipcode | Phone Number | | Organization | | | | + + + + + | [facility] | [address] | [place] | [phone] | | [facility] | | [address] | | | [facility] | | | | + + + + + documented in this encounter Visit Diagnoses + + | Diagnosis | + + | Other hyperlipidemia - Primary | + + | Mild intermittent asthma without complication Unspecified asthma | + + | Depression, unspecified depression type | + + | Tobacco abuse Tobacco use disorder | + + | Acute midline low back pain without sciatica | + + | Periodic health assessment, general screening, adult Routine general medical | | examination at a health care facility | + + | Breast cancer screening by mammogram | + + | Pain Generalized pain | + + | Allergy to bee sting Toxic effect of venom | + + documented in this encounter
--- OUTSIDE RECORDS SUMMARY | ~2020-01-10 | XMS | Encounter Summary ---
Demographics + + + | Address | [address] | | | [place] [address] | + + + | Home Phone | | + + + | Preferred Language | Unknown | + + + | Marital Status | | + + + | Yazdanism Affiliation | Unknown | + + + | Race | Unknown | + + + | Ethnic Group | Unknown | + + + Author + + + | Author | [facility] | | | and [place] | + + + | Organization | [facility] | | [...] Providers + +------+ + | Care Data Typist Name | Role | Phone | + +------+ + PCP | Unavailable | + +------+ + Encounter Details +--------+ + + + + | Date | Type | Department | Care Team | Description | +--------+ + + + + | 07/28/ | Hospital | [facility] | Ana Luisa Alexandra, | | | 2015 | Encounter | [facility] | BLEACH ANALYST [address] | | | | | [facility] [address] [place], [place] | | | | | [address] [place], | [address] | | | | | [place] [address] | | | | | | [phone] | | | +--------+ + + + [...]
--- OUTSIDE RECORDS SUMMARY | ~2020-01-10 | XMS | Encounter Summary ---
Demographics + + + | Address | [address] | | | [place] [address] | + + + | Home Phone | | + + + | Preferred Language | Unknown | + + + | Marital Status | | + + + | Muslim Affiliation | Unknown | + + + | Race | Unknown | + + + | Ethnic Group | Unknown | + + + Author + + + | Author | [facility] | | | and [place] | + + + | Organization | [facility] | | | [...] Providers + +------+ + | Care Automation Qa Tester Name | Role | Phone | + +------+ + | Kayy Holguin DO | PCP | | + +------+ + Reason for Visit + + + | Reason | Comments | + + + | Therapy Daily | | | Treatment | | + + + Evaluate & Treat (Urgent) + +--------+ + + + + | Status | Reason | Specialty | Diagnoses / | Referred By | Referred To | | | | | Procedures | Contact | Contact | + +--------+ + + + + | Authorized | | Rehabilitatio | Diagnoses | Chelsie, | Cc Wgr | | | | n | Low back | Kayy Ott DO | Therapy Pt | | | | | pain | [address] | [address] | | | | | Procedures | [place], | [place], | | | | | PT TREAT | [place] [address] | [place] [address] | | | | | | Phone: | Phone: | | | | | | [phone] | [phone] | | | | | | Fax: | Fax: | | | | | | [phone] | [phone] | + +--------+ + + + + Encounter Details +--------+ + + + + | Date | Type | Department | Care Team | Description | +--------+ + + + + | 11/13/ | Hospital | [facility] | Kayy Holguin, | Acute midline low | | 2020 | Encounter | HOSPITAL THERAPY PT | DO [address] [place] | back pain without | | | | [address] [place] | [place] [address] | sciatica (Primary | | | | [place], [place] | [phone] | Dx) | | | | [address] | | | | | | [phone] | Yury Carbone | | | | | | K, PT | | +--------+ + + + [...] +---------+ + + | DULoxetine | Take 1 capsule by | 30 | 11 | 09/19/19 | | | (CYMBALTA) [address] | mouth Daily. | capsule | | 20 | | | capsule | | | | | | + + + +---------+ + + | EPINEPHrine | Inject 0.3 mLs into | 1 each | 2 | 09/19/19 | | | auto-injector 0.3 | the muscle as needed | | | 20 | | | mg/0.3 mL | for Anaphylaxis. | | | | | | injectionIndications | | | | | | | : Allergy to bee | | | | | | | sting | | | | | | + + + +---------+ + + | ibuprofen | Take up to three | 90 | 0 | 10/22/19 | | | (ADVIL,MOTRIN) 800 | tabs daily with food | tablet | | 20 | | | MG | | | | | | | tabletIndications: | | | | | | | Pain | | | | | | + + + +---------+ + + | lamoTRIgine | Take 1 tablet by | 30 | 11 | 09/19/19 | | | (LAMICTAL) 100 mg | mouth Daily. | tablet | | 20 | | | tablet | | | | | | + + + +---------+ + + | melatonin 3 mg | Take by mouth | | 0 | | | | TABS | nightly as needed. | | | | | + + + +---------+ + + | montelukast | Take 1 tablet by | 30 | 11 | 09/19/19 | | | (SINGULAIR) 10 mg | mouth nightly. | tablet | | 20 | | | tablet | | | | | | + + + +---------+ + + | rizatriptan | TAKE ONE TABLET BY | 12 | 2 | 09/03/19 | | | (MAXALT) 10 mg | MOUTH AT FIRST ONSET | tablet | | 20 | | | tablet | OF MIGRAINE | | | | | | | SYMPTOMS, MAY REPEAT | | | | | | | AFTER 2 HOURS; MAX | | | | | | | DOSE 30MG IN 24 | | | | | | | HOURS | | | | | + + + +---------+ + + | simvastatin | Take 1 tablet by | 30 | 11 | 09/19/19 | | | (ZOCOR) 10 mg tablet | mouth nightly. | tablet | | 20 | | + + + +---------+ + + | tiZANidine | Take one tab TID prn | 90 | 1 | 09/19/19 | | | (ZANAFLEX) 4 mg | back spasms | tablet | | 20 | | | tablet | | | [...] + + | VENTOLIN HFA 108 | Inhale 2 puffs into | 1 | 2 | 09/19/19 | | | (90 Base) MCG/ACT | the lungs every 6 | Inhaler | | 20 | | | inhaler | hours as needed for | | | | | | | Wheezing. | | | | | + + + +---------+ + + documented as of this encounter Progress Notes Yury Carbone, PT - 11/14/2019 11:30 AM PDTFormatting of this note might be differen t from the original. [facility] THERAPY PT [address] [place] [address] Physical Therapy Daily Treatment Note Date: 11/14/2019 Patient Information Patient Name: Riddhi Perez Date of : 1970 Age: 49 y.o. Encounter Diagnoses Code Name Primary? M54.5 Acute midline low back pain without sciatica Yes Date of Onset: 09/19/2019 Referring Provider: Kayy Holguin DO Objective Pain Assessment: Pain Rating During Assessment: 7 Location: mid to low back Today's Treatment Patient Name: Riddhi Perez/: 1970/ Start Time: 1120 Stop time: 1205 Duration: 45 minutes Timed Treatment Codes: 43 minutes # of PT Visits to Date: 4 Visit Summary: S: I am doing ok, I am still having the toruble with the pain in the back, tends to get little worse & then better but always present. I noted that if I lay on my side it tends to hurt on that side. A: Riddhi is able to make correections during session to w mark she was having poor form or execution during TE. She req cont vc's during session for t his for the duration. Next Visit Information: cont TE as tolerated Patient/Caregiver Education Learner: Patient Readiness: Acceptance Method: Demonstration Response: Verbalizes Understanding Comment: she will cont HEP including squas with push press at top Therapy Interventions HEP: she is to perform the TE done in clinic at home as tolerated with focus on form & prop er execution. She is to call if she has issues after doing them. PT INTERVENTION 1: TE 43' - Nu Step - L4 - during which time we disucced the specifics of h er condition & TE relative to her case. Squats - performed with focus on proper LE & trunk alignement & posture as well as execution both with 10 lbs KB for Goblet squat & 2nd set was Push Press at top, , Clamshells YTB 60" hold on/off, Supermans - alt arm/leg 3' holds, bridges - w/YTB atknees during 60" holds on/off. Side Planks 20" x3, Cable antirotation wal k outs - 2 plates, 2 steps. We discussed the rationale & reasoning with all TE as we perfo rmed relative to her specifics. Assessment Rehabilitation potential: Patient demonstrates good potential to achieve established goals to address the documented impairments by participating in skilled physical therapy services. Electronically signed by: Yury Carbone PT, 11/14/2019 12:11 PM Patient Name: Riddhi Navarrete Ana/: 1970/ documented in th is encounter Plan of Treatment Not on filedocumented as of this encounter Visit Diagnoses + + | Diagnosis | + + | Acute midline low back pain without sciatica - Primary | + + documented in this encounter
--- OUTSIDE RECORDS SUMMARY | ~2020-01-10 | XMS | Encounter Summary ---
Demographics + + + | Address | [address] | | | [place] [address] | + + + | Home Phone [...] Providers + +------+ + | Care Seed Corn Manager Production Name | Role | Phone | + +------+ + PCP | Unavailable | + +------+ + Encounter Details +--------+ + + + + | Date | Type | Department | Care Team | Description | +--------+ + + + + | 03/11/ | Hospital | [facility] | Kayy Holguin, | | | 2015 | Encounter | [facility] | DO [address] [place] | | | | | MEDICAL [facility] [address] | [place] [address] | | | | | [address] [place], | [phone] | | | | | [place] [address] | | | | | | [phone] | | | +--------+ + + + [...]
--- OUTSIDE RECORDS SUMMARY | ~2020-01-10 | XMS | Encounter Summary ---
Demographics + + + | Address | [address] | | | [place] [address] | + + + | Home Phone | | + + + | Preferred Language | Unknown | + + + | Marital Status | | + + + | Zoroastrianism Affiliation | Unknown | + + + | Race | Unknown | + + + | Ethnic Group | Unknown | + + + Author + + + | Author | [facility] | | | and [place] | + + + | Organization | [facility] | | | [...] Team Providers + +------+ + | Care Red Cross Worker Name | Role | Phone | [...] | | | PT TREAT | [place] [address] | [place] [address] | | | | | | Phone: | Phone: | | | | | | [phone] | [phone] | | | | | | Fax: | Fax: | | | | | | [phone] | [phone] | + +--------+ + + + + Encounter Details +--------+ + + + + | Date | Type | Department | Care Team | Description | +--------+ + + + + | 12/03/ | Hospital | [facility] | Kayy Holguin, | Acute midline low | | 2020 | Encounter | HOSPITAL THERAPY PT | DO [address] [place] | back pain without | | | | [address] [place] | [place] [address] | sciatica (Primary | | | | [place], [place] | [phone] | Dx) | | | | [address] | | | | | | [phone] | Yury Carbone | | | | [...] encounter Progress Notes Yury Carbone, PT - 12/04/2019 1:00 PM PDTFormatting of this note might be differen t from the original. [facility] THERAPY PT [address] [place] [address] Physical Therapy Daily Treatment Note Date: 12/04/2019 Patient Information Patient Name: Riddhi Perez Date of : 1970 Age: 49 y.o. Encounter Diagnoses Code Name Primary? M54.5 Acute midline low back pain without sciatica Yes Date of Onset: 09/19/2019 Referring Provider: Kayy Holguin, DO Standardized Tests: Oswestry Disability Index (SHREE) Oswestry Disability Index Goal: <12/50 - all goals to be met with in 12 weeks Oswestry Disability Index Goal Status: in progress Today's Treatment Patient Name: Riddhi Navarrete Ana/: 1970/ Start Time: 1255 Stop time: 1350 Duration: 55 minutes Timed Treatment Codes: 47 minutes # of PT Visits to Date: 5 Visit Summary: S: I am here, I have been having some really tougher times the last couple o f days. I don't know whats it's from. It's not from what we are doing here, I know that [place] fajardo. A: Riddhi is able to perform TE & we were able to add new, but her motor control is sti ll affected with low functional endurance of the trunk/hips. She has poor postural control & awareness but some of this is likely structural. We discussed the goal is to obtain indep w ith her exercises as soon as she is able to do so. All aspects of TE & program discussed w ith vc for the duration of program Next Visit Information: cont TE as tolerated Therapy Interventions HEP: she is to perform the TE done in clinic at home as tolerated with focus on form & prop er execution. She is to call if she has issues after doing them. PT INTERVENTION 1: TE 47' - Nu Step - L4 - during which time we disucced the specifics of h er condition & TE relative to her case. Squats - performed with focus on proper LE & trunk alignement & posture as well as execution both with 10 lbs KB for Goblet squat, Clamshells YTB 60" hold on/off, Supermans - alt arm/leg 3' holds, bridges - w/YTB at knees during 60" holds on/off. Side Planks 20" x3, Cable antirotation walk outs - 2 plates, 2 steps 8 reps each side. We discussed the rationale & reasoning with all TE as we performed relative to her specifics. Assessment Rehabilitation potential: Patient demonstrates good potential to achieve established goals to address the documented impairments by participating in skilled physical therapy services. Goals: Patient Reported Outcome Goals Patient Reported Outcome Goals: Oswestry Oswestry Disability Index Goal: <12/50 - all goals to be met with in 12 weeks Oswestry Disability Index Goal Status: in progress OP PT Goals Goal 1: Indep with HEP & self advancement Goal 1 Status: in progress - advancing with TE instruction & focus of program to strengthen & implement program for home use Electronically signed by: Yury Carbone PT, 12/04/2019 2:53 PM PDT Patient Name: Riddhi Perez/: 1970/ documented in th is encounter Plan of Treatment Not on filedocumented as of this encounter Visit Diagnoses + + | Diagnosis | + + | Acute midline low back pain without sciatica - Primary | + + documented in this encounter
--- OUTSIDE RECORDS SUMMARY | ~2020-01-10 | XMS | Encounter Summary ---
Demographics + + + | Address | [address] | | | [place] [address] | + + + | Home Phone | | + + + | Preferred Language | Unknown | + + + | Marital Status | | + + + | Baptist Affiliation | Unknown | + + + | Race | Unknown | + + + | Ethnic Group | Unknown | + + + Author + + + | Author | [facility] | | | and [place] | + + + | Organization | [facility] | | | and [place] | + + + | Address | Unknown | + + + | Phone | Unavailable | + + + Support + + +---------+ + | Name | Relationship | Address | Phone | + + +---------+ + | Román Sheikh | ECON | Unknown | | + + +---------+ + | Venancio Ana | ECON | Unknown | | + + +---------+ + Care Team Providers + +------+ + | Care Fountain Server Name | Role | Phone | + [...] | | CLINIC [address] | [place], [place] | | | | | [address] [place], | [address] | | | | | [place] [address] | | | | | | [phone] | | | +--------+ + + + [...] + | .D: 16 : 00:00am .T: [facility] Cytology Report .PV: JACQUESI Status: F | EXTERNAL LAB | | Ordering Provider Amanda DE LA CRUZ M.D. @W/-X CC Provider | | | - [facility] [employer] [facility] /W Collected Date 20151028 | | | [...] successfully by [employer] | | | Slide Rubber Stamp Dies Inspector, [employer], [employer]. History: | | | [id number] 04/18/13 Negative for Intraepithelial Lesion or | | | Malignancy [id number] 08/28/97 Within normal limits. | | | Disclaimer The. : 00:00am .T: [facility] | | | Report .PV: MARNIE Status: F Ordering Provider Amanda DE LA CRUZ | | | Jorge @W/-X CC Provider Amanda DE LA CRUZ M.D. @W/-X, LG - BMP | | | [employer] [facility] /, [facility], [employer] /F Collected Date | | | 20151028 Received Date 20151029 Completed Date | | | 20151030 Specimens: Endometrial biopsy Pre-Op Diagnosis: | | | Menorrhagia Post-Op Diagnosis: Same Chart/ID#: | | | [id number] Diagnosis: Uterus, endometrium, biopsy: Early | | [...] NA The gross examination is performed at [facility] | | | [facility], [address] [place] [address]. Microscopic | | | Examination: Sections of [...] De La Cruz M.D. | | | @W/-X, [facility] # SIGNED BY | | | AMANDA DE LA CRUZ MD, ([facility])11/04/2015 09:43AM pap smear is not a | | | diagnostic procedure and should not be used as the sole means to | | | detect cervical cancer. It is only a screening procedure to aid in the | | | detection of cervical cancer. Both false-negative and false-positive | | | results have been experienced. User 1 Lab Phone: [phone] | | | [phone] Ordering Provider: Amanda De La Cruz M.D. @W/-Earl Terry | | | [facility] # SIGNED BY AMANDA Dominguez | | | MD DE LA CRUZ Dr. ([facility])11/04/2015 09:43AM | | + + + + +---------+ + + | Performing | Address | City/State/[facility] | Phone Number | | Organization | | | | + +---------+ + + | EXTERNAL LAB | | | | + +---------+ + + TISSUE EXAM (10/28/2015 4:17 PM PDT) + + | Specimen | + + | | + + + + + | Narrative | Performed At | + + + | . : 00:00am .T: [facility] Cytology Report .PV: KNI Status: F | EXTERNAL LAB | | Ordering Provider Amanda DE LA CRUZ M.D. @W/-X CC Provider | | | - [facility] [employer] /W Collected Date 20151028 | | | [...] successfully by [employer] | | | Slide Rubber Stamp Dies Inspector, [employer], [employer]. History: | | | [id number] 04/18/13 Negative for Intraepithelial Lesion or | | | Malignancy [id number] 08/28/97 Within normal limits. | | | Disclaimer The. : 00:00am .T: [facility] | | | Report .PV: KNI Status: F Ordering Provider Amanda DE LA CRUZ | | | Jorge @W/-X CC Provider Amanda DE LA CRUZ M.D. @W/-X, - [facility] | | | [employer] [facility] /W, [facility], [employer] /F Collected Date | | | 20151028 Received Date 20151029 Completed Date | | | 20151030 Specimens: Endometrial biopsy Pre-Op Diagnosis: | | | Menorrhagia Post-Op Diagnosis: Same Chart/ID#: | | | [id number] Diagnosis: Uterus, endometrium, biopsy: Early | | | secretory phase. Electronically Signed By: Electronically | | | Signed: Kenny Man M.D. Clinical Brief: LMP: | | | 09/27/15 Hormones: NA Gross Description: Received in a | | | formalin-filled container labeled with the patient's name (Riddhi | | | [place]), date of (1970) and additionally labeled | | | "endometrial biopsy" are multiple irregularly shaped fragments of pale | | | coe soft tissue measuring 1.0 x 0.4 x 0.2 cm in aggregate. The | | | specimen is filtered through a biopsy bag and entirely submitted in a | | | single cassette. NA The gross examination is performed at [facility] | | | [facility], [address] [place] [address]. Microscopic | | | Examination: Sections of [...] De La Cruz M.D. | | | [facility] # SIGNED BY | | | AMANDA DE LA CRUZ MD, ([facility])11/04/2015 09:43AM pap smear is not a | | | diagnostic procedure and should not be used as the sole means to | | | detect cervical cancer. It is only a screening procedure to aid in the | | | detection of cervical cancer. Both false-negative and false-positive | | | results have been experienced. User 1 Lab Phone: [phone] | | | [phone] Ordering Provider: Amanda De La Cruz M.D. @W/-Earl Terry | | | [facility] # SIGNED BY AMANDA Dominguez | | | MD DE LA CRUZ Dr. (JACQUES)11/04/2015 09:43AM | | + + + + +---------+ + + | Performing | Address | City/State/Zipcode | Phone Number | | Organization | | | | + +---------+ + + | EXTERNAL LAB | | | | + +---------+ + + documented in this encounter Visit Diagnoses Not on filedocumented in this encounter
--- OUTSIDE RECORDS SUMMARY | ~2020-01-10 | XMS | Encounter Summary ---
Demographics + + + | Address | [address] | | | [place] [address] | + + + | Home Phone [...] Team Providers + +------+ + | Care Spiral Runner Name | Role | Phone | + +------+ + PCP | Unavailable | + +------+ + Encounter Details +--------+ + + + + | Date | Type | Department | Care Team | Description | +--------+ + + + + | 09/15/ | Hospital | [facility] | Ana Luisa Alexandra, | | | 2015 | Encounter | [facility] | SAND TEMPERER [address] | | | | | MEDICAL CLIN[facility] [address] | [address] [place], [place] | | | | | [address] [place], | [address] | | | | | [place] [address] | | | | | | [phone] | | | +--------+ + + + [...]
--- OUTSIDE RECORDS SUMMARY | ~2020-01-10 | XMS | Encounter Summary ---
Demographics + + + | Address | [address] | | | [place] [address] | + + + | Home Phone [...] Team Providers + +------+ + | Care Street Car Inspector Name | Role | Phone | + +------+ + PCP | Unavailable | + +------+ + Encounter Details +--------+ + + + + | Date | Type | Department | Care Team | Description | +--------+ + + + + | 04/03/ | Hospital | [facility] | Kayy Holguin, | | | 2015 | Encounter | [facility] | DO [address] | | | | | MEDICAL [facility] [address] | [place] [address] | | | | | [address] [place], | [phone] | | | | | [place] [address] | | | | | | [phone] | | | +--------+ + + + [...]
--- OUTSIDE RECORDS SUMMARY | ~2020-01-10 | XMS | Encounter Summary ---
Demographics + + + | Address | [address] | | | [place] [address] | + + + | Home Phone [...] Team Providers + +------+ + | Care Application Operations Engineer Name | Role | Phone | [...] Encounter | HOSPITAL XRAY [address] | [address] | | | | | [address] | [place], [place] | | | | | [place], [place] | [address] | | | | | [address] | | | | | | [phone] | | | +--------+ + + + [...]
--- OUTSIDE RECORDS SUMMARY | ~2020-01-10 | XMS | Encounter Summary ---
Demographics + + + | Address | [address] | | | [place] [address] | + + + | Home Phone | | + + + | Preferred Language | Unknown | + + + | Marital Status | | + + + | Alevism Affiliation | Unknown | + + + | Race | Unknown | + + + | Ethnic Group | Unknown | + + + Author + + + | Author | [facility] | | | and [place] | + + + | Organization | [facility] | | | [...] Team Providers + +------+ + | Care Electric Meter Reader Name | Role | Phone | + +------+ + PCP | Unavailable | + +------+ + Encounter Details +--------+ + + + + | Date | Type | Department | Care Team | Description | +--------+ + + + + | 05/05/ | Hospital | [facility] | Kayy Holguin, | | | 2015 | Encounter | [facility] | DO [address] [place] | | | | | MEDICAL CLIN[facility] [address] | [place] [address] | | | | | [address] [place], | [phone] | | | | | [place] [address] | | | | | | [phone] | | | +--------+ + + + [...]
--- OUTSIDE RECORDS SUMMARY | ~2020-01-10 | XMS | Encounter Summary ---
Demographics + + + | Address | [address] | | | [place] [address] | + + + | Home Phone [...] + + | Author | [facility] | | | and [place] | + + + | Organization | [facility] | | | [...] Team Providers + +------+ + | Care Forestry Aid Name | Role | Phone | + +------+ + PCP | Unavailable | + +------+ + Encounter Details +--------+ + + + + | Date | Type | Department | Care Team | Description | +--------+ + + + + | 02/28/ | Hospital | [facility] | Linda Bardales | | | 2014 | Encounter | [facility] | Lea, AEROSPACE TECHNICIAN [address] | | | | | MEDICAL CL[facility] [address] | [facility] [place], | | | | | [address] [place], | [place] [address] | | | | | [place] [address] | [phone] | | | | | [phone] | | | +--------+ + + + [...]
--- OUTSIDE RECORDS SUMMARY | ~2020-01-10 | XMS | Encounter Summary ---
Demographics + + + | Address | [address] | | | [place] [address] | + + + | Home Phone | | + + + | Preferred Language | Unknown | + + + | Marital Status | | + + + | Islam Affiliation | Unknown | + + + [...] Team Providers + +------+ + | Care Manufacturing Engineering Technician Name | Role | Phone | + +------+ + PCP | Unavailable | + +------+ + Encounter Details +--------+ + + + + | Date | Type | Department | Care Team | Description | +--------+ + + + + | 10/08/ | Hospital | [facility] | Ana Luisa Alexandra, | | | 2015 | Encounter | [facility] | CHAINSTITCH BINDER [address] | | | | | MEDICAL CLINIC [address] | [address] [place], [place] | | | | | [address] [place], | [address] | | | | | [place] [address] | | | | | | [phone] | | | +--------+ + + + [...]
--- OUTSIDE RECORDS SUMMARY | ~2020-01-10 | XMS | Encounter Summary ---
Demographics + + + | Address | [address] | | | [place] [address] | + + + | Home Phone | | + + + | Preferred Language | Unknown | + + + | Marital Status | | + + + | Church Affiliation | Unknown | + + + | Race | Unknown | + + + | Ethnic Group | Unknown | + + + Author + + + | Author | [facility] | | | and [place] | + + + | Organization | [facility] | | | and [...] Team Providers + +------+ + | Care Standards Engineer Name | Role | Phone | + +------+ + | Kayy Holguin DO | PCP | | + +------+ + Reason for Visit + +--------+ + | Reason | Onset | Comments | | | Date | | + +--------+ + | Medication Refill | 04/16/ | | | | 2018 | | + +--------+ + Encounter Details +--------+--------+ + + + | Date | Type | Department | Care Team | Description | +--------+--------+ + + + | 04/16/ | Refill | [facility] | Svetlana, | Medication Refill | | 2017 | | [facility] | [facility] [address] | | | | | [facility] [address] | [facility] | | | | | [address] [facility], | [place] [address] | | | | | [place] [address] | [phone] | | | | | [phone] | | | +--------+--------+ + + + [...] | Diagnosis | + + | Pain Generalized pain | + + documented in this encounter"
--- OUTSIDE RECORDS SUMMARY | ~2020-01-10 | XMS | Encounter Summary ---
Demographics + + + | Address | [address] | | | [place] [address] | + + + | Home Phone | | + + + | Preferred Language | Unknown | + + + | Marital Status | | + + + | Mandaen Affiliation | Unknown | + + + | Race | Unknown | + + + | Ethnic Group | Unknown | + + + Author + + + | Author | [facility] | | | and [place] | + + + | Organization | [facility] | | | [...] Team Providers + +------+ + | Care Distribution Engineering Technologist Name | Role | Phone | + +------+ + PCP | Unavailable | + +------+ + Encounter Details +--------+ + + + + | Date | Type | Department | Care Team | Description | +--------+ + + + + | 03/14/ | Hospital | [facility] | Linda Bardales | | | 2013 | Encounter | [facility] | Lea, RUBY SOFTWARE DEVELOPER [address] | | | | | [facility] CL[facility] [address] | [facility] [place], | | | | | [address] [facility], | [place] [address] | | | | | [place] [address] | [phone] | | | | | [phone] | | | +--------+ + + + [...]
--- OUTSIDE RECORDS SUMMARY | ~2020-01-10 | XMS | Encounter Summary ---
Demographics + + + | Address | [address] | | | [place] [address] | + + + | Home Phone | | + + + | Preferred Language | Unknown | + + + | Marital Status | | + + + | Pentecostalism Affiliation | Unknown | + + + | Race | Unknown | + + + | Ethnic Group | Unknown | + + + Author + + + | Author | [facility] | | | and [place] | + + + | Organization | [facility] | | | [...] Team Providers + +------+ + | Care Practicing Dermatologist Name | Role | Phone | + +------+ + | Kayy Holguin DO | PCP | | + +------+ + Encounter Details +--------+ + + + + | Date | Type | Department | Care Team | Description | +--------+ + + + + | 08/01/ | Hospital | [facility] [facility] | Kayy Holguin, | Injury of left | | 2018 | Encounter | HOSPITAL XRAY [address] | DO [address] [place] | shoulder, initial | | | | [address] [place] | [place] [address] | encounter | | | | [place], [place] | [phone] | | | | | [address] | | | | | | [phone] | | | +--------+ + + + [...] 2 times daily. | | | | 0 | | tablet | | | | | | + + + +---------+ + + | DULoxetine | Take 30 mg by mouth | | 0 | | | | (CYMBALTA) [address] | Daily. | | | | 0 | | capsule | | | | [...] mg | Daily. | | | | 0 | | tablet | | | | | | + + + +---------+ + + | montelukast | Take 10 mg by mouth | | 0 | | | | (SINGULAIR) 10 mg | nightly. | | | | 0 | | tablet | | | | | | + + + +---------+ + + | simvastatin | | | 0 | 07/25/19 | | | (ZOCOR) 10 mg tablet | | | | 18 | 0 | + + + +---------+ + + | SUMAtriptan | TAKE ONE TABLET BY | 9 | 0 | 06/29/19 | | | (IMITREX) 100 mg | MOUTH AT FIRST ONSET | tablet | | 18 | 0 | | tabletIndications: | OF MIGRAINE | [...] MCG/ACT | | | | 17 | 0 | | inhaler | | | | | | + + + +---------+ + + documented as of this encounter Plan of Treatment Not on filedocumented as of this encounter Procedures + +--------+ + + + | Procedure Name | Priori | Date/Time | Associated Diagnosis | Comments | | | ty | | | | + +--------+ + + + | XR SHOULDER LEFT 2 + | Routin | 08/01/2017 | Injury of left | Results for this | | VW | e | 10:59 AM | shoulder, initial | procedure are in the | | | | PST | encounter | results section. | + +--------+ + + + documented in this encounter Results XR Shoulder Left 2 [...] | Marvin, Rad Results In - 08/01/2017 12:19 PM PST [...] left shoulder, initial encounter | + + documented in this encounter"
--- OUTSIDE RECORDS SUMMARY | ~2020-01-10 | XMS | Encounter Summary ---
Demographics + + + | Address | [address] | | | [place] [address] | + + + | Home Phone | | + + + | Preferred Language | Unknown | + + + | Marital Status | | + + + | Taoism Affiliation | Unknown | + + + | Race | Unknown | + + + | Ethnic Group | Unknown | + + + Author + + + | Author | [facility] | | | and [place] | + + + | Organization | [facility] | | | and [...] Team Providers + +------+ + | Care Brush Polisher Name | Role | Phone | + +------+ + | Kayy Holguin DO | PCP | | + +------+ + Reason for Visit + +--------+ + | Reason | Onset | Comments | | | Date | | + +--------+ + | Results, Imaging | 08/01/ | | | | 2017 | | + +--------+ + Encounter Details +--------+ + + + + | Date | Type | Department | Care Team | Description | +--------+ + + + + | 08/01/ | Telephone | [facility] | Kayy Holguin, | Results, Imaging | | 2018 | | [facility] | [address] | | | | | MEDICAL CLINIC [address] | [place] [address] | | | | | [address] [place], | [phone] | | | | | [place] [address] | | | | | | [phone] | | | +--------+ + + + [...] Telephone Encounter - Diane Thornton LPN - 08/01/2017 3:48 PM PSTBelow msg given to pt .. Diane Thornton LPN elephone Encounte r - Diane Thornton LPN - 08/01/2017 3:48 PM PST----- Message from DO se bianka Dutton at 08/01/2017 12:23 PST ----- No fracture or dislocation per Xray injury appears as a strain at this point , keep plans f or physical therapy Telephone Encounter - Sabino Coleman 08/01/2017 3:22 PM PSTPt is calling about her x-ray results. Please call back. Thanks JodyElectronically signed by Sabino Coleman at 8 3:23 PM PSTdocumented in this encounter Plan of Treatment Not on filedocumented as of this encounter Visit Diagnoses Not on filedocumented in this encounter"
--- OUTSIDE RECORDS SUMMARY | ~2020-01-10 | XMS | Encounter Summary ---
Demographics + + + | Address | [address] | | | [place] [address] | + + + | Home Phone | | + + + | Preferred Language | Unknown | + + + | Marital Status | | + + + | Congregation Affiliation | Unknown | + + + [...] Team Providers + +------+ + | Care Leaf Fat Scraper Name | Role | Phone | + +------+ + PCP | Unavailable | + +------+ + Encounter Details +--------+ + + + + | Date | Type | Department | Care Team | Description | +--------+ + + + + | 06/15/ | Hospital | [facility] [facility] | [place], | | | 2012 | Encounter | HOSPITAL EMERGENCY | DISH WASHER [address] | | | | | [address] | [place] | | | | | [place] | [address] | | | | | [address] | | | | | | [phone] | | | +--------+ + + + [...]
--- OUTSIDE RECORDS SUMMARY | ~2020-01-10 | XMS | Encounter Summary ---
Demographics + + + | Address | [address] | | | [place] [address] | + + + | Home Phone [...] Team Providers + +------+ + | Care Order Picker Name | Role | Phone | + [...] | | [address] [place] | [place] [address] | | | | | [place], [place] | [phone] | | | | | [address] | | | | | | [phone] | | | +--------+ + + + [...] | | mL/min/1.73m2 | LAB | | | (REF) | | | | | + +-------+ [...]
--- OUTSIDE RECORDS SUMMARY | ~2020-01-10 | XMS | Encounter Summary ---
Demographics + + + | Address | [address] | | | [place] [address] | + + + | Home Phone [...] | + + +---------+ + | Venancio Kennedyr | ECON | Unknown | | + + +---------+ + Care Team Providers + +------+ + | Care Organ Recovery Coordinator Name | Role | Phone | + +------+ + PCP | Unavailable | + +------+ + Encounter Details +--------+ + + + + | Date | Type | Department | Care Team | Description | +--------+ + + + + | 06/09/ | Hospital | [facility] | Kayy Holguin, | | | 2017 | Encounter | HOSPITAL XRAY [address] | DO [address] | | | | | [address] [place] | [place] [address] | | | | | [place], [place] | [phone] | | | | | [address] | | | | | | [phone] | | | +--------+ + + + [...] . IMPRESSION: No acute finding JOB #: [id number] | | | Digitally Released by: Shaka Looney Read By: SHAKA Guerrero | | | MD JEAN CARLOS Date: 11/18/2016 16:03 | | + + + + + | Procedure Note | + + | Wili Wong Results In - 06/22/2017 12:45 PM PST [...] | | | | | JOB #: [id number] | | Digitally Released by: Shaka Looney | | | | | | Read By: SHAKA LOONEY MD | | Date: 11/18/2016 16:03 | | | + + documented in this encounter Visit Diagnoses Not on filedocumented in this encounter"
--- OUTSIDE RECORDS SUMMARY | ~2020-01-10 | XMS | Encounter Summary ---
Demographics + + + | Address | [address] | | | [place] [address] | + + + | Home Phone [...] Providers + +------+ + | Care Manufacturing Shift Supervisor Name | Role | Phone | + +------+ + PCP | Unavailable | + +------+ + Encounter Details +--------+ + + + + | Date | Type | Department | Care Team | Description | +--------+ + + + + | 12/25/ | Hospital | [facility] | Claudia Muir | | | 2015 | Encounter | HOSPITAL SLEEP | [address] | | | | | CLIN[address] | [place] | | | | | [place], [place] | [address] | | | | | [address] | [phone] | | | | | [phone] | | | +--------+ + + + [...]
--- OUTSIDE RECORDS SUMMARY | ~2020-01-10 | XMS | Encounter Summary ---
Demographics + + + | Address | [address] | | | [place] [address] | + + + | Home Phone [...] + | Author | [facility] | | | and [place] | + + + | Organization | [facility] | | | [...] Team Providers + +------+ + | Care Crystal Grinder Name | Role | Phone | [...] | [address] [place], | [address] | | | | | [place] [address] | | | | | | [phone] | | | +--------+ + + + [...] | + +--------+ + + + | PAP, LB REFLEX HPV | Routin | 10/28/2015 | | Results for this | | ALL PTH | e | 4:18 PM | | procedure are in the | | | | PDT | | results section. | + +--------+ + + + | PAP, LB REFLEX HPV | Routin | 10/28/2015 | | Results for this | | ALL PTH | e | 4:18 PM | | procedure are in the | | | | PDT | | results section. | + +--------+ + + + documented in this encounter Results Pap, Lb Rflx HPV All Pth (10/28/2015 4:18 PM PDT) + + | Specimen | + + | | + + + + + | Narrative | Performed At | + + + | .D: 16 : 00:00am .T: JUAN DAVID Cytology Report .PV: MARNIE Status: F | EXTERNAL LAB | | Ordering Provider Amadna DE LA CRUZ M.D. 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 History: | | | [id number] 04/18/13 Negative for Intraepithelial Lesion or | | | Malignancy [id number] 08/28/97 Within normal limits. | | | Disclaimer The. : 00:00am .T: [facility] | | | Report .PV: KNI Status: F Ordering Provider Amanda DE LA CRUZ | | | Jorge @W/-X CC Provider Amanda DE LA CRUZ M.D. @W/-X, - [facility] | | | [employer] Formerly [facility] /W, [facility], [employer] A/S MANAGEMENT /F Collected Date | | | 20151028 Received Date 20151029 Completed Date | | | 20151030 Specimens: Endometrial biopsy Pre-Op Diagnosis: | | | Menorrhagia Post-Op Diagnosis: Same Chart/ID#: | | | [id number] Diagnosis: Uterus, endometrium, biopsy: Early | | [...] NA The gross examination is performed at [facility] | | | [facility], [address] [place] [address]. Microscopic | | | Examination: Sections of [...] La Cruz M.D. | | | @W/-X, [facility] # SIGNED BY | | | AMANDA DE LA CRUZ MD, Dr. (JACQUESI)11/04/2015 09:43AM pap smear is not a | | | diagnostic procedure and should not be used as the sole means to | | | detect cervical cancer. It is only a screening procedure to aid in the | | | detection of cervical cancer. Both false-negative and false-positive | | | results have been experienced. User 1 Lab Phone: [phone] | | | [phone] Ordering Provider: Amanda De La Cruz M.D. @W/-Earl Terry | | | [facility] # SIGNED BY AMANDA Dominguez | | | MD DE LA CRUZ Dr. (KN)11/04/2015 09:43AM | | + + + + +---------+ + + | Performing | Address | City/State/[place] [facility] | Phone Number | | Organization | | | | + +---------+ + + | EXTERNAL LAB | | | | + +---------+ + + Pap, Lb Rflx HPV All Pth (10/28/2015 4:18 PM PDT) + + | Specimen | + + | | + + + + + | Narrative | Performed At | + + + | . : 00:00am .T: [facility] Cytology Report .PV: MARNIE Status: F | EXTERNAL LAB | | Ordering Provider Amanda DE LA CRUZ M.D. 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 History: | | | [id number] 04/18/13 Negative for Intraepithelial Lesion or | | | Malignancy [id number] 08/28/97 Within normal limits. | | | Disclaimer The. : 00:00am .T: [facility] | | | Report .PV: MARNIE Status: F Ordering Provider Amanda DE LA CRUZ | | | Jorge @W/-X CC Provider Amanda DE LA CRUZ M.D. @W/-X, - [facility] | | | [employer] Formerly [facility] /W, [facility], HEALTH INFO MANAGEMENT /F Collected Date | | | 20151028 Received Date 20151029 Completed Date | | | 20151030 Specimens: Endometrial biopsy Pre-Op Diagnosis: | | | Menorrhagia Post-Op Diagnosis: Same Chart/ID#: | | | [id number] Diagnosis: Uterus, endometrium, biopsy: Early | | [...] NA The gross examination is performed at [facility] | | | [facility], [address] [place] [address]. Microscopic | | | Examination: Sections of [...] La Cruz M.D. | | | @W/-X, [facility] # SIGNED BY | | | AMANDA DE LA CRUZ MD, (JACQUES)11/04/2015 09:43AM pap smear is not a | | | diagnostic procedure and should not be used as the sole means to | | | detect cervical cancer. It is only a screening procedure to aid in the | | | detection of cervical cancer. Both false-negative and false-positive | | | results have been experienced. User 1 Lab Phone: [phone] | | | [phone] Ordering Provider: Amanda De La Cruz M.D. @W/-Earl Terry | | | [facility] # SIGNED BY AMANDA Dominguez | | | MD DE LA CRUZ Dr. (JACQUESI)11/04/2015 09:43AM | | + + + + +---------+ + + | Performing | Address | City/State/Zipcode | Phone Number | | Organization | | | | + +---------+ + + | EXTERNAL LAB | | | | + +---------+ + + documented in this encounter Visit Diagnoses Not on filedocumented in this encounter
--- OUTSIDE RECORDS SUMMARY | ~2020-01-10 | XMS | Encounter Summary ---
Demographics + + + | Address | [address] | | | [place] [address] | + + + | Home Phone | | + + + | Preferred Language | Unknown | + + + | Marital Status | | + + + | Temple Affiliation | Unknown | + + + | Race | Unknown | + + + | Ethnic Group | Unknown | + + + Author + + + | Author | [facility] | | | and [place] | + + + | Organization | [facility] | | [...] Team Providers + +------+ + | Care Avionics Manager Name | Role | Phone | [...] Medication Refill | | 2017 | | [facility] | DO [address] [place] | | | | | MEDICAL CLINIC [address] | [place] [address] | | | | | [address] [place], | [phone] | | | | | [place] [address] | | | | | | [phone] | | | +--------+--------+ + + + [...] | + + | Pain - Primary Generalized pain | + + documented in this encounter"
--- OUTSIDE RECORDS SUMMARY | ~2020-01-10 | XMS | Encounter Summary ---
Demographics + + + | Address | [address] | | | [place] [address] | + + + | Home Phone [...] Providers + +------+ + | Care Senior Maintenance Technician Name | Role | Phone | + +------+ + PCP | Unavailable | + +------+ + Encounter Details +--------+ + + + + | Date | Type | Department | Care Team | Description | +--------+ + + + + | 03/04/ | Hospital | [facility] | Kuldeep Villanueva | | | 2016 | Encounter | HOSPITAL UROLOGY | MD Jesse [address] | | | | | [address] [place] | [address] [place] | | | | | [place], [place] | [place] [address] | | | | | [address] | [phone] | | | | | [phone] | | | +--------+ + + + [...]
--- OUTSIDE RECORDS SUMMARY | ~2020-01-10 | XMS | Encounter Summary ---
Demographics + + + | Address | [address] | | | [place] [address] | + + + | Home Phone [...] Team Providers + +------+ + | Care Education Counselor Name | Role | Phone | + +------+ + PCP | Unavailable | + +------+ + Encounter Details +--------+ + + + + | Date | Type | Department | Care Team | Description | +--------+ + + + + | 01/04/ | Hospital | [facility] | Neville-Andrey, | | | 2016 | Encounter | HOSPITAL OBSTETRICS | Shruthi Abebe NP [address] | | | | | [address] [place] | [address] [place] | | | | | [place], [place] | [place] | | | | | [address] | [address] | | | | | [phone] | [phone] | | | | | | | [...]
--- OUTSIDE RECORDS SUMMARY | ~2020-01-10 | XMS | Encounter Summary ---
Demographics + + + | Address | [address] | | | [place] [address] | + + + | Home Phone [...] Team Providers + +------+ + | Care Congressional Aide Name | Role | Phone | [...] Description | +--------+--------+ + + + | 08/12/ | Refill | [facility] | Svetlana, | Medication Refill | | 2019 | | [facility] | [facility], DEVOPS ENGINEER [address] | | | | | MEDICAL CLINIC [address] | [address] [place] | | | | | [address] [place], | [place] [address] | | | | | [place] [address] | [phone] | | | | | [phone] | | | +--------+--------+ + + + [...] this encounter Miscellaneous Notes Telephone Encounter - Solange Garsia - 08/14/2019 10:51 AM PSTScheduled 09/04/19. Jose Maria Littlen elephone Encount er - Suad Guerrero LPN - 08/13/2019 6:06 PM PSTPlease call patient and help make a medi cation follow up with Dr. Holguin. Suad Guerrero LPN elephone Encounter - Suad Guerrero LPN - 08/13/2019 5:27 PM PST Requested Prescriptions Pending Prescriptions Disp Refills ibuprofen (ADVIL,MOTRIN) 800 MG tablet [Pharmacy Med Name: Ibuprofen 800 Mg Tab Amne] 1 80 tablet 0 Sig: TAKE ONE TABLET BY MOUTH TWICE DAILY WITH FOOD Patient's last refill 04/16/18. Patient was last seen on Recent Visits Department Visit Type Primary Dx 10/04/2018 [facility] Office Visit Acute pain of right shoulder No results found for: HBA1C Lab Results Component Value Date WBC 6.8 04/03/2015 MCV 89 04/03/2015 LABPLAT 269 04/03/2015 Lab Results Component Value Date CREA 0.81 08/08/2017 BUN 9 08/08/2017 NA 139 08/08/2017 K 4.1 08/08/2017 CL 103 08/08/2017 CO2 24 08/08/2017 Lab Results Component Value Date ALT 38 08/08/2017 AST 22 08/08/2017 ALKPHOS 93 08/08/2017 BILITOT 0.2 08/08/2017 Suad Guerrero LPN documented in this encounter Plan of Treatment Not on filedocumented as of this encounter Visit Diagnoses + + | Diagnosis | + + | Pain Generalized pain | + + documented in this encounter"
--- OUTSIDE RECORDS SUMMARY | ~2020-01-10 | XMS | Encounter Summary ---
Demographics + + + | Address | [address] | | | [place] [address] | + + + | Home Phone [...] Team Providers + +------+ + | Care Estimation Manager Name | Role | Phone | + +------+ + PCP | Unavailable | + +------+ + Encounter Details +--------+ + + + + | Date | Type | Department | Care Team | Description | +--------+ + + + + | 03/26/ | Hospital | [facility] | Linda Bardales | | | 2013 | Encounter | HOSPITAL RESPIRATORY | Lea, PET WALKER [address] | | | | | THERAPY [address] | [address] [place], | | | | | [place], [place] | [place] [address] | | | | | [address] | [phone] | | | | | [phone] | | | +--------+ + + + [...]
--- OUTSIDE RECORDS SUMMARY | ~2020-01-10 | XMS | Encounter Summary ---
Demographics + + + | Address | [address] | | | [place] [address] | + + + | Home Phone [...] Team Providers + +------+ + | Care Oil Burner Journeyman Name | Role | Phone | + +------+ + PCP | Unavailable | + +------+ + Encounter Details +--------+ + + + + | Date | Type | Department | Care Team | Description | +--------+ + + + + | 03/01/ | Hospital | [facility] | Kludeep Villanueva | | | 2016 | Encounter | HOSPITAL UROLOGY | MD [address] | | | | | [address] [place] | [address] | | | | | [place], [place] | [place] [address] | | | | | [address] | [phone] | | | | | [phone] | | | +--------+ + + + [...]
--- OUTSIDE RECORDS SUMMARY | ~2020-01-10 | XMS | Encounter Summary ---
Demographics + + + | Address | [address] | | | [place] [address] | + + + | Home Phone | | + + + | Preferred Language | Unknown | + + + | Marital Status | | + + + | Christian Affiliation | Unknown | + + + | Race | Unknown | + + + | Ethnic Group | Unknown | + + + Author + + + | Author | [facility] | | | and [place] | + + + | Organization | [facility] | | | [...] Team Providers + +------+ + | Care Physical Security Engineer Name | Role | Phone | + +------+ + PCP | Unavailable | + +------+ + Encounter Details +--------+ + + + + | Date | Type | Department | Care Team | Description | +--------+ + + + + | 08/18/ | Hospital | [facility] | Ana Luisa Alexandra, | | | 2015 | Encounter | [facility] | DIETETIC AIDE [address] | | | | | MEDICAL CLINIC [address] | [address] [place], [place] | | | | | [address] [place], | [address] | | | | | [place] [address] | | | | | | [phone] | | | +--------+ + + + [...]
--- OUTSIDE RECORDS SUMMARY | ~2020-01-10 | XMS | Encounter Summary ---
Demographics + + + | Address | [address] | | | [place] [address] | + + + | Home Phone [...] Providers + +------+ + | Care Technical Account Representative Name | Role | Phone | + +------+ + PCP | Unavailable | + +------+ + Encounter Details +--------+ + + + + | Date | Type | Department | Care Team | Description | +--------+ + + + + | 03/19/ | Hospital | [facility] | Kayy Holguin, | | | 2015 | Encounter | [facility] | DO [address] [place] | | | | | [address] [place] | [place] [address] | | | | | [place], [place] | [phone] | | | | | [address] | | | | | | [phone] | | | +--------+ + + + [...] | + +--------+ + + + | LIPID PANEL | Routin | 03/19/2015 | | Results for this | | | e | 8:22 AM | | procedure are in the | | | | PDT | | results section. | + +--------+ + + + | COMPREHENSIVE | Routin | 03/19/2015 | | Results for this | | METABOLIC PANEL | e | 8:22 AM | | procedure are in the | | | | PDT | | results section. | + +--------+ + + + documented in this encounter Results Lipid Panel (03/19/2015 8:22 AM PDT) + +-------+ + + + | Component | Value | Ref Range | Performed | Pathologist | | | | | At | Signature | + +-------+ + + + | Cholesterol | 172 | <=200 mg/dL | EXTERNAL | | | , POC | | | LAB | | + +-------+ + + + | HDL | 38 | >=40 mg/dL | EXTERNAL | | | | | | LAB | | + +-------+ + + + | Triglycerid | 147 | 30 - 200 mg/dL | EXTERNAL | | | es | | | LAB | | + +-------+ + + + | Chol/HDL | 4.5 | <=4.6 RATIO | EXTERNAL | | | Ratio | | | LAB | | + +-------+ + + + | VLDL | 29 | 4 - 40 mg/dL | EXTERNAL | | | | | | LAB | | + +-------+ + + + | LDL-C | 105 | <=130 mg/dL | EXTERNAL | | | (calculated | | | LAB | | | ) | | | | | + +-------+ + + + + + | Specimen | + + | | + + + +---------+ + + | Performing | Address | City/State/Zipcode | Phone Number | | Organization | | | | + +---------+ + + | EXTERNAL LAB | | | | + +---------+ + + Comprehensive Metabolic Panel (03/19/2015 8:22 AM PDT) + +-------+ + + + | Component | Value | Ref Range | Performed | Pathologist | | | | | At | Signature | + +-------+ + + + | Sodium | 137 | 132 - 143 | EXTERNAL | | | | | mmol/L | LAB | | + +-------+ + + + | Potassium | 4.2 | 3.3 - 4.9 | EXTERNAL | [...] + + + | Anion Gap | 9 | 7 - 16 | EXTERNAL | | | | | | LAB | | + +-------+ + + + | Calcium | 8.1 | 8.3 - 10.0 | EXTERNAL | | | | | mg/dL | LAB | | + +-------+ + + + | Glucose | 97 | 70 - 110 mg/dL | EXTERNAL | | | | | | LAB | | + +-------+ + + + | BUN, Bld | 15 | 5 - 26 mg/dL | EXTERNAL | | | | | | LAB | | + +-------+ + + + | Creatinine | 0.8 | 0.6 - 1.3 mg/dL | EXTERNAL | | | | | | LAB | | + +-------+ + + + | BUN/Creatin | 18.8 | 7.0 - 24.0 | EXTERNAL | | | ine Ratio | | RATIO | LAB | | + +-------+ + + + | GFR | 60 | >=60 | EXTERNAL | | | ESTIMATE | | mL/min/1.73m2 | LAB | | | (REF) | | | | | + +-------+ + + + | Bilirubin, | 0.2 | <=1.2 mg/dL | EXTERNAL | | | Total | | | LAB | | + +-------+ + + + | Protein, | 6.8 | 6.6 - 8.5 g/dL | EXTERNAL | | | Total | | | LAB | | + +-------+ + + + | Albumin | 3.3 | 3.0 - 4.5 g/dL | EXTERNAL | | | | | | LAB | | + +-------+ + + + | Alkaline | 76 | 46 - 116 U/L | EXTERNAL | | | Phosphatase | | | LAB | | + +-------+ + + + | ALT, | 25 | 14 - 59 U/L | EXTERNAL | | | External | | | LAB | | + +-------+ + + + | AST, | 13 | <=38 U/L | EXTERNAL | | [...]
--- OUTSIDE RECORDS SUMMARY | ~2020-01-10 | XMS | Encounter Summary ---
Demographics + + + | Address | [address] | | | [place] [address] | + + + | Home Phone | | + + + | Preferred Language | Unknown | + + + | Marital Status | | + + + | Christian Affiliation | Unknown | + + + | Race | Unknown | + + + | Ethnic Group | Unknown | + + + Author + + + | Author | [facility] | | | and [place] | + + + | Organization | [facility] | | | [...] Team Providers + +------+ + | Care Tape Editor Name | Role | Phone | + +------+ + | Kayy Holguin DO | PCP | | + +------+ + Reason for Visit + +--------+ + | Reason | Onset | Comments | | | Date | | + +--------+ + | Migraine | 09/02/ | | | | 2020 | | + +--------+ + Encounter Details +--------+ + + + + | Date | Type | Department | Care Team | Description | +--------+ + + + + | 09/02/ | Telephone | [facility] | Kayy Holguin, | Migraine | | 2020 | | [facility] | [address] [place] | | | | | MEDICAL CLIN[facility] [address] | [place] [address] | | | | | [address] [place], | [phone] | | | | | [place] [address] | | | | | | [phone] | | | +--------+ + + + [...] this encounter Miscellaneous Notes Telephone Encounter - Suad Guerrero LPN - 09/03/2019 3:10 PM PDTFormatting of this not e might be different from the original. Kayy Holguin, DO You 17 minutes ago (2:53 PM) Let her know sent to pharmacy for Maxalt to try for the migraines. Please let patient know Dr. Holguin sent RX to pharmacy. Suad Guerrero LPN elephone Encounter - Cristina Garduno - 09/03/2019 2:32 PM PDTPt rescheduled her 09/02 appt out to 09/18 because he r car is not running, she has been having migraine headaches and took her ibuprofen for it s o she is out, she had some migraine medication but the insurance won't cover it, is there a different brand she could take? Please call pt at [phone] signed by Cristina Garduno at 09/03/2019 2:34 PM PDTdocumented in this encounter Plan of Treatment Not on filedocumented as of this encounter Visit Diagnoses + + | Diagnosis | + + | Migraine without aura and without status migrainosus, not intractable - Primary | | Migraine without aura, without mention of intractable migraine without mention of status | | migrainosus | + + documented in this encounter"
--- OUTSIDE RECORDS SUMMARY | ~2020-01-10 | XMS | Encounter Summary ---
Demographics + + + | Address | [address] | | | [place] [address] | + + + | Home Phone [...] Team Providers + +------+ + | Care Inspector Poising Name | Role | Phone | + +------+ + PCP | Unavailable | + +------+ + Encounter Details +--------+ + + + + | Date | Type | Department | Care Team | Description | +--------+ + + + + | 04/03/ | Hospital | [facility] | Linda Bardales | | | 2012 | Encounter | HOSPITAL X[facility] [address] | [place], SAIL MAKER [address] | | | | | [address] [place] | [facility], | | | | | [facility], [place] | [place] [address] | | | | | [address] | [phone] | | | | | [phone] | | | +--------+ + + + [...]
--- OUTSIDE RECORDS SUMMARY | ~2020-01-10 | XMS | Encounter Summary ---
Demographics + + + | Address | [address] | | | [place] [address] | + + + | Home Phone | | + + + | Preferred Language | Unknown | + + + | Marital Status | | + + + | Gnosticist Affiliation | Unknown | + + + [...] Team Providers + +------+ + | Care Clothespin Machine Operator Name | Role | Phone | + +------+ + PCP | Unavailable | + +------+ + Encounter Details +--------+ + + + + | Date | Type | Department | Care Team | Description | +--------+ + + + + | 10/07/ | Hospital | [facility] | Kayy Holguin, | | | 2016 | Encounter | [facility] | DO [address] [place] | | | | | MEDICAL CLIN[facility] [address] | [place] [address] | | | | | [address] [place], | [phone] | | | | | [place] [address] | | | | | | [phone] | | | +--------+ + + + [...]
--- OUTSIDE RECORDS SUMMARY | ~2020-01-10 | XMS | Encounter Summary ---
Demographics + + + | Address | [address] | | | [place] [address] | + + + | Home Phone [...] Team Providers + +------+ + | Care Brineyard Supervisor Name | Role | Phone | + +------+ + PCP | Unavailable | + +------+ + Encounter Details +--------+ + + + + | Date | Type | Department | Care Team | Description | +--------+ + + + + | 06/20/ | Hospital | [facility] | iLnda Bardales | | | 2014 | Encounter | [facility] | [place]a, WELDER/FITTER [address] | | | | | [facility] [address] | [facility], | | | | | [address] [facility], | [place] [address] | | | | | [place] [address] | [phone] | | | | | [phone] | | | +--------+ + + + [...]
--- OUTSIDE RECORDS SUMMARY | ~2020-01-10 | XMS | Encounter Summary ---
Demographics + + + | Address | [address] | | | [place] [address] | + + + | Home Phone [...] Team Providers + +------+ + | Care Masonry Contractor Administrator Name | Role | Phone | + [...] [facility] | DO [address] [place] | | | | | MEDICAL CLINIC [address] | [place] [address] | | | | | [address] [place], | [phone] | | | | | [place] [address] | | | | | | [phone] | | | +--------+ + + + [...]
--- OUTSIDE RECORDS SUMMARY | ~2020-01-10 | XMS | Encounter Summary ---
Demographics + + + | Address | [address] | | | [place] [address] | + + + | Home Phone | | + + + | Preferred Language | Unknown | + + + | Marital Status | | + + + | Hoahaoism Affiliation | Unknown | + + + | Race | Unknown | + + + | Ethnic Group | Unknown | + + + Author + + + | Author | [facility] | | | and [place] | + + + | Organization | [facility] | | | [...] Team Providers + +------+ + | Care Bank Vault Custodian Name | Role | Phone | + +------+ + | Kayy Holguin DO | PCP | | + +------+ + Reason for Visit + +--------+ + | Reason | Onset | Comments | | | Date | | + +--------+ + | Lab Results | 09/18/ | | | | 2020 | | + +--------+ + Encounter Details +--------+ + + + + | Date | Type | Department | Care Team | Description | +--------+ + + + + | 09/18/ | Telephone | [facility] | Kayy Holguin, | Lab Results | | 2020 | | [facility] | DO [address] | | | | | MEDICAL CLINIC [address] | [place] [address] | | | | | [address]TH [facility], | [phone] | | | | | [place] [address] | | | | | | [phone] | | | +--------+ + + + [...] Telephone Encounter - Suad Guerrero LPN - 09/19/2019 4:37 PM PDTMy chart message sent. Suad Guerrero LPN elephone Encounter - Suad Guerrero LPN - 09/19/2019 4:34 PM PDT----- Message from Kayy Holguin DO sent at 09/19/2019 4:15 PM PDT ----- Let patient know labs look good, good kidney and liver function. Good protein and calcium s tatus. Good cholesterol with total 192.Electronically signed by Suad Guerrero LPN at 02/2020 4:34 PM PDTdocumented in this encounter Plan of Treatment Not on filedocumented as of this encounter Visit Diagnoses Not on filedocumented in this encounter"
--- OUTSIDE RECORDS SUMMARY | ~2020-01-10 | XMS | Encounter Summary ---
Demographics + + + | Address | [address] | | | [place] [address] | + + + | Home Phone [...] Providers + +------+ + | Care Adjunct Philosophy Faculty Name | Role | Phone | + [...] + + | 07/13/ | Refill | [facility] | Kayy Holguin, | Medication Refill | | 2017 | | [facility] | [address] | | | | | MEDICAL CLIN[address] | [place] [address] | | | | | [address]TH [facility], | [phone] | | | | | [place] [address] | | | | | | [phone] | | | +--------+--------+ + + + [...]
--- OUTSIDE RECORDS SUMMARY | ~2020-01-10 | XMS | Encounter Summary ---
Demographics + + + | Address | [address] | | | [place] [address] | + + + | Home Phone | | + + + | Preferred Language | Unknown | + + + | Marital Status | | + + + | Jain Affiliation | Unknown | + + + | Race | Unknown | + + + | Ethnic Group | Unknown | + + + Author + + + | Author | [facility] | | | and [place] | + + + | Organization | [facility] | | | [...] Providers + +------+ + | Care Police Chief Deputy Name | Role | Phone | + [...] [address] [place] | [place], [place] | | | | | [place], [place] | [address] | | | | | [address] | [phone] | | | | | [phone] | | | +--------+ + + + [...]
--- OUTSIDE RECORDS SUMMARY | ~2020-01-10 | XMS | Encounter Summary ---
Demographics + + + | Address | [address] | | | [place] [address] | + + + | Home Phone [...] Team Providers + +------+ + | Care Radial Arm Saw Operator Name | Role | Phone [...] | | | [place] TREAT | [place] [address] | [place] [address] | | | | | | Phone: | Phone: | | | | | | [phone] | [phone] | | | | | | Fax: | Fax: | | | | | | [phone] | [phone] | + +--------+ + + + + Encounter Details +--------+ + + + + | Date | Type | Department | Care Team | Description | +--------+ + + + + | 10/15/ | Hospital | [facility] | Kayy Holguin, | Acute midline low | | 2020 | Encounter | HOSPITAL THERAPY PT | DO [address] [place] | back pain without | | | | [address] [place] | [place] [address] | sciatica (Primary | | | | [place], [place] | [phone] | Dx) | | | | [address] | | | | | | [phone] | Yury Carbone | | | | [...] to three | 90 | 0 | 09/19/19 | | | (ADVIL,MOTRIN) 800 | tabs daily with food | tablet | | 20 | 0 | | MG | | | | | | | tabletIndications: | | | | | | | Pain | | | | | | + + + +---------+ + + documented as of this encounter Progress Notes Yury Carbone, PT - 10/16/2019 10:30 AM PDTFormatting of this note might be differen t from the original. [facility] THERAPY PT [address] [place] [address] Physical Therapy Daily Treatment Note Date: 10/16/2019 Patient Information Patient Name: Riddhi Perez Date of : 1970 Age: 49 y.o. Encounter Diagnoses Code Name Primary? M54.5 Acute midline low back pain without sciatica Yes Date of Onset: 09/19/2019 Referring Provider: Kayy Holguin, DO Objective Pain Assessment: Pain Rating During Assessment: 7 Location: low to mid back Today's Treatment Patient Name: Riddhi Perez/: 1970/ Start Time: 1020 Stop time: 1105 Duration: 45 minutes Timed Treatment Codes: 41 minutes # of PT Visits to Date: 2 Visit Summary: S: Riddhi is here, no questions & ready to start. A: We discussed her need to comply with HEP as she would only be coming in 1x/week due to her travel to get here & she agrees she will do this. We instructed/performed TE & she did so "maybe feeling a little b cynthia after"... she will perform this indep at home for the remaining week. She declined th e need for manual work today. Next Visit Information: assess/advance TE - may include manual work prn Patient/Caregiver Education Learner: Patient Readiness: Acceptance Method: Explanation, Demonstration, Handout Response: Verbalizes Understanding, Demonstrated Understanding Comment: as noted Therapy Interventions HEP: she is to perform the TE done in clinic at home as tolerated with focus on form & prop er execution. She is to call if she has issues after doing them. PT Interventions: Intervention #1 PT INTERVENTION 1: TE 41' - Nu Step - L3 - during which time we disucced the specifics of h er condition & TE relative to her case. Squats - performed with focus on proper LE & trunk alignement & posture as well as execution both with 2 lbs at (0 degrees arm hold & w/o wght, Clamshells YTB 30" hold on/off, Supermans - alt arm/leg 1' holds, breidges - 60" holds o n/off. We discussed the rationale & reasoning with all TE as we performed relative to her sp ecifics. Assessment Rehabilitation potential: Patient demonstrates good potential to achieve established goals to address the documented impairments by participating in skilled physical therapy services. Electronically signed by: Yury Carbone, PT, 10/16/2019 11:38 AM Patient Name: Riddhi Perez/: 1970/ documented in th is encounter Plan of Treatment Not on filedocumented as of this encounter Visit Diagnoses + + | Diagnosis | + + | Acute midline low back pain without sciatica - Primary | + + documented in this encounter
--- OUTSIDE RECORDS SUMMARY | ~2020-01-10 | XMS | Encounter Summary ---
Demographics + + + | Address | [address] | | | [place] [address] | + + + | Home Phone [...] Team Providers + +------+ + | Care Athletic Scout Name | Role | Phone | + +------+ + PCP | Unavailable | + +------+ + Encounter Details +--------+ + + + + | Date | Type | Department | Care Team | Description | +--------+ + + + + | 11/12/ | Hospital | [facility] | Deonte Lazar, | | | 2015 | Encounter | [facility] | DO [address] | | | | | [address] | [place], [place] | | | | | [place], [place] | [address] | | | | | [address] | [phone] | | | | | [phone] | | | +--------+ + + + [...] documented as of this encounter Miscellaneous Notes Op Note - Deonte Lazar DO - 11/12/2014 7:16 AM PDT OPERATIVE REPORT DATE OF SURGERY: 11/12/2014. 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 PROCEDURE: Diagnostic and operative arthroscopy left shoulder with subacromial decompression with dist al clavicle excision. SURGEON: Deonte Lazar DO. DIGITAL MEASUREMENT ADVISOR: Lora Diamond RN, FA ANESTHESIA: General with local. COMPLICATIONS: None. EBL: Minimal. FLUIDS: 1 L of LACTATED RINGERS. SPECIMENS: None. SPONGE/NEEDLE COUNT: Correct. PREOPERATIVE ANTIBIOTIC: ANCEF 2 grams IV. DISPOSITION: Stable to PACU. INDICATIONS: Riddhi is a 44-year-old female who had been experiencing significant left shoulder pain for over a year. She has failed conservative management with physical therapy, injections, antii nflammatory medications, rest and activity modification. She continued to have pain and discomfort. Her MRI was fairly benign demonstrating some mild rotator cuf f tendonitis and AC joint arthrosis. We had discussed treatment options. She had only recei rebecca 50% relief with her CORTISONE injection. In the past I cautioned her on expectations postoperatively: however, she has failed everything else and is requesting to proceed with operative intervention. Risks, benefits, and alternatives to surgery were discussed. Specific risks included but n ot limited to heart attack, stroke, loss or life, loss of limb, nerve injury, vessel injury, infection, DVT formation, stiffness, and continued postoperative pain were discussed. The patient demonstrates understanding of these risks and wishes to procee d with operative intervention. She was admitted to [facility] for a subacromial decompression with distal clavi paulette excision on 11/12/2014. OPERATIVE NARRATIVE: Riddhi was seen in the preoperative holding area. H&P was updated. Surgical site was signed . She was transferred to the OR, transferred from her hospital bed to the surgical table. General anesthetic was administered per anesthesia protocol: 2 grams of ANCEF were administered IV and then general endotracheal tube was placed and secured. She w as then placed in the right lateral decubitus position. All bony prominences were inspected and well padded. She was secured to the bed with a beanbag and multiple straps and left arm was placed in longitudinal traction with 10 pounds. Left upper extremit y was prepped and draped in sterile fashion. Timeout performed identifying the correct robert ent, procedure and extremity. Standard posterior portal was then made and trocar introducer was placed into the glenohumeral joint. Sterile SALINE was used to in flate the joint. Standard anterior portal was then made and cannulated under arthroscopic v isualization and diagnostic portion of the exam was then performed. Probing of the superior labral complex did not reveal any superior labral tear. There was n o biceps tenosynovitis appreciated intra-articularly or subluxation of the biceps tendon out of the intertubercular groove with probing. Subscapularis as well as the supra, infra and teres minor rotator cuff tendons were intact. Her anterior, inferior, and posterior labrum was intact. There were no loose bodies appreciated in the axillary po uch. Arthroscope was then placed in the subacromial space. Sterile SALINE was used to inflate the subacromial space. The patient was noted to have hypertropi c bursa within the subacromial space so debridement of this bursa was performed through a la teral portal from anterior to posterior. There was no significant inflammatory component of the bursa, however. The patient did have a small acromial spur t hat was removed with a 5.5 mm francie. This transitioned her small type 2 acromion to a type 1 acromion. Next, the AC joint was visualized and 7 mm of distal clavicle was excised with a 5.5 mm francie. After this was performed final images were obtained. Arth roscopic equipment was then removed from the shoulder joint. Portal sites were closed with 3 -0 nylon in an interrupted portal stitch fashion: 10 ml of 0.5% ROPIVACAINE plain was injected into the portal sites and 20 ml was injected in the subacrom ial space. Sterile dressing was applied. Her left shoulder drapes were removed. The patient was transitioned from the right lateral decubitus position to the supine position and her anesthesia was reversed per anesthesia protocol. General endotracheal tub e was removed and she was transferred from the surgical table to the hospital bed to the PAC U in stable medical condition. The patient tolerated the procedure very well without any major complications. CC: Kayy Holguin DO [facility] Signed and Approved by: DEONTE LAZAR 11/23/2014 07:28:00 documented in this encounter Plan of Treatment [...]
--- OUTSIDE RECORDS SUMMARY | ~2020-01-10 | XMS | Encounter Summary ---
Demographics + + + | Address | [address] | | | [place] [address] | + + + | Home Phone | | + + + | Preferred Language | Unknown | + + + | Marital Status | | + + + | Tenriism Affiliation | Unknown | + + + [...] Team Providers + +------+ + | Care Skip Hoist Operator Name | Role | Phone | [...] | | | | Procedures | [place] [address] | [place] [address] | | | | | PT TREAT | Phone: | Phone: | | | | | | [phone] | [phone] | | | | | | Fax: | Fax: | | | | | | [phone] | [phone] | +--------+ + + + + + Reason for Visit +---------+--------+ + | Reason | Onset | Comments | | | Date | | +---------+--------+ + | Results | 11/01/ | | | | 2018 | | +---------+--------+ + Encounter Details +--------+ + + + + | Date | Type | Department | Care Team | Description | +--------+ + + + + | 11/01/ | Telephone | [facility] | Kayy Holguin, | Results | | 2019 | | [facility] | DO [address] | | | | | MEDICAL CLINIC [address] | [facility] [place] [address] | | | | | [address] [place], | [phone] | | | | | [place] [address] | | | | | | [phone] | | | +--------+ + + + [...] this encounter Miscellaneous Notes Telephone Encounter - Grace Kendall LPN - 11/01/2018 1:55 PM PDTPatient notified and will let us know Where to fax the referral. Lou Fuentesectronically signed by Grace Kendall LPN at 11/01/2018 1:55 PM PDTTelephone Encounter - Grace Kendall, KIMANI - 11/01/2018 12:51 PM PDTPatient notified, now she wants a referral to PT for this. Grace Kendall, SIRENAN P M PDTTelephone Encounter - Mariana Webber - 11/01/2018 10:09 AM PDTPt is calling for her MRI results, please call Thanks MARIANA documented in t his encounter Plan of Treatment + + +--------+ [...]
--- OUTSIDE RECORDS SUMMARY | ~2020-01-10 | XMS | Encounter Summary ---
Demographics + + + | Address | [address] | | | [place] [address] | + + + | Home Phone [...] Team Providers + +------+ + | Care Benefits Consultant Name | Role | Phone | + +------+ + PCP | Unavailable | + +------+ + Encounter Details +--------+ + + + + | Date | Type | Department | Care Team | Description | +--------+ + + + + | 12/19/ | Hospital | [facility] | | | | 2017 | Encounter | [facility] [address] | | | | | | [address] | | | | | | [place] | | | | | | [address] | | | | | | [phone] | | | +--------+ + + + [...]
--- OUTSIDE RECORDS SUMMARY | ~2020-01-10 | XMS | Encounter Summary ---
Demographics + + + | Address | [address] | | | [place] [address] | + + + | Home Phone [...] Team Providers + +------+ + | Care Lead Network Architect Name | Role | Phone | + [...] | | | [place], [place] | [address] | | | | | [address] | [phone] | | | | | [phone] | | | +--------+ + + + [...]
--- OUTSIDE RECORDS SUMMARY | ~2020-01-10 | XMS | Encounter Summary ---
Demographics + + + | Address | [address] | | | [place] [address] | + + + | Home Phone | | + + + | Preferred Language | Unknown | + + + | Marital Status | | + + + | Confucianism Affiliation | Unknown | + + + [...] Team Providers + +------+ + | Care Hydrodynamicist Name | Role | Phone | + +------+ + | Kayy Holguin DO | PCP | | + +------+ + Reason for Visit + +--------+ + | Reason | Onset | Comments | | | Date | | + +--------+ + | Lab Results | 09/25/ | | | | 2020 | | + +--------+ + Encounter Details +--------+ + + + + | Date | Type | Department | Care Team | Description | +--------+ + + + + | 09/25/ | Telephone | [facility] | Kayy Holguin, | Lab Results | | 2020 | | [facility] | DO [address] | | | | | MEDICAL CLINIC [address] | [facility] [place] [address] | | | | | [address] [facility], | [phone] | | | | | [place] [address] | | | | | | [phone] | | | +--------+ + + + [...] Telephone Encounter - Suad Guerrero LPN - 09/26/2019 10:00 AM PDTNormal lab results let ter sent to patient. Suad Guerrero LPN documented in this encounter Plan of Treatment Not on filedocumented as of this encounter Visit Diagnoses Not on filedocumented in this encounter"
--- OUTSIDE RECORDS SUMMARY | ~2020-01-10 | XMS | Encounter Summary ---
Demographics + + + | Address | [address] | | | [place] [address] | + + + | Home Phone | | + + + | Preferred Language | Unknown | + + + | Marital Status | | + + + | Hoahaoism Affiliation | Unknown | + + + | Race | Unknown | + + + | Ethnic Group | Unknown | + + + Author + + + | Author | [facility] | | | and [place] | + + + | Organization | [facility] | | [...] Team Providers + +------+ + | Care Crew Caller Name | Role | Phone | + +------+ + PCP | Unavailable | + +------+ + Encounter Details +--------+ + + + + | Date | Type | Department | Care Team | Description | +--------+ + + + + | 04/30/ | Hospital | [facility] | Linda Bardales | | | 2014 | Encounter | [facility] | Lea, RURAL CARRIER ASSOCIATE [address] | | | | | MEDICAL CLIN[facility] [address] | [facility], | | | | | [address] [place], | [place] [address] | | | | | [place] [address] | [phone] | | | | | [phone] | | | +--------+ + + + [...]
--- OUTSIDE RECORDS SUMMARY | ~2020-01-10 | XMS | Encounter Summary ---
Demographics + + + | Address | [address] | | | [place] [address] | + + + | Home Phone [...] Team Providers + +------+ + | Care Air Brake Tester Name | Role | Phone | + +------+ + PCP | Unavailable | + +------+ + Encounter Details +--------+ + + + + | Date | Type | Department | Care Team | Description | +--------+ + + + + | 10/27/ | Hospital | [facility] | Freya Lockwood | | | 2016 | Encounter | HOSPITAL PATHOLOGY | MD Ame [address] | | | | | [address] [place] | [facility] | | | | | [place], [place] | [place] [address] | | | | | [address] | [phone] | | | | | [phone] | | | +--------+ + + + [...]
--- OUTSIDE RECORDS SUMMARY | ~2020-01-10 | XMS | Encounter Summary ---
Demographics + + + | Address | [address] | | | [place] [address] | + + + | Home Phone [...] Team Providers + +------+ + | Care Sex Worker Or Escort Name | Role | Phone | + +------+ + PCP | Unavailable | + +------+ + Encounter Details +--------+ + + + + | Date | Type | Department | Care Team | Description | +--------+ + + + + | 07/07/ | Hospital | [facility] | Kayy Holguin, | | | 2016 | Encounter | [facility] | DO [address] | | | | | MEDICAL CLINIC [address] | [place] [address] | | | | | [address] [place], | [phone] | | | | | [place] [address] | | | | | | [phone] | | | +--------+ + + + [...]
--- OUTSIDE RECORDS SUMMARY | ~2020-01-10 | XMS | Encounter Summary ---
Demographics + + + | Address | [address] | | | [place] [address] | + + + | Home Phone [...] | [facility] | | | and [place] | + [...] Team Providers + +------+ + | Care Home Therapy Clinician Name | Role | Phone | + +------+ + PCP | Unavailable | + +------+ + Encounter Details +--------+ + + + + | Date | Type | Department | Care Team | Description | +--------+ + + + + | 04/30/ | Hospital | [facility] | Linda Bardales | | | 2013 | Encounter | HOSPITAL XRAY 900 | Lea, WINDOWS CONSULTANT [address] | | | | | [address] [place] | [facility], | | | | | [facility], [place] | [place] [address] | | | | | [address] | [phone] | | | | | [phone] | | | +--------+ + + + [...] an acute deep venous thrombosis. Job #: [id number] | | Read By: BLAINE NIEVES MD Released By: ADRIENNE MELÉNDEZate: 05/01/2014 11:10 | | | |FINDINGS: | [...]
--- OUTSIDE RECORDS SUMMARY | ~2020-01-10 | XMS | Encounter Summary ---
Demographics + + + | Address | [address] | | | [place] [address] | + + + | Home Phone [...] Team Providers + +------+ + | Care Seo Expert Name | Role | Phone | + [...] | | | | Acute pain | Fredi-Josee | [address] | | | | | of right | nLupe, | DR [address] | | | | | shoulder | [address] | [place], [place] | | | | | Procedures | [address] | [address] | | | | | MRI Shoulder | [place], | Phone: | | | | | Right wo | [place] [address] | [phone] | | | | | Contrast | Phone: | Fax: | | | | | | [phone] | [phone] | | | | | | Fax: | | | | | | | [phone] | | +--------+--------+ + + + + [...] | | | | Acute pain | Maryfernando | [address] | | | | | of right | uLpe vitale, | DR [address] | | | | | shoulder | [address] | [place], [place] | | | | | Procedures | [address] | [address] | | | | | MRI Shoulder | [place], | Phone: | | | | | Right wo | [place] [address] | [phone] | | | | | Contrast | Phone: | Fax: | | | | | | [phone] | [phone] | | | | | | Fax: | | | | | | | [phone] | | +--------+--------+ + + + + Encounter Details +--------+ + + + + | Date | Type | Department | Care Team | Description | +--------+ + + + + | 10/31/ | Hospital | [facility] | Svetlana, | Acute pain of right | | 2018 | Encounter | Hospital MRI 900 | [address] | shoulder | | | | [address] | [address] [place] | | | | | [place], [place] | [place] [address] | | | | | [address] | [phone] | | | | | [phone] | | | +--------+ + + + [...] daily | tablet | | 18 | 0 | | tablet | as needed for [...] as needed | | | 18 | 0 | | mg/0.3 mL | for Anaphylaxis. [...] DAILY | tablet | | 18 | 0 | | MG | WITH FOOD | [...] as | tablet | | 18 | 0 | | | needed. | | | [...] + + | Marvin, Rad Results In 10/31/2018 1:43 PM PDT EXAMINATION:MRI SHOULDER RIGHT [...]
--- OUTSIDE RECORDS SUMMARY | ~2020-01-10 | XMS | Encounter Summary ---
Demographics + + + | Address | [address] | | | [place] [address] | + + + | Home Phone [...] Team Providers + +------+ + | Care Learning And Development Manager Name | Role | Phone | + +------+ + PCP | Unavailable | + +------+ + Encounter Details +--------+ + + + + | Date | Type | Department | Care Team | Description | +--------+ + + + + | 11/ | Hospital | [facility] | Conversion | | | 2012 | Encounter | HOSPITAL BUSINESS | Transaction, | | | | | OFFICE [address] | Provider Unknown | | | | | [address] [place], [place] | | | | | | [address] | (Fax) | | | | | [phone] | | | +--------+ + + + [...]
--- OUTSIDE RECORDS SUMMARY | ~2020-01-10 | XMS | Encounter Summary ---
Demographics + + + | Address | [address] | | | [place] [address] | + + + | Home Phone [...] Providers + +------+ + | Care Skip Pit Worker Name | Role | Phone | + +------+ + PCP | Unavailable | + +------+ + Encounter Details +--------+ + + + + | Date | Type | Department | Care Team | Description | +--------+ + + + + | 07/07/ | Hospital | [facility] | Kayy Holguin, | | | 2016 | Encounter | HOSPITAL LABORATORY | DO [address] [place] | | | | | [address] [place] | [place] [address] | | | | | [place], [place] | [phone] | | | | | [address] | | | | | | [phone] | | | +--------+ + + + [...] + + + + + + | Clarity, | CLOUDY | CLEAR | EXTERNAL | | | Urine | | | LAB | | + + + + + + | Color, | YELLOW | YELLOW | EXTERNAL | | | Urine | | | LAB | | + + + + + + | Specific | 1.02 | 1.005 - 1.030 | EXTERNAL | | | [place], | | | LAB | | | [...] + + + | White Blood | 6-10 | </= 5 /HPF | EXTERNAL | | | Cells, | | | LAB | | | Urine | | | | | + + + + + + | RBC | 0-2 | </= 5 PER HPF [...] + + + + + + | Squamous | MANY | FEW /LPF | EXTERNAL | | | Epithelial | | | LAB | | | Cells, | | | | | | Urine | | | [...]
--- OUTSIDE RECORDS SUMMARY | ~2020-01-10 | XMS | Encounter Summary ---
Demographics + + + | Address | [address] | | | [place] [address] | + + + | Home Phone [...] Team Providers + +------+ + | Care Log Loader Helper Name | Role | Phone | [...] | | | | without | [place] [address] | [place] [address] | | | | | sciatica | Phone: | Phone: | | | | | Procedures | [phone] | [phone] | | | | | PT EVAL | Fax: | Fax: | | | | | | [phone] | [phone] | +--------+ + + + + + Encounter Details +--------+ + + + + | Date | Type | Department | Care Team | Description | +--------+ + + + + | 10/01/ | Hospital | [facility] | Kayy Holguin, | Acute midline low | | 2020 | Encounter | HOSPITAL THERAPY PT | DO [address] [place] | back pain without | | | | [address] [place] | [place] [address] | sciatica | | | | [place], [place] | [phone] | | | | | [address] | | | | | | [phone] | Yury Carbone | | | | [...] encounter Progress Notes Yury Carbone, PT - 10/02/2019 1:00 PM PDTFormatting of this note might be differen t from the original. [facility] Referral and Authorization [address] [place] [address] [] PAVITHRA [] RETRO Call/Fax received by Date call/Fax received [] Referral [x]Service Authorization [] Plus [x] Standard [] Inpt [x] Outpt Patient Information Patient Name: Riddhi Perez :1970 [facility] Client ID # [id number] PCP/Business Development Analyst Doctor Information PCP/Business Development Analyst Doctor: Kayy Holguin DO Specialist Cartridge Belt Puncher Name: Yury Carbone PT Address: [address] [place] [address] Facility Information Facility: [facility]# [id number] Contact: Soren Tran Additional Authorization/Referral Information ICD10 code(s): Encounter Diagnoses Code Name Primary? M54.5 Acute midline low back pain without sciatica CPT code(s): [x]Ther. Exercise (96390) [x]Manual (05596) []MR (75414) []Gait Training (27785) [x]Aquatic Therapy (04294) []Traction (19118) [] ThereAct (03766) Date of Onset: 09/19/2019 Start of Care Date: 10/02/2019 Requested # of Visits: 12 visits 1x/week for 12 weeks Certification From: 10/02/2019 Certification To: 12/25/2019 Is this for a second Opinion [] Yes [] No Comments: Below for ODS use only: Authorization number: Denial Number: ee Carbone, PT - 10/02/2019 1:00 PM PDTFormatting of this note might be different from the origin al. Physical Therapy Plan of Care Date: 10/02/2019 Patient Name: Riddhi Perez Date of : 1970 Encounter Diagnoses Code Name Primary? M54.5 Acute midline low back pain without sciatica Date of Onset: 09/19/2019 Start of Care Date: 10/02/2019 Requested # of Visits: 12 visits 1x/week for 12 weeks Certification From: 10/02/2019 Certification To: 12/25/2019 Clinical Impression: Evchaitanya - 10/02/19 - Riddhi has pain resulting from motor control & postu ral strain issues in t he trunk. She will benefit from skilled intervention to decreased rosaline n/spasm & restore muscle function to allow increased ability with ADLs w/o pain. She has not ed impairments/dysfunctions that are causing symptoms & loss of function. These impairments are affecting ability to perform ADLs at home and with age appropriate activities. Patient will benefit from the use of manual therapy & therapeutic exercises to restore strength, mot ion, &/or neuromuscular control to noted & related areas to restore selected baseline activi ties. Goals: Patient Reported Outcome Goals Patient Reported Outcome Goals: Oswestry Oswestry Disability Index Goal: <12/50 - all goals to be met with in 12 weeks Oswestry Disability Index Goal Status: New - current score is 22/50 OP PT Goals OP PT Goals: Goal 1 Goal 1: Indep with HEP & self advancement Goal 1 Status: New - quyen garcia has no HEP other than stretches issued by . Treatment Plan/Interventions PT [id number] - Therapeutic [id number] - Manual [id number] - Aquatic Therapy/Exer cises Electronically signed by: Yury Carbone PT, 10/02/2019 1:50 PM Patient Name: Riddhi Perez/: 1970/ Yury Mckay PT - 10/02/2019 1:00 PM PDT [facility] PT [address] [place] [address] Physical Therapy Initial Assessment Date: 10/02/2019 Patient Information Patient Name: Riddhi Perez Date of : 1970 Age: 49 y.o. History Problem Acute Midline Low Back Pain Without Sciatica History of symptoms: Riddhi is here for low back pain which began about 3 months ago, increasing in severity now. She denies any LBP previously. She has pain in all positions if she is there very long. Sh e feels the same pain in all positions sitting, standing, or laying. She does feel if she la ys on the R side & lays the L leg over the R in a slightly bent fashion which helps feel a l ittle better. She reports the pain is localized directly over the low back (points to the mid to low L sp ine levels, & does go down the L thigh to the knee. She does have some tingling feeling gilberto g the same pattern. She feels sitting up straight causes it to hurt worse, she leans forward or to the R side it seems to make it better. She feels bending forward to put on socks & sh oes really increased pain, but leaning slightly forward tends to be better. She reports 7/ 0 pain. She denies nay weakness. She is working, but this causes her significant pain with doing so. She feels less pain in the morning. gave her some stretches she reports have n ot helped yet, but she is still doing them. She denies any other significant PMH. She feels some increased pain with sneezing/coughing but only in the back locally - not down the thigh. She reports she is able to get through wo rk but is really hurting by the end of the shift. Her goals are to hurt less working & doing her daily stuff. Social History Socioeconomic History Marital status: Spouse [...] Not Currently Encounter Diagnoses Code Name Primary? M54.5 Acute midline low back pain without sciatica Date of Onset: 09/19/2019 Referring Provider: Kayy Holguin, DO No history on file. Past Medical History: [...] sixty days Objective Pain Assessment: Pain Rating During Assessment: 7 Location: low back into the L thigh Standardized Tests: Oswestry Disability Index (SHREE) Pain Intensity: 3 - The pain is fairly severe at the moment Personal Care: 2 - It is painful to take care of myself and I am slow and careful Liftin - I can lift only very light weights Walkin - Pain prevents me from walking more than 1 mile Sittin - Pain prevents me from sitting for more than 1 hour Standin - Pain prevents me from standing more than 1 hour Sleepin - Because of pain I get less than 6 hours sleep Sex life (if applicable): 3 - My sex life is severely restricted by pain Social Life: 2 - Pain prevents me from participating in more energetic activities (ex. spor ts, dancing, etc.) Travelin - I can travel anywhere but it increases my pain Oswestry Disability Index Score (Calculated): 22 Oswestry Disability Percentage Score: 44 Oswestry Disability Index Goal: <12/50 - all goals to be met with in 12 weeks Oswestry Disability Index Goal Status: New - current score is 22/50 STarT Back - [facility] STarT Back Screening Tool 1. My back pain has spread down my leg(s) at some time in the last 2 weeks.: Agree (1) 2. I have had pain in the shoulder or neck at some time in the last 2 weeks.: Disagree (0) 3. I have only walked short distances because of my back pain.: Agree (1) 4. In the last 2 weeks, I have dressed more slowly than usual because of back pain.: Agree (1) 5. It s not really safe for a person with a condition like mine to be physically active.: Disagree (0) 6. Worrying thoughts have been going through my mind a lot of the time.: Disagree (0) 7. I feel that my back pain is terrible and it s never going to get any better.: Agree (1 ) 8. In general I have not enjoyed all the things I used to enjoy.: Agree (1) 9. Overall, how bothersome has your back pain been in the last 2 weeks?: Very much (1) STarT Back Total Score (All 9 Calculated) (Len STarT Back Screening Tool): 6 STarT Back Sub Score (Q5-9 Calculated) (Len STarT Back Screening Tool): 3 Range of Motion (measured in degrees): Lower Extremities Lower Extremities Note: LE WFL all joints/all planes of hip/knee, ex - L knee limited due t o chronic issue. She is wearing a brace today for this. Spine Lumbar extension: WNL - repeated ext decreases thigh painin clinic today Lumbar flexion: WNL, but pain with flex throughout & increases at end range per her report Strength: LLE Strength L Hip Flexion: 4-/5 L Hip Extension: 4/5 L Hip ABduction: 4/5 L Knee Flexion: 4+/5 L Knee Extension: 4+/5 L Ankle Dorsiflexion: 5/5 L Ankle Plantar Flexion: 4+/5(she could do 8 reps SL heel raises) RLE Strength R Hip Flexion: 4+/5 R Hip Extension: 4+/5 R Hip ABduction: 4+/5 R Hip ADduction: 4+/5 R Knee Flexion: 5/5 R Knee Extension: 5/5 R Ankle Dorsiflexion: 5/5 R Ankle Plantar Flexion: 4+/5(11 reps SL heel raises) MMT: Lower Trunk (Lumbar) , Rehab Eval Left Extension (Extensor Group): 4-/5 good minus, left(19" for SL bridge - fair to poor con trol during execution) Left Pelvic Elevation: 4/5 good, left(30" w/SL bridge - fiar to good control on this side d uring execution) Postural - she has decreased L spine lordosis with reduced curve transition into T spine kyphosis with post pelvic tilt positioning. She reports increased sx's with full flex, but f or short duration decreased pain with slight forward bend. 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 Full flex puts tensile strain on L spine s oft tissues, thus defining why slight flex feels relieving for short term & then not as wel as full flex increasing sx's. Joint Mobility: Spine Joint Mobility T8-9: normal T9-10: normal T10-11: normal T11-12: normal, painful T12-L1: hypomobile, painful L1-2: hypomobile, painful L2-3: hypomobile, painful L3-4: hypomobile, painful L4-5: hypomobile, painful L5-S1: hypomobile, painful R SIJ: painful L SIJ: painful Special Tests: Lumbar Special Tests L Slump Test: negative R Slump Test: negative L SLR: negative R SLR: negative L Crossed SLR: negative R Crossed SLR: negative L KIMBERLY/Jesse's Test: negative R KIMBERLY/Jesse's Test: negative L Prone Instability Test: negative R Prone Instability Test: negative SI Special Tests L Thigh Thrust: negative R Thigh Thrust: negative L SIJ Compression: negative R SIJ Compression: negative L Sacral Thrust: negative R Sacral Thrust: negative Hip Special Tests L KIMBERLY/Jesse's Test: negative R KIMBERLY/Jesse's Test: negative Palpation - TTP over the paraspinals from the low T spine into the L spine, increasing in intensity caudally. Spasms & trigger points in all paraspinals. Mild pain directly over the spinous processes. L sides glutes/rotators with trigger points/spasms, very mild over the R side. She has WNL sensation to light touch over the lower legs & feet. Today's Treatment Patient Name: Riddhi Navarrete [place]/: 1970/ Start Time: 1150 Stop time: 1245 Duration: 55 minutes Timed Treatment Codes: 0 minutes # of PT Visits: 1 Visit Summary: Eval completed, findings & POC reviewed with Riddhi who had no questions & is in agreement. She lives in [place] & can come for PT once a week. A: She is to begin s ome form of aerobic activity for short duration to begin 5-10', and she will perform prone p ress ups w/Sags at top 10x/hour while awake. Next Visit Information: Begin TE - may use manual work as well to soft tissues Patient/Caregiver Education Learner: Patient Readiness: Acceptance Method: Explanation, Demonstration Response: Verbalizes Understanding Comment: prone press ups & daily cardio Therapy Interventions HEP: issued Prone pres sups with Sags, 10x/hour & discussed aerobic conditioning & how this applies to her in general as well as to her spinal issue. Assessment Eval - 10/02/19 - Riddhi has pain resulting from motor control & postural strain issues in t he trunk. She will benefit from skilled intervention to decreased pain/spasm & restore musc le function to allow increased ability with ADLs w/o pain. She has noted impairments/dysfunc tions that are causing symptoms & loss of function. These impairments are affecting ability to perform ADLs at home and with age appropriate activities. Patient will benefit from the use of manual therapy & therapeutic exercises to restore strength, motion, &/or neuromuscula r control to noted & related areas to restore selected baseline activities. Rehabilitation potential: Patient demonstrates good potential to achieve established goals to address the documented impairments by participating in skilled physical therapy services. Goals: Patient Reported Outcome Goals Patient Reported Outcome Goals: Oswestry Oswestry Disability Index Goal: <12/50 - all goals to be met with in 12 weeks Oswestry Disability Index Goal Status: New - current score is 22/50 OP PT Goals OP PT Goals: Goal 1 Goal 1: Indep with HEP & self advancement Goal 1 Status: New - quyen garcia has no HEP other than stretches issued by MD. Plan Date of Onset: 09/19/2019 Start of Care Date: 10/02/2019 Requested # of Visits: 12 visits 1x/week for 12 weeks Certification From: 10/02/2019 Certification To: 12/25/2019 Treatment Plan/Interventions PT [id number] - Therapeutic [id number] - Manual [id number] - Aquatic Therapy/Exer cises Patient and/or family has indicated understanding of treatment needs and actively participa eric in the creation of this plan for care. Electronically signed by: Yury Carbone, PT, 10/02/2019 1:35 PM Patient Name: Riddhi Navarrete [place]/: 1970/ documented in th is encounter Plan of Treatment + + +--------+ [...] back pain without sciatica | + + documented in this encounter
--- OUTSIDE RECORDS SUMMARY | ~2020-01-10 | XMS | Encounter Summary ---
Demographics + + + | Address | [address] | | | [place] [address] | + + + | Home Phone | | + + + | Preferred Language | Unknown | + + + | Marital Status | | + + + | Methodist Affiliation | Unknown | + + + | Race | Unknown | + + + | Ethnic Group | Unknown | + + + Author + + + | Author | [facility] | | | and [place] | + + + | Organization | [facility] | | | [...] Team Providers + +------+ + | Care Traffic Engineering Technician Name | Role | Phone [...] | [facility] | [address] | | | | | MEDICAL CLINIC [address] | [place] [address] | | | | | [address] [place], | [phone] | | | | | [place] [address] | | | | | | [phone] | | | +--------+--------+ + + + [...] this encounter Miscellaneous Notes Telephone Encounter - Yoli Kebede Prepleater - 06/14/2017 4:08 PM PSTPatient no tified. Telephone Encounter - Alfreda Severino APRN-FNP - 06/14/2017 3:10 PM PSTOne refill sent. Needs an appointment with Dr. Yunlectronically signed by LORENZA Jones at 0 06/14/2017 3:10 PM PSTdocumented in this encounter Plan of Treatment Not on filedocumented as of this encounter Visit Diagnoses Not on filedocumented in this encounter"
--- OUTSIDE RECORDS SUMMARY | ~2020-01-10 | XMS | Encounter Summary ---
Demographics + + + | Address | [address] | | | [place] [address] | + + + | Home Phone [...] Team Providers + +------+ + | Care Secret Service Agent Name | Role | Phone | [...] | | | [place], [place] | [address] | | | | | [address] | [phone] | | | | | [phone] | | | +--------+ + + + [...]
--- OUTSIDE RECORDS SUMMARY | ~2020-01-10 | XMS | Encounter Summary ---
Demographics + + + | Address | [address] | | | [place] [address] | + + + | Home Phone [...] Providers + +------+ + | Care Emergency Room Physician Assistant Name | Role | Phone | + +------+ + PCP | Unavailable | + +------+ + Encounter Details +--------+ + + + + | Date | Type | Department | Care Team | Description | +--------+ + + + + | 04/18/ | Hospital | [facility] | Linda Bardales | | | 2013 | Encounter | [facility] | Lea, CUSTOMER SERVICE MANAGER [address] | | | | | [facility] [address] | [facility] [place], | | | | | [address] [facility], | [place] [address] | | | | | [place] [address] | [phone] | | | | | [phone] | | | +--------+ + + + [...]
--- OUTSIDE RECORDS SUMMARY | ~2020-01-10 | XMS | Encounter Summary ---
Demographics + + + | Address | [address] | | | [place] [address] | + + + | Home Phone [...] Providers + +------+ + | Care Data Processing Equipment Repairer Name | Role | Phone | + +------+ + PCP | Unavailable | + +------+ + Encounter Details +--------+ + + + + | Date | Type | Department | Care Team | Description | +--------+ + + + + | 05/11/ | Hospital | [facility] | Kayy Holguin, | | | 2016 | Encounter | HOSPITAL XRAY 900 | DO [address] [place] | | | | | [address] [place] | [place] [address] | | | | | [place], [place] | [phone] | | | | | [address] | | | | | | [phone] | | | +--------+ + + + [...] | + +--------+ + + + | NON-OB | Routin | 10/21/2015 | | Results for this | | TRANSVAGINAL | e | 7:50 AM | | procedure are in the | | | | PDT | | results section. | + +--------+ + + + documented in this encounter Results Non-Ob Transvaginal (10/21/2015 7:50 AM PDT) + [...] have menses. Job No.: | | | [id number] Read By: SHAKA EVANGLEISTA MD Released By: SHAKA EVANGELISTA MD Date: 10/22/2015 20:27 | | + + [...] who continues to have menses. Job No.: [id number] Read By: SHAKA EVANGELISTA, | | Released By: SHAKA EVANGELISTA MDDate: 10/22/2015 20:27 [...] | | | | | |Job No.: [id number] | | | |Read By: SHAKA EVANGELISTA MD | | | |Released By: SHAKA EVANGELISTA MD | |Date: 10/22/2015 20:27 | | | | | + + documented in this encounter Visit Diagnoses Not on filedocumented in this encounter"
--- OUTSIDE RECORDS SUMMARY | ~2020-01-10 | XMS | Encounter Summary ---
Demographics + + + | Address | [address] | | | [place] [address] | + + + | Home Phone | | + + + | Preferred Language | Unknown | + + + | Marital Status | | + + + | Nondenominational Affiliation | Unknown | + + + | Race | Unknown | + + + | Ethnic Group | Unknown | + + + Author + + + | Author | [facility] | | | and [place] | + + + | Organization | [facility] | | [...] Team Providers + +------+ + | Care Stacker Driver Name | Role | Phone | + +------+ + PCP | Unavailable | + +------+ + Encounter Details +--------+ + + + + | Date | Type | Department | Care Team | Description | +--------+ + + + + | 12/04/ | Hospital | [facility] | Kayy Holguin, | | | 2014 | Encounter | HOSPITAL LABORATORY | DO [address] [place] | | | | | [address] [place] | [place] [address] | | | | | [place], [place] | [phone] | | | | | [address] | | | | | | [phone] | | | +--------+ + + + [...]
--- OUTSIDE RECORDS SUMMARY | ~2020-01-10 | XMS | Encounter Summary ---
Demographics + + + | Address | [address] | | | [place] [address] | + + + | Home Phone [...] Team Providers + +------+ + | Care Derrick Worker Well Service Name | Role | Phone | + +------+ + | Eve Sawyer DO | PCP | | + +------+ + Reason for Visit + +--------+ + | Reason | Onset | Comments | | | Date | | + +--------+ + | Medication Refill | 10/21/ | | | | 2020 | | + +--------+ + Encounter Details +--------+--------+ + + + | Date | Type | Department | Care Team | Description | +--------+--------+ + + + | 10/21/ | Refill | [facility] | Eve Sawyer, | Medication Refill | | 2019 | | [facility] | [address] [place] | | | | | MEDICAL CLINIC [address] | [place] [address] | | | | | [facility], | [phone] | | | | | [place] [address] | | | | | | [phone] | | | +--------+--------+ + + + [...] this encounter Miscellaneous Notes Telephone Encounter - Racheal Saeed LPN - 10/22/2019 5:04 PM PDTFormatting of this not e might be different from the original. Requested Prescriptions Signed Prescriptions Disp Refills ibuprofen (ADVIL,MOTRIN) 800 MG tablet 90 tablet 0 Sig: Take up to three tabs daily with food Authorizing Provider: EVE SAWYER Ordering User: RACHEAL SAEED Patient was last seen on Recent Visits Department Visit Type Primary Dx 09/19/2019 [facility] Office Visit Other hyperlipidemia 08/01/2017 [facility] Office Visit Injury of left shoul tegan, initial encounter No results found for: HBA1C Lab Results Component Value Date WBC 8.0 09/19/2019 HGB 15.6 09/19/2019 HCT 47.5 (H) 09/19/2019 MCV 96.1 09/19/2019 LABPLAT 269 04/03/2015 PLT 265 09/19/2019 Lab Results Component Value Date CREA 0.80 09/19/2019 BUN 13 09/19/2019 NA 139 09/19/2019 K 4.2 09/19/2019 CL 104 09/19/2019 CO2 25 09/19/2019 Lab Results Component Value Date ALT 25 09/19/2019 AST 15 09/19/2019 ALKPHOS 93 09/19/2019 BILITOT 0.3 09/19/2019 Racheal Saeed LPN documented in this encounter Plan of Treatment Not on filedocumented as of this encounter Visit Diagnoses + + | Diagnosis | + + | Pain Generalized pain | + + documented in this encounter"
--- OUTSIDE RECORDS SUMMARY | ~2020-01-10 | XMS | Encounter Summary ---
Demographics + + + | Address | [address] | | | [place] [address] | + + + | Home Phone | | + + + | Preferred Language | Unknown | + + + | Marital Status | | + + + | Worship Affiliation | Unknown | + + + [...] Team Providers + +------+ + | Care Cash Analyst Name | Role | Phone | + +------+ + | Kayy Holguin DO | PCP | | + +------+ + Reason for Visit + +--------+ + | Reason | Onset | Comments | | | Date | | + +--------+ + | Medication Refill | 11/08/ | | | | 2018 | | + +--------+ + Encounter Details +--------+--------+ + + + | Date | Type | Department | Care Team | Description | +--------+--------+ + + + | 11/08/ | Refill | [facility] | Kayy Holguin, | Medication Refill | | 2017 | | [facility] | [address] [place] | | | | | MEDICAL CLINIC [address] | [place] [address] | | | | | 4TH [facility], | [phone] | | | | | [place] [address] | | | | | | [phone] | | | +--------+--------+ + + + [...] Encounter - Diane Thornton LPN - 11/08/2017 10:51 AM PDTI found in practice doc mata that the pt had received flonase 05/06/2015 which is now an OTC medicine. Pt. Notifie d that she may purchase this med and that as it is OTC her insurance would not cover it. Dewayne Thornton LPN elephone Judith Trejo 11/08/2017 10:15 AM PDTPatient is calling for "allergy nose spray" do es not know the name but states that Dr. Holguin has prescribed in the past. [facility] in [place] Thank you Judith Garcias documente d in this encounter Plan of Treatment Not on filedocumented as of this encounter Visit Diagnoses Not on filedocumented in this encounter
--- OUTSIDE RECORDS SUMMARY | ~2020-01-10 | XMS | Encounter Summary ---
Demographics + + + | Address | [address] | | | [place] [address] | + + + | Home Phone [...] Team Providers + +------+ + | Care Criminal Investigator Name | Role | Phone | + +------+ + PCP | Unavailable | + +------+ + Encounter Details +--------+ + + + + | Date | Type | Department | Care Team | Description | +--------+ + + + + | 05/30/ | Hospital | [facility] | Linda Bardales | | | 2014 | Encounter | [facility] | Lea, AUCTION CLERK [address] | | | | | MEDICAL CLIN[facility] [address] | [facility], | | | | | [address] [place], | [place] [address] | | | | | [place] [address] | [phone] | | | | | [phone] | | | +--------+ + + + [...]
--- OUTSIDE RECORDS SUMMARY | ~2020-01-10 | XMS | Encounter Summary ---
Demographics + + + | Address | [address] | | | [place] [address] | + + + | Home Phone [...] Team Providers + +------+ + | Care Media Marketing Coordinator Name | Role | Phone | + +------+ + PCP | Unavailable | + +------+ + Encounter Details +--------+ + + + + | Date | Type | Department | Care Team | Description | +--------+ + + + + | / | Hospital | [facility] | RubioShasta, | | | 2011 | Encounter | [facility] | FOOD SAFETY SCIENTIST [address] | | | | | CENTER [address] | [place] | | | | | [place] | [address] | | | | | [address] | | | | | | [phone] | | | +--------+ + + + [...]
--- OUTSIDE RECORDS SUMMARY | ~2020-01-10 | XMS | Encounter Summary ---
Demographics + + + | Address | [address] | | | [place] [address] | + + + | Home Phone [...] Team Providers + +------+ + | Care Loan Collector Name | Role | Phone | + [...] | on | HOSPITAL THERAPY PT | A, DPT [address] | | | | | [address] [place] | [place] [address] | | | | | [place], [place] | [phone] | | | | | [address] | | | | | | [phone] | | | +--------+ + + + [...] as of this encounter Progress Notes Librado Alcala DPT - 01/17/2019 3:26 PM PDTD/C Summary: Ms. [...] Librado Alcala PT, 01/17/2019 15:28 documented in thi s encounter Plan of Treatment Not on filedocumented as of this encounter Visit Diagnoses Not on filedocumented in this encounter"
--- OUTSIDE RECORDS SUMMARY | ~2020-01-10 | XMS | Encounter Summary ---
Demographics + + + | Address | [address] | | | [place] [address] | + + + | Home Phone | | + + + | Preferred Language | Unknown | + + + | Marital Status | | + + + | Taoist Affiliation | Unknown | + + + [...] Team Providers + +------+ + | Care Train System Operator Name | Role | Phone | + +------+ + PCP | Unavailable | + +------+ + Encounter Details +--------+ + + + + | Date | Type | Department | Care Team | Description | +--------+ + + + + | 04/29/ | Hospital | [facility] | Rubio, Shasta Mis, | | | 2010 | Encounter | HOSPITAL [facility]Y | ENGINE REPAIRER [address] | | | | | CENTER [address] | [place] | | | | | [place] | [address] | | | | | [address] | | | | | | [phone] | | | +--------+ + + + [...]
--- OUTSIDE RECORDS SUMMARY | ~2020-01-10 | XMS | Encounter Summary ---
Demographics + + + | Address | [address] | | | [place] [address] | + + + | Home Phone [...] Providers + +------+ + | Care Commercial Loan Analyst Name | Role | Phone | + +------+ + PCP | Unavailable | + +------+ + Encounter Details +--------+ + + + + | Date | Type | Department | Care Team | Description | +--------+ + + + + | 09/27/ | Hospital | [facility] | Dat Garza | | | 2012 | Encounter | HOSPITAL EMERGENCY | MD [address] | | | | | CENTER [address] | [facility] | | | | | [address] [place], [place] | [place] [address] | | | | | [address] | [phone] | | | | | [phone] | | | +--------+ + + + [...]
--- OUTSIDE RECORDS SUMMARY | ~2020-01-10 | XMS | Encounter Summary ---
Demographics + + + | Address | [address] | | | [place] [address] | + + + | Home Phone [...] Team Providers + +------+ + | Care Commutator Repairer Name | Role | Phone | + +------+ + PCP | Unavailable | + +------+ + Encounter Details +--------+ + + + + | Date | Type | Department | Care Team | Description | +--------+ + + + + | 07/30/ | Hospital | [facility] | Kayy Holguin, | | | 2015 | Encounter | [facility] | DO [address] [place] | | | | | MEDICAL CLINIC [address] | [place] [address] | | | | | [address] [place], | [phone] | | | | | [place] [address] | | | | | | [phone] | | | +--------+ + + + [...]
--- OUTSIDE RECORDS SUMMARY | ~2020-01-10 | XMS | Encounter Summary ---
Demographics + + + | Address | [address] | | | [place] [address] | + + + | Home Phone [...] Team Providers + +------+ + | Care Paper Cleaner Name | Role | Phone | + +------+ + PCP | Unavailable | + +------+ + Encounter Details +--------+ + + + + | Date | Type | Department | Care Team | Description | +--------+ + + + + | 04/30/ | Hospital | [facility] | Linda Bardales | | | 2013 | Encounter | HOSPITAL [facility]ATORY | Lea, ELECTRICIANS TOP HELPER [address] | | | | | [address] [place] | [facility] [place], | | | | | [facility], [place] | [place] [address] | | | | | [address] | [phone] | | | | | [phone] | | | +--------+ + + + [...] | + +-------+ + + + | Erythrocyte | 15 | <=20 mm/h | EXTERNAL | | | | | | LAB | | | Sedimentati | | | | | | on Rate | | | | | + +-------+ [...]
--- OUTSIDE RECORDS SUMMARY | ~2020-01-10 | XMS | Encounter Summary ---
Demographics + + + | Address | [address] | | | [place] [address] | + + + | Home Phone [...] Team Providers + +------+ + | Care Registered Pharmacist Name | Role | Phone | + +------+ + PCP | Unavailable | + +------+ + Encounter Details +--------+ + + + + | Date | Type | Department | Care Team | Description | +--------+ + + + + | 10/07/ | Hospital | [facility] | Deonte Aguiar, | | | 2015 | Encounter | HOSPITAL [facility] | DO [address] , | | | | | [address] [place] | [place], [place] | | | | | [place], [place] | [address] | | | | | [address] | [phone] | | | | | [phone] | | | +--------+ + + + [...]
--- OUTSIDE RECORDS SUMMARY | ~2020-01-10 | XMS | Encounter Summary ---
Demographics + + + | Address | [address] | | | [place] [address] | + + + | Home Phone [...] Team Providers + +------+ + | Care Diesel Plant Operator Name | Role | Phone | [...] | Procedures | [place], | [place], | | | | | [place] TREAT | [place] [address] | [place] [address] | | | | | | Phone: | Phone: | | | | | | [phone] | [phone] | | | | | | Fax: | Fax: | | | | | | [phone] | [phone] | + +--------+ + + + + Encounter Details +--------+ + + + + | Date | Type | Department | Care Team | Description | +--------+ + + + + | 12/24/ | Hospital | [facility] | Kayy Holguin, | Acute midline low | | 2020 | Encounter | HOSPITAL THERAPY PT | DO [address] [place] | back pain without | | | | [address] [place] | [place] [address] | sciatica (Primary | | | | [place], [place] | [phone] | Dx) | | | | [address] | | | | | | [phone] | Yury Carbone | | | | [...] encounter Progress Notes Yury Carbone, PT - 12/25/2019 1:00 PM PDTFormatting of this note might be differen t from the original. [facility] THERAPY PT [address] [place] [address] Physical Therapy Daily Treatment Note Date: 12/25/2019 Patient Information Patient Name: Riddhi Perez Date of : 1970 Age: 49 y.o. Encounter Diagnoses Code Name Primary? M54.5 Acute midline low back pain without sciatica Yes Date of Onset: 09/19/2019 Referring Provider: Kayy Holguin DO Objective Pain Assessment: Pain Rating During Assessment: 5 Location: mid to low L Spine Today's Treatment Patient Name: Riddhi ePrez/: 1970/ Start Time: 1245 Stop time: 1350 Duration: 65 minutes Timed Treatment Codes: 55 minutes # of PT Visits to Date: 7 Visit Summary: S: I am doing ok, I am a little sore today. I would rate my pain ~40% improv ed now, a bit less pain & a bit less frequent. A: Riddhi is able to tolerate an increase i n TE with both times & reps, as well as additional TE with asymmetry in core motor control n oted in hip ext/abd & cable walk outs. She requires vc's & tactile cues during session for p grey & effective execution during entire session. Next Visit Information: cont TE as tolerated Therapy Interventions HEP: she is to perform the TE done in clinic at home as tolerated with focus on form & prop er execution. She is to call if she has issues after doing them. PT INTERVENTION 1: TE 55'- Nu Step - L6 - during which time we disucced the specifics of he r condition & TE relative to her case. Squats - performed with focus on proper LE & trunk a lignement & posture as well as execution both with 5 lb for "reach squat", Deadlifts with 5 lb KB from 12" platform 15x2 Clamshells YTB 60" hold on/off x 8, bridges - w/YTB at knees during 60" holds on/off x6 . Side Planks 20" x3, Cable antirotation walk outs - 3 plates, 2 steps 8 reps each side. Serated Leg Lifts with hlding 5 lb for circles for core stabilty f or 20x cw/ccw We discussed the rationale & reasoning with all TE as we performed relative t o her specifics. Assessment Rehabilitation potential: Patient demonstrates good potential to achieve established goals to address the documented impairments by participating in skilled physical therapy services. Electronically signed by: Yury Carbone PT, 12/25/2019 7:01 PM PDT Patient Name: Riddhi Navarrete Wheelwright/: 1970/ documented in th is encounter Plan of Treatment Not on filedocumented as of this encounter Visit Diagnoses + + | Diagnosis | + + | Acute midline low back pain without sciatica - Primary | + + documented in this encounter
--- OUTSIDE RECORDS SUMMARY | ~2020-01-10 | XMS | Encounter Summary ---
Demographics + + + | Address | [address] | | | [place] [address] | + + + | Home Phone [...] Team Providers + +------+ + | Care Rd Manager Name | Role | Phone | + +------+ + PCP | Unavailable | + +------+ + Encounter Details +--------+ + + + + | Date | Type | Department | Care Team | Description | +--------+ + + + + | 06/04/ | Hospital | [facility] | Daniel Lew | | | 2012 | Encounter | HOSPITAL EMERGENCY | [address] | | | | | CENTER [address] | [address] [place], [place] | | | | | [place] | [address] | | | | | [address] | | | | | | [phone] | | | +--------+ + + + [...]
--- OUTSIDE RECORDS SUMMARY | ~2020-01-10 | XMS | Encounter Summary ---
Demographics + + + | Address | [address] | | | [place] [address] | + + + | Home Phone [...] Team Providers + +------+ + | Care Attending Physician Name | Role | Phone | + +------+ + PCP | Unavailable | + +------+ + Encounter Details +--------+ + + + + | Date | Type | Department | Care Team | Description | +--------+ + + + + | 05/18/ | Hospital | [facility] | Jamilah Ledesma | | | 2014 | Encounter | [facility] | [address] | | | | | [facility]ICAL CL[facility] [address] | | | | | | [address] [place], | | | | | | [place] [address] | | | | | | [phone] | | | +--------+ + + + [...]
--- OUTSIDE RECORDS SUMMARY | ~2020-01-10 | XMS | Encounter Summary ---
Demographics + + + | Address | [address] | | | [place] [address] | + + + | Home Phone [...] Team Providers + +------+ + | Care Customs Appraiser Name | Role | Phone | + +------+ + PCP | Unavailable | + +------+ + Encounter Details +--------+ + + + + | Date | Type | Department | Care Team | Description | +--------+ + + + + | 06/04/ | Hospital | [facility] | Ana Luisa Alexandra, | | | 2013 | Encounter | [facility] | PRINTING SHOP SUPERVISOR [address] | | | | | MEDICAL CLINIC [address] | [address] [place], [place] | | | | | [address] [place], | [address] | | | | | [place] [address] | | | | | | [phone] | | | +--------+ + + + [...]
--- OUTSIDE RECORDS SUMMARY | ~2020-01-10 | XMS | Encounter Summary ---
Demographics + + + | Address | [address] | | | [place] [address] | + + + | Home Phone [...] Team Providers + +------+ + | Care Room Service Supervisor Name | Role | Phone | [...] | | | PT TREAT | [place] [address] | [place] [address] | | | | | | Phone: | Phone: | | | | | | [phone] | [phone] | | | | | | Fax: | Fax: | | | | | | [phone] | [phone] | + +--------+ + + + + Encounter Details +--------+ + + + + | Date | Type | Department | Care Team | Description | +--------+ + + + + | 10/29/ | Hospital | [facility] | Kayy Holguin, | Acute midline low | | 2020 | Encounter | HOSPITAL THERAPY PT | DO [address] [place] | back pain without | | | | [address] [place] | [place] [address] | sciatica (Primary | | | | [place], [place] | [phone] | Dx) | | | | [address] | | | | | | [phone] | Yury Carbone | | | | [...] encounter Progress Notes Yury Carbone, PT - 10/30/2019 8:30 AM PDTFormatting of this note might be differen t from the original. [facility] THERAPY PT [address] [place] [address] Physical Therapy Daily Treatment Note Date: 10/30/2019 Patient Information Patient Name: Riddhi Perez Date of : 1970 Age: 49 y.o. Encounter Diagnoses Code Name Primary? M54.5 Acute midline low back pain without sciatica Yes Date of Onset: 09/19/2019 Referring Provider: Kayy Holguin DO Today's Treatment Patient Name: Riddhi Perez/: 1970/ Start Time: 829 Stop time: 924 Duration: 55 minutes Timed Treatment Codes: 50 minutes # of PT Visits to Date: 3 Visit Summary: S: I am doig about the same, I was no worse after last session so lets do th is. A: We were able to increase slighlty what she was doing TE- hernandez here without sx exac erbation. She did rate localized slightly over the low L spine as she was leaving but "not bad". She did have issues with hinging & lack of motor control with L spine relative to shea nk motion during TE. Therapy Interventions HEP: she is to perform the TE done in clinic at home as tolerated with focus on form & prop er execution. She is to call if she has issues after doing them. PT INTERVENTION 1: TE 50' - Nu Step - L3 - during which time we disucced the specifics of h er condition & TE relative to her case. Squats - performed with focus on proper LE & trunk alignement & posture as well as execution both with 5 lbs at (0 degrees arm hold & w/o wght, Clamshells YTB 60" hold on/off, Supermans - alt arm/leg 3' holds, bridges - w/YTB atknee s during 60" holds on/off. Side Planks 20" x3, Cable antirotation walk outs - 2 plates, 2 s teps. We discussed the rationale & reasoning with all TE as we performed relative to her s pecifics. Assessment Rehabilitation potential: Patient demonstrates good potential to achieve established goals to address the documented impairments by participating in skilled physical therapy services. Electronically signed by: Yury Carbone PT, 10/30/2019 2:32 PM Patient Name: Riddhi Navarrete [place]/: 1970/ documented in th is encounter Plan of Treatment Not on filedocumented as of this encounter Visit Diagnoses + + | Diagnosis | + + | Acute midline low back pain without sciatica - Primary | + + documented in this encounter
--- OUTSIDE RECORDS SUMMARY | ~2020-01-10 | XMS | Encounter Summary ---
Demographics + + + | Address | [address] | | | [place] [address] | + + + | Home Phone [...] Team Providers + +------+ + | Care Orthopedic Radiologic Technologist Name | Role | Phone | + +------+ + PCP | Unavailable | + +------+ + Encounter Details +--------+ + + + + | Date | Type | Department | Care Team | Description | +--------+ + + + + | 12/11/ | Hospital | [facility] | Deonte Aguiar, | | | 2015 | Encounter | HOSPITAL THERAPY PT | DO [address] , | | | | | [address] [place] | [place], [place] | | | | | [place], [place] | [address] | | | | | [address] | [phone] | | | | | [phone] | | | +--------+ + + + [...]
--- OUTSIDE RECORDS SUMMARY | ~2020-01-10 | XMS | Encounter Summary ---
Demographics + + + | Address | [address] | | | [place] [address] | + + + | Home Phone [...] Team Providers + +------+ + | Care Financial Secretary Name | Role | Phone | + +------+ + PCP | Unavailable | + +------+ + Encounter Details +--------+ + + + + | Date | Type | Department | Care Team | Description | +--------+ + + + + | 11/18/ | Hospital | [facility] | Kayy Holguin, | | | 2017 | Encounter | [facility] | DO [address] [place] | | | | | MEDICAL CLINIC [address] | [place] [address] | | | | | [address] [place], | [phone] | | | | | [place] [address] | | | | | | [phone] | | | +--------+ + + + [...]
--- OUTSIDE RECORDS SUMMARY | ~2020-01-10 | XMS | Encounter Summary ---
Demographics + + + | Address | [address] | | | [place] [address] | + + + | Home Phone [...] Team Providers + +------+ + | Care Jackscrew Man Name | Role | Phone | + +------+ + PCP | Unavailable | + +------+ + Encounter Details +--------+ + + + + | Date | Type | Department | Care Team | Description | +--------+ + + + + | 05/19/ | Hospital | [facility] [facility] | Ana Luisa Alexandra, | | | 2014 | Encounter | [facility] | CASING CREW [address] | | | | | [facility] CL[facility] [address] | [address] [place], [place] | | | | | [address] [place], | [address] | | | | | [place] [address] | | | | | | [phone] | | | +--------+ + + + [...]
--- OUTSIDE RECORDS SUMMARY | ~2020-01-10 | XMS | Encounter Summary ---
Demographics + + + | Address | [address] | | | [place] [address] | + + + | Home Phone [...] Team Providers + +------+ + | Care Contract Runner Name | Role | Phone | + +------+ + PCP | Unavailable | + +------+ + Reason for Visit + +--------+ + | Reason | Onset | Comments | | | Date | | + +--------+ + | Medication Refill | 06/29/ | | | | 2018 | | + +--------+ + Encounter Details +--------+--------+ + + + | Date | Type | Department | Care Team | Description | +--------+--------+ + + + | 06/29/ | Refill | [facility] | Diane Thornton, | Medication Refill | | 2017 | | [facility] | CELL OPERATOR | | | | | MEDICAL CLINIC [address] | | | | | | [address] [facility] [place], | | | | | | [place] [address] | | | | | | [phone] | | | +--------+--------+ + + + [...]
--- OUTSIDE RECORDS SUMMARY | ~2020-01-10 | XMS | Encounter Summary ---
Demographics + + + | Address | [address] | | | [place] [address] | + + + | Home Phone [...] Team Providers + +------+ + | Care Production Pattern Maker Name | Role | Phone | [...] | | | [place], [place] | [address] | | | | | [address] | [phone] | | | | | [phone] | | | +--------+ + + + [...]
--- OUTSIDE RECORDS SUMMARY | ~2020-01-10 | XMS | Encounter Summary ---
Demographics + + + | Address | [address] | | | [place] [address] | + + + | Home Phone [...] Team Providers + +------+ + | Care Churn Operator Name | Role | Phone | + +------+ + PCP | Unavailable | + +------+ + Encounter Details +--------+ + + + + | Date | Type | Department | Care Team | Description | +--------+ + + + + | 11/09/ | Hospital | [facility] [facility] | Neville-Andrey, | | | 2016 | Encounter | [facility] | Shruthi Abebe NP [address] | | | | | [address] [place] | [address] | | | | | [place], [place] | [place] | | | | | [address] | [address] | | | | | [phone] | [phone] | | | | | | | [...]
--- OUTSIDE RECORDS SUMMARY | ~2020-01-10 | XMS | Encounter Summary ---
Demographics + + + | Address | [address] | | | [place] [address] | + + + | Home Phone | | + + + | Preferred Language | Unknown | + + + | Marital Status | | + + + | Tenriism Affiliation | Unknown | + + + | Race | Unknown | + + + | Ethnic Group | Unknown | + + + Author + + + | Author | [facility] | | | and [place] | + + + | Organization | [facility] | | [...] Team Providers + +------+ + | Care Advertising Account Representative Name | Role | Phone | + +------+ + PCP | Unavailable | + +------+ + Encounter Details +--------+ + + + + | Date | Type | Department | Care Team | Description | +--------+ + + + + | 07/08/ | Hospital | [facility] [facility] | Ana Luisa Alexandra, | | | 2015 | Encounter | [facility] | BRANCH OPERATIONS SPECIALIST [address] | | | | | MEDICAL CLINIC [address] | [address] [place], [place] | | | | | [address] [place], | [address] | | | | | [place] [address] | | | | | | [phone] | | | +--------+ + + + [...]
--- OUTSIDE RECORDS SUMMARY | ~2020-01-10 | XMS | Encounter Summary ---
Demographics + + + | Address | [address] | | | [place] [address] | + + + | Home Phone | | + + + | Preferred Language | Unknown | + + + | Marital Status | | + + + | Congregational Affiliation | Unknown | + + + [...] Team Providers + +------+ + | Care Van Loader Name | Role | Phone | + [...] | | | | [place], [place] | [address] | | | | | [address] | [phone] | | | | | [phone] | | | +--------+ + + + [...]
--- OUTSIDE RECORDS SUMMARY | ~2020-01-10 | XMS | Encounter Summary ---
Demographics + + + | Address | [address] | | | [place] [address] | + + + | Home Phone [...] Team Providers + +------+ + | Care Engineer Operations And Maintenance Name | Role | Phone | + +------+ + PCP | Unavailable | + +------+ + Encounter Details +--------+ + + + + | Date | Type | Department | Care Team | Description | +--------+ + + + + | 06/20/ | Hospital | [facility] | Brendon Colon | | | 2015 | Encounter | HOSPITAL XRAY 900 | RMD [address] | | | | | [address] [place] | [place], [place] | | | | | [place], [place] | [address] | | | | | [address] | [phone] | | | | | [phone] | | | +--------+ + + + [...] | | | pulmonary disease. JOB #: [id number] Read By: | | | SYDNEY MOORE [...] acute | | pulmonary disease. JOB #: [id number] Read By: SYDNEY MOORE MD | | [...] | | | | | |JOB #: [id number] | | | |Read By: SYDNEY MOORE MD | | | |Released By: SYDNEY MOORE MD | |Date: 06/21/2014 07:19 | | | | | + + documented in this encounter Visit Diagnoses Not on filedocumented in this encounter"
--- OUTSIDE RECORDS SUMMARY | ~2020-01-10 | XMS | Encounter Summary ---
Demographics + + + | Address | [address] | | | [place] [address] | + + + | Home Phone [...] Providers + +------+ + | Care Financial Planning Advisor Name | Role | Phone | + [...] | | 2018 | Encounter | [facility] | DO [address] [place] | cancer | | | | Mammography [address] | [place] [address] | | | | | [address] [place] | [phone] | | | | | [place], [place] | | | | | | [address] | | | | | | [phone] | | | +--------+ + + + [...]
--- OUTSIDE RECORDS SUMMARY | ~2020-01-10 | XMS | Encounter Summary ---
Demographics + + + | Address | [address] | | | [place] [address] | + + + | Home Phone | | + + + | Preferred Language | Unknown | + + + | Marital Status | | + + + | Christianity Affiliation | Unknown | + + + | Race | Unknown | + + + | Ethnic Group | Unknown | + + + Author + + + | Author | [facility] | | | and [place] | + + + | Organization | [facility] | | | and [...] Team Providers + +------+ + | Care Yeast Tender Name | Role | Phone | + +------+ + PCP | Unavailable | + +------+ + Encounter Details +--------+ + + + + | Date | Type | Department | Care Team | Description | +--------+ + + + + | 12/23/ | Hospital | [facility] [facility] | Kayy Holguin, | | | 2015 | Encounter | [facility] | DO [address] | | | | | MEDICAL CLINIC [address] | [place] [address] | | | | | [address] [place], | [phone] | | | | | [place] [address] | | | | | | [phone] | | | +--------+ + + + [...]
--- OUTSIDE RECORDS SUMMARY | ~2020-01-10 | XMS | Encounter Summary ---
Demographics + + + | Address | [address] | | | [place] [address] | + + + | Home Phone [...] + +------+ + | Care Vice President Media Relations Name | Role | Phone | + +------+ + PCP | Unavailable | + +------+ + Encounter Details +--------+ + + + + | Date | Type | Department | Care Team | Description | +--------+ + + + + | 05/21/ | Hospital | [facility] [facility] | Linda Bardales | | | 2013 | Encounter | HOSPITAL XRAY 900 | Lea, CREW SCHEDULER [address] | | | | | [address] [place] | [facility] [place], | | | | | [facility], [place] | [place] [address] | | | | | [address] | [phone] | | | | | [phone] | | | +--------+ + + + [...]
--- OUTSIDE RECORDS SUMMARY | ~2020-01-10 | XMS | Encounter Summary ---
Demographics + + + | Address | [address] | | | [place] [address] | + + + | Home Phone [...] Providers + +------+ + | Care Senior Lead Project Manager Name | Role | Phone | + +------+ + PCP | Unavailable | + +------+ + Encounter Details +--------+ + + + + | Date | Type | Department | Care Team | Description | +--------+ + + + + | 10/27/ | Hospital | [facility] [facility] | Ana Luisa Alexandra, | | | 2015 | Encounter | [facility] | HALVER MACHINE OPERATOR [address] | | | | | MEDICAL CLINIC [address] | [address] [place], [place] | | | | | [address] [place], | [address] | | | | | [place] [address] | | | | | | [phone] | | | +--------+ + + + [...]
--- OUTSIDE RECORDS SUMMARY | ~2020-01-10 | XMS | Encounter Summary ---
Demographics + + + | Address | [address] | | | [place] [address] | + + + | Home Phone [...] Team Providers + +------+ + | Care Falafel Cart Cook Name | Role | Phone | + +------+ + | Kayy Holguin DO | PCP | | + +------+ + Encounter Details +--------+ + + + + | Date | Type | Department | Care Team | Description | +--------+ + + + + | 10/01/ | Hospital | [facility] | Kayy Holguin, | Breast cancer | | 2020 | Encounter | Hospital [facility]amm[facility] | DO [address] [place] | screening by | | | | [address] [place] | [place] [address] | mammogram | | | | [place], [place] | [phone] | | | | | [address] | | | | | | [phone] | | | +--------+ + + + [...] + | TRISTAN TOMOSYN | Routin | 10/02/2019 | Breast cancer | Results for this | | SCREENING BILATERAL | e | 11:09 AM | screening by | procedure are in the | | | | PDT | mammogram | results section. | + +--------+ + [...] + | Diagnosis | + + | Breast cancer screening by mammogram | + + documented in this encounter
--- OUTSIDE RECORDS SUMMARY | ~2020-01-10 | XMS | Encounter Summary ---
Demographics + + + | Address | [address] | | | [place] [address] | + + + | Home Phone [...] Team Providers + +------+ + | Care Philatelic Consultant Name | Role | Phone | [...] [address] [place] | [place] [address] | | | | | [place], [place] | [phone] | | | | | [address] | | | | | | [phone] | | | +--------+ + + + [...]
--- OUTSIDE RECORDS SUMMARY | ~2020-01-10 | XMS | Encounter Summary ---
Demographics + + + | Address | [address] | | | [place] [address] | + + + | Home Phone [...] Team Providers + +------+ + | Care Bridge Repair Crew Person Name | Role | Phone | + +------+ + | Kayy Holguin DO | PCP | | + +------+ + Reason for Visit + +--------+ + | Reason | Onset | Comments | | | Date | | + +--------+ + | Lab Results | 08/08/ | | | | 2018 | | + +--------+ + Encounter Details +--------+ + + + + | Date | Type | Department | Care Team | Description | +--------+ + + + + | 08/08/ | Telephone | [facility] [facility] | Diane Thornton, | Lab Results | | 2017 | | [facility] | ENGAGEMENT EXECUTIVE | | | | | MEDICAL CLINIC [address] | | | | | | 4TH [facility], | | | | | | [place] [address] | | | | | | [phone] | | | +--------+ + + + [...] Encounter - Diane Thornton LPN - 08/08/2017 5:10 PM PSTPhone is disconnected , labs results mailed. Diane Thornton LPN elephone Encounte r - Diane Thornton LPN - 08/08/2017 5:10 PM PST----- Message from DO se bianka Dutton at 08/08/2017 15:37 PST ----- All labs normal and a good cholesterol with total at 186 documented in this encounter Plan of Treatment Not on filedocumented as of this encounter Visit Diagnoses Not on filedocumented in this encounter"
--- OUTSIDE RECORDS SUMMARY | ~2020-01-10 | XMS | Clinical Summary ---
Demographics + + + | Address | [address] | | | [place] [address] | + + + | Home Phone [...] Team Providers + +------+ + | Care Chef German Name | Role | Phone | + [...] + + | Oxycodone | | | 02/20/20 | | | | | | 18 | | + + + + + + | Penicillins | | | 02/20/20 | | | [...] 2 times daily. | tablet | | 1/20 | | e | | tablet | | | | 18 | | | + + + +---------+------+------+-------+ | melatonin 3 mg | Take by mouth | | 0 | | | Activ | | TABS | nightly as needed. | | | | | e | + + + +---------+------+------+-------+ | rizatriptan | TAKE ONE TABLET BY | 12 | 2 | 03/2 | | Activ | | (MAXALT) 10 mg | MOUTH AT FIRST ONSET | tablet | | 4/20 | | e | | tablet | OF MIGRAINE | | | 20 | | | | | SYMPTOMS, MAY REPEAT | | | | | | | | AFTER 2 HOURS; MAX | | | | | | | | DOSE 30MG IN 24 | | | | | | | | HOURS | | | | | | + + + +---------+------+------+-------+ | VENTOLIN HFA 108 | Inhale 2 puffs into | 1 | 2 | 04/0 | | Activ | | (90 Base) MCG/ACT | the lungs every 6 | Inhaler | | 9/20 | | e | | inhaler | hours as needed for | | | 20 | | | | | Wheezing. | | | | | | + + + +---------+------+------+-------+ | simvastatin | Take 1 tablet by | 30 | 11 | 04/0 | | Activ | | (ZOCOR) 10 mg tablet | mouth nightly. | tablet | | 9/20 | | e | | | | | | 20 | | | + + + +---------+------+------+-------+ | montelukast | Take 1 tablet by | 30 | 11 | 04/0 | | Activ | | (SINGULAIR) 10 mg | mouth nightly. | tablet | | 9/20 | | e | | tablet | | | | 20 | | | + + + +---------+------+------+-------+ | lamoTRIgine | Take 1 tablet by | 30 | 11 | 04/0 | | Activ | | (LAMICTAL) 100 mg | mouth Daily. | tablet | | 9/20 | | e | | tablet | | | | 20 | | | + + + +---------+------+------+-------+ | EPINEPHrine | Inject 0.3 mLs into | 1 each | 2 | 04/0 | | Activ | | auto-injector 0.3 | the muscle as needed | | | 9/20 | | e | | mg/0.3 mL | for Anaphylaxis. | | | 20 | | | | injectionIndications | | | | | | | | : Allergy to bee | | | | | | | | sting | | | | | | | + + + +---------+------+------+-------+ | DULoxetine | Take 1 capsule by | 30 | 11 | 04/0 | | Activ | | (CYMBALTA) [address] | mouth Daily. | capsule | | 9/20 | | e | | capsule | | | | 20 | | | + + + +---------+------+------+-------+ | tiZANidine | Take one tab TID prn | 90 | 1 | 04/0 | | Activ | | (ZANAFLEX) 4 mg | back spasms | tablet | | 9/20 | | e | | tablet | | | | 20 | | | + + + +---------+------+------+-------+ | ibuprofen | Take up to three | 90 | 0 | 05/ | | Activ | | (ADVIL,MOTRIN) 800 | tabs daily with food | tablet | | 2/20 | | e | | MG | | | | 20 | | | | tabletIndications: | | | | | | | | Pain | | | | | | | + + + +---------+------+------+-------+ Active Problems + + + | Problem | Noted Date | + + + | Acute midline low back pain without sciatica | 10/02/2019 | + + + | Other hyperlipidemia [...] | 9 | + + + + Encounters +--------+ + + + + | Date | Type | Specialty | Care Team | Description | +--------+ + + + + | 12/24/ | Hospital | Rehabilitation | Kayy Holguin, | Acute midline low | | 2019 | Encounter | | DO [place], | back pain without | | | | | Yury Mejia PT | sciatica (Primary | | | | | | Dx) | +--------+ + + + + | 12/10/ | Hospital | Rehabilitation | Kayy Holguin, | Acute midline low | | 2020 | Encounter | | DO [place], | back pain without | | | | | Yury Mejia PT | sciatica (Primary | | | | | | Dx) | +--------+ + + + + | 12/03/ | Hospital | Rehabilitation | Kayy Holguin, | Acute midline low | | 2020 | Encounter | | DO [place], | back pain without | | | | | Yury Mejia PT | sciatica (Primary | | | | | | Dx) | +--------+ + + + + | 11/13/ | Hospital | Rehabilitation | Kayy Holguin, | Acute midline low | | 2019 | Encounter | | DO [place], | back pain without | | | | | Yury Mejia PT | sciatica (Primary | | | | | | Dx) | +--------+ + + + + | 10/29/ | Hospital | Rehabilitation | Kayy Holguin, | Acute midline low | | 2019 | Encounter | | DO [place], | back pain without | | | | | Yury Mejia PT | sciatica (Primary | | | | | | Dx) | +--------+ + + + + | 10/21/ | Refill | Primary Care | Kayy Holguin, | Medication Refill | | 2019 | | | DO | | +--------+ + + + + | 10/15/ | Hospital | Rehabilitation | Kayy Holguin, | Acute midline low | | 2019 | Encounter | | DO [place], | back pain without | | | | | Yury Mejia PT | sciatica (Primary | | | | | | Dx) | +--------+ + + + + from [...] Health Maintenance | Due Date | Last | Comments | | | | Done | | + + + + + | Hepatitis C | | | | | Screening | 1 | | | + + + + + | Vaccine: | | | | | Pneumococcal 19-64 | 7 | | | | (1 of 1 - PPSV23) | | | | + + + + + | Primary Care | | 09/19/19 | | | Outreach (Intense | 0 | 20, | | | Risk) | | 10/05/19 | | | | | 19, | | | | | 08/01/19 | | | | | 18 | | + + + + + | Vaccine: Influenza | | 03/03/20 | | | (#1) | 0 | 17, | | | | | 03/11/20 | | | | | 15, | | | | | 03/11/20 | | | | | 15, | | | | | Addition | | | | | al | | | | | history | | | | | exists | | + + + + + | Med Mgmt: BUN | | 09/19/19 | | | | 1 | 20, | | | | | 08/08/19 | | | | | 18, | | | | | 04/03/20 | | | | | 15, | | | | | Addition | | | | | al | | | | | history | | | | | exists | | + + + + + | Med Mgmt: Cr | | 09/19/19 | | | | 1 | 20, | | | | | 08/08/19 | | | | | 18, | | | | | 04/03/20 | | | | | 15, | | | | | Addition | | | | | al | | | | | history | | | | | exists | | + + + + + | Med Mgmt: eGFR | | 09/19/19 | | | | 1 | 20, | | | | | 08/08/19 | | | | | 18, | | | | | 04/03/20 | | | | | 15, | | | | | Addition | | | | | al | | | | | history | | | | | exists | | + + + + + | Medication | | 09/19/19 | | | Management | | 20 | | + + + + + | Breast Cancer | | 10/02/19 | | | Screening | 1 | 20, | | | | | 08/08/19 | | | | | 18 | | + + + + + | Cervical Cancer | | 10/28/19 | | | Screening (Pap) | 1 | 16, | | | | | 10/28/19 | | | | | 16 | | + + + + + | Vaccine: | | 03/11/20 | | | Dtap/Tdap/Td (3 - | 5 | 15, | | | Td) | | 04/12/20 | | | | | 13 | | + + + + + [...] | [employer] | [employer] | [id number] | | [phone] | | Medica | | MEDICAID HMO [...] Person | Self | [birth year] | [address] [facility] | | | al/Fam | | 1970 | [phone] | [place] | | | jun | | | 4 (Home) | [address] | + +--------+ +--------+ + + Advance Directives + + + + + | Type | Date Recorded | Patient | Explanation | | | | Drier Belt Conveyor | | + + + + + | Power of | | | | | [facility] | | | | + + + + + | Advance | 10/02/2019 10:43 | | | | Directive | AM | | | + + + + +
--- OUTSIDE RECORDS SUMMARY | ~2020-01-10 | XMS | Encounter Summary ---
Demographics + + + | Address | [address] | | | [place] [address] | + + + | Home Phone [...] Team Providers + +------+ + | Care Crisis Counselor Name | Role | Phone | + +------+ + PCP | Unavailable | + +------+ + Encounter Details +--------+ + + + + | Date | Type | Department | Care Team | Description | +--------+ + + + + | 12/07/ | Hospital | [facility] | Neville-Andrey, | | | 2016 | Encounter | [facility] | Shruthi Abebe NP [address] | | | | | [address] [place] | [address] | | | | | [place], [place] | [place] | | | | | [address] | [address] | | | | | [phone] | [phone] | | | | | | | [...]
--- OUTSIDE RECORDS SUMMARY | ~2020-01-10 | XMS | Encounter Summary ---
Demographics + + + | Address | [address] | | | [place] [address] | + + + | Home Phone [...] Team Providers + +------+ + | Care Wool Broker Name | Role | Phone | + +------+ + | Kayy Holguin DO | PCP | | + +------+ + Reason for Visit + +--------+ + | Reason | Onset | Comments | | | Date | | + +--------+ + | Results, Imaging | 10/01/ | | | | 2020 | | + +--------+ + Encounter Details +--------+ + + + + | Date | Type | Department | Care Team | Description | +--------+ + + + + | 10/01/ | Telephone | [facility] | Kayy Holguin, | Results, Imaging | | 2020 | | [facility] | [address] [place] | | | | | MEDICAL CLINIC [address] | [facility] [place] [address] | | | | | [address] [place], | [phone] | | | | | [place] [address] | | | | | | [phone] | | | +--------+ + + + [...] Telephone Encounter - Suad Guerrero LPN - 10/02/2019 1:10 PM PDTMy chart message sent. Suad Guerrero LPN elephone Encounter - Suad Guerrero LPN - 10/02/2019 1:09 PM PDT----- Message from Kayy Holguin DO sent at 10/02/2019 11:30 AM PDT ----- Let patient know her mammogram is with benign findings only. Repeat in one yearElectronical ly signed by Suad Guerrero LPN at 10/02/2019 1:09 PM PDTdocumented in this encounter Plan of Treatment Not on filedocumented as of this encounter Visit Diagnoses Not on filedocumented in this encounter"
--- OUTSIDE RECORDS SUMMARY | ~2020-01-10 | XMS | Encounter Summary ---
Demographics + + + | Address | [address] | | | [place] [address] | + + + | Home Phone [...] Team Providers + +------+ + | Care Instructor Trainer Canine Service Name | Role | Phone | + +------+ + | Kayy Holguin DO | PCP | | + +------+ + Reason for Visit +--------+--------+ + | Reason | Onset | Comments | | | Date | | +--------+--------+ + | Other | 03/27/ | | | | 2018 | | +--------+--------+ + Encounter Details +--------+ + + + + | Date | Type | Department | Care Team | Description | +--------+ + + + + | 03/27/ | Telephone | [facility] | Kayy Holguin, | Other | | 2018 | | [facility] | [address] | | | | | MEDICAL CLINIC [address] | [facility] [place] [address] | | | | | [address]TH [facility], | [phone] | | | | | [place] [address] | | | | | | [phone] | | | +--------+ + + + [...] Telephone Encounter - Diane Thornton LPN - 03/27/2018 4:16 PM PDTNo answer and no VM. Diane Thornton LPN elephone Jenniffer Gandhi 03/27/2018 3:46 PM PDTPt calling requesting to have order put in for Ultrasound for leg. Pt is sitting in urgent care in [facility]. Pt would like a call b ack as soon as possible to give more detail. Jenniffer De La Garza documented in this encounter Plan of Treatment Not on filedocumented as of this encounter Visit Diagnoses Not on filedocumented in this encounter"
--- OUTSIDE RECORDS SUMMARY | ~2020-01-10 | XMS | Encounter Summary ---
Demographics + + + | Address | [address] | | | [place] [address] | + + + | Home Phone | | + + + | Preferred Language | Unknown | + + + | Marital Status | | + + + | Episcopal Affiliation | Unknown | + + + | Race | Unknown | + + + | Ethnic Group | Unknown | + + + Author + + + | Author | [facility] | | | and [place] | + + + | Organization | [facility] | | [...] Team Providers + +------+ + | Care Assembler Erector Name | Role | Phone | + +------+ + PCP | Unavailable | + +------+ + Encounter Details +--------+ + + + + | Date | Type | Department | Care Team | Description | +--------+ + + + + | 11/21/ | Hospital | [facility] | [place], | | | 2013 | Encounter | HOSPITAL EMERGENCY | CONCRETE HANDLER [address] | | | | | C[address] | [place] | | | | | [place] | [address] | | | | | [address] | | | | | | [phone] | | | +--------+ + + + [...]
--- OUTSIDE RECORDS SUMMARY | ~2020-01-10 | XMS | Encounter Summary ---
Demographics + + + | Address | [address] | | | [place] [address] | + + + | Home Phone | | + + + | Preferred Language | Unknown | + + + | Marital Status | | + + + | Amish Affiliation | Unknown | + + + [...] Providers + +------+ + | Care Senior Hris Analyst Name | Role | Phone | + +------+ + PCP | Unavailable | + +------+ + Encounter Details +--------+ + + + + | Date | Type | Department | Care Team | Description | +--------+ + + + + | 08/29/ | Hospital | [facility] | Kayy Holguin, | | | 2015 | Encounter | [facility] | DO [address] [place] | | | | | MEDICAL CLINIC [address] | [place] [address] | | | | | [address] [place], | [phone] | | | | | [place] [address] | | | | | | [phone] | | | +--------+ + + + [...]
--- OUTSIDE RECORDS SUMMARY | ~2020-01-10 | XMS | Encounter Summary ---
Demographics + + + | Address | [address] | | | [place] [address] | + + + | Home Phone [...] Team Providers + +------+ + | Care Apparel Designer Name | Role | Phone | [...] | | | | [place], [place] | [address] | | | | | [address] | | | | | | [phone] | | | +--------+ + + + [...]
--- OUTSIDE RECORDS SUMMARY | ~2020-01-10 | XMS | Encounter Summary ---
Demographics + + + | Address | [address] | | | [place] [address] | + + + | Home Phone [...] Providers + +------+ + | Care Hand Engraver Name | Role | Phone | + [...] + | 10/30/ | Refill | [place] [facility] | Diane Thornton, | Medication Refill | | 2017 | | [facility] | [facility]ST | | | | | [facility] | | | | | | [address] [facility], | | | | | | [place] [address] | | | | | | [phone] | | | +--------+--------+ + + + [...]
--- OUTSIDE RECORDS SUMMARY | ~2020-01-10 | XMS | Encounter Summary ---
Demographics + + + | Address | [address] | | | [place] [address] | + + + | Home Phone [...] Providers + +------+ + | Care Order Desk Clerk Name | Role | Phone | + +------+ + PCP | Unavailable | + +------+ + Encounter Details +--------+ + + + + | Date | Type | Department | Care Team | Description | +--------+ + + + + | 06/28/ | Hospital | [facility] | [facility], | | | 2016 | Encounter | HOSPITAL EMERGENCY | PIG CASTER [address] | | | | | CENTER [address] | [place] | | | | | [place] | [address] | | | | | [address] | | | | | | [phone] | | | +--------+ + + + [...] + + + + | Clarity, | HAZY | CLEAR | EXTERNAL | | | Urine | | | LAB | | + + + + + + | Color, | STRAW | YELLOW | EXTERNAL | | | Urine | | | LAB | | + + + + + + | Specific | 1.01 | 1.005 - 1.030 | EXTERNAL | | | [place], | | | LAB | | | [...] + + + | White Blood | 0-2 | </= 5 /HPF | EXTERNAL | | | Cells, | | | LAB | | | Urine | | | | | + + + + + + | RBC | NONE SEEN | </= 5 PER [...] + + + + | Squamous | FEW | FEW /LPF | EXTERNAL [...] were discussed with Shasta | | | Ramiro at 5 p.m. JOB: [id number] Read By: | | | BLAINE NIEVES [...] with Shasta Rubio at 5 p.m. JOB: [id number] Read By: BLAINE NIEVES MD | | Released By: BLAINE NIEVES MDDate: 06/28/2015 18:22 | | | |The uterus [...] 5 p.m. | | | | JOB: [id number] | | | | | |Read By: BLAINE NIEVES MD | | | |Released By: BLAINE NIEVES MD | |Date: 06/28/2015 18:22 | | | | | + + documented in this encounter Visit Diagnoses Not on filedocumented in this encounter"
--- OUTSIDE RECORDS SUMMARY | ~2020-01-10 | XMS | Encounter Summary ---
Demographics + + + | Address | [address] | | | [place] [address] | + + + | Home Phone [...] | Author | [facility] | | | and [place] | + + + | Organization | [facility] [...] Team Providers + +------+ + | Care Color Mixer Name | Role | Phone | [...] | | | [place], [place] | [address] | | | | | [address] | [phone] | | | | | [phone] | | | +--------+ + + + [...]
--- OUTSIDE RECORDS SUMMARY | ~2020-01-10 | XMS | Encounter Summary ---
Demographics + + + | Address | [address] | | | [place] [address] | + + + | Home Phone [...] | | + + +---------+ + | Vneancio Perez | ECON | Unknown | | + + +---------+ + Care Team Providers + +------+ + | Care Alley Cleaner Name | Role | Phone | [...] | | | [place] | [place] [address] | [place] [address] | | | | | | Phone: | Phone: | | | | | | [phone] | [phone] | | | | | | Fax: | Fax: | | | | | | [phone] | [phone] | + +--------+ + + + + Encounter Details +--------+ + + + + | Date | Type | Department | Care Team | Description | +--------+ + + + + | 12/10/ | Hospital | [facility] | Kayy Holguin, | Acute midline low | | 2020 | Encounter | HOSPITAL THERAPY PT | DO [address] [place] | back pain without | | | | [address] [place] | [place] [address] | sciatica (Primary | | | | [place], [place] | [phone] | Dx) | | | | [address] | | | | | | [phone] | Yury Carbone | | | | [...] encounter Progress Notes Yury Carbone, PT - 12/11/2019 1:00 PM PDTFormatting of this note might be differen t from the original. [facility] THERAPY PT [address] [place] [address] Physical Therapy Daily Treatment Note Date: 12/11/2019 Patient Information Patient Name: Riddhi Perez Date of : 1970 Age: 49 y.o. Encounter Diagnoses Code Name Primary? M54.5 Acute midline low back pain without sciatica Yes Date of Onset: 09/19/2019 Referring Provider: Kyay Holguin, DO Objective Pain Assessment: Pain Rating During Assessment: 6 Location: mid to low Standardized Tests: Oswestry Disability Index (SHREE) Pain Intensity: 3 - The pain is fairly severe at the moment Personal Care: 2 - It is painful to take care of myself and I am slow and careful Liftin - Pain prevents me from lifting heavy weights, but I can manage light to medium weights if they are conveniently positioned Walkin - Pain prevents me from walking more than 1 mile Sittin - I can only sit in my favorite chair as long as I like Standin - I can stand as long as I want but increases my pain Sleepin - Because of pain I get less than 6 hours sleep Sex life (if applicable): 3 - My sex life is severely restricted by pain Social Life: 3 - Pain prevents me from going out very often Travelin - My pain restricts travel over 2 hours Oswestry Disability Index Score (Calculated): 21 Oswestry Disability Percentage Score: 42 Oswestry Disability Index Goal: <12/50 - all goals to be met with in 12 weeks Oswestry Disability Index Goal Status: 21/50 Today's Treatment Patient Name: Riddhi Navarrete Ana/: 1970/ Start Time: 1250 Stop time: 1340 Duration: 50 minutes Timed Treatment Codes: 46 minutes # of PT Visits to Date: 6 Visit Summary: S: I am doing pretty good, some soreness on the low spine but it is worse wh en I don't move too much. It also gets worse if I overdo. A: Riddhi was able to tolerate in crease TE, but she still has difficulty controling trunk motion & dynamic control L>R side w ith all exercises. She req vc's for proper execution & control. Next Visit Information: cont TE as tolerated Patient/Caregiver Education Learner: Patient Readiness: Acceptance Method: Demonstration Response: Verbalizes Understanding Comment: for all TE each session to intergrate into final program for home use Therapy Interventions HEP: she is to perform the TE done in clinic at home as tolerated with focus on form & prop er execution. She is to call if she has issues after doing them. PT INTERVENTION 1: TE 46' - Nu Step - L5 - during which time we disucced the specifics of h er condition & TE relative to her case. Squats - performed with focus on proper LE & trunk alignement & posture as well as execution both with 5 lb for "reach squat", Clamshells YTB 60" hold on/off, bridges - w/YTB at knees during 60" holds on/off. Side Planks 20" x3, Ca ble antirotation walk outs - 3 plates, 2 steps 8 reps each side. We discussed the rational e & reasoning with all TE as we [...] 12 weeks Oswestry Disability Index Goal Status: 50 OP PT Goals Goal 1: Indep with HEP & self advancement Goal 1 Status: in progress - advancing with TE instruction & focus of program to strengthen & implement program for home use with daily discussion each session Electronically signed by: Yury Carbone, PT, 12/11/2019 2:22 PM PDT Patient Name: Riddhi Navarrete Layton/: 1970/ documented in th is encounter Plan of Treatment Not on filedocumented as of this encounter Visit Diagnoses + + | Diagnosis | + + | Acute midline low back pain without sciatica - Primary | + + documented in this encounter
--- OUTSIDE RECORDS SUMMARY | ~2020-01-10 | XMS | Encounter Summary ---
Demographics + + + | Address | [address] | | | [place] [address] | + + + | Home Phone [...] Team Providers + +------+ + | Care Grounds Maintenance Worker Name | Role | Phone | + +------+ + PCP | Unavailable | + +------+ + Encounter Details +--------+ + + + + | Date | Type | Department | Care Team | Description | +--------+ + + + + | 01/07/ | Hospital | [facility] | Linda Bardales | | | 2014 | Encounter | [facility] | Lea, BENDING PRESS OPERATOR [address] | | | | | MEDICAL CLIN[facility] [address] | [facility], | | | | | [address] [place], | [place] [address] | | | | | [place] [address] | [phone] | | | | | [phone] | | | +--------+ + + + [...]
--- OUTSIDE RECORDS SUMMARY | ~2020-01-10 | XMS | Encounter Summary ---
Demographics + + + | Address | [address] | | | [place] [address] | + + + | Home Phone [...] Team Providers + +------+ + | Care Sanitation Worker Cleaning Equipment Name | Role | Phone | + +------+ + PCP | Unavailable | + +------+ + Encounter Details +--------+ + + + + | Date | Type | Department | Care Team | Description | +--------+ + + + + | 04/18/ | Hospital | [facility] | Linda Bardales | | | 2012 | Encounter | HOSPITAL XRAY [address] | Lea, MASTER AUTOMOTIVE TECHNICIAN [address] | | | | | [address] | [facility], | | | | | [facility], [place] | [place] [address] | | | | | [address] | [phone] | | | | | [phone] | | | +--------+ + + + [...]
--- OUTSIDE RECORDS SUMMARY | ~2020-01-10 | XMS | Encounter Summary ---
Demographics + + + | Address | [address] | | | [place] [address] | + + + | Home Phone [...] Providers + +------+ + | Care Education Site Manager Name | Role | Phone | + +------+ + PCP | Unavailable | + +------+ + Encounter Details +--------+ + + + + | Date | Type | Department | Care Team | Description | +--------+ + + + + | 08/31/ | Hospital | [facility] | [facility], | | | 2012 | Encounter | HOSPITAL EMERGENCY | TALENT RECRUITER [address] | | | | | CENTER [address] | [place] | | | | | [place] | [address] | | | | | [address] | | | | | | [phone] | | | +--------+ + + + [...]
--- OUTSIDE RECORDS SUMMARY | ~2020-01-10 | XMS | Encounter Summary ---
Demographics + + + | Address | [address] | | | [place] [address] | + + + | Home Phone [...] Team Providers + +------+ + | Care Payroll And Benefits Assistant Name | Role | Phone | [...] 05/18/ | Refill | [facility] | Kayy Holguin, | Medication Refill | | 2016 | | [facility] | [address] [place] | | | | | MEDICAL CLINIC [address] | [place] [address] | | | | | 4TH [facility], | [phone] | | | | | [place] [address] | | | | | | [phone] | | | +--------+--------+ + + + [...]
--- OUTSIDE RECORDS SUMMARY | ~2020-01-10 | XMS | Encounter Summary ---
Demographics + + + | Address | [address] | | | [place] [address] | + + + | Home Phone [...] Team Providers + +------+ + | Care Glue Sprayer Name | Role | Phone | + +------+ + | Kayy Pack DO | PCP | | + +------+ + Reason for Visit +---------+--------+ + | Reason | Onset | Comments | | | Date | | +---------+--------+ + | Results | 11/01/ | | | | 2019 | | +---------+--------+ + Encounter Details +--------+ + + + + | Date | Type | Department | Care Team | Description | +--------+ + + + + | 11/01/ | Telephone | [facility] | Svetlana, | Results | | 2019 | | [facility] | [facility], [address] | | | | | MEDICAL CLINIC [address] | Fourth [facility] | | | | | 4TH [facility], | [place] [address] | | | | | [place] [address] | [phone] | | | | | [phone] | | | +--------+ + + + [...] this encounter Miscellaneous Notes Telephone Encounter - Leti Fiore CC GLOBAL CMO - 11/01/2018 4:33 PM PDTPt was given resul ts by dr. pack - pt pcp today in another encounter. CRISTÓBAL Don CMAElectronicall y signed by CRISTÓBAL Kaye CMA at 11/01/2018 4:34 PM PDTTelephone Encounter - Leti Fiore CC CMA - 11/01/2018 4:33 PM PDT----- Message from LEDA Dennison sent at 11/01/2018 16:23 PDT ----- MRI showed joint degeneration, no rotator cuff tear. documented in this encounter Plan of Treatment Not on filedocumented as of this encounter Visit Diagnoses Not on filedocumented in this encounter"
--- OUTSIDE RECORDS SUMMARY | ~2020-01-10 | XMS | Encounter Summary ---
Demographics + + + | Address | [address] | | | [place] [address] | + + + | Home Phone | | + + + | Preferred Language | Unknown | + + + | Marital Status | | + + + | Jehovah'S Witness Affiliation | Unknown | + + + | Race | Unknown | + + + | Ethnic Group | Unknown | + + + Author + + + | Author | [facility] | | | and [place] | + + + | Organization | [facility] | | [...] Team Providers + +------+ + | Care Inventory And Pricing Associate Name | Role | Phone | [...] | Therapy / | Acute pain | Atleroybi-Hanse | Therapy Pt | | | Required | Rehabilitatio | of right | n, Cris[place], | [address] | | | | n | shoulder | WORKFORCE SPECIALIST [address] | [place], | | | | | Procedures | [address] | [place] [address] | | | | | PT EVAL | [place], | Phone: | | | | | | [place] [address] | [phone] | | | | | | Phone: | Fax: | | | | | | [phone] | [phone] | | | | | | Fax: | | | | | | | [phone] | | +--------+ + + + + [...] | | | | [address] [place] | [address] [place] | injury, right, | | | | [place], [place] | [place] [address] | subsequent encounter | | | | [address] | [phone] | | | | | [phone] | | | | | | | Librado Alcala, | | | | | | DPT [address] [place] | | | | | | [place] [address] | | | | | | [phone] | | | | | | | [...] of this encounter Progress Notes Librado Alcala, BETHEL - 10/26/2018 12:47 PM PDT Physical Therapy [...] weeks. QuickDASH Goal Status: 77% disabled at [facility]. OP PT Goals OP PT Goals: Goal 1, Goal 2, Goal 3 Goal 1: Patient will dislay imporved (R) shoulder AROM with flexion 135 degrees or greater within 8 weeks. Goal 1 Status: 100 degrees with signficant pain. Goal 2: Patient will improve her (R) shoulder strength to 4-/5 gross or greater within 8 we eks. Goal 2 Status: 3/5 gross at [facility]. Goal 3: Patient will be independent with her initial HEP within 3 weeks. Goal 3 Status: Needs instruction. Treatment Plan/Interventions PT EvaluationPT Re-Waooisjrvn02939 - Therapeutic Cboxkhgi92722 - Neuromuscular Reeducation9 7116 - Gait Mpoqitaa55757 - Therapeutic Gdhdgliwyw20386 - Manual Kajcgsu59864 - Self Care/Ho me Pevnrhsohl32898 - Aquatic Therapy/Exercises HP/CP Electronically signed by: Librado Alcala, PT, 10/26/2018 12:47 Patient Name: Riddhi Pikeyor/: 1970/ Nj Mercer DPT - 10/18/2018 8:30 AM PDTFormatting of this note might be different from the origin al. [facility] [place] [id number] [] ARSHAD [] RETRO Call/Fax received by Date call/Fax received [] Referral [x]Service Authorization [] Plus [x] Standard [] Inpt [x] Outpt Patient Information Patient Name: Riddhi Pikeyor :1970 [facility] Client ID # [id number] PCP/Food Quality Technician Doctor Information PCP/Food Quality Technician Doctor: Kayy Holguin DO Specialist Termination Clerk Name: Librado Alcala PT Address: [address] [place], [place] [address] Facility Information Facility: [facility]# [id number] Contact: Soren Tran Additional Authorization/Referral Information ICD10 code(s): Encounter Diagnoses Code Name Primary? M25.511 Acute pain of right shoulder S49.91XD Shoulder injury, right, subsequent encounter CPT code(s): [x]Ther. Exercise (60040) [x]Manual (49194) [x]MR (08349) []Gait Training (04234) [x]Aquatic Therapy (82671) []Traction (57061) [x] ThereAct (36407) Date of Onset: 10/04/2018 Start of Care Date: 10/17/2018 Requested # of Visits: 18 visits 2x/week for 12 weeks. Certification From: 10/17/2018 Certification To: 01/09/2019 Is this for a second Opinion [] Yes [x] No Comments: Below for ODS use only: Authorization number: Denial Number: Librado Mercer DPT - 10/18/2018 8:29 AM PDT . Physical Therapy Plan of Care Date: 10/18/2018 Patient Name: Riddhi Perez Date of : 1970 Encounter Diagnoses Code Name Primary? M25.511 Acute pain of right shoulder Date of Onset: 10/04/2018 Start of Care Date: 10/17/2018 Requested # of Visits: 18 visits 2x/week for 12 weeks. Certification From: 10/17/2018 Certification To: 01/09/2019 Clinical Impression: Ms. Peerz presents to outpatient physical therapy approximately 2 [...] Status: Needs instruction. Treatment Plan/Interventions PT EvaluationPT Re-Rtothlpbqd80079 - Therapeutic Drmwxecs11810 - Neuromuscular Reeducation9 7116 - Gait Bekzjrip70124 - Therapeutic Ixxwzmdioo79059 - Manual Eapynsz12589 - Self Care/Ho me Ejcbbouaku27564 - Aquatic Therapy/Exercises HP/CP Electronically signed by: Librado Alcala, PT, 10/18/2018 8:29 Patient Name: Riddhi Perez/: 1970/ j Alcala DPT - 10/18/2018 8:27 AM PDTFormatting of this note might be different from the origin [facility] THERAPY PT [address] [place] [address] Physical Therapy Initial Assessment Date: 10/17/2018 Patient [...] jar: 1 - No Difficulty Do heavy senior systems developer: 4 - Severe Difficulty Carry a shopping [...] weeks. QuickDASH Goal Status: 77% disabled at [facility]. Range of Motion (measured in degrees): LUE [...] Certification To: 01/09/2019 Treatment Plan/Interventions PT EvaluationPT Re-Nhkxyecfkk86648 - Therapeutic Qujevgzc07431 - Neuromuscular Reeducation9 7116 - Gait Zsfiphzs99892 - Therapeutic Uuxdxqwlww68081 - Manual Gepnzvs86377 - Self Care/Ho me Pxhjcpsyxn59244 - Aquatic Therapy/Exercises HP/CP Patient and/or family has indicated understanding of treatment needs and actively participa eric in the creation of this plan for care. Electronically signed by: Librado Alcala PT, 10/18/2018 8:27 Patient Name: Riddhi Perez/: 1970/ documented in thi s encounter Miscellaneous Notes Addendum Note - Librado Alcala DPT - 10/26/2018 12:47 PM PDT Encounter addended by: Kimberley Alcala PT on: 10/26/2018 12:47 Actions taken: Follow-up modified, Sign clinical note documented in this encounter Plan of Treatment [...]
--- OUTSIDE RECORDS SUMMARY | ~2020-01-10 | XMS | Encounter Summary ---
Demographics + + + | Address | [address] | | | [place] [address] | + + + | Home Phone [...] Team Providers + +------+ + | Care Crepe Laminator Operator Name | Role | Phone | + +------+ + PCP | Unavailable | + +------+ + Encounter Details +--------+ + + + + | Date | Type | Department | Care Team | Description | +--------+ + + + + | 03/03/ | Hospital | [facility] | Kayy Holguin, | | | 2017 | Encounter | [facility] | DO [address] [place] | | | | | MEDICAL CLINIC [address] | [place] [address] | | | | | [address] [place], | [phone] | | | | | [place] [address] | | | | | | [phone] | | | +--------+ + + + [...]
--- OUTSIDE RECORDS SUMMARY | ~2020-01-10 | XMS | Encounter Summary ---
Demographics + + + | Address | [address] | | | [place] [address] | + + + | Home Phone [...] Team Providers + +------+ + | Care Victim Witness Administrator Name | Role | Phone | [...] | | | [place], [place] | [address] | | | | | [address] | [phone] | | | | | [phone] | | | +--------+ + + + [...]
--- OUTSIDE RECORDS SUMMARY | ~2020-01-10 | XMS | Encounter Summary ---
Demographics + + + | Address | [address] | | | [place] [address] | + + + | Home Phone [...] Team Providers + +------+ + | Care Platform Loader Name | Role | Phone | [...] | | | | initial | [place] [address] | [place] [address] | | | | | encounter | Phone: | Phone: | | | | | Strain of | [phone] | [phone] | | | | | left | Fax: | Fax: | | | | | shoulder, | [phone] | [phone] | | | | | initial | [...] + | 08/01/ | Office | [facility] | Kayy Holguin, | Injury of left | | 2018 | Visit | [facility] | DO [address] [place] | shoulder, initial | | | | MEDICAL CLINIC [address] | [facility] [address] | encounter (Primary | | | | [address] [place], | [phone] | Dx); Strain of left | | | | [place] [address] | | shoulder, initial | | | | [phone] | | encounter; Other | | | [...] encounter Progress Notes Kayy Holguin DO - 08/01/2017 9:30 AM PSTFormatting of this note might be different fro m the original. Subjective: Patient ID: Riddhi Perez is a 47 y.o. female. Here due to a fall off porch a month ago on the ice. She was seen in [place] [facility] and had x ray on the [...] short term on ly for pain at [facility]. She will return fasting for lipids and CMP and I will order routine mamm o. documented in this en counter Plan of Treatment + + +--------+ + + | Name | Type | Priori | Associated Diagnoses | Order Schedule | | | | ty | | | + + +--------+ + + | * [facility] [facility] | Outpatient | Routin | Injury of left | Ordered: 08/01/2017 | | [facility] | Referral | e | [...] | | HOSPITAL | | | | Khzaujh111 - 129 mg/dL | | REGIONAL | | | | Near Gtpfknj396 - | | MEDICAL | | | | 159 mg/dL | | CENTER LAB | | | | Wcidcwdnas579 - 189 | | | | | [...] + + + + + | [facility] | [address] | [place], [place] | [phone] | | HOSPITAL [facility] | | [address] | | | MEDICAL CENTER LAB | [...] | mL/min/1.73m2 | [facility]ON[facility] | | | Nauruan | RATE,ESTIMATED | | HOSPITAL | | | | mL/min/1.99g2Tpmg than | | REGIONAL | | | [...] + + + + + | [facility] | [address] | [place] | [phone] | | [facility] | | [address] | | | MEDICAL CENTER LAB | [...]
--- OUTSIDE RECORDS SUMMARY | ~2020-01-10 | XMS | Encounter Summary ---
Demographics + + + | Address | [address] | | | [place] [address] | + + + | Home Phone [...] Team Providers + +------+ + | Care Historian Research Assistant Name | Role | Phone | + +------+ + PCP | Unavailable | + +------+ + Encounter Details +--------+ + + + + | Date | Type | Department | Care Team | Description | +--------+ + + + + | 02/09/ | Hospital | [facility] | [facility], | | | 2012 | Encounter | HOSPITAL EMERGENCY | RUST PROOFER [address] | | | | | CENTER [address] | [place] | | | | | [place] | [address] | | | | | [address] | | | | | | [phone] | | | +--------+ + + + [...]
--- OUTSIDE RECORDS SUMMARY | ~2020-01-10 | XMS | Encounter Summary ---
Demographics + + + | Address | [address] | | | [place] [address] | + + + | Home Phone [...] Team Providers + +------+ + | Care Trains Service Conductor Name | Role | Phone | + [...] Therapy / | Acute pain | Kayy Ott, DO | Therapy Pt | | | Required | Rehabilitatio | of right | [address] | [address] | | | | n | shoulder | [place], | [place], | | | | | Procedures | [place] [address] | [place] [address] | | | | | PT TREAT | Phone: | Phone: | | | | | | [phone] | [phone] | | | | | | Fax: | Fax: | | | | | | [phone] | [phone] | +--------+ + + + + + Encounter Details +--------+ + + + + | Date | Type | Department | Care Team | Description | +--------+ + + + + | 11/15/ | Hospital | [facility] | Kayy Holguin, | Acute pain of right | | 2019 | Encounter | HOSPITAL THERAPY PT | DO [address] [place] | shoulder (Primary | | | | [address] [place] | [place] [address] | Dx); Shoulder | | | | [place], [place] | [phone] | injury, right, | | | | [address] | | subsequent encounter | | | | [phone] | Librado Alcala, | | | | | | DPT [address] [place] | | | | | | [place] [address] | | | | | | [phone] | | | | | | | [...] encounter Progress Notes Librado Alcala, BETHEL - 11/15/2018 4:[address] [facility] THERAPY PT [address] [place] [address] Physical Therapy Daily Treatment Note Date: 11/15/2018 Patient Information Patient Name: Riddhi Perez Date of : 1970 Age: 48 y.o. Encounter Diagnoses Code Name Primary? M25.511 Acute pain of right shoulder Yes S49.91XD Shoulder injury, right, subsequent encounter Date of Onset: 10/04/2018 Referring Provider: Kayy Holguin DO Objective Pain Assessment: Pain Rating Pre Assessment: [...] is doing more reaching at work. A: Patien t tolerated all initial interventions well, including ice [...] Perez/: 1970/ documented in thi s encounter Plan of Treatment + + +--------+ [...]
--- OUTSIDE RECORDS SUMMARY | ~2020-01-10 | XMS | Encounter Summary ---
Demographics + + + | Address | [address] | | | [place] [address] | + + + | Home Phone [...] Team Providers + +------+ + | Care Quick Print Operator Name | Role | Phone | [...] | | | | Acute pain | Fredi-Keyla | [address] | | | | | of right | nLupe, | DR VARGAS | | | | | shoulder | [facility] [address] | [place], [place] | | | | | Procedures | [address] | [address] | | | | | MRI Shoulder | [place], | Phone: | | | | | Right wo | [place] [address] | [phone] | | | | | Contrast | Phone: | Fax: | | | | | | [phone] | [phone] | | | | | | Fax: | | | | | | | [phone] | | +--------+--------+ + + + + [...] | Therapy / | Acute pain | Piero | Therapy Pt | | | Required | Rehabilitatio | of right | n, Jueth, | [address] | | | | n | shoulder | [facility] [address] | [place], | | | | | Procedures | [address] | [place] [address] | | | | | PT EVAL | [place], | Phone: | | | | | | [place] [address] | [phone] | | | | | | Phone: | Fax: | | | | | | [phone] | [phone] | | | | | | Fax: | | | | | | | [phone] | | +--------+ + + + + [...] right | | 2019 | Visit | [facility] | Lupe, [facility] [address] | shoulder (Primary | | | | [facility] [address] [place] | Dx); Decreased | | | | [address] [place], | [place] [address] | abduction of | | | | [place] [address] | [phone] | shoulder joint, | | | | [phone] | | right; Paresthesia | | | [...] + documented in this encounter Progress Notes [place], LEDA - 10/04/2018 3:00 PM PDTFormatting of [...] visit follow up. She was seen at [facility] in [place] on 09/20/18 for shoulder pain. She is [...] made to ensure accuracy. However, inadvertent computerized marshmallow maker errors may be pre sent documented i [...]
== END 2020-01-10 15:37 | disposition home or self-care (01) ==
LOC: ED 13:47
DX: T63.441A Toxic effect of venom of bees, accidental (unintentional), initial encounter (principal); J45.909 Unspecified asthma, uncomplicated; F17.200 Nicotine dependence, unspecified, uncomplicated; Z91.030 Bee allergy status; Z88.0 Allergy status to penicillin; Z88.6 Allergy status to analgesic agent; Z88.5 Allergy status to narcotic agent; Z88.2 Allergy status to sulfonamides; Z79.899 Other long term (current) drug therapy; G47.00 Insomnia, unspecified
CPT/HCPCS: 99282

== ENCOUNTER 2020-10-28 19:44 | Emergency (ER) | payer OTHER ==
[~2020-10-28] VITALS: Ht 157.5 cm; Wt 76.0 kg
[2020-10-28] MEDS ORDERED: IBUPROFEN800 MG PO (21:38)
== END 2020-10-28 23:31 | disposition home or self-care (01) ==
LOC: ED 19:44
DX: S62.001A Unspecified fracture of navicular [scaphoid] bone of right wrist, initial encounter for closed fracture (principal); M54.5 Low back pain; W10.9XXA Fall (on) (from) unspecified stairs and steps, initial encounter; F17.200 Nicotine dependence, unspecified, uncomplicated; J45.909 Unspecified asthma, uncomplicated; M10.9 Gout, unspecified; G47.00 Insomnia, unspecified; Z91.030 Bee allergy status; Z88.0 Allergy status to penicillin; Z88.6 Allergy status to analgesic agent; Z88.5 Allergy status to narcotic agent; Z88.2 Allergy status to sulfonamides; Z79.899 Other long term (current) drug therapy
CPT/HCPCS: 29125; 73130; 99283-25; A9270

== ENCOUNTER 2020-12-02 13:48 | Emergency (ER) | payer OTHER ==
[~2020-12-02] VITALS: Ht 157.5 cm; Wt 75.8 kg
[~2020-12-02 13:48] MED LIST changes: +IBUPROFEN800 MG PO
== END 2020-12-02 14:55 | disposition home or self-care (01) ==
LOC: ED 13:48
DX: S62.001A Unspecified fracture of navicular [scaphoid] bone of right wrist, initial encounter for closed fracture (principal); W19.XXXA Unspecified fall, initial encounter; J45.909 Unspecified asthma, uncomplicated; M10.9 Gout, unspecified; F17.200 Nicotine dependence, unspecified, uncomplicated; Z79.899 Other long term (current) drug therapy; Z91.030 Bee allergy status; Z88.0 Allergy status to penicillin; Z88.6 Allergy status to analgesic agent; Z88.5 Allergy status to narcotic agent; Z88.2 Allergy status to sulfonamides
CPT/HCPCS: 29125; 99283-25

== ENCOUNTER 2022-05-26 14:58 | Emergency (ER) | payer OTHER ==
[~2022-05-26] VITALS: Ht 157.5 cm; Wt 76.0 kg
[2022-05-27] MEDS ORDERED: DOXYCYCLINE HY100 MG PO (00:34)
[2022-05-27] MEDS ORDERED: CLEOCIN HCL300 MG PO (00:34)
== END 2022-05-27 01:04 | disposition home or self-care (01) ==
LOC: ED 14:58
DX: S61.255A Open bite of left ring finger without damage to nail, initial encounter (principal); L03.012 Cellulitis of left finger; G47.00 Insomnia, unspecified; J45.909 Unspecified asthma, uncomplicated; F17.200 Nicotine dependence, unspecified, uncomplicated; Z23 Encounter for immunization; Z91.030 Bee allergy status; Z88.0 Allergy status to penicillin; Z88.6 Allergy status to analgesic agent; Z88.5 Allergy status to narcotic agent; Z88.2 Allergy status to sulfonamides; Z79.899 Other long term (current) drug therapy; W55.01XA Bitten by cat, initial encounter
CPT/HCPCS: 73140; 90471; 90715; 99283-25; A9270

== ENCOUNTER 2023-06-12 13:53 | Emergency (ER) | payer OTHER ==
[~2023-06-12] VITALS: Ht 157.5 cm; Wt 78.7 kg
[~2023-06-12 13:53] MED LIST changes: +DOXYCYCLINE HY100 MG PO; +ZITHROMAX250 MG PO
[2023-06-12 15:12] LABS: INFLUENZA B NAA NEGATIVE (NEGATIVE); RESPIRATORY SYNCYTIAL VIR NAA NEGATIVE (NEGATIVE)
[2023-06-12] MEDS ORDERED: PREDNISONE20 MG PO (17:33)
[2023-06-12 17:57] VITALS: BP 109/83
== END 2023-06-12 17:57 | disposition home or self-care (01) ==
LOC: ED 13:53
PROVIDERS: Emergency Medicine
DX: J10.1 Influenza due to other identified influenza virus with other respiratory manifestations (principal); F17.200 Nicotine dependence, unspecified, uncomplicated; Z88.0 Allergy status to penicillin; Z91.030 Bee allergy status; Z88.5 Allergy status to narcotic agent; Z79.899 Other long term (current) drug therapy; Z11.52 Encounter for screening for COVID-19
CPT/HCPCS: 87502; 94664; 99283-25; C9803; J7512; U0002

== ENCOUNTER 2024-08-23 15:08 | Emergency (ER) | payer SELFPAY ==
[~2024-08-23] VITALS: Ht 157.5 cm; Wt 84.8 kg
[~2024-08-23 15:08] MED LIST changes: +PREDNISONE20 MG PO
[2024-08-23] MEDS ORDERED: PREDNISONE20 MG PO (18:39)
[2024-08-23] MEDS ORDERED: TRAMADOL HCL50 MG PO (18:39)
[2024-08-23 19:03] VITALS: BP 116/71
== END 2024-08-23 19:07 | disposition home or self-care (01) ==
LOC: ED 15:08
DX: M25.511 Pain in right shoulder (principal); J45.909 Unspecified asthma, uncomplicated; F17.200 Nicotine dependence, unspecified, uncomplicated; Z88.0 Allergy status to penicillin; Z88.8 Allergy status to other drugs, medicaments and biological substances; Z88.5 Allergy status to narcotic agent; Z88.2 Allergy status to sulfonamides; Z91.030 Bee allergy status; Z79.899 Other long term (current) drug therapy
CPT/HCPCS: 73030; 99283

== ENCOUNTER 2024-12-27 05:37 | Day surgery (SDC) | payer OTHER ==
[~2024-12-27] VITALS: Ht 157.5 cm; Wt 80.0 kg
[~2024-12-27 05:37] MED LIST changes: +LACTATED RINGER'S 1,000 ML IV SCH
[2024-12-27 06:07] VITALS: BP 121/74
[2024-12-27] MEDS ORDERED: MIDAZOLAM HCL 2 MG/2 ML VIAL ONE (06:43)
[2024-12-27] MEDS ORDERED: LIDOCAINE HCL 2% 5 ML SDV ONE (06:43)
[2024-12-27] MEDS ORDERED: DEXAMETHASONE SOD PHOS 4 MG/ML VIAL ONE ×2 (06:43→06:57)
[2024-12-27] MEDS ORDERED: fentaNYL citrate 100 MCG/2 ML VIAL ONE (06:43)
[2024-12-27] MEDS ORDERED: Ropivacaine HCl 0.5% 30 ML VIAL ONE (06:43)
[2024-12-27] MEDS ORDERED: KETOROLAC TROMETHAMINE 15 MG/ML VIAL IV PRN (07:00)
[2024-12-27] MEDS ORDERED: IBLOOD GLUCOSE TEST STRIP 1 EA TEST VI PRN ×2 (07:00→07:30)
[2024-12-27] MEDS ORDERED: HYDROCODONE/ACETA 7.5/325 TAB PO PRN (07:00)
[2024-12-27] MEDS ORDERED: CEFAZOLIN SODIUM 2 GM/20 ML SYR IV SCH (07:00)
[2024-12-27] MEDS ORDERED: LIDOCAINE HCL 1% 5 ML SDV INJ ONE (07:00)
[2024-12-27] MEDS ORDERED: TRANEXAMIC ACID IN NACL,ISO-OS 1,000 MG/100 ML PIGGYBACK IV SCH (07:00)
[2024-12-27] MEDS ORDERED: KETOROLAC TROMETHAMINE 30 MG/ML VIAL IV PRN (07:30)
[2024-12-27] MEDS ORDERED: NALOXONE HCL 0.4 MG SYR IV PRN (07:30)
[2024-12-27] MEDS ORDERED: KETOROLAC TROMETHAMINE 30 MG/ML VIAL ONE (07:43)
[2024-12-27] MEDS ORDERED: DICLOFENAC SODI75 MG PO (08:00)
[2024-12-27] MEDS ORDERED: HYDROCODON-ACE1 EA11 PO (08:01)
[2024-12-27 08:30] VITALS: BP 110/66
--- NOTE | 2024-12-27 08:30 | NUR ---
PT ARRIVED BACK TO ON RA, AAOX3, ANSWERING QUESTIONS APPROPRIATELY, AND ABLE TO MAKE HER NEEDS KNOWN. REPORT RECEIVED FROM BARREL DRAINER ANNA. SURGICAL SITES VISUALIZED. DRSGS TO SHOULDER APPEAR CDI. VS TAKEN. PER REPORT FROM BARREL DRAINER ANNA, PTS IV IN L HAND WAS ACCIDENTALLY PULLED OUT DURING TRASNFER OF PT IN OR AFTER PROCEDURE COMPLETE. NOTED PRESSURE DRSG IN PLACE TO L HAND THAT APPEARS CDI. PT DENIES PAIN OR NAUSEA WHEN ASKED. PT REPORTS COMPLETE NUMBNESS IN RUE BUT REPORTS SHE IS ABLE TO WIGGLE HER FINGERS SOME. PT WITH SLING IN PLACE TO RUE WELL CRYO CUFF. PT PROVIDED WITH JELLO, CRACKERS, AND ICE WATER. ASSISTED PT WITH EATING JELLO. CALL LIGHT AND PERSONAL BELONGINGS WITHIN PT REACH. BED IN LOW POSITION, WHEELS LOCKED, BILAT RAILS IN PLACE. ALL QUESTIONS ANSWERED.
[2024-12-27] MEDS ORDERED: DICLOFENAC SOD 75 MG TABEC PO SCH (09:00)
--- NOTE | 2024-12-27 09:30 | NUR ---
12/27/24 0930 Milagro Emery 0751 PT ARRIVED TO PACU AWAKE AND TALKING TO RN. PT REPORTS "I CAN'T MOVE MY ARM." EDUCATION GIVEN ON BLOCK AND PT DENIES NAUSEA AND PAIN. 0810 HOB INCREASED AND PILLOW PLACE UNDER RIGHT ARM. ICE PLACED ON SHOULDER. PT RESTLESS AND CONTINUES TO REPORT "I JUST WANT TO MOVE MY ARM." 0815 PT PLACED HER OWN DENTURES AND GLASSES ON AND SIPPING WATER. 0830 PT RETURNED TO DS AND REPORT GIVEN. VSS. CRYO CUFF PLACED.
[2024-12-27 09:35] VITALS: BP 115/66
--- NOTE | 2024-12-27 10:20 | NUR ---
0920-PTS SON AND DAUGHTER ARRIVED AND AT PTS BEDSIDE. 30-INTO PTS ROOM FOR ROUTINE REASSESSMENT. PT REPORTS URGE TO VOID. ASSISTED PT WITH FITTING SLING. PT THEN AMBULATED ACCROSS HALLWAY TO [facility] W/RN SBA FOR SAFETY. PT ABLE TO VOID APPROX 150 ML OF CLR, YELLOW URINE. ASSISTED PT BACK TO ROOM AND THEN WITH DRESSING FOR DISCHARGE. VS TAKEN. PT CONT TO DENY PAIN OR NAUSEA WHEN ASKED. SURGICAL DRSGS VISUALIZED POST-AMBULATION. NO ACUTE CHANGES NOTED. CMS APPEARS INTACT. CRYO CUFF TO R SHOULDER. PT REPORTS RUE REMAINS NUMB, BUT CONT TO BE ABLE TO WIGGLE FINGERS. SLING IN PLACE AND FITTED TO PT. VERBAL AND WRITTEN DISCHARGE EDUCAITON PROVIDED TO PT. PT PROVIDED DR. EDDY POST-OPERATIVE HANDOUT FOR SHOULDER SURGERIES, DR. EDDY AFTER HOURS PHONE NUMBER, AND HER POST-OPERATIVE APPT. FAMILY PRESENT FOR DC EDUCATION. ALL QUESTIONS ANSWERED. PT VERBALIZED UNDERSTANDING. SON LEFT WITH PTS PERSONAL BELONGINGS TO PULL CAR AROUND TO FRONT.
--- NOTE | 2024-12-27 10:25 | NUR ---
PT DISCHARGED FROM DS VIA WC TO PASSENGER SIDE OF SONS VEHICLE. ALL PERSONAL BELONGINGS TAKEN WITH PT.
[2024-12-27] MEDS ORDERED: SEVOFLURANE 250 ML BTL INH ONE (16:28)
--- NOTE | 2024-12-30 07:12 | OR ---
[facility] [address] [place], [place] [address] Signed DATE OF OPERATION: 12/27/2024 SURGEON: Michelle Man MD PREOPERATIVE DIAGNOSIS: Partial rotator cuff tear, right shoulder. POSTOPERATIVE DIAGNOSIS: Partial rotator cuff tear, right shoulder. PROCEDURE PERFORMED: Right shoulder arthroscopy with subacromial decompression and debridement of partial tear. 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 ANESTHESIA: General. BLOOD LOSS: Minimal. BRIEF HISTORY: Riddhi is a 54-year-old female who has pain in her shoulder, nonresponsive to nonoperative treatment. Risks, benefits, and alternatives of surgery were discussed with her and she elected to proceed. Once consent was obtained, she was taken to the operating room. After adequate anesthesia, she was placed on operating room table in a beach chair positioner. The downside pressure points were well padded. The right shoulder was prepped and draped in a standard sterile fashion. The shoulder was injected with 15 mL of 0.25% Marcaine with epinephrine as was subacromial space. Standard posterior portal was made. The scope was introduced into the shoulder. ARTHROSCOPIC FINDINGS: The glenohumeral space was intact. Biceps, biceps anchor and labrum were intact. Undersurface of the rotator cuff showed a mild amount of partial tearing of the supraspinatus footprint. The subacromial space showed moderate bursitis and intact rotator cuff with a lateral downsloping acromion. DESCRIPTION OF OPERATION: Electronically Signed By: MICHELLE MAN MD 12/30/24 0712 PATIENT NAME: RIDDHI JOHNSON OPERATIVE REPORT DATE OF : 72 REPORT #: [id number] PHYSICIAN: MICHELLE MAN MD PCP: NO PRIMARY CARE PHYSICIAN REPORT IS CONFIDENTIAL AND NOT TO BE RELEASED WITHOUT AUTHORIZATION [address] [address] Signed Diagnostic arthroscopy was undertaken as noted above. The standard anterior portal was made using an outside-in technique. The shaver was then used to debride the partial rotator cuff and the underlying bone. There was good bleeding. The scope was withdrawn, placed in subacromial space and the bursa was removed using a combination of Mitek VAPR and the shaver. The lateral acromion was then shaved down until it was flat. The scope was withdrawn. Portals were closed with 3-0 nylon and the shoulder was injected with 80 mL of Toradol. She tolerated the procedure well. All sponge, needle, and instrument counts were correct. Michelle Man MD BA/LOURDESL /[id number] Copies: ~ Electronically Signed By: MICHELLE MAN MD 12/30/24 0712 PATIENT NAME: RIDDHI JOHNSON OPERATIVE REPORT DATE OF : 72 REPORT #: [id number] PHYSICIAN: MICHELLE MAN MD PCP: NO PRIMARY CARE PHYSICIAN REPORT IS CONFIDENTIAL AND NOT TO BE RELEASED WITHOUT AUTHORIZATION
== END 2024-12-27 10:25 | disposition home or self-care (01) ==
LOC: DS 05:37
PROVIDERS: ATTEND Specialist
PROC: 0RNJ4ZZ Release Right Shoulder Joint, Percutaneous Endoscopic Approach (ICD-10-PCS; principal; 2024-12-27 07:00)
DX: M75.111 Incomplete rotator cuff tear or rupture of right shoulder, not specified as traumatic (principal); G89.18 Other acute postprocedural pain; J45.909 Unspecified asthma, uncomplicated; F17.200 Nicotine dependence, unspecified, uncomplicated; Z88.0 Allergy status to penicillin; Z88.5 Allergy status to narcotic agent; Z88.2 Allergy status to sulfonamides; Z91.030 Bee allergy status; Z79.899 Other long term (current) drug therapy
CPT/HCPCS: 01630; 64415; 76942; J0690; J1100; J1885; J2003; J2250; J2405; J2704; J2795; J3010; J7121